=== PATIENT | female | born 1975 | race Caucasian/White ===

== ENCOUNTER → 2018-02-18 10:53 | Outpatient (CLI) | payer OTHER, SELFPAY ==
--- NOTE | 2018-02-20 19:35 | LEAS_ITS ---
Arterial Study - Arterial Study Arterial Study: This is a 42-year-old female who presents with paresthesias in her lower extremities, and suspected peripheral arterial occlusive disease. She is brought to the noninvasive vascular laboratory at this time for the purpose of bilateral noninvasive lower extremity arterial assessment. Doppler signal assessment was used to evaluate the pulses at ankle level bilaterally. The posterior tibial and dorsalis pedis pulses were triphasic bilaterally. Segmental limb pressures were obtained bilaterally. The right ankle pressure, as determined by posterior tibial pulse, was measured at 194 mmHg. The right ankle pressure, as determined by dorsalis pedis pulse, was measured at 181 mmHg. The right digital pressure was measured at 126 mmHg. The left ankle pressure, as determined by posterior tibial pulse, was measured at 192 mmHg. The left ankle pressure, as determined by dorsalis pedis pulse, was measured at 173 mmHg. The left digital pressure was measured at 147 mmHg. Pulse?volume recordings were obtained at ankle and digital levels bilaterally. Waveform amplitudes appeared to be satisfactory bilaterally. Resting ankle?brachial indices were calculated bilaterally. The resting right ankle?brachial index was calculated to be 1.26. The resting left ankle?brachial index was calculated to be 1.25. Digital?brachial indices were calculated bilaterally. The right digital- brachial index was calculated to be 0.82. The left digital-brachial index was calculated to be 0.95. Impression: Based upon the findings of this resting noninvasive lower extremity arterial study, there is no evidence of significant arterial occlusive disease in the lower extremities bilaterally. Triphasic waveforms are noted at ankle level bilaterally. Resting ankle?brachial indices are bilaterally normal. Digital-brachial indices are also normal bilaterally. In summary, this represents a normal resting noninvasive lower extremity arterial study bilaterally.
== END ==
PROVIDERS: Family Provider Family Medicine; PCP Family Medicine; Referring Provider Podiatrist Foot & Ankle Surgery; Visit Provider Podiatrist Foot & Ankle Surgery
DX: I73.9 Peripheral vascular disease, unspecified (principal)
CPT/HCPCS: 93922

== ENCOUNTER → 2018-06-11 10:56 | Outpatient (CLI) | payer OTHER, SELFPAY ==
[2017-06-11 09:08] VITALS: BMI 35.3
[2018-06-11 12:23] LABS: Free T3 4.2 pg/mL (2.18-3.98); T4 Free Direct 0.89 ng/dL (0.76-1.46); Thyroid Stim Hormone (TSH) 1.44 uIU/mL (0.358-3.74)
[2018-06-14 12:31] LABS: T3 Reverse 14.8 ng/dL (9.2-24.1)
== END ==
PROVIDERS: Family Provider Family Medicine; PCP Family Medicine
DX: E03.9 Hypothyroidism, unspecified (principal); Z51.81 Encounter for therapeutic drug level monitoring
CPT/HCPCS: 36415; 84439; 84443; 84481; 84482

== ENCOUNTER → 2018-10-22 | Outpatient (CLI) | payer OTHER, SELFPAY ==
[2017-06-11 09:08] VITALS: BMI 35.3
[2018-10-22 10:32] LABS: Absolute Lymphocyte Count 1.73 X10^3/ul (0.83-4.51); Absolute Neutrophil Count 3.4 X10^3/uL (2.0-7.7); Basophil# 0.01 X10^3/uL; Basophil% 0.2 % (0-1); Eosinophil# 0.05 X10^3/uL; Eosinophils% 0.9 % (0-5); Hematocrit 41.9 % (37-47); Hemoglobin 13.6 g/dl (12.0-15.0); Lymphocyte # 1.73 X10^3/ul (4.0); Lymphocyte % 31.2 % (19-41); Mean Corp Hgb Conc 32.5 g/gl (32-36); Mean Corpuscular Hgb 29.5 pg (27.0-32.0); Mean Corpuscular Volume 90.9 fL (81-99); Mean Platelet Vol. 9.8 fl (6.2-12.0); Monocyte# 0.37 X10^3/uL; Monocyte% 6.7 % (0-10); Neutrophil # 3.38 X10^3/uL (2.7-7.7); Neutrophil % 60.8 % (47-70); Platelet Count 215 K/mm3 (150-450); RBC Distribution Width CV 14.6 % (11.6-14.6); RBC Distribution Width SD 48.5 fl (35.1-43.9); Red Blood Count 4.61 M/mm3 (4.2-5.4); White Blood Count 5.6 K/mm3 (4.4-11.0)
[2018-10-22 10:35] LABS: POSITIVE COUNT NO; POSITIVE DIFFERENTIAL NO; POSITIVE MORPHOLOGY NO
[2018-10-22 10:56] LABS: ALB/GLOB Ratio 0.9 RATIO (0.9-2.4); AST(SGOT) 19 U/L (15-37); Alanine Aminotransfer ALT/SGPT 81 U/L (13-56); Albumin, Serum 3.4 g/dL (3.2-5.0); Alkaline Phosphatase 144 U/L (45-117); Anion Gap 8 (5-15); BUN 10 mg/dL (7-18); BUN/Creat Ratio 14.1 RATIO (10-20); Calcium,Total 8.7 mg/dL (8.5-10.1); Chloride 105 mmol/L (98-107); Creatinine, Serum 0.71 mg/dL (0.55-1.02); EST Glomerular Filtration Rate 95 mL/min (>60); Est Glom Filt Rate - Afr Amer 115 mL/min (>60); Globulin 3.8 g/dL (2.2-4.2); Glucose 98 mg/dL (74-106); Potassium 3.9 mmol/L (3.5-5.1); Protein, Total 7.2 g/dL (6.4-8.2); Sodium Level 142 mmol/L (136-145)
== END | disposition home or self-care (01) ==
LOC: LAB 09:49
PROVIDERS: Family Provider Family Medicine; PCP Family Medicine
DX: R53.83 Other fatigue (principal); Z79.2 Long term (current) use of antibiotics
CPT/HCPCS: 36415; 80053; 82533; 85025

== ENCOUNTER 2019-05-21 18:46 | Emergency (ER) | payer OTHER, SELFPAY ==
[2019-05-21 18:48] VITALS: BP 134/83; PULSE 91; RESP 22; TEMP 36.6; O2SAT 100; BMI 34.1
[2019-05-21 18:52] VITALS: PULSE 104; O2SAT 100
[2019-05-21 19:30] LABS: Absolute Lymphocyte Count 2.68 X10^3/uL (0.83-4.51); Absolute Neutrophil Count 7.7 X10^3/uL (2.0-7.7); Basophil# 0.08 X10^3/uL; Basophil% 0.7 % (0-1); Eosinophils% 2.5 % (0-5); Hemoglobin 15.4 g/dL (12.0-15.0); Lymphocyte # 2.68 X10^3/ul (4.0); Lymphocyte % 22.8 % (19-41); Mean Corp Hgb Conc 32.8 g/dL (32-36); Mean Corpuscular Hgb 28.7 pg (27.0-32.0); Mean Corpuscular Volume 87.5 fL (81-99); Mean Platelet Vol. 9.6 fl (6.2-12.0); Monocyte# 0.94 X10^3/uL; NRBC Flagged by Analyzer 0 % (0-5); Neutrophil # 7.72 X10^3/uL (2.7-7.7); Neutrophil % 65.5 % (47-70); Platelet Count 373 K/mm3 (150-450); RBC Distribution Width CV 13.3 % (11.6-14.6); RBC Distribution Width SD 42.4 fl (35.1-43.9); Red Blood Count 5.37 M/mm3 (4.2-5.4); White Blood Count 11.8 K/mm3 (4.4-11.0)
[2019-05-21] MEDS: 0.9% Normal Saline 1,000 ML 1000 ML IV (19:30)
[2019-05-21 19:40] LABS: Anion Gap 8 (5-15); BUN 7 mg/dL (7-18); BUN/Creat Ratio 7.3 RATIO (10-20); Calcium,Total 9.5 mg/dL (8.5-10.1); Chloride 103 mmol/L (98-107); Creatinine, Serum 0.95 mg/dL (0.55-1.02); EST Glomerular Filtration Rate 67 mL/min (>60); Est Glom Filt Rate - Afr Amer 81 mL/min (>60); Estimated Creatinine Clearance 69.27 ml/min; Glucose 110 mg/dL (74-106); Potassium 3.4 mmol/L (3.5-5.1); Sodium Level 137 mmol/L (136-145)
--- NOTE | 2019-05-21 19:45 | RAD_ITS ---
STUDY: X-RAY CHEST REASON FOR EXAM: Female, 44 years old. Cough with shortness of breath. TECHNIQUE: PA and lateral views of the chest. COMPARISON: May 05, 2013. FINDINGS: The lungs are clear and expanded. There is no demonstrated pleural abnormality. Normal size heart. Normal mediastinum and roger. Normal visualized pulmonary arteries. Normal visualized aortic arch and descending thoracic aorta. Normal visualized thoracic spine. Normal visualized ribs, clavicles, and shoulders. There is no demonstrated abnormality of the visualized soft tissue structures of the upper abdomen. RAD/Chest PA and Lateral IMPRESSION: No acute cardiopulmonary disease or interval change. Electronically Signed: Beau Delacruz DO at 20:00 EST Tel [phone], Service support ,
--- NOTE | 2019-05-21 19:51 | ED.VIS.GEN ---
History of Present Illness Chief Complaint: Shortness of Breath Informant: Patient Onset: Weeks - Onset of illness 3 weeks ago. Context: Sudden Onset - Reported sudden onset of difficulty breathing and reason patient presents today Timing: Continuous Quality: Upper respiratory symptoms Location: Respiratory Current Severity: Mild Maximum Severity: Moderate Worsened by: Nothing Relieved by: Nothing Associated Symptoms: Viral upper respiratory symptoms Narrative: She presents with difficulty breathing. This occurred abruptly and reason she presented to the emergency department. She was seen at urgent care earlier today and prescribed antibiotic for presumed sinus infection. Patient denies headache. Patient does complain of head pressure. She does report congestion, slight change in voice and sore throat. She does have a cough. There is no history of PE or DVT. There is no risk factors for either. She denies leg pain, swelling discoloration. She denies pleuritic pain. She denies GI symptoms. She informed that she was diagnosed with Lyme's disease 3 years ago and still has Lyme's disease. She is seen in [facility] in [place]. - Past Medical History (1) Lyme disease Status: Acute (2) Fatigue Status: Acute Past Medical History - Allergies and Home Meds Allergies/Adverse Reactions: Allergies No Known Allergies Allergy (Verified 09/24/13 11:19) Primary Care Physician: Jane Church [Primary Care Provider] - Surgical History: noncontributory Lives: Spouse/ Significant Other Smoking Status: Never smoker Drugs: None Review of Systems General: Reports: Malaise. Denies: Chills, Fever, Subjective, Sweats Eyes: Denies: Visual changes - bilaterally, Blurred Vision - bilaterally, Diplopia ENT: Reports: Rhinorrhea, Sore throat. Denies: Bilateral ear pain Cardiovascular: Denies: Chest pain, Palpitations Respiratory: Reports: Dyspnea, Cough, Sputum. Denies: Dyspnea on exertion, Orthopnea, Paroxysmal nocturnal dyspnea Gastrointestinal: Denies: Abdominal pain, Nausea, Vomiting, Diarrhea, Melena, Hematochezia Genitourinary: Denies: Dysuria, Hematuria, Frequency Musculoskeletal: Denies: Myalgias, Arthralgias, Neck pain, Back pain, Swelling, Extremity Pain, -, - Skin: Denies: Rash Neurological: Reports: Weakness. Denies: Headache, Parasthesia Hematologic: Denies: Easy bruising, Easy bleeding Allergy: Denies: Uticaria, Swelling of the mouth Physical Exam Vital Signs/Narrative: Vital Signs Temp Pulse Resp BP Pulse Ox 05/21/19 18:52 104 H 05/21/19 18:48 97.8 F 91 22 H 134/83 H 100 Inital Vital Signs reviewed: Yes General: Well nourished, Well developed, No Acute Distress Head: Normocephalic, Atraumatic Eyes: Perrl, EOMI. Negative for: Pale conjunctiva, Scleral icterus ENT: Moist mucous membranes, No rhinorrhea, TM's clear. Negative for: Sinus tenderness Neck: Supple, Nontender, No lymphadenopathy, No JVD Cardiovascular: Regular rate, Regular rhythm, No murmurs, Normal S1, Normal S2 Respiratory: No distress, CTA bilaterally, Chest nontender Abdomen: Soft, Nontender, Nondistended, Normal bowel sounds Back: Nontender, Normal Inspection Extremities: Nontender, No edema Skin: Normal color, No rash, No Trauma. Negative for: Cyanosis, Diaphoresis, Jaundice Neurological: Alert, Oriented x3, Cranial nerves II-XII grossly intact, Normal Strength, Normal Sensation, Normal DTR - There is no clonus or Babinski sign. Psychological: Depressed Diagnostic/Tx/Re-eval Chest X-Ray - ED: 2 View, Read by ED Physician, Normal, Heart, Lungs, Mediastinum, Bony Structures, No Acute Disease 05/21/19 19:45 Chest PA and Lateral [RAD] Stat Laboratory Results 05/21/19 05/21/19 19:06 19:06 WBC 11.8 H RBC 5.37 Hgb 15.4 H Hct 47.0 MCV 87.5 MCH 28.7 MCHC 32.8 RDW Std Deviation 42.4 RDW Coeff of Geo 13.3 Plt Count 373 MPV 9.6 Immature Gran % (Auto) 0.500 Neut % (Auto) 65.5 Lymph % (Auto) 22.8 [place] % (Auto) 8.0 Eos % (Auto) 2.5 Baso % (Auto) 0.7 Absolute Neuts (auto) 7.7 Absolute Lymphs (auto) 2.68 Nucleated RBC % 0 Sodium 137 Potassium 3.4 L Chloride 103 Carbon Dioxide 26.0 Anion Gap 8 BUN 7 Creatinine 0.95 Estim Creat Clear Calc 69.27 Est GFR (MDRD) Af Amer 81 Est GFR (MDRD) Non-Af 67 BUN/Creatinine Ratio 7.3 L Glucose 110 H Calcium 9.5 - Medical Decision Making Resents with viral upper respiratory type symptoms. Because she has had symptoms for 3 weeks and complains of cough chest x-ray was obtained. The chest x-ray reveals no acute abnormality. Blood work reveals slight elevation white count which is nonspecific and can be result of viral infection. Since patient is not hypoxic, febrile or tachycardic plan is to discharge to home to follow-up with primary care physician Dr. Jane Braden. Patient is PERC negative. Patient was informed at 1999 that her work-up was unremarkable. She was told this in all likelihood is a viral infection. ED Disposition - Plan for ED Patient: Disposition: Home or Assisted Living Diagnosis: Upper respiratory infection with cough and congestion Instructions: BRONCHITIS, No Antibiotic (Adult) Referrals: Jane Church [Primary Care Provider] - 1 Week if not improving
[2019-05-21 20:10] VITALS: BP 128/74; PULSE 81; RESP 22; O2SAT 97
--- NOTE | 2019-05-21 20:11 | ED.RN ---
THIS NURSE REVIEWED D/C INSTRUCTIONS WITH PT. PT VERBALIZED UNDERSTANDING OF INSTRUCTIONS. IV D/C. IV CATHETER INTACT. PT TOLERATED WELL. PT DENIES FURTHER NEEDS OR QUESTIONS AT THIS TIME
== END 2019-05-21 20:12 | disposition home or self-care (01) ==
PROVIDERS: Emergency Provider Emergency Medicine; PCP Family Medicine
DX: J06.9 Acute upper respiratory infection, unspecified (principal); A69.20 Lyme disease, unspecified
CPT/HCPCS: 71046; 80048; 85025; 87804; 96360; 99284; J7030; A4216

== ENCOUNTER 2019-08-05 14:18 | Outpatient (RCR) | payer OTHER, SELFPAY ==
[2019-08-05 15:53] LABS: ALB/GLOB Ratio 0.9 RATIO (0.9-2.4); AST(SGOT) 49 U/L (15-37); Alanine Aminotransfer ALT/SGPT 84 U/L (13-56); Albumin, Serum 3.5 g/dL (3.2-5.0); Alkaline Phosphatase 121 U/L (45-117); Anion Gap 3 (5-15); BUN 9 mg/dL (7-18); BUN/Creat Ratio 11.7 RATIO (10-20); Calcium,Total 9.2 mg/dL (8.5-10.1); Chloride 107 mmol/L (98-107); Creatinine, Serum 0.77 mg/dL (0.55-1.02); EST Glomerular Filtration Rate 85 mL/min (>60); Est Glom Filt Rate - Afr Amer 103 mL/min (>60); Globulin 3.8 g/dL (2.2-4.2); Glucose 75 mg/dL (74-106); Potassium 3.7 mmol/L (3.5-5.1); Protein, Total 7.3 g/dL (6.4-8.2); Sodium Level 140 mmol/L (136-145)
== END 2019-08-21 18:00 | disposition home or self-care (01) ==
LOC: LAB 14:18
PROVIDERS: PCP Family Medicine
DX: R53.83 Other fatigue (principal); Z51.81 Encounter for therapeutic drug level monitoring
CPT/HCPCS: 36415; 80053

== ENCOUNTER 2019-09-05 09:56 | Outpatient (RCR) | payer OTHER, SELFPAY ==
[2019-09-05 11:34] LABS: ALB/GLOB Ratio 0.8 RATIO (0.9-2.4); AST(SGOT) 30 U/L (15-37); Alanine Aminotransfer ALT/SGPT 58 U/L (13-56); Albumin, Serum 3.2 g/dL (3.2-5.0); Alkaline Phosphatase 111 U/L (45-117); Anion Gap 8 (5-15); BUN 12 mg/dL (7-18); BUN/Creat Ratio 13.9 RATIO (10-20); Calcium,Total 9.1 mg/dL (8.5-10.1); Chloride 108 mmol/L (98-107); Creatinine, Serum 0.86 mg/dL (0.55-1.02); EST Glomerular Filtration Rate 75 mL/min (>60); Est Glom Filt Rate - Afr Amer 91 mL/min (>60); Globulin 3.8 g/dL (2.2-4.2); Glucose 108 mg/dL (74-106); Potassium 3.7 mmol/L (3.5-5.1); Sodium Level 140 mmol/L (136-145)
== END 2019-09-05 18:00 | disposition home or self-care (01) ==
LOC: LAB 09:56
PROVIDERS: PCP Family Medicine
DX: R53.83 Other fatigue (principal); Z51.81 Encounter for therapeutic drug level monitoring
CPT/HCPCS: 36415; 80053

== ENCOUNTER → 2020-02-11 12:45 | Outpatient (CLI) | payer OTHER, SELFPAY ==
[2020-02-11 15:41] LABS: Absolute Lymphocyte Count 2.23 X10^3/uL (0.83-4.51); Absolute Neutrophil Count 4.3 X10^3/uL (2.0-7.7); Basophil# 0.03 X10^3/uL; Basophil% 0.4 % (0-1); Eosinophils% 1.4 % (0-5); Hematocrit 44.9 % (37-47); Hemoglobin 13.7 g/dL (12.0-15.0); Lymphocyte # 2.23 X10^3/ul (4.0); Lymphocyte % 30.6 % (19-41); Mean Corp Hgb Conc 30.5 g/dL (32-36); Mean Corpuscular Hgb 27.7 pg (27.0-32.0); Mean Corpuscular Volume 90.9 fL (81-99); Mean Platelet Vol. 10.5 fl (6.2-12.0); Monocyte# 0.56 X10^3/uL; Monocyte% 7.7 % (0-10); NRBC Flagged by Analyzer 0 % (0-5); Neutrophil # 4.34 X10^3/uL (2.7-7.7); Neutrophil % 59.5 % (47-70); Platelet Count 274 K/mm3 (150-450); RBC Distribution Width CV 13.3 % (11.6-14.6); RBC Distribution Width SD 44.4 fl (35.1-43.9); Red Blood Count 4.94 M/mm3 (4.2-5.4); White Blood Count 7.3 K/mm3 (4.4-11.0)
[2020-02-11 16:06] LABS: ALB/GLOB Ratio 0.9 RATIO (0.9-2.4); AST(SGOT) 21 U/L (15-37); Alanine Aminotransfer ALT/SGPT 37 U/L (13-56); Albumin, Serum 3.5 g/dL (3.2-5.0); Alkaline Phosphatase 62 U/L (45-117); Anion Gap 6 (5-15); BUN 9 mg/dL (7-18); BUN/Creat Ratio 12.7 RATIO (10-20); Calcium,Total 8.7 mg/dL (8.5-10.1); Chloride 104 mmol/L (98-107); Creatinine, Serum 0.71 mg/dL (0.55-1.02); EST Glomerular Filtration Rate 94 mL/min (>60); Est Glom Filt Rate - Afr Amer 114 mL/min (>60); Globulin 3.8 g/dL (2.2-4.2); Glucose 91 mg/dL (74-106); LDH 163 U/L (84-246); Potassium 3.9 mmol/L (3.5-5.1); Protein, Total 7.3 g/dL (6.4-8.2); Sodium Level 139 mmol/L (136-145)
== END ==
PROVIDERS: PCP Family Medicine; Referring Provider Family Medicine; Visit Provider Family Medicine
DX: M79.9 Soft tissue disorder, unspecified (principal); R53.83 Other fatigue; Z51.81 Encounter for therapeutic drug level monitoring; R51.9 Headache, unspecified
CPT/HCPCS: 36415; 80053; 83615; 85025

== ENCOUNTER → 2020-02-18 13:12 | Outpatient (CLI) | payer OTHER, SELFPAY ==
--- NOTE | 2020-02-18 13:17 | CT_ITS ---
STUDY: CT ABDOMEN AND PELVIS WITH CONTRAST REASON FOR EXAM: Female, 44 years old. ABDOMINAL DISCOMFORT AND RETROPERITONEAL LYMPHADENOPATHY. PRIOR GALLBLADDER AND UTERUS REMOVED BUT STILL HAS OVARIES RADIATION DOSAGE (If Supplied By Facility): CTDIvol = ( 17.59 ) mGy, DLP = ( 1160.13 ) mGycm TECHNIQUE: Transaxial images were obtained from the dome of the diaphragm to the symphysis pubis without oral contrast. Oral and amp; IV Readi-CAT and amp; 100mL Isovue-300 was administered. Sagittal and coronal images were reconstructed. Individualized dose optimization techniques were used for this CT. COMPARISON: 05/04/2017 FINDINGS: The visualized lung bases are unremarkable. The visualized portions of the heart are within normal limits. Normal liver. There are surgical clips in the gallbladder fossa consistent with a prior cholecystectomy. Normal spleen. Normal pancreas. Normal bilateral adrenal glands. Normal right kidney. Tiny 1 to 2 mm nonobstructing left lower pole calyceal stone. Small bilateral renal cysts. Normal visualized stomach. Normal small intestine. Normal colon. There is non-visualization of the appendix. Normal abdominal aorta. Normal inferior vena cava. Normal retroperitoneum. Normal urinary bladder. There is absence of the uterus consistent with a prior hysterectomy. Heterogeneous left ovary measures up to 3.2 cm. Normal abdominal wall. Normal osseous structures. CT/Abdomen/Pelvis WITH Contrast IMPRESSION: No acute process identified. Left ovary is heterogeneous in appearance which may be physiologic. Consider pelvic sonogram for further evaluation as clinically indicated. Electronically Signed: Hua Espino, at 20:44 EDT Tel , Service support ,
== END ==
PROVIDERS: PCP Family Medicine; Referring Provider Family Medicine; Visit Provider Family Medicine
DX: R59.0 Localized enlarged lymph nodes (principal); R10.9 Unspecified abdominal pain
CPT/HCPCS: 74177; Q9967

== ENCOUNTER → 2020-03-01 11:16 | Outpatient (CLI) | payer OTHER, SELFPAY ==
--- NOTE | 2020-03-01 11:17 | US_ITS ---
STUDY: ULTRASOUND OF THE FEMALE PELVIS - COMPLETE REASON FOR EXAM: Female, 45 years old. ENLARGED LEFT OVARY SEEN ON PREVIOUS CT, HX OF HYSTERECTOMY LMP: Patient is status post hysterectomy. TECHNIQUE: Transabdominal TECHNICAL QUALITY: Adequate. COMPARISON: None. FINDINGS: The patient is status post hysterectomy. The right ovary is visualized. The right ovary measures 3 cm x 1.6 cm x 2.3 cm. There is no right ovarian cyst or ovarian mass. There is no visualized right adnexal mass or complex lesion. There is normal arterial and normal venous vascularity. The left ovary is visualized. The left ovary measures 2.9 cm x 1.8 cm x 1.7 cm. There is no left ovarian cyst or ovarian mass. There is no visualized left adnexal mass or complex lesion. There is normal arterial and normal venous vascularity. There is no fluid in the cul-de-sac. The pre void volume of the bladder was 472 ml. The post void volume of the bladder was ml. US/Pelvic (Non ) IMPRESSION: Status post hysterectomy. Electronically Signed: Tim Swartz, at 13:31 EST , Service support ,
== END ==
PROVIDERS: PCP Family Medicine; Referring Provider Family Medicine; Visit Provider Family Medicine
DX: N83.8 Other noninflammatory disorders of ovary, fallopian tube and broad ligament (principal)
CPT/HCPCS: 76856

== ENCOUNTER → 2020-05-11 09:26 | Outpatient (CLI) | payer OTHER, SELFPAY ==
[2020-05-11 12:24] LABS: Hematocrit 42.5 % (37-47); Hemoglobin 13.6 g/dL (12.0-15.0); Mean Corpuscular Hgb 28.7 pg (27.0-32.0); Mean Corpuscular Volume 89.7 fL (81-99); Mean Platelet Vol. 10.1 fl (6.2-12.0); Platelet Count 295 K/mm3 (150-450); RBC Distribution Width CV 13.7 % (11.6-14.6); RBC Distribution Width SD 44.8 fl (35.1-43.9); Red Blood Count 4.74 M/mm3 (4.2-5.4); White Blood Count 7.3 K/mm3 (4.4-11.0)
[2020-05-11 12:47] LABS: ALB/GLOB Ratio 0.9 RATIO (0.9-2.4); AST(SGOT) 16 U/L (15-37); Alanine Aminotransfer ALT/SGPT 32 U/L (13-56); Albumin, Serum 3.4 g/dL (3.2-5.0); Alkaline Phosphatase 62 U/L (45-117); Anion Gap 5 (5-15); BUN 9 mg/dL (7-18); BUN/Creat Ratio 11.4 RATIO (10-20); Calcium,Total 8.7 mg/dL (8.5-10.1); Chloride 106 mmol/L (98-107); Creatinine, Serum 0.79 mg/dL (0.55-1.02); EST Glomerular Filtration Rate 83 mL/min (>60); Est Glom Filt Rate - Afr Amer 101 mL/min (>60); Free T3 3.1 pg/mL (2.18-3.98); Globulin 3.6 g/dL (2.2-4.2); Glucose 94 mg/dL (74-106); Sodium Level 140 mmol/L (136-145); T4 Free Direct 1.23 ng/dL (0.76-1.46); Thyroid Stim Hormone (TSH) 0.76 uIU/mL (0.358-3.74)
== END ==
PROVIDERS: PCP Family Medicine
DX: E03.9 Hypothyroidism, unspecified (principal); R53.83 Other fatigue
CPT/HCPCS: 36415; 80053; 84439; 84443; 84481; 85027

== ENCOUNTER → 2020-09-06 09:48 | Outpatient (CLI) | payer OTHER, SELFPAY ==
[2020-09-06 12:24] LABS: Absolute Lymphocyte Count 2.18 X10^3/uL (0.83-4.51); Absolute Neutrophil Count 5.5 X10^3/uL (2.0-7.7); Basophil# 0.04 X10^3/uL; Basophil% 0.5 % (0-1); Eosinophil# 0.19 X10^3/uL; Eosinophils% 2.2 % (0-5); Hematocrit 41.7 % (37-47); Hemoglobin 13.2 g/dL (12.0-15.0); Lymphocyte # 2.18 X10^3/ul (0.83-4.51); Lymphocyte % 25.6 % (19-41); Mean Corp Hgb Conc 31.7 g/dL (32-36); Mean Corpuscular Hgb 28.5 pg (27.0-32.0); Mean Corpuscular Volume 90.1 fL (81-99); Monocyte# 0.55 X10^3/uL; Monocyte% 6.5 % (0-10); NRBC Flagged by Analyzer 0 % (0-5); Neutrophil # 5.52 X10^3/uL (2.7-7.7); Neutrophil % 64.7 % (47-70); Platelet Count 338 K/mm3 (150-450); RBC Distribution Width CV 13.8 % (11.6-14.6); Red Blood Count 4.63 M/mm3 (4.2-5.4); White Blood Count 8.5 K/mm3 (4.4-11.0)
[2020-09-06 12:44] LABS: ALB/GLOB Ratio 0.9 RATIO (0.9-2.4); AST(SGOT) 17 U/L (15-37); Alanine Aminotransfer ALT/SGPT 43 U/L (13-56); Albumin, Serum 3.5 g/dL (3.2-5.0); Alkaline Phosphatase 97 U/L (45-117); Anion Gap 5 (5-15); BUN 12 mg/dL (7-18); BUN/Creat Ratio 17.2 RATIO (10-20); Calcium,Total 8.9 mg/dL (8.5-10.1); Chloride 105 mmol/L (98-107); EST Glomerular Filtration Rate 96 mL/min (>60); Est Glom Filt Rate - Afr Amer 116 mL/min (>60); Globulin 3.7 g/dL (2.2-4.2); Glucose 101 mg/dL (74-106); Protein, Total 7.2 g/dL (6.4-8.2); Sodium Level 137 mmol/L (136-145)
== END ==
PROVIDERS: PCP Family Medicine
DX: R53.83 Other fatigue (principal); Z79.2 Long term (current) use of antibiotics
CPT/HCPCS: 36415; 80053; 85025

== ENCOUNTER 2021-04-25 17:45 | Outpatient (CLI) | payer OTHER, SELFPAY | END 2021-04-25 23:59 | disposition short-term general hospital (02) | PROVIDERS: PCP Family Medicine; Referring Provider Family Medicine; Visit Provider Family Medicine | DX: U07.1 COVID-19 (principal) | CPT/HCPCS: 87635; U0003; U0005 ==

== ENCOUNTER 2021-04-29 11:32 | Outpatient (CLI) | payer OTHER, SELFPAY ==
[2021-04-29 11:45] VITALS: BP 139/92; PULSE 81; RESP 16; TEMP 36.5; O2SAT 100; BMI 35.5
[2021-04-29] MEDS: 0.9% Saline Lock 10 ML Syringe IV (11:48)
[2021-04-29 12:25] VITALS: BP 140/100; PULSE 75; RESP 16; TEMP 37.1; O2SAT 100
[2021-04-29 13:18] VITALS: BP 139/92; PULSE 81; RESP 16; TEMP 36.8; O2SAT 100
== END 2021-04-29 23:59 | disposition home or self-care (01) ==
LOC: MS3OUT 11:32 → MS3 11:33
PROVIDERS: PCP Family Medicine; Referring Provider Nurse Practitioner Adult Health; Visit Provider Nurse Practitioner Adult Health
DX: Z23 Encounter for immunization (principal); U07.1 COVID-19
CPT/HCPCS: J7050; M0243; A4216; Q0244

== ENCOUNTER 2021-05-10 06:32 | Outpatient (CLI) | payer OTHER, SELFPAY ==
--- NOTE | 2021-05-10 06:38 | ECHOCS_ITS ---
Reason For Study: Palpitations, Murmur Procedure This was a 2D Doppler, Color Flow transthoracic echocardiogram. The study was technically difficult. Contrast injection was performed. Exam performed in department. Left Ventricle Normal LV size. Left ventricular systolic function is normal. The estimated ejection fraction is 65 %. Transmitral doppler flow suggestive of impaired relaxation of left ventricle. No regional wall motion abnormalities noted. Right Ventricle Normal RV size. Normal systolic function. Atria Normal left atrium. Normal right atrium. No doppler evidence for ASD. Mitral Valve There is no mitral annular calcification. Normal mitral valve. Trivial mitral valve insufficiency. Tricuspid Valve Normal tricuspid valve. Trivial tricuspid valve insufficiency. Right ventricular systolic pressure estimated to be 16 mmHg. Aortic Valve Trisinus/trileaflet aortic valve. Normal aortic valve. Pulmonic Valve The pulmonic valve is not well visualized. Trivial pulmonic valve insufficiency. Great Vessels Normal sized aortic root. Pericardium/Pleural No pericardial effusion. Medication 22 gauge I.V. with prn adaptor inserted into left arm. Diluted definity 2ml given slow IV push to enhance endocardial definition. MMode/2D Measurements & Calculations LVIDd: 4.3 cm IVSd: 1.1 cm Ao root diam: 3.1 cm LVIDs: 2.2 cm LVPWd: 1.00 cm LA dimension: 3.5 cm FS: 49.2 % LAV(MOD-bp): 50.6 ml LA A4 area: 18.8 cm2 RA A4 area: 15.3 cm2 LAV(MOD-bp) Indexed: 24.5 ml/m2 LAV(MOD-sp2): 41.4 ml LAV(MOD-sp4): 57.9 ml Time Measurements MV dec time: 0.20 sec Doppler Measurements & Calculations MV E max erwin: 64.1 cm/sec Lat Peak E' Erwin: 6.5 cm/sec Med Peak E' Erwin: 6.5 cm/sec MV A max erwin: 84.6 cm/sec E/E' lat: 9.9 E/E' med: 9.8 MV E/A: 0.76 Ao V2 max: 102.2 cm/sec LV V1 max: 98.0 cm/sec PA V2 max: 101.1 cm/sec Ao max P.2 mmHg LV V1 max P.8 mmHg TR max erwin: 182.7 cm/sec TR max P.3 mmHg ECHO/Echo Complete W/ Contrast Interpretation Summary The study was technically difficult. Contrast injection was performed. Left ventricular systolic function is normal. The estimated ejection fraction is 65 %. Trivial mitral valve insufficiency. Trivial tricuspid valve insufficiency. Trivial pulmonic valve insufficiency. Right ventricular systolic pressure estimated to be 16 mmHg. Transmitral doppler flow suggestive of impaired relaxation of left ventricle Ordering Physician: Jane Church Referring Physician: Jane Church Performed By: Roscoe Reyes RCS
--- NOTE | 2021-05-10 13:24 | STRESSREP ---
Stress Test Report Date: 05-10-2021 Procedure: Exercise tolerance test/imaging study Indications: Chest pain; dyspnea on exertion; fatigue Consent: Per the patient Procedure: The patient exercised on a Christian protocol for 8 minutes and 5 seconds completing Stage II and 2 minutes and 5 seconds of Stage III achieving a peak heart rate of 176 bpm (102% predicted maximal heart rate) with a peak blood pressure 160/82 mmHg and a peak MET capacity of 10 METs. The baseline ECG demonstrated normal sinus rhythm. The peak exercise ECG demonstrated somatic/motion artifact with no obvious ECG changes. There were no cardiac dysrhythmias pretest, during exercise, or recovery. The functional capacity was considered good. There was complaint of chest discomfort pretest, during exercise, and recovery without significant change. The examination was discontinued secondary to dyspnea. Impression: 1. Technically adequate (percent predicted maximal heart rate greater than 85%) exercise tolerance test 2. Peak exercise ECG with somatic/motion artifact with no obvious ECG changes 3. There were no cardiac dysrhythmias pretest, during exercise, or recovery 4. Nuclear images pending Myocardial perfusion imaging study: Technique: The patient was injected with 13.9 mCi of technetium 99m Cardiolite and subsequently rest SPECT Cardiolite nuclear imaging was obtained in the horizontal long, vertical long, and short axis views. The patient exercised on a Christian protocol for 8 minutes and 5 seconds completing Stage II and 2 minutes and 5 seconds of Stage III achieving a peak heart rate of 176 bpm (102% predicted maximal heart rate) with a peak blood pressure 160/82 mmHg and a peak MET capacity of 10 METs. The patient was injected with 41.6 mCi of technetium 99m Cardiolite and subsequently stress SPECT Cardiolite nuclear imaging was obtained in the horizontal long, vertical long, and short axis views. A gated Cardiolite study at peak stress was obtained. Interpretation: Rest and stress SPECT Cardiolite nuclear imaging status post realignment, normalization, and attenuation correction, demonstrates the appearance of relative uniform tracer uptake and myocardial perfusion appearing within normal limits. There is end systolic thickening and brightening. The gated Cardiolite study demonstrates myocardial thickening and inward wall motion. The reported LVEF is 76%. Impression: 1. Rest and stress SPECT Cardiolite nuclear imaging demonstrate relative uniform tracer uptake and myocardial perfusion appearing within normal limits. 2. The gated Cardiolite study reports an LVEF of 76%. This note was generated with Dragon dictation software. It may contain incorrect words, spelling, and punctuation that were not noted in checking the note before signing.
== END 2021-05-10 23:59 | disposition short-term general hospital (02) ==
LOC: CVS 06:36
PROVIDERS: PCP Family Medicine; Referring Provider Family Medicine; Visit Provider Family Medicine
DX: R07.9 Chest pain, unspecified (principal); R06.00 Dyspnea, unspecified; R53.83 Other fatigue; R00.2 Palpitations; R01.1 Cardiac murmur, unspecified; Z82.49 Family history of ischemic heart disease and other diseases of the circulatory system
CPT/HCPCS: 78452; 93017; 93306; A9500; Q9957; A4216; C8929

== ENCOUNTER → 2021-06-29 11:35 | Outpatient (CLI) | payer OTHER, SELFPAY ==
[2021-06-29 15:34] LABS: T4 Free Direct 1.17 ng/dL (0.76-1.46); Thyroid Stim Hormone (TSH) 1.55 uIU/mL (0.358-3.74)
== END ==
PROVIDERS: PCP Family Medicine
DX: E03.9 Hypothyroidism, unspecified (principal)
CPT/HCPCS: 36415; 84439; 84443; 84481

== ENCOUNTER 2021-08-10 17:43 | Outpatient (CLI) | payer OTHER, SELFPAY ==
--- NOTE | 2021-08-10 17:48 | CT_ITS ---
STUDY: CT CHEST WITH T WITHOUT CONTRAST REASON FOR EXAM: Female, 46 years old. LUNG NODULE RADIATION DOSAGE (If Supplied By Facility): CTDIvol = ( 15.76 ) mGy, DLP = ( 1121.02 ) mGycm TECHNIQUE: Transaxial imaging was performed pre-and post contrast administration of ISOVUE 300 100 ML. Individualized dose optimization techniques were used for this CT. COMPARISON: None. FINDINGS: LUNGS: No consolidation. No pulmonary nodule identified. PLEURA: No pleural effusion. No pneumothorax. MEDIASTINUM: Unremarkable. HEART: Not enlarged. AORTA: Normal caliber. UPPER ABDOMEN: No acute abnormalities. BONES/SOFT TISSUES: No acute abnormalities. OTHER: Prominent axillary lymph nodes bilaterally.. CT/Chest W/WO Contrast IMPRESSION: No pulmonary nodule identified. Prominent axillary lymph nodes nonspecific. Electronically Signed: Sujata Morris MD at 4:24 EDT ,
== END 2021-08-10 23:59 | disposition home or self-care (01) ==
LOC: CT 17:44
PROVIDERS: PCP Family Medicine; Visit Provider Family Medicine
DX: R91.1 Solitary pulmonary nodule (principal)
CPT/HCPCS: 71270; Q9967

== ENCOUNTER → 2022-03-13 | Outpatient (CLI) | payer OTHER, SELFPAY ==
[2022-03-13 13:43] LABS: D-Dimer Quantitative (DVT/PE) 0.84 FEU/ug/m (0.27-0.49)
== END | disposition home or self-care (01) ==
PROVIDERS: PCP Family Medicine
DX: U09.9 Post COVID-19 condition, unspecified (principal); R79.1 Abnormal coagulation profile
CPT/HCPCS: 36415; 85379

== ENCOUNTER → 2022-04-27 | Outpatient (CLI) | payer OTHER, SELFPAY ==
[2022-04-27 15:34] LABS: Hematocrit 41.8 % (37-47); Hemoglobin 13.2 g/dL (12.0-15.0); Mean Corp Hgb Conc 31.6 g/dL (32-36); Mean Corpuscular Hgb 28.6 pg (27.0-32.0); Mean Corpuscular Volume 90.7 fL (81-99); Mean Platelet Vol. 10.3 fl (6.2-12.0); Platelet Count 304 K/mm3 (150-450); RBC Distribution Width CV 13.7 % (11.6-14.6); RBC Distribution Width SD 45.7 fl (35.1-43.9); Red Blood Count 4.61 M/mm3 (4.2-5.4); White Blood Count 8.5 K/mm3 (4.4-11.0)
[2022-04-27 16:35] LABS: AST(SGOT) 19 U/L (15-37); Alanine Aminotransfer ALT/SGPT 42 U/L (13-56); Albumin, Serum 3.3 g/dL (3.2-5.0); Alkaline Phosphatase 75 U/L (45-117); Anion Gap 7 (5-15); BUN 11 mg/dL (7-18); Calcium,Total 8.8 mg/dL (8.5-10.1); Chloride 104 mmol/L (98-107); Creatinine, Serum 0.69 mg/dL (0.55-1.02); EST Glomerular Filtration Rate 97 mL/min (>60); Est Glom Filt Rate - Afr Amer 117 mL/min (>60); Globulin 3.3 g/dL (2.2-4.2); Glucose 92 mg/dL (74-106); Potassium 4.1 mmol/L (3.5-5.1); Protein, Total 6.6 g/dL (6.4-8.2); Sodium Level 140 mmol/L (136-145); T4 Free Direct 1.22 ng/dL (0.76-1.46); Thyroid Stim Hormone (TSH) 0.76 uIU/mL (0.358-3.74)
[2022-05-02 13:07] LABS: Red Blood Cell Count Test/G6PD 4.72 x10E6/uL (3.77-5.28)
[2022-05-02 16:39] LABS: Arsenic 7245 3 ug/L (0-9); G6PD Quant Test 273 (127-427); Lead, Blood < 1.0 ug/dL (0.0-3.4); Mercury, Blood 85324 < 1.0 ug/L (0.0-14.9)
== END | disposition home or self-care (01) ==
LOC: MTLAB 13:04
PROVIDERS: PCP Family Medicine
DX: E03.9 Hypothyroidism, unspecified (principal); R53.82 Chronic fatigue, unspecified
CPT/HCPCS: 36415; 80053; 82175; 82955; 83655; 83825; 84439; 84443; 84481; 85027

== ENCOUNTER → 2022-11-02 | Outpatient (CLI) | payer OTHER, SELFPAY ==
[2022-11-02 13:36] LABS: Erythrocyte Sedimentation Rate 8 mm/hr (0-30)
[2022-11-02 13:56] LABS: CPK Total, Creatine Kinase 93 U/L (26-192); CRP < 2.90 mg/L (0.0-3.0); Rheumatoid Factor < 10.0 IU/mL (<15)
[2022-11-04 12:08] LABS: CCP IgG Antibodies 4 units (0-19)
== END | disposition home or self-care (01) ==
LOC: LAB 12:39
PROVIDERS: PCP Family Medicine
DX: M79.10 Myalgia, unspecified site (principal); M25.50 Pain in unspecified joint; R53.83 Other fatigue
CPT/HCPCS: 82550; 85652; 86038; 86140; 86200; 86431

== ENCOUNTER → 2022-11-29 | Outpatient (CLI) | payer OTHER, SELFPAY ==
--- NOTE | 2022-11-29 13:26 | BI_ITS ---
MAMMOGRAPHY - BILATERAL SCREENING REASON FOR EXAM: Female, 47 years old. Routine annual screening examination. PERTINENT HISTORY: Mother with breast cancer. Aunt with breast cancer. TECHNIQUE: Digital bilateral breast michael (3D mammographic acquisition) in the CC and MLO projections. 2-D mediolateral oblique (MLO) and craniocaudad (CC) views of both breasts were obtained. CAD: Full Field Digital Mammography with Computer Added Detection was performed. COMPARISON: Comparison is made with prior outside examination of May 30, 2013. FINDINGS: Breast Composition: There are scattered areas of fibroglandular density. There are no dominant masses or suspicious calcifications. No other significant abnormalities are identified. There has been no significant change since the prior study. BI/SCRN MAMM (CAD)W/MICHAEL BILAT IMPRESSION: Stable bilateral screening mammogram. Yearly follow-up mammogram recommended. (A) ASSESSMENT CATEGORY: BIRADS Category 1: Negative. A letter regarding these results will be sent to the patient by the facility within 30 days. Approximately 10% of breast cancers are not detected by mammography. A normal mammogram should not delay biopsy of a clinically suspicious abnormality. [id number] Electronically Signed: Tim Swartz MD at 14:24 EDT ,
== END | disposition home or self-care (01) ==
PROVIDERS: PCP Family Medicine; Referring Provider Obstetrics & Gynecology; Visit Provider Obstetrics & Gynecology
DX: Z12.31 Encounter for screening mammogram for malignant neoplasm of breast (principal); Z80.3 Family history of malignant neoplasm of breast
CPT/HCPCS: 77063; 77067

== ENCOUNTER 2023-04-19 02:00 | Emergency (ER) | payer OTHER, SELFPAY ==
[2023-04-19 02:02] VITALS: BP 120/93; PULSE 69; RESP 17; TEMP 36.5; O2SAT 96; BMI 36.3
--- NOTE | 2023-04-19 02:15 | CT_ITS ---
STUDY: CT BRAIN WITHOUT CONTRAST REASON FOR EXAM: Female, 48 years old. Altered mental status RADIATION DOSAGE (If Supplied By Facility): CTDIvol = ( 44.99 ) mGy, DLP = ( 863.60 ) mGycm TECHNIQUE: Transaxial CT imaging of the brain was performed without administration of intravenous contrast material. Individualized dose optimization techniques were used for this CT. COMPARISON: No relevant priors. FINDINGS: Normal soft tissue structures. Normal calvarium. Normal size ventricles and extra-axial spaces for the patient''s age. Normal white matter tracts of the cerebral hemispheres. Normal basal ganglia and thalami. Normal brainstem. Normal cerebellum. There is no intracranial hemorrhage. There are no findings of an acute ischemic infarction. Normal visualized paranasal sinuses. CT/Brain/Head without Contrast IMPRESSION: Normal unenhanced CT scan of the brain. Electronically Signed: Freida Robles MD at 3:50 EST ,
--- NOTE | 2023-04-19 02:15 | CT_ITS ---
STUDY: CT CERVICAL SPINE WITHOUT CONTRAST REASON FOR EXAM: Female, 48 years old. Trauma RADIATION DOSAGE (If Supplied By Facility): CTDIvol = ( 26.22 ) mGy, DLP = ( 1142.22 ) mGycm TECHNIQUE: High resolution transaxial imaging was performed without contrast material. Sagittal and coronal images were reconstructed. Individualized dose optimization techniques were used for this CT. COMPARISON: None FINDINGS: Normal craniovertebral junction. There are degenerative changes of the anterior atlantoaxial articulation. Normal odontoid process. There is straightening of the normal cervical lordosis. Normal vertebral bodies and posterior osseous elements. C2-3: Normal endplates. Normal disc height and morphology. Normal central canal and intervertebral neuroforamina. C3-4: Normal endplates. Normal disc height and morphology. Normal central canal and intervertebral neuroforamina. C4-5: There is visualized minimal spondylosis without neural foraminal narrowing or central stenosis. C5-6: There is disc space narrowing spondylosis without significant neural foramina narrowing or central stenosis. There is visualized motion artifact at this level. C6-7: There is disc space narrowing minimal spondylosis no significant neuroforaminal narrowing or central stenosis. C7-T1: Normal endplates. Normal disc height and morphology. Normal central canal and intervertebral neuroforamina. Normal visualized soft tissue structures. CT/Spine Cervical without Contras IMPRESSION: Degenerative changes of the cervical spine no visualized acute loss of height or alignment. Electronically Signed: Freida Robles MD at 4:04 EST ,
--- NOTE | 2023-04-19 02:15 | CT_ITS ---
STUDY: CT Lower Extremity without contrast injection right REASON FOR EXAM: Female, 48 years old. Ankle fracture RADIATION DOSAGE (If Supplied By Facility): CTDIvol = ( 15.35 ) mGy, DLP = ( 979.32 ) mGycm TECHNIQUE: Transaxial imaging of the pelvis and bilateral hips was performed with oral contrast, and without intravenous administration of contrast material. Individualized dose optimization techniques were used for this CT. COMPARISON: Right ankle x-ray, and tibia-fibula x-ray same day FINDINGS: There is a visualized fracture dislocation of the right tibia and fibula and ankle. There is a comminuted fracture of the mid shaft of the fibula with a medial displacement of the distal fragment. There is slight angulation. There is a subtle suggestion of possible tiny cortical injury of the distal fibula. However the lateral malleolus articulate appears to have been maintained. There is a uncovered appearance of the talus with the tibia medial to the talus with some foreshortening. There is a fracture of the posterior malleolus and the medial malleolus. The tibia is perched on the medial aspect of the talus with fragmentation. A subtle cortical injury of the talus is not entirely excluded. There is visualized soft tissue edema and soft tissue distortion. The medial lateral compartments appear to be intact. CT/Extremity Lower without Contra IMPRESSION: Fracture dislocation of the ankle with the posterior and medial malleolar fracture. Possible subtle cortical injury without displacement of the fibula which appears to be relatively maintained at the fibular talar joint space. There is a comminuted foreshortened fracture of the mid fibula. There is visualized soft tissue edema and distortion. Electronically Signed: Freida Robles MD at 4:35 EST ,
[2023-04-19 02:26] LABS: Absolute Neutrophil Count 5.9 X10^3/uL (2.0-7.7); Basophil# 0.05 X10^3/uL; Basophil% 0.5 % (0-1); Eosinophil# 0.16 X10^3/uL; Eosinophils% 1.6 % (0-5); Hematocrit 41.6 % (37-47); Hemoglobin 13.2 g/dL (12.0-15.0); Lymphocyte % 29.3 % (19-41); Mean Corp Hgb Conc 31.7 g/dL (32-36); Mean Corpuscular Volume 91.4 fL (81-99); Mean Platelet Vol. 9.6 fl (6.2-12.0); Monocyte# 0.83 X10^3/uL; Monocyte% 8.4 % (0-10); NRBC Flagged by Analyzer 0 % (0-5); Neutrophil % 59.7 % (47-70); Platelet Count 300 K/mm3 (150-450); RBC Distribution Width CV 13.4 % (11.6-14.6); RBC Distribution Width SD 45.1 fl (35.1-43.9); Red Blood Count 4.55 M/mm3 (4.2-5.4); White Blood Count 9.9 K/mm3 (4.4-11.0)
[2023-04-19] MEDS: 0.9% Normal Saline (1000mL) 1,000 ML 1000 ML IV (02:35)
[2023-04-19 02:37] LABS: Bacteria 0 SEEN /hpf (None Seen); Mucous, Urine 0 SEEN /hpf (<or=2+); Squamous Epithelial Cells - UA 0 SEEN /hpf (5-10)
[2023-04-19 02:38] LABS: Color, Urine Yellow (Yellow); Glucose, Dipstick Normal (Normal); Ketone-Dipstick 15 mg/dl (Negative); Leukocyte Esterase-Dipstick Negative /ul (Negative); Nitrite-Dipstick Negative (Negative); Occult Blood-Urine 10 /ul (Negative); Protein-Dipstick 30 mg/dl (Negative); Specific Gravity, Urine 1.025 (1.002-1.030); Urine Bilirubin Dipstick Negative (Negative); Urine Clarity Clear (Clear); Urine Urobilinogen 1 mg/dl (Normal)
[2023-04-19 02:45] LABS: ALB/GLOB Ratio 0.9 RATIO (0.9-2.4); AST(SGOT) 21 U/L (15-37); Alanine Aminotransfer ALT/SGPT 40 U/L (13-56); Albumin, Serum 3.2 g/dL (3.2-5.0); Alkaline Phosphatase 59 U/L (45-117); Anion Gap 6 (5-15); BUN 9 mg/dL (7-18); Calcium,Total 9.2 mg/dL (8.5-10.1); Chloride 106 mmol/L (98-107); Creatinine, Serum 0.82 mg/dL (0.55-1.02); EST Glomerular Filtration Rate 78 mL/min (>60); Est Glom Filt Rate - Afr Amer 95 mL/min (>60); Estimated Creatinine Clearance 76.84 ml/min; Globulin 3.4 g/dL (2.2-4.2); Glucose 131 mg/dL (74-106); Potassium 3.9 mmol/L (3.5-5.1); Protein, Total 6.6 g/dL (6.4-8.2); Sodium Level 139 mmol/L (136-145); Troponin-I HS 6 pg/mL (3.0-54.0)
[2023-04-19 02:48] LABS: Hyaline Cast 10-25 SEEN /lpf (0-5); Red Blood Cells-Urine 0-5 SEEN /hpf (0-5); White Blood Cells 0-5 SEEN /hpf (0-5)
--- NOTE | 2023-04-19 02:50 | EX.ED.GENINJ ---
HPI History of Present Illness Chief Complaint: Trauma Narrative Narrative: 48-year-old female presenting with altered mental status. Last known well unknown. Patient's states that she started on a new medication called MEME for what appears to be narcolepsy. Per patient was supposed to take this at bedtime which she assumes was about 10:00. She is the patient to take this again at another time throughout the night when she wakes up and he does not recall what that is. He has not looked at the medication. Does not have much medication or missing. Patient apparently took another dose he believes. He called his son to get the medication dose and apparently supposed to take 4.5 g of this twice at night. This is the first night the patient has taken this. Apparently she is not supposed take any sedatives or pain medications with this. [facility] Medical History BMI 35.0-35.9,adult Celiac disease HTN (hypertension) IBS (irritable bowel syndrome) Lyme disease Obesity Pre-diabetes Home Medications omega-3 fatty acids 1,000 mg capsule (Fish Oil Concentrate) 1,000 mg PO DAILY 09/24/13 [History Last Taken Unknown] liothyronine 5 mcg tablet 5 mcg PO DAILY 30 days ##30 06/11/17 [History Last Taken Unknown] levothyroxine 13 mcg capsule 13 mcg PO DAILY 04/29/21 [History Last Taken Unknown] naltrexone 50 mg tablet 50 mg PO DAILY 04/29/21 [History Last Taken Unknown] Allergy/AdvReac Type Severity Reaction Status Date / Time calcium oxybate [From Xywav] AdvReac Other Verified 04/19/23 03:19 magnesium oxybate AdvReac Other Verified 04/19/23 03:19 [From Xywav] potassium oxybate AdvReac Other Verified 04/19/23 03:19 [From Xywav] sodium oxybate [From Xywav] AdvReac Other Verified 04/19/23 03:19 Family History Other Diabetes Heart disease Surgical History H/O: hysterectomy History of section History of cholecystectomy Social History Smoking Status: Never smoker ROS ROS ED Review of Systems ROS Unobtainable: due to mental condition and due to mental status EXAM Physical Exam Const Vital Signs: 04/19/23 02:02 04/19/23 02:05 04/19/23 03:32 Temperature 97.7 F L Temperature Source Temporal Pulse Rate 69 67 Respiratory Rate 17 11 L Respiratory Effort Normal Respiratory Depth Normal Respiratory Pattern Normal Blood Pressure 120/93 H 157/87 H Blood Pressure Mean 102 110 Pulse Ox 96 Oxygen Delivery Method Room Air Room Air Oxygen Flow Rate (L/min) 04/19/23 03:49 04/19/23 04:00 Temperature Temperature Source Pulse Rate 65 66 Respiratory Rate 15 12 Respiratory Effort Respiratory Depth Respiratory Pattern Blood Pressure 145/88 H Blood Pressure Mean 107 Pulse Ox 97 99 Oxygen Delivery Method Room Air Nasal Cannula Oxygen Flow Rate (L/min) 2 Positive well nourished HEENT Reports TM's clear atraumatic Tympanic Membrane ED: Yes TM's clear Eyes PERRL and EOMs intact bilaterally Chest Wall inspection of chest normal Resp normal respiratory effort and clear to auscultation bilaterally Auscultation: Negative for rales, rhonchi or wheezes Cardio regular rhythm Rate: regular rate GI normal to inspection, nondistended, normoactive bowel sounds Extremity Extremity Narrative: Deformity to right ankle. There is a superficial abrasion overlying this. Neurovascular intact brisk refill to all 5 toes. Patient able to move her foot and wiggle her toes. She nods and states she can feel me palpating her foot. General Extremety ED: Yes deformity General Extremity: deformity Neuro oriented x3 and CN's II-XII intact bilaterally Sensorium / Orientation: alert Motor Exam: strength 5/5 throughout Psych mental status grossly normal Skin no rashes or lesions noted and no wounds MDM MDM MDM Narrative Medical decision making narrative: Patient presenting with altered mental status after trying a new medication called MEME. I called poison control and they states this is basically a medical grade GHB. I looked up the note on [employer] And the doctor who prescribed this was a Dr. Mika Jenkins at [facility]. He apparently has a sleep disorder specialist. Per his note the recommended dosing of this is 3 mg at bedtime and then 4 hours later for 7 nights then increase to 3.5 g by mouth bedtime and 4 hours later at night for 7 nights, then take 4 g by mouth and 4 hours later for 7 nights and then increase to 4.5 g by mouth and 4 hours later for 7 nights. Per the the recommended dosing for her was to start at 4.5 g at bedtime and 4 hours later. He believes she took the second dose at midnight which would have been too early. She is not answering questions. She responds to pain. Differential includes intracranial hemorrhage, skull fracture, C-spine fracture, drug overdose, ACS, dysrhythmia, pneumonia, UTI, ankle fracture, tibial fracture, foot fracture. CBC was obtained to assess white blood cell count, hemoglobin, platelets. CMP to assess liver function, renal function, electrolytes, glucose. Sensitivity troponin EKG to assess for ischemia/dysrhythmia. Chest x-ray to rule out pneumonia. CT brain and cervical spine were obtained. Right ankle x-ray was also obtained. Patient's states that she was complaining of pain in the knee and still can get a good examination on overseas unconscious I did obtain imaging of the right tibia all down to the right foot by CT scan. X-ray my interpretation is no acute process. Radiologist interprets this and agrees. EKG sinus rhythm with ventricular rate of 66 bpm without evidence of ischemic change or dysrhythmia. High-sensitivity troponin is 6. CT brain and cervical spine were negative. Right ankle x-ray and tib-fib x-ray on my interpretation show midshaft tibial fracture which is comminuted as well as trimalleolar fracture of the ankle. CT scan of this also shows similar findings. I discussed the case with the pharmacy to try to get the patient some pain medication given that she is on XYWAV which apparently are not supposed to give any medications with especially narcotic medications. Pharmacy was not able to give me any information on this other than that Toradol or Tylenol might be okay. Given this this was provided. Patient had closed reduction of her ankle dislocation fracture by myself without sedation. Although this was painful she tolerated this well. It was very difficult as the patient was not sedated and he did have a lot of pain. I was able to get this stabilized in a well-padded, hand fabricated Ortho-Glass splint placed by myself. Neurovascular intact afterwards. Patient requested that I stop once I got this in place. Actively this could use a little more Twan wrap however since the patient is comfortable I will leave this alone. I spoke with Dr. Diamond who recommended transfer to outside facility. I spoke with the transfer line who then transferred me to the critical care line for [facility]. After discussing his case with them I was also transferred over to the ER I spoke to Dr. Brice the ER at [facility] and discussed the case at length. At this point they did accept transfer ER to ER. Patient transferred in stable condition. Impression: 1. Altered mental status 2. Drug reaction 3. Right tibial fracture 4. Right ankle trimalleolar fracture 5. Fall Lab Data Attestation: I reviewed the patient's lab results. Labs: Laboratory Results - last 24 hr 04/19/23 04/19/23 02:10 02:33 WBC 9.9 RBC 4.55 Hgb 13.2 Hct 41.6 MCV 91.4 MCH 29.0 MCHC 31.7 L RDW Std Deviation 45.1 H RDW Coeff of Geo 13.4 Plt Count 300 MPV 9.6 Immature Gran % (Auto) 0.500 Neut % (Auto) 59.7 Lymph % (Auto) 29.3 [place] % (Auto) 8.4 Eos % (Auto) 1.6 Baso % (Auto) 0.5 Absolute Neuts (auto) 5.9 Absolute Lymphs (auto) 2.90 Nucleated RBC % 0 Sodium 139 Potassium 3.9 Chloride 106 Carbon Dioxide 27.0 Anion Gap 6 BUN 9 Creatinine 0.82 Estim Creat Clear Calc 76.84 Est GFR (MDRD) Af Amer 95 Est GFR (MDRD) Non-Af 78 BUN/Creatinine Ratio 11.0 Glucose 131 H Calcium 9.2 Total Bilirubin 0.20 AST 21 ALT 40 Alkaline Phosphatase 59 Troponin I High Sens 6 Total Protein 6.6 Albumin 3.2 Globulin 3.4 Albumin/Globulin Ratio 0.9 Urine Color Yellow Urine Clarity Clear Urine pH 6.0 Ur Specific [place] 1.025 Urine Protein 30 H Urine Glucose (UA) Normal Urine Ketones 15 H Urine Occult Blood 10 H Urine Nitrite Negative Urine Bilirubin Negative Urine Urobilinogen 1 H Ur Leukocyte Esterase Negative Urine RBC 0-5 SEEN Urine WBC 0-5 SEEN Ur Squamous Epith Cells 0 SEEN Urine Bacteria 0 SEEN Hyaline Casts 10-25 SEEN Urine Mucus 0 SEEN Radiography Diagnostic Testing: Clinical Impression(s) from Imaging Studies Brain CT 04/19/23 02:15 IMPRESSION: Normal unenhanced CT scan of the brain. Electronically Signed: Freida Robles MD at 3:50 EST Reading Location ID and State: [employer] , Service support , Cervical Spine CT 04/19/23 02:15 IMPRESSION: Degenerative changes of the cervical spine no visualized acute loss of height or alignment. Electronically Signed: Freida Robles MD at 4:04 EST Reading Location ID and State: [employer] , Service support , Lower Extremity CT 04/19/23 02:15 IMPRESSION: Fracture dislocation of the ankle with the posterior and medial malleolar fracture. Possible subtle cortical injury without displacement of the fibula which appears to be relatively maintained at the fibular talar joint space. There is a comminuted foreshortened fracture of the mid fibula. There is visualized soft tissue edema and distortion. Electronically Signed: Freida Robles MD at 4:35 EST Reading Location ID and State: [employer] , Service support , Ankle X-Ray 04/19/23 03:15 IMPRESSION: Findings suspicious for trimalleolar fracture dislocation of the right ankle. Partially visualized comminuted fracture of the mid shaft of the fibula posterior apex angulation. Electronically Signed: Freida Robles MD at 3:48 EST Reading Location ID and State: [employer] , Service support , Chest X-Ray 04/19/23 03:18 IMPRESSION: Normal x-ray examination of the chest. Electronically Signed: Freida Robles MD at 3:52 EST Reading Location ID and State: [employer] , Service support , Tibia/Fibula X-Ray 04/19/23 03:22 IMPRESSION: Mid shaft fibular fracture. Trimalleolar fracture suspected, dislocation of the right ankle. Electronically Signed: Freida Robles MD at 4:16 EST , Discharge Plan Triage Chief Complaint: Trauma ED Provider: Chris Ordaz Dx/Rx/DC Orders Prescriptions: No Action liothyronine 5 mcg tablet 5 mcg PO DAILY 30 Days Qty: 30 Patient Comments: omega-3 fatty acids [Fish Oil Concentrate] 1,000 MG capsule 1,000 mg PO DAILY Patient Comments: OMEGA-3 FA FORMULA 725.. DOSE supplement naltrexone 50 mg Tablet 50 mg PO DAILY levothyroxine 13 mcg Capsule 13 mcg PO DAILY Primary Care Provider: Jane Church Referrals: Jane Church DO [Primary Care Provider] -
--- NOTE | 2023-04-19 02:55 | ED.RN ---
Pt unresponsive, does not know home medications.
--- NOTE | 2023-04-19 03:15 | RAD_ITS ---
STUDY: X-RAY - RIGHT ANKLE REASON FOR EXAM: Female, 48 years old. Deformity TECHNIQUE: 2 view(s) of the ankle. COMPARISON: None. FINDINGS: There is a visualized disruption of the ankle mortise. There is a visualized uncovered appearance of the talus with the tibia medial to the talus with foreshortening. The fibula is lateral potentially slightly posterior to the talus. There is a minimally comminuted fracture of the medial malleolus lateral displacement of the distal fragment. There is a fracture of the posterior malleolus. There is a partially visualized fracture of the mid fibula. There is a limited visualization of the distal fibular with findings suspicious for fracture. There is soft tissue edema and deformity. RAD/Ankle min 3 Views IMPRESSION: Findings suspicious for trimalleolar fracture dislocation of the right ankle. Partially visualized comminuted fracture of the mid shaft of the fibula posterior apex angulation. Electronically Signed: Freida Robles MD at 3:48 EST ,
--- NOTE | 2023-04-19 03:18 | RAD_ITS ---
STUDY: X-RAY CHEST REASON FOR EXAM: Female, 48 years old. Altered mental status TECHNIQUE: Single AP portable view of the chest. COMPARISON: May 21, 2019 chest x-ray FINDINGS: The lungs are clear and expanded. There is no demonstrated pleural abnormality. Normal size heart. Normal mediastinum and roger. Normal visualized pulmonary arteries. Normal visualized aortic arch and descending thoracic aorta. Normal visualized thoracic spine. Normal visualized ribs, clavicles, and shoulders. There is no demonstrated abnormality of the visualized soft tissue structures of the upper abdomen. RAD/Chest 1 View (Portable) IMPRESSION: Normal x-ray examination of the chest. Electronically Signed: Freida Robles MD at 3:52 EST ,
--- NOTE | 2023-04-19 03:22 | RAD_ITS ---
STUDY: X-RAY - RIGHT TIBIA AND FIBULA REASON FOR EXAM: Female, 48 years old. TRAUMA RIGHT LEG TECHNIQUE: 3 view(s) of the tibia and fibula were obtained. COMPARISON: Right ankle x-ray April 19, 2023 FINDINGS: There is a comminuted foreshortened medial apex angulated fracture of the mid fibula. There is an uncovered appearance of the tibia with lateral displacement of the talus relative to the tibia. There is no visualized fracture of the distal fibula and medial malleolus. The lateral view suggesting posterior malleolus fracture. There is soft tissue edema and deformity. RAD/Tibia & Fibula 2 Views IMPRESSION: Mid shaft fibular fracture. Trimalleolar fracture suspected, dislocation of the right ankle. Electronically Signed: Freida Robles MD at 4:16 EST ,
[2023-04-19 03:32] VITALS: BP 157/87; PULSE 67; RESP 11
[2023-04-19 03:49] VITALS: PULSE 65; RESP 15; O2SAT 97
[2023-04-19 04:00] VITALS: BP 145/88; PULSE 66; RESP 12; O2SAT 99
--- OUTSIDE RECORDS SUMMARY | 2023-04-19 04:18 | XMS RPT_ITS | CCD ---
Author Name Unknown Address [address] [place] [address] Organization [facility] Care Team Providers Care Game Producer Name Role Phone Ranjit DO, Jane A Primary Care Provider [phone] Germain CULLEN, Rogelio Cai Unavailable [phone] MALYS, JANE A Primary Care Unavailable SLICK, MIKA N Referring Unavailable MALYS, JANE A Primary Care Unavailable SLICK, MIKA N Attending Unavailable MALYS, JANE A Primary Care Unavailable SLICK, MIKA N Attending Unavailable MALYS, JANE A Primary Care Unavailable SLICK, MIKA N Referring Unavailable MALYS, JANE A Primary Care Unavailable SLICK, MIKA N Referring Unavailable Malys DO, Jane A Primary Care Provider Germain CULLEN, Rogelio Cai Unavailable [phone] Medications Current Medications Medication Drug Class(es) Dates Sig (Normalized) Sig (Original) armodafinil 150 mg oral tablet (3 sources) Start: 05-10-2022 End: 06-10-2022 armodafinil (NUVIGIL) 150 mg tab Indications: Primary hypersomnia Take one tablet by mouth as directed or upon awakening. 30 tablet 2 05/10/2022 06/10/2022 Active Completed/Discontinued Medications Medication Drug Class(es) Dates Sig (Normalized) Sig (Original) cholestyramine resin 4000 mg powder for oral suspension (17 sources) Bile Acid Sequestrant Start: 11-04-2021 End: 05-10-2022 take 4 g by mouth twice daily at mealtime cholestyramine-suc ema (QUESTRAN) 4 gram powder Take 4 g by mouth twice daily with meals. 240 g 4 11/04/2021 05/10/2022 Discontinued (Course of therapy completed) Problems Active Problems Problem Classification Problem Date Documented Da te Episodic/Chronic Abdominal pain (1 source) Tenderness of right lower quadrant of abdomen; Translations: [Right lower quadrant rebound abdominal tenderness] Episodic Essential hypertension (20 sources) Essential hypertension; Translations: [Essential (primary) hypertension] Onset: 07-04-2010 06-09-2021 Chronic Miscellaneous mental health disorders (4 sources) Primary hypersomnia; Translations: [Primary hypersomnia] Onset: 04-26-2022 Chronic Nonspecific chest pain (3 sources) Chest discomfort; Translations: [Other chest pain] Episodic Nutritional deficiencies (20 sources) Vitamin D deficiency; Translations: [Vitamin D deficiency, unspecified] Onset: 11-05-2015 11-05-2015 Chronic Other gastrointestinal disorders (3 sources) Celiac disease; Translations: [Celiac disease] Chronic Other gastrointestinal disorders (20 sources) Irritable bowel syndrome with diarrhea; Translations: [Irritable bowel syndrome with diarrhea] Onset: 11-05-2015 Chronic Other gastrointestinal disorders (1 source) Abdominal bloating; Translations: [Abdominal distension (gaseous)] Episodic Other infections; including parasitic (4 sources) Late effects of other and unspecified infectious and parasitic diseases; 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 Other infections; including parasitic (2 sources) Post-viral disorder; 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 Other infections; including parasitic (1 source) Lyme disease; Translations: [Lyme disease, unspecified] Episodic Other infections; including parasitic (1 source) Personal history of other infectious and parasitic diseases; Translations: [History of COVID-19] Episodic Other lower respiratory disease (1 source) Nodule of lung; Translations: [Solitary pulmonary nodule] Episodic Other lower respiratory disease (5 sources) Dyspnea; Translations: [Shortness of breath] Episodic Other nutritional; endocrine; and metabolic disorders (20 sources) Obese class I; Translations: [Obesity, unspecified] Onset: 06-09-2021 06-09-2021 Chronic Other screening for suspected conditions (not mental disorders or infectious disease) (2 sources) Patient encounter status; Translations: [Encounter for screening for malignant neoplasm of colon] Episodic Residual codes; unclassified (20 sources) Obstructive sleep apnea syndrome; Translations: [Obstructive sleep apnea (adult) (pediatric)] Onset: 06-09-2021 Chronic Residual codes; unclassified (2 sources) 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; Translations: [Idiopathic hypersomnia with long sleep time] Chronic Residual codes; unclassified (1 source) Hypersomnia; Translations: [Hypersomnia, unspecified] 03-23-2023 Chronic Residual codes; unclassified (1 source) Immunization not carried out because of patient refusal; Translations: [Vaccination not carried out because of patient refusal] Episodic Past or Other Problems Problem Classification Problem Date Documented Date Episodic/Chronic Abdominal hernia (20 sources) Incisional hernia; Translations: [Incisional hernia without obstruction or gangrene] Onset: 07-06-19 11 07-05-2010 Episodic Biliary tract disease (20 sources) Biliary calculus; Translations: [Calculus of gallbladder with chronic cholecystitis without obstruction] Onset: 07-06-19 11 07-05-2010 Episodic Malaise and fatigue (20 sources) Fatigue; Translations: [Other fatigue] Onset: 04-04-20 16 Episodic Nutritional deficiencies (20 sources) Multiple vitamin deficiency disease; Translations: [Vitamin deficiency, unspecified] Onset: 11-05-19 16 11-05-2015 Episodic Other connective tissue disease (20 sources) Neuralgia; Translations: [Neuralgia and neuritis, unspecified] Onset: 07-06-19 11 07-05-2010 Episodic Other nervous system disorders (20 sources) Skin sensation disturbance; Translations: [Unspecified disturbances of skin sensation] Onset: 07-29-19 09 07-28-2008 Episodic Residual codes; unclassified (20 sources) Disturbance in sleep behavior; Translations: [Sleep disorder, unspecified] Onset: 11-05-19 16 11-05-2015 Episodic Residual codes; unclassified (20 sources) Homozygous methylenetetrahydrofolate reductase mutation; Translations: [Genetic susceptibility to other disease] Onset: 04-04-20 16 04-04-2016 Episodic Viral infection (20 sources) Disease caused by 2019-nCoV; Translations: [COVID-19] Onset: 06-09-19 22 06-09-2021 Episodic Results Test Name Value Interpretation Reference Range Facil ity Vital Signs Date Time Vital Sign Value Performing Clinician Magno kenney 01-06-2022 09:42-0400 Body height 167.6 cm Mika Jenkins MD Work Phone: [facility] 01-06-2022 09:42-0400 Body temperature 96.21 [degF] Mika Jenkins MD Work Phone: [facility] 01-06-2022 09:42-0400 Body weight 97.52 kg Mika Jenkins MD Work Phone: [facility] 01-06-2022 09:42-0400 Diastolic blood pressure 85 mm[Hg] Mika Jenkins MD Work Phone: [facility] 01-06-2022 09:42-0400 Heart rate 83 /min Mika Jenkins MD Work Phone: [facility] 01-06-2022 09:42-0400 Respiratory rate 20 /min Mika Jenkins MD Work Phone: [facility] 01-06-2022 09:42-0400 SaO2% (BldA) [Mass fraction] 100 % Mika Jenkins MD Work Phone: [facility] 01-06-2022 09:42-0400 Systolic blood pressure 147 mm[Hg] Mika Jenkins MD Work Phone: [facility] 11-30-2021 10:01-0400 Diastolic blood pressure 75 mm[Hg] Michelle Olivera MD Work Phone: [facility] 11-30-2021 10:01-0400 Heart rate 75 /min Michelle Olivera MD Work Phone: [facility] 11-30-2021 10:01-0400 Respiratory rate 18 /min Michelle Olivera MD Work Phone: [facility] 11-30-2021 10:01-0400 SaO2% (BldA) [Mass fraction] 100 % Michelle Olivera MD Work Phone: [facility] 11-30-2021 10:01-0400 Systolic blood pressure 139 mm[Hg] Michelle Olivera MD Work Phone: [facility] 11-30-2021 09:46-0400 Body temperature 98.01 [degF] Michelle Olivera MD Work Phone: [facility] 11-30-2021 08:42-0400 Body height 167.6 cm Michelle Olivera MD Work Phone: [facility] 11-30-2021 08:42-0400 Body weight 97.52 kg Michelle Olivera MD Work Phone: [facility] 11-04-2021 11:35-0400 Body height 167.6 cm Sarah Boogie MD Work Phone: [facility] 11-04-2021 11:35-0400 Body weight 99.34 kg Sarah Boogie MD Work Phone: [facility] 11-04-2021 11:35-0400 Diastolic blood pressure 94 mm[Hg] Sarah Boogie MD Work Phone: [facility] 11-04-2021 11:35-0400 Heart rate 88 /min Sarah Boogie MD Work Phone: [facility] 11-04-2021 11:35-0400 SaO2% (BldA) [Mass fraction] 99 % Sarah Boogie MD Work Phone: [facility] 11-04-2021 11:35-0400 Systolic blood pressure 144 mm[Hg] Sarah Boogie MD Work Phone: [facility] 11-04-2021 08:02-0400 Body height 168.9 cm Michelle Olivera MD Work Phone: [facility] 11-04-2021 08:02-0400 Body weight 98.88 kg Michelle Olivera MD Work Phone: [facility] 11-04-2021 08:02-0400 Diastolic blood pressure 64 mm[Hg] Michelle Olivera MD Work Phone: [facility] 11-04-2021 08:02-0400 Heart rate 75 /min Michelle Olivera MD Work Phone: [facility] 11-04-2021 [id number] Systolic blood pressure 112 mm[Hg] Michelle Olivera MD Work Phone: [facility] 10-13-2021 10:28-0400 Body height 168.9 cm Priscila Baloun INSOLE BUFFER.JUMPBASTING FACING BASTER Work Phone: [facility] 10-13-2021 10:28-0400 Body temperature 99.39 [degF] Priscila Baloun INSOLE BUFFER.JUMPBASTING FACING BASTER Work Phone: [facility] 10-13-2021 [id number] Body weight 98.57 kg Priscila Baloun INSOLE BUFFER.JUMPBASTING FACING BASTER Work Phone: [facility] 10-13-2021 10:28-0400 Diastolic blood pressure 82 mm[Hg] Priscila Baloun INSOLE BUFFER.JUMPBASTING FACING BASTER Work Phone: [facility] 10-13-2021 10:28-0400 Heart rate 94 /min Priscila Baloun INSOLE BUFFER.JUMPBASTING FACING BASTER Work Phone: [facility] 10-13-2021 10:28-0400 Respiratory rate 15 /min Priscila Baloun INSOLE BUFFER.JUMPBASTING FACING BASTER Work Phone: [facility] 10-13-2021 10:28-0400 SaO2% (BldA) [Mass fraction] 100 % Priscila Baloun INSOLE BUFFER.JUMPBASTING FACING BASTER Work Phone: [facility] 10-13-2021 10:28-0400 Systolic blood pressure 125 mm[Hg] Priscila Baloun INSOLE BUFFER.JUMPBASTING FACING BASTER Work Phone: [facility] Encounters Encounter Date Encounter Type Care Provider Facility Start: 04-02-2023 ambulatory Mika taylor MD Work Phone: Neurology Procedures Date Procedure Procedure Detail Performing Clinician Start: 01-05-2022 Adult depression screening assessment Mika Jenkins MD Work Phone: Start: 11-30-2021 Esophagogastroduodenoscopy transoral diagnostic Michelle Olivera MD Work Phone: Start: 11-30-2021 Colonoscopy flx dx w/collj spec when pfrmd Michelle Olivera MD Work Phone: Start: 11-30-2021 Colonoscopy Michelle Olivera MD Work Phone: Start: 11-18-2021 Ct thorax w/contrast material Sarah Boogie MD Work Phone: Start: 11-04-2021 Nitric oxide gas determination Sarah Boogie MD Work Phone: Start: 11-04-2021 Noninvasive ear/pulse oximetry multiple deter Sarah Boogie MD Work Phone: Start: 10-12-2021 Adult depression screening assessment Priscila Stout APRN.JUMPBASTING FACING BASTER Work Phone: Start: 05-30-2013 Mammography Priscila Stout APRN.JUMPBASTING FACING BASTER Work Phone: History of cholecystectomy Histo ry of cholecystectomy Michelle Olivera MD Work Phone: Plan of Treatment Date Care Activity Detail Author Start: 12-01-2031 Colonoscopy COLONOSCOPY [facility] Start: 12-01-2031 COLORECTAL CANCER SCREENING COLORECTAL CANCER SCREENING [facility] Start: 12-01-2031 Screening for malign ant neoplasm of colon [facility] Start: 10-13-2024 DIABETES SCREEN DIABETES SCREEN [facility] Start: 10-13-2024 Diabetes Screening Diabetes Screenin g [facility] Start: 2023 Shingrix Vaccine (1 of 2) Shingrix Vaccine (1 of 2) [facility] Start: 01-05-2023 Adult depression screening assessment DEPRESSION SCREENING [facility] Start: 12-22-2022 Influenza vaccination Influenza Vacc ine (#1) [facility] Start: 11-30-2022 Colonoscopy COLONOSCOPY [facility] Start: 11-30-2022 COLORECTAL CANCER SCREENING COLORECTAL CANCER SCREENING [facility] Start: 10-12-2022 Adult depression screening assessment DEPRESSION SCREENING [facility] Start: 04-23-2022 DEPRESSION ASSESSMENT DEPRESSION ASS ESSMENT [facility] Start: 01-06-2022 End: 03-08-2022 TOX SCREEN ROUT UR TOX SCREEN ROUT UR Lab Routine Primary hypersomnia Expected: 01/06/2022, Expires: 03/08/2022 [facility] Work Phone: Immunizations Immunization Date Immunization Notes Care Provider Carmina leger 03-13-2014 influenza virus vacc ine, unspecified formulation Mika Jenkins MD Work Phone: [facility] Payers Date Payer Category Payer Private Health Insurance [employer] A ETNA CHOICE POS II [id number] 2011-Present [phone] [address] [place] [address] POS [id number] 2011 Private Health Insurance [id number] 2011 Private Health Insurance [id number] Social History Date Type Detail Facility Start: 11-30-2021 Tobacco smoking stat [facility] Never smoked tobacco [facility] Work Phone: Start: 10-13-2021 End: 01-06-2022 Alcohol intake Current non-drinker of alcohol (finding) [facility] Start: 1975 Sex Assigned At Female C [facility] Start: 10-16-2021 End: 01-06-2022 Exposure to SARS-CoV-2 (event) Not sure [facility] Start: 11-30-2021 Tobacco use and exposure Smokeless tobacco non-user [facility] Start: 01-06-2022 End: 03-23-2023 History of Social function [facility] Start: 01-06-2022 End: 03-23-2023 Tobacco use panel [facility] Adult Depression Screening Assessment 2 [facility] Start: 06-07-2021 Gender identity Identifies as female gender (finding) [facility] Start: 06-07-2021 Sexual orientation Heterosexual (vish gillespie) [facility] Clinical Notes 11-05-2015 to 03-23-2023 Mika Jenkins MD - 03/23/2023 11:11 AM ESTTelephone Encounter - Alexia Rice RN - 07/20/2022 2:20 PM EDTTelephone Encounter - Priscila Dominique - 07/20/2022 11:09 AM EDTPatient Instructions Note Date & Type Note Facility 03-23-2023 Note HNO ID: [id number] Author: Mika Jenkins MD Service: ? Author Type: Physician Type: Progress Notes Filed: 03/23/2023 3:50 PM Note Text: [facility] Follow up/ Established patient visit I'm Dr. Mika Jenkins, I'm a licensed Sleep Medicine specialist. I want to confirm your location is in [place]: yes Virtual visits are a convenient way for us to meet for the first time, but there are some situations in which an in-person evaluation may be required at a later time. I want to check in to confirm your consent to be seen virtually today: yes I have communicated my name and active licensure. The patient's identity and physical location were verified at the time of this visit. Either the patient or their legal cash applications representative has been informed of the risks and benefits of -- and alternatives to -- treatment through a remote evaluation and consents to proceed with the evaluation remotely. Date of last visit : Visit date not found I have communicated my name and active licensure. The patient's identity and physical location were verified at the time of this visit. Either the patient or their legal cash applications representative has been informed of the risks and benefits of -- and alternatives to -- treatment through a remote evaluation and consents to proceed with the evaluation remotely. Interval history : Here for follow up for Primary Hypersomnia Mrs. Lund was using modafinil 200 mg up until December. She has been out since then. She was able to tell a slight difference in her energy level when she took that. She denies chest pain, pressure, palpitations, change in blood pressure, new headaches, weight loss, and insomnia. She is still struggling with waking up unrefreshed, and this is one of her main goals yet to be resolved. SLEEP HYGIENE QUESTIONS: Bedtime : 11-MN Wake up Time : 8-11 am Time it takes to fall sleep : < 20 minutes Activities in bed before falling asleep : None Number of times patient wakes up per night : 2 PATIENT-ENTERED QUESTIONNAIRE SLEEP SCORES Sleep Questions 03/23/2023 Reason for visit: Abnormal sleep/wake timing Average hours slept in 24 hours: 10 Accidents or near accidents due to drowsy drivin [place] Sleepiness Scale 01/05/2022 05/07/2022 03/23/2023 Score 18 (severe daytime sleepiness) 20 (severe daytime sleepiness) 14 (present daytime sleepiness) PROMIS CAT Sleep Disturbance 05/07/2022 07/11/2022 03/21/2023 PROMIS Sleep Disturbance T-Score 59 (mild) 46 (within normal limits) 55 (within normal limits) PROMIS Sleep Disturbance Percentile 18 % - 31 % Insomnia Severity Index 01/05/2022 05/07/2022 03/21/2023 Score 20 19 11 Restless Leg Syndrome 01/05/2022 05/07/2022 03/23/2023 Score 13 12 12 PHQ-9 07/11/2022 03/21/2023 03/23/2023 Score 15 10 10 PROMIS Global Health - (T-Scores - the mean of general population = 50. Five points is a clinically meaningful difference.) 07/11/2022 03/21/2023 03/23/2023 Physical T-Score 34.9 42.3 42.3 Mental T-Score 31.3 36.3 36.3 PMH, PSH, SH: No change SLEEP RELATED ROS Review of Systems ALLERGIES No Known Allergies CURRENT MEDICATIONS: modafinil (PROVIGIL) 200 mg tablet Take 1 tablet by mouth once daily for 90 days. modafinil (PROVIGIL) 200 mg tablet Take 1 tablet by mouth once daily for 90 days. IVERMECTIN ORAL Take 18 mg by mouth once daily. zinc levothyroxine (SYNTHROID) 100 mcg tablet Take 100 mcg by mouth every morning. naltrexone capsule 4.5 mg (CPD) Take 1 capsule by mouth once daily. liothyronine (CYTOMEL) 5 mcg tablet Take one tablet by mouth in AM on empty stomach G.I. Detox (PresentationTube) Activated charcoal - (empty stomach, 30min before eating (60-90 min away from supps) Start with 1 capsule and work up to 3 capsules a day One Collins (Pure Encapsulation) Take 2 capsules by mouth daily with food. Vitamin D3 5000 U (Pure Encapsulations) Take 1 capsule by mouth daily with food. Saccharomyces Boulardii (Klaire/Prothera) Take 1 capsule by mouth twice daily. Iron Chelate (Klaire/Prothera) Take 1 capsule by mouth daily with food. Melatonin-SR (Klaire/Prothera) 2mg 1 by mouth 30 minutes before bed Prior Hypersomnia/Narcolepsy Medications (20 years) Some values may be hidden. Unless noted otherwise, only the newest values recorded on each date are displayed. Hypersomnia/Narcolepsy Medications armodafinil (NUVIGIL) 150 mg tab Dose: Take one tablet by mouth as directed or upon awakening. Starting date: 05/10/2022 Ending date: 05/19/2022 (Discontinued) modafinil (PROVIGIL) 200 mg tablet Dose: 200 mg DAILY Starting date: 05/19/2022 Ending date: 03/23/2023 (Discontinued) modafinil (PROVIGIL) 200 mg tablet Dose: 200 mg DAILY Starting date: 05/31/2022 Ending date: 03/23/2023 (Discontinued) modafinil (PROVIGIL) 200 mg tablet Dose: 200 mg DAILY Starting date: 03/23/2023 Ending date: 06/21/2023 sodium,calcium,mag,pot oxybate (XYWAV) 0.5 gram/mL soln oral (more content not included)... [facility] 03-23-2023 History of Presen t illness Narrative Images from the original note were not included. [facility] Follow up/ Established patient visit I'm Dr. Mika Jenkins, I'm a licensed Sleep Medicine specialist. I want to confirm your location is in [place]: yes Virtual visits are a convenient way for us to meet for the first time, but there are some situations in which an in-person evaluation may be required at a later time. I want to check in to confirm your consent to be seen virtually today: yes I have communicated my name and active licensure. The patient's identity and physical location were verified at the time of this visit. Either the patient or their legal cash applications representative has been informed of the risks and benefits of -- and alternatives to -- treatment through a remote evaluation and consents to proceed with the evaluation remotely. Date of last visit : Visit date not found I have communicated my name and active licensure. The patient's identity and physical location were verified at the time of this visit. Either the patient or their legal cash applications representative has been informed of the risks and benefits of -- and alternatives to -- treatment through a remote evaluation and consents to proceed with the evaluation remotely. Interval history : Here for follow up for Primary Hypersomnia Mrs. Lund was using modafinil 200 mg up until December. She has been out since then. She was able to tell a slight difference in her energy level when she took that. She denies chest pain, pressure, palpitations, change in blood pressure, new headaches, weight loss, and insomnia. She is still struggling with waking up unrefreshed, and this is one of her main goals yet to be resolved. SLEEP HYGIENE QUESTIONS: Bedtime : 11-MN Wake up Time : 8-11 am Time it takes to fall sleep : < 20 minutes Activities in bed before falling asleep : None Number of times patient wakes up per night : 2 PATIENT-ENTERED QUESTIONNAIRE SLEEP SCORES Sleep Questions 03/23/2023 Reason for visit: Abnormal sleep/wake timing Average hours slept in 24 hours: 10 Accidents or near accidents due to drowsy drivin [place] Sleepiness Scale 01/05/2022 05/07/2022 03/23/2023 Score 18 (severe daytime sleepiness) 20 (severe daytime sleepiness) 14 (present daytime sleepiness) PROMIS CAT Sleep Disturbance 05/07/2022 07/11/2022 03/21/2023 PROMIS Sleep Disturbance T-Score 59 (mild) 46 (within normal limits) 55 (within normal limits) PROMIS Sleep Disturbance Percentile 18 % - 31 % Insomnia Severity Index 01/05/2022 05/07/2022 03/21/2023 Score 20 19 11 Restless Leg Syndrome 01/05/2022 05/07/2022 03/23/2023 Score 13 12 12 PHQ-9 07/11/2022 03/21/2023 03/23/2023 Score 15 10 10 PROMIS Global Health - (T-Scores - the mean of general population = 50. Five points is a clinically meaningful difference.) 07/11/2022 03/21/2023 03/23/2023 Physical T-Score 34.9 42.3 42.3 Mental T-Score 31.3 36.3 36.3 PMH, PSH, SH: No change SLEEP RELATED ROS Review of Systems ALLERGIES No Known Allergies CURRENT MEDICATIONS: modafinil (PROVIGIL) 200 mg tablet Take 1 tablet by mouth once daily for 90 days. modafinil (PROVIGIL) 200 mg tablet Take 1 tablet by mouth once daily for 90 days. IVERMECTIN ORAL Take 18 mg by mouth once daily. zinc levothyroxine (SYNTHROID) 100 mcg tablet Take 100 mcg by mouth every morning. naltrexone capsule 4.5 mg (CPD) Take 1 capsule by mouth once daily. liothyronine (CYTOMEL) 5 mcg tablet Take one tablet by mouth in AM on empty stomach G.I. Detox (PresentationTube) Activated charcoal - (empty stomach, 30min before eating (60-90 min away from supps) Start with 1 capsule and work up to 3 capsules a day One Collins (Pure Encapsulation) Take 2 capsules by mouth daily with food. Vitamin D3 5000 U (Pure Encapsulations) Take 1 capsule by mouth daily with food. Saccharomyces Boulardii (Klaire/Prothera) Take 1 capsule by mouth twice daily. Iron Chelate (Klaire/Prothera) Take 1 capsule by mouth daily with food. Melatonin-SR (Klaire/Prothera) 2mg 1 by mouth 30 minutes before bed Prior Hypersomnia/Narcolepsy Medications (20 years) Some values may be hidden. Unless noted otherwise, only the newest values recorded on each date are displayed. Hypersomnia/Narcolepsy Medications armodafinil (NUVIGIL) 150 mg tab Dose: Take one tablet by mouth as directed or upon awakening. Starting date: 05/10/2022 Ending date: 05/19/2022 (Discontinued) modafinil (PROVIGIL) 200 mg tablet Dose: 200 mg DAILY Starting date: 05/19/2022 Ending date: 03/23/2023 (Discontinued) modafinil (PROVIGIL) 200 mg tablet Dose: 200 mg DAILY Starting date: 05/31/2022 Ending date: 03/23/2023 (Discontinued) modafinil (PROVIGIL) 200 mg tablet Dose: 200 mg DAILY Starting date: 03/23/2023 Ending date: 06/21/2023 sodium,calcium,mag,pot oxybate (XYWAV) 0.5 gram/mL soln oral liquid Dose: Take 3 grams by mouth at bedtime and 4 hours later for 7 nights, then Take 3.5 grams by mouth at bedtime and 4 hours later for 7 nights, then Take 4 grams by mouth at bedtime and 4 hours later for 7 nights, then Take 4.5 grams by mouth at bedtime and 4 hours later for 7 nights, then continue on this dose Starting date: 05/25/2022 Ending date: 05/25/2022 (Discontinued) sodium,calcium,mag,pot oxybate (XYWAV) 0.5 gram/mL soln oral liquid Dose: Take 3 grams by mouth at bedtime and 4 hours later for 7 nights, then Take 3.5 grams by mouth at bedtime and 4 hours later for 7 nights, then Take 4 grams by mouth at bedtime and 4 hours later for 7 nights, then Take 4.5 grams by mouth at bedtime and 4 hours later for 7 nights, then continue on this dose Starting date: 05/25/2022 Ending date: 06/22/2022 sodium,calcium,mag,pot oxybate (XYWAV) 0.5 gram/mL soln oral liquid Dose: 4.5 g AT BEDTIME AND 4 HOURS AFTER Starting date: 03/23/2023 Ending date: 06/21/2023 Medication marked as long-term Prior RLS Medications (last 20 years) Some values may be hidden. Unless noted otherwise, only the newest values recorded on each date are displayed. RLS Medications No data to display. Prior Insomnia Medications (last 20 years) Some values may be hidden. Unless noted otherwise, only the newest values recorded on each date are displayed. Insomnia Medications LEXAPRO 10 MG TAB Dose: Starting date: 08/11/2005 Ending date: 07/28/2008 (Discontinued) melatonin 10 mg Tab Dose: Take by mouth twice daily. Starting date: Ending date: 05/30/2013 (Discontinued) TRAZODONE 50 MG TAB Dose: Starting date: 08/11/2005 Ending date: 07/28/2008 (Discontinued) zolpidem tartrate(AMBIEN 5 MG TAB) Dose: Take one(1) tablet at bedtime as needed for insomnia. Starting date: 08/29/2007 Ending date: 04/02/2009 (Discontinued) PHYSICAL EXAMINATION: Vital Signs: Deferred due to virtual visit via Zoom. General appearance: NAD Mental status: awake and alert Constitutional: Well groomed Skin: Dry and intact Neuro: Speech fluent IMPRESSION: Idiopathic Hypersomnia Clinical Global Impression of Change ( CGI-C) Compared to the patient's condition at baseline, how much has the patient changed? Minimally improved PLAN: - Continue taking modafinil 200 mg once upon awakening as directed. - Start Xywav 4.5 grams twice per night as discussed - Avoid driving when drowsy. 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 - Try to get at least 7-9 hours of sleep in a 24 hour period. Healthy diet and exercise can also promote better sleep. - Follow up in 3 months in the office. Recommend scheduling this appointment now to ensure the best time for you. Mika Jenkins MD I spent a total of 30 minutes on the date of the service, which included preparing to see the patient, [id number] patient care, completing clinical documentation, performing a medically appropriate examination, counseling and educating the patient/family/caregiver, ordering medications, tests, or procedures, communicating results to the patient/family/caregiver, and care coordination (not separately reported). Mika Jenkins MD documented in this encounter [facility] 07-20-2022 Note HNO ID: [id number] Author: Alexia Rice RN Service: ? Author Type: Registered Nurse Type: Progress Notes Filed: 07/20/2022 2:20 PM Note Text: COVID Recovery Clinic Questionnaire Series Follow-up Follow-up: 9 months Call attempt: 1st Attempt Call status: Complete [facility] COVID reCOVer Clinic 3, 6, and 9 month Follow Up Assessment: Date of COVID positive test: 04/25/2021 Date of first reCOVer appointment: 10/13/2021 Symptoms since entering [facility] Fatigue: 2 Fever: 10 Better Cough: 10 Better Brain fo Same Dizziness: 9 Chest pain: 5 Same Palpitations: Never had Shortness of breath: 8 Exercise intolerance: 4 Loss of smell or taste: 10 Better Sleep disturbance: 5 Same Depression: Never had Anxiety: 4 GI disturbance (diarrhea, nausea, abdominal pain): 6 Overall Do you feel since entering reCOVer: 6 New diagnoses since COVID was diagnosed? No Have you returned to work at the same level as before? N / A Have you returned to school at the same level as before? N / A Referrals made: Sleep Medicine, Pulmonology, Functional Medicine, and Gastroenterology Referrals seen: Sleep Medicine, Pulmonology, Functional Medicine, and Gastroenterology What did you find most helpful in your journey to recovery? Time What suggestions do you have for the reCOVer clinic for us to help patients like yourself better? Providing available treatment options Patient Entered Questionnaires COVID Symptoms 10/12/2021 Onset: 09/22/2019 PROMIS/NeuroQoL Score Percentiles Physical Health 05/07/2022 01/05/2022 10/12/2021 Fatigue Percentile - - 0 Sleep Percentile 18* 21* 18* Mental Health 10/12/2021 NeuroQol Cognitive Function Percentile 0 PROMIS Global Health Scale 07/11/2022 05/07/2022 01/18/2022 Physical Health Percentile 7 10 10 Mental Health Percentile 3 13 9 Percentiles provide an indication of how a patient?s score ranks in relation to the [place] general population. > 31st percentile is within normal limits or better * < 31st percentile is at least ? SD worse than population, which may be clinically relevant < 16th percentile is at least 1 SD worse than population and warrants attention PHQ-9 07/11/2022 05/07/2022 01/05/2022 PHQ-2 Score 3 3 3 PHQ-9 Score 15 10 15 MYLES - 2/7 SCORES 07/11/2022 01/18/2022 10/12/2021 MYLES-2 Score 6 2 6 MYLES-7 Score 16 - 19 IES-6 SCORE 10/12/2021 IES-6 Score 3.17 [facility] 07-20-2022 Miscellaneous Notes See patient outreach encounter Patient calling back documented in this encounter [facility] 07-13-2022 Note Patient Outreach (PU LMIN) BRANDI LNUD ([id number]) 1975 F Date Time Provider Department 07/13/22 PRISCILA STOUT During your visit today, we recorded the following information about you: Alexia Rice RN 07/13/2022 9:33 AM Signed COVID Recovery Clinic Questionnaire Series Follow-up Follow-up: 9 months Call attempt: 1st Attempt Call status: Left message Next call date: 07/18/2022 Alexia Rice RN 07/20/2022 2:20 PM Signed COVID Recovery Clinic Questionnaire Series Follow-up Follow-up: 9 months Call attempt: 1st Attempt [facility] 6, [facility] 9 [facility] Follow Up Assessment: Date of COVID positive test: 04/25/2021 Date of first reCOVer appointment: 10/13/2021 Symptoms since entering [facility] Fatigue: 2 Fever: 10 Better Cough: 10 Better Brain fo Same Dizziness: 9 Chest pain: 5 Same Palpitations: Never had Shortness of breath: 8 Exercise intolerance: 4 Loss of smell or taste: 10 Better Sleep disturbance: 5 Same Depression: Never had Anxiety: 4 GI disturbance (diarrhea, nausea, abdominal pain): 6 Overall Do you feel since entering reCOVer: 6 New diagnoses since COVID was diagnosed? No Have you returned to work at the same level as before? N / A Have you returned to school at the same level as before? N / A Referrals made: Sleep Medicine, Pulmonology, Functional Medicine, and Gastroenterology Referrals seen: Sleep Medicine, Pulmonology, Functional Medicine, and Gastroenterology What did you find most helpful in your journey to recovery? Time What suggestions do you have for the reCOVer clinic for us to help patients like yourself better? Providing available treatment options Patient Entered Questionnaires COVID Symptoms 10/12/2021 Onset: 09/22/2019 PROMIS/NeuroQoL Score Percentiles Physical Health 05/07/2022 01/05/2022 10/12/2021 Fatigue Percentile - - 0 Sleep Percentile 18* 21* 18* Mental Health 10/12/2021 NeuroQol Cognitive Function Percentile 0 PROMIS Global Health Scale 07/11/2022 05/07/2022 01/18/2022 Physical Health Percentile 7 10 10 Mental Health Percentile 3 13 9 Percentiles provide an indication of how a patient?s score ranks in relation to the [place] general population. > 31st percentile is within normal limits or better * < 31st percentile is at least ? SD worse than population, which may be clinically relevant < 16th percentile is at least 1 SD worse than population and warrants attention PHQ-9 07/11/2022 05/07/2022 01/05/2022 PHQ-2 Score 3 3 3 PHQ-9 Score 15 10 15 MYLES - 2/7 SCORES 07/11/2022 01/18/2022 10/12/2021 MYLES-2 Score 6 2 6 MYLES-7 Score 16 - 19 IES-6 SCORE 10/12/2021 IES-6 Score 3.17 Allergies As of Date: 07/13/2022 (No Known Allergies) Date Reviewed: 01/06/2022 Reviewed by: Ryan Mcbride LPN - Fully Assessed Prescriptions as of 07/20/2022 - modafinil (PROVIGIL) 200 mg tablet Take 1 tablet by mouth once daily for 90 days. - modafinil (PROVIGIL) 200 mg tablet Take 1 tablet by mouth once daily for 90 days. - IVERMECTIN ORAL Take 18 mg by mouth once daily. - zinc - levothyroxine (SYNTHROID) 100 mcg tablet Take 100 mcg by mouth every morning. - naltrexone capsule 4.5 mg (CPD) Take 1 capsule by mouth once daily. - liothyronine (CYTOMEL) 5 mcg tablet Take one tablet by mouth in AM on empty stomach - G.I. Detox (PresentationTube) Activated charcoal - (empty stomach, 30min before eating (60-90 min away from supps) Start with 1 capsule and work up to 3 capsules a day - One Collins (Pure Encapsulation) Take 2 capsules by mouth daily with food. - Vitamin D3 5000 U (Pure Encapsulations) Take 1 capsule by mouth daily with food. - Saccharomyces Boulardii (Klaire/Prothera) Take 1 capsule by mouth twice daily. - Iron Chelate (Klaire/Prothera) Take 1 capsule by mouth daily with food. - Melatonin-SR (Klaire/Prothera) 2mg 1 by mouth 30 minutes before bed Facility-Administered Medications as of 07/20/2022 - perflutren lipid microspheres 1.3 mL in NaCl (PF) 0.9% 10 mL injection (DEFINITY) - sodium chloride 0.9 % (flush) 10 mL (BD POSIFLUSH) Meds Comments as of 11/18/2009: All medications reviewed today/November 18, 2009 Ashley Pemberton Rn Problem List As Of Date 07/13/2022 Noted Resolved SKIN SENSATION DISTURB [R20.9] 07/28/2008 ADVANCED MATERNAL AGE:MULTIPARA[659.63] [O09.52*11/24/2009 07/04/2010 SUPRF HIGH RISK NEC [V23.89] [O09.899]11/24/2009 07/04/2010 Poor grth-antepart [O36.5990] 11/24/2009 07/04/2010 Other pre-existing hypertension, antepartum [O1*11/24/2009 07/04/2010 Previous delivery, antepartum conditio*11/24/2009 07/04/2010 Diabetes mellitus, 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 [facility] 07-13-2022 Note HNO ID: [id number] Author: Alexia Rice RN Service: ? Author Type: Registered Nurse Type: Progress Notes Filed: 07/13/2022 9:33 AM Note Text: [facility] Questionnaire Series Follow-up Follow-up: 9 months Call attempt: 1st Attempt Call status: Left message Next call date: 07/18/2022 [facility] 07-13-2022 History of Presen t illness Narrative [facility] Questionnaire Series Follow-up Follow-up: 9 months Call attempt: 1st Attempt Call status: Left message Next call date: 07/18/2022 documented in this encounter [facility] 05-25-2022 Miscellaneous Notes MyChart message sent documented in this encounter [facility] 05-16-2022 Miscellaneous Notes Images from the original note were not included. documented in this encounter [facility] 05-16-2022 Miscellaneous Notes MyChart message sent documented in this encounter [facility] 05-10-2022 Note HNO ID: [id number] Author: Mika Jenkins MD Service: ? Author Type: Physician Type: Progress Notes Filed: 05/10/2022 4:23 PM Note Text: [facility] Follow up/ Established patient visit Visit performed virtually, with the patient's permission. Date of last visit : 01/06/2022 Hypersomnia, primary Interval history : Here for follow up for Hypersomnia A Polysomnogram performed on 04/25/2022 revealed an AHI of 0.7; supine index of 6.0; REM index of 0.6, PLM index of 7.9, PLM arousal index of 1.0, and the oxygen saturation was below 90% for 00% of the study. A Multiple Sleep Latency Test performed on 04/26/2022 revealed a mean sleep latency of 3.5 minutes and 0/5 sleep onset REM periods. Actigraphy 04/26/2022 The circadian rhythm appears appropriate. My impression based on above is long sleep times of 9.7 hours, prolonged sleep onset latency on 2 of 9 nights of up to 46 minutes, increased wake after sleep onset (100 mins), and adequate sleep duration prior to MSLT. SLEEP HYGIENE QUESTIONS: Bedtime : 11-MN Wake up Time : 745-11 am Sleeping Longer does not help Time it takes to fall sleep : 20 min Activities in bed before falling asleep : Phone Number of times patient wakes up per night : 2-3 Reason (s) why patient wakes up during the night : Unknown Estimated total sleep time ( in a 24 hour period of time) : 9 hours Naps : No PATIENT-ENTERED QUESTIONNAIRE SLEEP SCORES Sleep Questions 05/07/2022 Reason for visit: Sleep apnea, Difficulty falling or staying asleep or poor sleep quality, Excessive daytime sleepiness, Restless Legs Syndrome, Abnormal sleep/wake timing Average hours slept in 24 hours: - Accidents or near accidents due to drowsy drivin [place] Sleepiness Scale 10/31/2021 01/05/2022 05/07/2022 Score 21 (severe daytime sleepiness) 18 (severe daytime sleepiness) 20 (severe daytime sleepiness) PROMIS CAT Sleep Disturbance 01/05/2022 01/18/2022 05/07/2022 PROMIS Sleep Disturbance T-Score 58 (mild) 46 (within normal limits) 59 (mild) Insomnia Severity Index 01/05/2022 05/07/2022 Score 20 19 Restless Leg Syndrome 01/05/2022 05/07/2022 Score 13 12 PHQ-9 01/05/2022 05/07/2022 Score 15 10 PROMIS Global Health - (T-Scores - the mean of general population = 50. Five points is a clinically meaningful difference.) 01/05/2022 01/18/2022 05/07/2022 Physical T-Score 32.4 37.4 37.4 Mental T-Score 31.3 36.3 38.8 PMH, PSH, SH: No change SLEEP RELATED ROS Review of Systems ALLERGIES No Known Allergies CURRENT MEDICATIONS: IVERMECTIN ORALTake 18 mg by mouth once daily.Disp: Rfl: zincDisp: Rfl: pantoprazole DR (PROTONIX) 40 mg tabletTake 1 tablet by mouth once daily.Disp: 30 tabletRfl: 5 cholestyramine-sucrose (QUESTRAN) 4 gram powderTake 4 g by mouth twice daily with meals.Disp: 240 gRfl: 4 levothyroxine (SYNTHROID) 100 mcg tabletTake 100 mcg by mouth every morning.Disp: Rfl: naltrexone capsule 4.5 mg (CPD)Take 1 capsule by mouth once daily.Disp: Rfl: liothyronine (CYTOMEL) 5 mcg tabletTake one tablet by mouth in AM on empty stomachDisp: 30 tabletRfl: 3 G.I. Detox (PresentationTube)Activated charcoal - (empty stomach, 30min before eating (60-90 min away from supps) Start with 1 capsule and work up to 3 capsules a dayDisp: Rfl: 0 One Collins (Pure Encapsulation)Take 2 capsules by mouth daily with food.Disp: Rfl: 0 Vitamin D3 5000 U (Pure Encapsulations)Take 1 capsule by mouth daily with food.Disp: Rfl: 0 Saccharomyces Boulardii (Klaire/Prothera)Take 1 capsule by mouth twice daily.Disp: Rfl: 0 Iron Chelate (Klaire/Prothera)Take 1 capsule by mouth daily with food.Disp: Rfl: 0 Melatonin-SR (Klaire/Prothera) 2mg1 by mouth 30 minutes before bedDisp: Rfl: 3 Prior Hypersomnia/Narcolepsy Medications (20 years) Some values may be hidden. Unless noted otherwise, only the newest values recorded on each date are displayed. Hypersomnia/Narcolepsy Medications No data to display. Prior RLS Medications (last 20 years) Some values may be hidden. Unless noted otherwise, only the newest values recorded on each date are displayed. RLS Medications No data to display. Prior Insomnia Medications (last 20 years) Some values may be hidden. Unless noted otherwise, only the newest values recorded on each date are displayed. Insomnia Medications LEXAPRO 10 MG TAB Dose: Starting date: 08/11/2005 Ending date: 07/28/2008 (Discontinued) melatonin 10 mg Tab Dose: Take by mouth twice daily. Starting date: Ending date: 05/30/2013 (Discontinued) TRAZODONE 50 MG TAB Dose: Starting date: 08/11/2005 Ending date: 07/28/2008 (Discontinued) zolpidem tartrate(AMBIEN 5 MG TAB) Dose: Take one(1) tablet at bedtime as needed for insomnia. Starting date: 08/29/2007 Ending date: 04/02/2009 (Discontinued) PHYSICAL EXAMINATION: VIRTUAL IMPRESSION: Hypersomnia, Primary We disc (more content not included)... [facility] 05-10-2022 History of Presen t illness Narrative Images from the original note were not included. [facility] Follow up/ Established patient visit Visit performed virtually, with the patient's permission. Date of last visit : 01/06/2022 Hypersomnia, primary Interval history : Here for follow up for Hypersomnia A Polysomnogram performed on 04/25/2022 revealed an AHI of 0.7; supine index of 6.0; REM index of 0.6, PLM index of 7.9, PLM arousal index of 1.0, and the oxygen saturation was below 90% for 00% of the study. A Multiple Sleep Latency Test performed on 04/26/2022 revealed a mean sleep latency of 3.5 minutes and 0/5 sleep onset REM periods. Actigraphy 04/26/2022 The circadian rhythm appears appropriate. My impression based on above is long sleep times of 9.7 hours, prolonged sleep onset latency on 2 of 9 nights of up to 46 minutes, increased wake after sleep onset (100 mins), and adequate sleep duration prior to MSLT. SLEEP HYGIENE QUESTIONS: Bedtime : 11-MN Wake up Time : 745-11 am Sleeping Longer does not help Time it takes to fall sleep : 20 min Activities in bed before falling asleep : Phone Number of times patient wakes up per night : 2-3 Reason (s) why patient wakes up during the night : Unknown Estimated total sleep time ( in a 24 hour period of time) : 9 hours Naps : No PATIENT-ENTERED QUESTIONNAIRE SLEEP SCORES Sleep Questions 05/07/2022 Reason for visit: Sleep apnea, Difficulty falling or staying asleep or poor sleep quality, Excessive daytime sleepiness, Restless Legs Syndrome, Abnormal sleep/wake timing Average hours slept in 24 hours: - Accidents or near accidents due to drowsy drivin [place] Sleepiness Scale 10/31/2021 01/05/2022 05/07/2022 Score 21 (severe daytime sleepiness) 18 (severe daytime sleepiness) 20 (severe daytime sleepiness) PROMIS CAT Sleep Disturbance 01/05/2022 01/18/2022 05/07/2022 PROMIS Sleep Disturbance T-Score 58 (mild) 46 (within normal limits) 59 (mild) Insomnia Severity Index 01/05/2022 05/07/2022 Score 20 19 Restless Leg Syndrome 01/05/2022 05/07/2022 Score 13 12 PHQ-9 01/05/2022 05/07/2022 Score 15 10 PROMIS Global Health - (T-Scores - the mean of general population = 50. Five points is a clinically meaningful difference.) 01/05/2022 01/18/2022 05/07/2022 Physical T-Score 32.4 37.4 37.4 Mental T-Score 31.3 36.3 38.8 PMH, PSH, SH: No change SLEEP RELATED ROS Review of Systems ALLERGIES No Known Allergies CURRENT MEDICATIONS: IVERMECTIN ORAL^Take 18 mg by mouth once daily.^Disp: ^Rfl: zinc^^Disp: ^Rfl: pantoprazole DR (PROTONIX) 40 mg tablet^Take 1 tablet by mouth once daily.^Disp: 30 tablet^Rfl: 5 cholestyramine-sucrose (QUESTRAN) 4 gram powder^Take 4 g by mouth twice daily with meals.^Disp: 240 g^Rfl: 4 levothyroxine (SYNTHROID) 100 mcg tablet^Take 100 mcg by mouth every morning.^Disp: ^Rfl: naltrexone capsule 4.5 mg (CPD)^Take 1 capsule by mouth once daily.^Disp: ^Rfl: liothyronine (CYTOMEL) 5 mcg tablet^Take one tablet by mouth in AM on empty stomach^Disp: 30 tablet^Rfl: 3 G.I. Detox (PresentationTube)^Activated charcoal - (empty stomach, 30min before eating (60-90 min away from supps) Start with 1 capsule and work up to 3 capsules a day^Disp: ^Rfl: 0 One Collins (Pure Encapsulation)^Take 2 capsules by mouth daily with food.^Disp: ^Rfl: 0 Vitamin D3 5000 U (Pure Encapsulations)^Take 1 capsule by mouth daily with food.^Disp: ^Rfl: 0 Saccharomyces Boulardii (Klaire/Prothera)^Take 1 capsule by mouth twice daily.^Disp: ^Rfl: 0 Iron Chelate (Klaire/Prothera)^Take 1 capsule by mouth daily with food.^Disp: ^Rfl: 0 Melatonin-SR (Klaire/Prothera) 2mg^1 by mouth 30 minutes before bed^Disp: ^Rfl: 3 Prior Hypersomnia/Narcolepsy Medications (20 years) Some values may be hidden. Unless noted otherwise, only the newest values recorded on each date are displayed. Hypersomnia/Narcolepsy Medications No data to display. Prior RLS Medications (last 20 years) Some values may be hidden. Unless noted otherwise, only the newest values recorded on each date are displayed. RLS Medications No data to display. Prior Insomnia Medications (last 20 years) Some values may be hidden. Unless noted otherwise, only the newest values recorded on each date are displayed. Insomnia Medications LEXAPRO 10 MG TAB Dose: Starting date: 08/11/2005 Ending date: 07/28/2008 (Discontinued) melatonin 10 mg Tab Dose: Take by mouth twice daily. Starting date: Ending date: 05/30/2013 (Discontinued) TRAZODONE 50 MG TAB Dose: Starting date: 08/11/2005 Ending date: 07/28/2008 (Discontinued) zolpidem tartrate(AMBIEN 5 MG TAB) Dose: Take one(1) tablet at bedtime as needed for insomnia. Starting date: 08/29/2007 Ending date: 04/02/2009 (Discontinued) PHYSICAL EXAMINATION: VIRTUAL IMPRESSION: Hypersomnia, Primary We discussed Mrs. Lund's recent studies. Her symptoms of significant daytime sleepiness is unchanged from her initial visit. He discussed starting to treat her daytime fatigue with Nuvigil, which we will prescribe today. We will continue to focus on her goal of waking up refreshed. Clinical Global Impression of Change ( CGI-C) Compared to the patient's condition at baseline, how much has the patient changed? No change Avoid driving when drowsy. covering machine tender for short naps (20-30 minutes) and use of caffeine if needed to help stay awake when driving. ry to get at least 9-10 hours of sleep in a 24 hour period. Healthy diet and exercise can also promote better sleep. Follow up in 3 months in the office. Recommend scheduling this appointment now to ensure the best time for you. Mika Jenkins MD I spent 25 minutes in the visit, with more than 50% of the total [id number] time of the visit in education / counseling / coordination of care. documented in this encounter [facility] 04-27-2022 Miscellaneous Notes Addended by: JERICHO JAMESON on: 04/27/2022 06:40 AM Modules accepted: Orders documented in this encounter [facility] 04-26-2022 Note HNO ID: [id number] Author: Meli Casarez Service: ? Author Type: ? Type: Progress Notes Filed: 04/26/2022 9:06 AM Note Text: Sleep Study Check-In Documentation Date: April 26, 2022 Name: Brandi Lund Patient was accompanied by Self. Location: Latex allergy: No Tape allergy: No Current medications were reviewed with the patient:Yes Sleep aid taken by patient for the sleep study: [place] of sleep aid: N/A Procedure was explained to the patient and all questions were answered. PAP treatment discussed and shown to patient: No Knowledge Program (KP): KP was not completed in epic by patient and accepted Study type: MSLT Adverse Event: No (If yes create a new abstract) SERS Event: No Comments: Patient was advised to follow up with their ordering provider regarding test results Meli Casarez, RPSGT [facility] 04-26-2022 History of Presen t illness Narrative Sleep Study Check-In Documentation Date: April 26, 2022 Name: Brandi Lund Patient was accompanied by Self. Location: IC Latex allergy: No Tape allergy: No Current medications were reviewed with the patient:Yes Sleep aid taken by patient for the sleep study: [place] of sleep aid: N/A Procedure was explained to the patient and all questions were answered. PAP treatment discussed and shown to patient: No Knowledge Program (KP): KP was not completed in [employer] by patient and accepted Study type: MSLT Adverse Event: No (If yes create a new abstract) SERS Event: No Comments: Patient was advised to follow up with their ordering provider regarding test results PATRICIA Rdz Sleep Study Check-In Documentation Date: April 26, 2022 Name: Brandi Lund Patient was accompanied by Self. Location: IC Latex allergy: No Tape allergy: No Current medications were reviewed with the patient:Yes Sleep aid taken by patient for the sleep study: Yes Name of sleep aid: Melatonin Procedure was explained to the patient and all questions were answered. PAP treatment discussed and shown to patient: No Knowledge Program (MARCOS): KP was not completed in [employer] by patient and accepted Study type: Polysomnogram Adverse Event: No (If yes create a new abstract) SERS Event: No Comments: Patient was advised to follow up with their ordering provider regarding test results Meghan Hung ACTIGRAPHY DEVICE # [id number] Date shipped out 04/07/2022 [employer] MAIL OUT TRACKING NUMBER [id number] [phone] [employer] RETURN TRACKING NUMBER [id number], Jodie documented in this encounter [facility] 04-26-2022 Note HNO ID: [id number] Author: Meghan Dunia Abhilash Service: ? Author Type: ? Type: Progress Notes Filed: 04/26/2022 4:29 AM Note Text: Sleep Study Check-In Documentation Date: April 26, 2022 Name: Brandi Lund Patient was accompanied by Self. Location: Latex allergy: No Tape allergy: No Current medications were reviewed with the patient:Yes Sleep aid taken by patient for the sleep study: Yes Name of sleep aid: Melatonin Procedure was explained to the patient and all questions were answered. PAP treatment discussed and shown to patient: No Knowledge Program (KP): KP was not completed in epic by patient and accepted Study type: Polysomnogram Adverse Event: No (If yes create a new abstract) SERS Event: No Comments: Patient was advised to follow up with their ordering provider regarding test results Meghan M Reid [facility] 04-07-2022 Note HNO ID: [id number] Author: Yuridia Hendricks Service: ? Author Type: ? Type: Progress Notes Filed: 04/26/2022 4:29 AM Note Text: ACTIGRAPHY DEVICE # [id number] Date shipped out 04/07/2022 [employer] MAIL OUT TRACKING NUMBER [id number] [phone] [employer] RETURN TRACKING NUMBER [phone] [id number] Rosenberg [facility] 03-21-2022 Miscellaneous Notes Called patient back. Went over providers update regarding d-dimer along with explanation. Went over RED flag symptoms with patient She is seeing a functional medicine specialist near home that has been working with for a while near home Thank you, Muriel Patient called back please call patient back after 1. [phone] (home) Tired home.. left message to call office. Please reach out to patient. As we discussed at our visit, D dimers are commonly elevated in long covid patients and is usually related to inflammation and the body's response to the viral injury. We ruled out actual blood clot presence with imaging. Current guidelines do not recommend serial checks of d dimers as it does not contribute to a change in plan of care. If red flag symptoms occur, we do of course check then. I suggested she follow up with functional medicine to work on the inflammation, but this appears to have been cancelled. Is she planning to reschedule? Priscila Stout APRN.ДМИТРИЙ documented in this encounter [facility] 01-24-2022 Miscellaneous Notes See TE Patient returned call 3 month follow up questionnaire documented in this encounter [facility] 01-19-2022 History of Presen t illness Narrative [facility] Questionnaire Series Follow-up Follow-up: 3 months Call attempt: 1st Attempt Call status: Left message Next call date: 01/23/2022 documented in this encounter [facility] 01-06-2022 Instructions Mika Jenkins MD - 01/06/2022 10:28 AM EDT 1) If the sleep scheduling office has not called you in 3 days, please call [phone] to schedule your sleep study. 2) When they call to schedule your sleep study, ask them to set up a 3 week follow-up visit with me (Virtual is fine). 3) At that visit we will discuss your test results, treatment options, and prescribe any needed treatments. documented in this encounter [facility] 01-06-2022 History of Presen t illness Narrative Images from the original note were not included. [facility] New Patient Evaluation PATIENT NAME: Brandi Lund DATE OF SERVICE: January 06, 2022 CONSULTING PROVIDER: Priscila Stout [id number] [facility] [id number] Fatigue HPI: Brandi Lund is a 46 year old female. Sleep-related history: 12 year history of waking up unrefreshed. She comes in today after referral from [facility], but her concerns of fatigue started before. SLEEP-WAKE SCHEDULE She is a self-described night person. Bedtime: 11 PM. She does not have a hard time falling asleep. Wake time: 730 AM, with an alarm. After falling asleep: she wakes up 2-3 time(s) per night, because of restroom and environmental. On weekends, she tends to stay up until 11 PM and sleeps until 11 AM. Average total sleep time (in a 24 hour period): 8 hours. SLEEP-RELATED DETAILS Preferred sleep position: side Breathing disturbances and other behaviors during sleep: snoring and moving around a lot. Bruxism: No GERD or aspiration: No Waking up with heart pounding or racing: No Anxiety or rumination: No She reports having an urge to move the legs. The urge to move the legs is worse in the evening or nighttime than during the daytime. The urge to move the legs begins or worsens during periods of rest or inactivity (e.g. lying or sitting). The urge to move the legs is partially or totally relieved by movements such as walking or stretching, at least as long as the activity continues. The urge to move the legs occurs 1-2 nights per month and began 10 years ago. There is no history of iron deficiency or anemia. She has not been told that she has leg kicking during sleep. She denies any history of parasomnias. Excessive daytime sleepiness / fatigue is a problem. Excessive Daytime sleepiness/fatigue has been a problem for 20 years. There is a history of Lyme Disease and Mateo-Kurtz prior to the start of daytime sleepiness. She does not report sleep paralysis or sleep-related hallucinations or cataplexy. WAKE-RELATED DETAILS She does not work. She does not have difficulty with memory or concentration. She denies falling asleep or dozing off when driving. She does take naps. Frequency: 3-4/week, Duration: 2-3 Hours Naps are refreshing. She does drink 1 caffeinated beverages per day. There has not been a recent change in weight. Patient Questionnaires Sleep Scores Sleep Questions 01/05/2022 Reason for visit: Sleep apnea, Difficulty falling or staying asleep or poor sleep quality, Excessive daytime sleepiness, Restless Legs Syndrome, Abnormal sleep/wake timing Average hours slept in 24 hours: 10 Accidents or near accidents due to drowsy drivin PROMIS CAT Sleep Disturbance 10/12/2021 01/05/2022 PROMIS Sleep Disturbance T-Score 59 (mild) 58 (mild) PHQ-9 01/05/2022 Score 15 PROMIS Global Health - (T-Scores - the mean of general population = 50. Five points is a clinically meaningful difference.) 07/06/2017 10/12/2021 01/05/2022 Physical T-Score 32.4 34.9 32.4 Mental T-Score 31.3 31.3 31.3 [place] Sleepiness Scale Sitting and Reading? high chance of dozing (3) Watching TV? moderate chance of dozing (2) Sitting inactive in a public place (e.g a theater or a meeting) moderate chance of dozing (2) As a passenger in a car for an hour without a break? high chance of dozing (3) Lying down to rest in the afternoon when circumstances permit? high chance of dozing (3) Sitting and talking to someone? slight chance of dozing (1) Sitting quietly after lunch without alcohol? high chance of dozing (3) In a car, while stopped for a few minutes in traffic? slight chance of dozing (1) Total Score ABNORMAL (18) Insomnia Severity Index Difficulty falling asleep Mild (1) Difficulty staying asleep Moderate (2) Problem waking up too early Moderate (2) Satisfied/dissatisfied with current sleep pattern Very Dissatisfied (4) Sleep interferes with daily functions Very Much Interfering (4) Sleep problems noticeable to others Much Noticeable (3) Worried/distressed about current sleep problems Very Much (4) Total Score MODERATELY SEVERE Clinical Insomnia (20) International Restless Legs Syndrome Study Group Rating Scale RLS discomfort in legs or arms Mild (1) Need to move around due to RLS Moderate (2) Relief of RLS leg or arm discomfort from moving Slight relief (3) Severity of sleep disturbance due to RLS symptoms Mild (1) Severity of sleepiness due to RLS symptoms Mild (1) Severity of RLS as a whole Mild (1) Frequency of RLS symptoms Mild (This means 1 day a week or less) (1) Severity of RLS symptoms on an average day Mild (This means less than 1 hour per 24 hour day) (1) Impact of RLS symptoms on daily affairs Mild (1) Severity of mood disturbance due to RLS symptoms Mild (1) Total Score MODERATE symptom burden (13) PAST TREATMENTS: CPAP PRIOR SLEEP STUDIES: None locally - but, Mrs. Lund was diagnosed with DIAN and tried PAP (no benefit) OTHER RELEVANT LABS AND STUDIES: PAST MEDICAL HISTORY Diagnosis Date Celiac disease Cholelithiasis COVID 2019 beginning of 2019 and 04/23/21 Fibromyalgia IBS (irritable bowel syndrome) Insulin-resistant diabetes mellitus and acanthosis nigricans Lyme disease Other and unspecified ovarian cyst RIGHT resolved Other malaise and fatigue Post-COVID syndrome Unspecified essential hypertension Essential hypertension Variants of migraine, not elsewhere classified, without mention of intractable migraine without mention of status migrainosus Better now 11/10/11 PAST SURGICAL HISTORY Procedure Laterality Date DELIVERY ONLY 11/21/1997 , low cervical DELIVERY ONLY 12/2001,06/2010 , low cervical COLONOSCOPY 11/30/2021 Normal EGD W/O BRSH SPEC VARICIES INJ 11/30/2021 Normal LAPS ABD PRTM&OMENTUM DX W/WO SPEC BR/WA SPX 03/23/1997 OVARIAN CYST DRAINAGE LAPS SURG CHOLECYSTECTOMY W/CHOLANGIOGRAPHY 08/01/2010 LIG/TRNSXJ FLP TUBE ABDL/VAG APPR UNI/BI 04/23/2010 Tubal ligation PAST SURGICAL HISTORY OF hysterectomy RPR UMBILICAL HRNA 5 YRS/> REDUCIBLE 08/01/2010 ACTIVE PROBLEM LIST Disturbance of Skin Sensation Essential Hypertension Cholecystitis With Cholelithiasis Incisional Hernia Neuralgia Vitamin D Deficiency Sleep Disturbance Multiple Vitamin Deficiency Irritable Bowel Syndrome With Diarrhea 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 Detox (PresentationTube)^Activated charcoal - (empty stomach, 30min before eating (60-90 min away from supps) Start with 1 capsule and work up to 3 capsules a day^Disp: ^Rfl: 0 One Collins (Pure Encapsulation)^Take 2 capsules by mouth daily with food.^Disp: ^Rfl: 0 Vitamin D3 5000 U (Pure Encapsulations)^Take 1 capsule by mouth daily with food.^Disp: ^Rfl: 0 Saccharomyces Boulardii (Klaire/Prothera)^Take 1 capsule by mouth twice daily.^Disp: ^Rfl: 0 Iron Chelate (Klaire/Prothera)^Take 1 capsule by mouth daily with food.^Disp: ^Rfl: 0 Melatonin-SR (Klaire/Prothera) 2mg^1 by mouth 30 minutes before bed^Disp: ^Rfl: [address] (PROTONIX) 40 mg tablet^Take 1 tablet by mouth once daily.^Disp: 30 tablet^Rfl: 5 cholestyramine-sucrose (QUESTRAN) 4 gram powder^Take 4 g by mouth twice daily with meals.^Disp: 240 g^Rfl: 4 Prior Hypersomnia/Narcolepsy Medications (20 years) Some values may be hidden. Unless noted otherwise, only the newest values recorded on each date are displayed. Hypersomnia/Narcolepsy Medications No data to display. Prior RLS Medications (last 20 years) Some values may be hidden. Unless noted otherwise, only the newest values recorded on each date are displayed. RLS Medications No data to display. Prior Insomnia Medications (last 20 years) Some values may be hidden. Unless noted otherwise, only the newest values recorded on each date are displayed. Insomnia Medications LEXAPRO 10 MG TAB Dose: Starting date: 08/11/2005 Ending date: 07/28/2008 (Discontinued) melatonin 10 mg Tab Dose: Take by mouth twice daily. Starting date: Ending date: 05/30/2013 (Discontinued) TRAZODONE 50 MG TAB Dose: Starting date: 08/11/2005 Ending date: 07/28/2008 (Discontinued) zolpidem tartrate(AMBIEN 5 MG TAB) Dose: Take one(1) tablet at bedtime as needed for insomnia. Starting date: 08/29/2007 Ending date: 04/02/2009 (Discontinued) Review of Systems SOCIAL HISTORY: Social History Tobacco Use Smoking status: Never Smokeless tobacco: Never Vaping Use Vaping Use: Never used Substance Use Topics Alcohol use: No Drug use: No FAMILY HISTORY: FAMILY HISTORY Problem Relation Age of Onset Hypertension Mother Lipids Mother Irritable Bowel Syndrome Mother Ulcerative Colitis Mother other (Diverticulitis) Mother Diabetes Father Heart Father stent x 2 Hyperlipidemia Father Diabetes Brother Diabetes Paternal Grandmother Breast Cancer Paternal Aunt Diabetes Paternal Uncle Colon Cancer No Family History There is a family history of: Restless Legs Syndrome PHYSICAL EXAMINATION: A&O x 3, Pleasant Female GEN: Slightly over weight, WD, WN NECK: Normal OROPHARYNX: narrow O/P opening, high arched hard palate, long soft palate, normal tongue, not visible tonsils, short wide uvula, Bite narrow NASAL: Congested: No Deviated Septum: Normal LUNGS: CTA B CV: RRR no m/g/r EXTREMITIES: No edema/Non tender IMPRESSION/PLAN: Hypersomnia, primary - Polysomnogram to evaluate for obstructive sleep apnea (and other sleep disorders) and to ensure adequate sleep, followed by a daytime sleep study (Multiple Sleep Latency Test - MSLT) to evaluate for narcolepsy or idiopathic hypersomnia. - Please fill out sleep logs for 2 weeks prior to sleep studies and bring them with you to give to the robot technician. - A urine tox screen will be done on morning before the daytime sleep study starts. - The MSLT will be canceled if the overnight sleep study shows significant sleep apnea or inadequate sleep. - We discussed her medication. - Avoid driving if drowsy. Would recommend that if you are dozing off while driving, that you do not drive until your sleepiness is appropriately treated. - Follow up visit in 3 weeks in the office. Recommend scheduling this appointment now to ensure the best time for you. Mika Jenkins MD documented in this encounter [facility] 11-30-[address] Olivera at bedside to speak with patient, DC instructions reviewed with patient and . Patients cramping pain improved and resting comfortably documented in this encounter [facility] 11-30-2021 History and physical note HISTORY AND PHYSICAL Brandi Lund, 46 year old female Current history and physical on file: Yes Is a new History and Physical required for today's visit? No Indication for procedure: celiac dx and diarrhea and CRC screening PROCEDURE(S) SCHEDULED FOR: Colonoscopy with or without biopsies and with or without removal of polyps or lesions, dilation (any means), treatment of bleeding (any means), based on clinical findings. and EGD (Esophagogastroduodenoscopy) with or without biopsies, removal of polyps or lesions, dilation ( any means), treatment of bleeding ( any means), Barrx treatment of Agustin's Esophagus, image tube placement or cryo therapy treatment based on clinical findings. BASELINE BEHAVIOR: Calm BASELINE ORIENTATION: A & O x3 All medications and allergies reviewed: Yes Skin Assessment: Warm dry mucus membranes pink Airway/Respiratory Assessment: Airway: visualization of the uvula- Yes Mouth: opening greater than 2 fingerbreadths- Yes Neck: full range of motion- Yes Breath sounds clear/equal- Yes Cardiac Assessment: Regular rate and rhythm without murmur Abdominal Assessment: Abdomen soft, non-tender, no masses or organomegaly. Sedation Plan: MAC Additional Comments: None Michelle Olivera MD documented in this encounter [facility] 11-18-2021 Note HNO ID: [id number] Author: Javid Sofia RT(R) Service: ? Author Type: Technologist Type: Progress Notes Filed: 11/18/2021 1:36 PM Note Text: Radiology Service Progress Note DATE OF SERVICE: November 18, 2021 TIME: 1:36 PM PATIENT IDENTITY VERIFICATION COMPLETED USING TWO (2) STANDARD IDENTIFIERS: Name and Date of confirmed by patient verbally and Name and Date of confirmed by identification band. FALL SCREENING: Has the patient had 2 falls in the last year or 1 fall with injury or currently using an Ambulatory Assistive Device (Walker, Cane, Wheelchair, Crutches, etc.)? No PATIENT GENDER DATA: Female. status: : No status: NO. PATIENT RELEVANT IMPLANT DATA REVIEWED: Not Applicable ALLERGIES: Reviewed and unchanged CONTRAST ALLERGY: NO. EXAM: CT -CONTRAST INDUCED NEPHROPATHY RISK FACTORS: Not applicable CREATININE: Creatinine Date Value Ref Range Status 10/13/2021 0.68 0.58 - 0.96 mg/dL Final 07/06/2017 0.70 0.58 - 0.96 mg/dL Final 10/05/2016 0.70 0.58 - 0.96 mg/dL Final Estimated Glomerular Filtration Rate Date Value Ref Range Status 10/13/2021 108 >=60 mL/min/1.73m? Final Comment: Estimated Glomerular Filtration Rate (eGFR) is calculated using the 2020 CKD-EPI creatinine equation. This equation utilizes serum creatinine, sex, and age as parameters. The creatinine assay has traceable calibration to isotope dilution-mass spectrometry. Refer to KDIGO guidelines for clinical interpretation. In patients with unstable renal function, e.g. those with acute kidney injury, the eGFR may not accurately reflect actual GFR. eGFR- Date Value Ref Range Status 07/06/2017 >60 Final P.O.C.T. RESULTS: POC done: Yes, See Lab Tab November 18, 2021 TREATMENT: N/A PERIPHERAL IV DATA: Ambulatory: A peripheral IV was started in the Left antecubital site with a Angio cath: 20 gauge. RADIOLOGY DEPARTMENT: CT; Exam(s) Completed: PE Study SIGNATURE: Javid Sofia RT(R) PATIENT NAME: Brandi Lund DATE: November 18, 2021 TIME: 1:36 PM [facility] 11-11-2021 Miscellaneous Notes Received reports back from provider and sent to scanning. documented in this encounter [facility] 11-10-2021 Miscellaneous Notes Sleep apnea test dated back in August 09, 2012 received from 's office. Diagnosis Obstructive sleep apnea . Movement Trial of CPAP or BiPAP Treatment for. Likely movement CPAP titration dated October 11, 2012 Recommendation nasal CPAP 6 cmH2O For comfort consider a ramp circuit or modification Follow-up in 4 to 12 weeks documented in this encounter [facility] 11-07-2021 Miscellaneous Notes order for HI documented in this encounter [facility] 11-04-2021 Procedure note Associated Order(s): NITRIC OXIDE, EXHALED RESPIRATORY THERAPY ORAL EXHALED NITRIC OXIDE SERVICE DATE: 11/04/2021 SERVICE TIME: 2:13 PM Oral Exhaled Nitric Oxide measurement: 7.0 (ppb) Normal: Adult 5-20 ppb, pediatric (<12 years) 5-15 ppb High Normal / Increased: Adult 20-35 ppb, pediatric (<12 years) 15-25 ppb Moderately raised exhaled Nitric Oxide may indicate underlying inflammation, but note that: Cold and influenza can raise exhaled Nitric Oxide and some patients have higher baseline exhaled Nitric Oxide levels than others. High: Adult >35 ppb, pediatric (<12 years) >25 ppb Indicative of ongoing eosinophilic inflammation. Symptomatic patient likely to respond to steroids. Possible causes (if already on steroids): Poor compliance, recent allergen exposure, steroid dose inadequate, and steroid resistance. Note that not all patients with high exhaled nitric oxide levels display symptoms. Oral Exhaled Nitric Oxide measurement (Previous Encounters) Test Date Oral Exhaled Nitric Oxide (ppb) 11/04/2021 7.0 NAME: Marcel Alfonso RRT PATIENT NAME: Brandi Lund DATE: November 04, 2021 TIME: 2:13 PM documented in this encounter [facility] 11-04-2021 Procedure note Associated Order(s): OXIMETRY WITH AMBULATION RESPIRATORY THERAPY OXIMETRY WITH AMBULATION Oximetry with Ambulation Test for This Encounter O2 Device O2 Adapter NC O2 Flow SpO2% HR Activity Ft Walked (ft) Time (min) Avg Speed (MPH) R/A 99 102 Resting R/A 100 111 Walking, usual pace 550 3 2.08 R/A 100 126 Walking, fastest pace 715 3 2.71 General Information Pulse Oximetry Site Total Time Spent O2 Supply Carrier Walking Assistance/Device L Index Finger 30 None NAME: Marcel Alfonso RRT PATIENT NAME: Brandi Lund DATE: November 04, 2021 TIME: 2:11 PM Comment: documented in this encounter [facility] 11-04-2021 Miscellaneous Notes Call pt and told her that her closet location for the rehabilitation Center is the [facility] and give her the number. Patient needs to join pulm,onary rehab. Prefers to be at [place]. Second option is long Can you please try to find a pulmonary rehabilitation facility close to [place], other [place], she will join long [place]. Order is in Thanks MO documented in this encounter [facility] 11-04-2021 History of Presen t illness Narrative PULM FUNCTION SMARTBLOCK: Provider: Sarah Boogie MD Assisting Tech: Marcel Alfonso RRT Spirometry: 1 DLCO: 1 Oximetry - Ambulation: 1 Exhaled Nitric Oxide: 1 documented in this encounter [facility] 11-04-2021 Miscellaneous Notes Please request a copy of her sleep study from dr lopez at [facility] documented in this encounter [facility] 11-04-2021 History of Presen t illness Narrative Images from the original note were not included. [facility] OFFICE VISIT CONSULT 11/04/2021 Patient Name: Brandi Lund PRIMARY CARE PHYSICIAN: Jane Church, DO, DO REASON FOR CONSULT: fatigue, DIAN, post covid syndrome, lyme disease REFERRING PHYSICIAN: Priscila Stout, APR* My final recommendations will be communicated to the requesting health care provider by way of the shared medical record for internal providers or by letter via US mail for external providers. CHIEF COMPLAINT: fatigue, DIAN, post covid syndrome, lyme disease HISTORY OF PRESENT ILLNESS: Brandi Lund is a 46 year old female, Ht 167.6 cm (5' 6 ) BMI 35.35 kg/m2 with a PMH significant for covid infection early 2019 and April 2021, post covid syndrome, persistent fatigue, DIAN, celiac disease, IBS, lyme disease, referred to our office for evaluation. The patient main complaint is fatigue. Started many years ago. She was diagnosed with DIAN and started on cpap with a sleep specialist at [place]. Tried the cpap but it did not help her symptoms. Given some pills by the sleep clinic also without improvement. She quit using the cpap machine couple of years ago. She was referred to functional medicine and was diagnosed with Lyme disease. Also was diagnosed with celiac and IBS. Nothing seems to help her fatigue. She wakes up in the morning tired and not refereshed. Occasional cough and SOB. Her symptoms are affecting her daily living activities and quality of life. The symptoms are mild to moderate, intermittent, occur at rest and on exertion and relieved by medications. Blood tests within normal. Had stress test and ct coronaries within normal as per patient. no lung imaging or PFT in epic No recent hospitalizations, ER visits or steroids use. Environmental/ Occupational Exposure History: Pets: No birds Asbestos: No significant exposure Silica: No significant exposure [place] Stone: No significant exposure Mold: No significant exposure Hot tub: No significant exposure Fumes: No significant exposure Metal dust: No significant exposure Beryllium: No significant exposure Dust: No significant exposure Medications: No relevant exposure for interstitial lung diseases PAST MEDICAL HISTORY Diagnosis Date Celiac disease COVID 2019 beginning of 2019 and 04/23/21 Fibromyalgia IBS (irritable bowel syndrome) Insulin-resistant diabetes mellitus and acanthosis nigricans Lyme disease Other and unspecified ovarian cyst RIGHT resolved Other malaise and fatigue Post-COVID syndrome Unspecified essential hypertension Essential hypertension Variants of migraine, not elsewhere classified, without mention of intractable migraine without mention of status migrainosus Better now 11/10/11 PAST SURGICAL HISTORY Procedure Laterality Date DELIVERY ONLY 11/21/1997 , low cervical DELIVERY ONLY 12/2001,06/2010 , low cervical LAPS ABD PRTM&OMENTUM DX W/WO SPEC BR/WA SPX 03/23/1997 OVARIAN CYST DRAINAGE LAPS SURG CHOLECYSTECTOMY W/CHOLANGIOGRAPHY 08/01/2010 LIG/TRNSXJ FLP TUBE ABDL/VAG APPR UNI/BI 04/23/2010 Tubal ligation PAST SURGICAL HISTORY OF hysterectomy RPR UMBILICAL HRNA 5 YRS/> REDUCIBLE 08/01/2010 FAMILY HISTORY Problem Relation Age of Onset Hypertension Mother Lipids Mother Irritable Bowel Syndrome Mother Ulcerative Colitis Mother other (Diverticulitis) Mother Diabetes Father Heart Father stent x 2 Hyperlipidemia Father Diabetes Brother Diabetes Paternal Grandmother Breast Cancer Paternal Aunt Diabetes Paternal Uncle Colon Cancer No Family History Social History Tobacco Use Smoking status: Never Smoker Smokeless tobacco: Never Used Vaping Use Vaping Use: Never used Substance Use Topics Alcohol use: No Drug use: No ALLERGIES ALLERGIES No Known Allergies CURRENT OUTPATIENT MEDICATIONS cholestyramine-sucrose (QUESTRAN) 4 gram powder Take 4 g by mouth twice daily with meals. levothyroxine (SYNTHROID) 100 mcg tablet Take 100 mcg by mouth every morning. naltrexone capsule 4.5 mg (CPD) Take 1 capsule by mouth once daily. liothyronine (CYTOMEL) 5 mcg tablet Take one tablet by mouth in AM on empty stomach G.I. Detox (PresentationTube) Activated charcoal - (empty stomach, 30min before eating (60-90 min away from supps) Start with 1 capsule and work up to 3 capsules a day One Collins (Pure Encapsulation) Take 2 capsules by mouth daily with food. Saccharomyces Boulardii (Klaire/Prothera) Take 1 capsule by mouth twice daily. Iron Chelate (Klaire/Prothera) Take 1 capsule by mouth daily with food. Melatonin-SR (Klaire/Prothera) 2mg 1 by mouth 30 minutes before bed Vitamin D3 5000 U (Pure Encapsulations) Take 1 capsule by mouth daily with food. REVIEW OF SYSTEMS Review of Systems Constitutional: Negative for chills, fever and weight loss. Respiratory: Negative for cough, hemoptysis, sputum production, shortness of breath and wheezing. The remainder of review of systems was negative. PHYSICAL EXAM BP 144/94 Pulse 88 Ht 5' 6 (1.68m) Wt 219 lb (99.3kg) SpO2 99% LMP 08/18/2013 BMI 35.36 kg/(m^2). General appearance: Well appearing, alert, in no acute distress, well-hydrated, well nourished. Eyes: PERRLA Nose/Sinuses: Nares normal. Septum midline. Mucosa normal. No drainage or sinus tenderness. Oropharynx: Lips, mucosa, and tongue normal, teeth and gums normal, oropharynx normal Neck: no palpable masses Lungs: Lungs clear to auscultation. No wheezing, rhonchi, rales Heart: RRR without murmur, gallop, or rubs. No ectopy , normal peripheral pulses, no peripheral edema Abdomen: Abdomen soft, non-tender. Bowel sounds normal. No masses, organomegaly Extremities: Normal, Warm, No cyanosis, no clubbing, No edema and Nontender Neuro: no focal weakness Psychiatry: Alert, Oriented X 3 DATA Diagnostic tests reviewed for today's visit, including films and specimens, personally reviewed by me: Most recent labs and imaging results. Recent Results (from the past 8760 hour(s)) ECG COMPLETE Collection Time: 06/09/21 10:18 AM Result Value Ventricular Rate 84 Atrial Rate 84 P-R Interval 170 QRS Duration 80 QT Interval 378 QTC Calculation (Bazett) 446 Calculated P Chester 40 Calculated R Chester -6 Calculated T Chester 32 Impression SINUS RHYTHM WITH OCCASIONAL PREMATURE VENTRICULAR COMPLEXES OTHERWISE NORMAL ECG Confirmed by ISIAH OSBORN M.D. ([id number]) on 06/10/2021 7:34:13 AM No results found for this or any previous visit (from the past 38018 hour(s)). ASSESSMENT/PLAN 1. Post covid syndrome (primary diagnosis) Proceed with PFT and ct chest pe protocol since d dimers are elevated Echo cardiogram to check on pulmonary artery pressure Referral to pulmonary rehab - SPIROMETRY WITH DILATOR IF OBSTRUCTED - LUNG DIFFUSION CAPACITY (DLCO) - OXIMETRY WITH AMBULATION - NITRIC OXIDE, EXHALED - ECHO - PULMONARY REHABILITATION PRO - CT CHEST W IVCON PE - PULMONARY REHABILITATION PRO 2. History of COVID-19 - ICD9: V12.09, ICD10: Z86.16 Was very sick for 6 weeks early 2021 and had confirmed covid April 2021 Did not require hospitalization - PULMONARY REHABILITATION PRO 3. Malaise and fatigue - ICD9: 780.79, ICD10: R53.81, R53.83 Likely chronic fatigue syndrome 4. DIAN (obstructive sleep apnea) - ICD9: 327.23, ICD10: G47.33 Was following with a sleep specialist at [facility] Used cpap for a while-did not help-quit using it Will get sleep study report Sarah Boogie MD Immunizations: Unknown Smoking cessation instruction not required. Patient instructed to contact me for ct scan and lab results. I discussed the plan in detail with the patient and the patient verbalizes understanding and is in agreement. FOLLOW UP 3 months Verbal and/or written health teaching given to patient with > 40 minutes spent face to face with more than half of this for disease counseling. Sarah Boogie MD Staff, [facility] [place] [facility] CC: Jane Church DO, DO Priscila Stout, APR* documented in this encounter [facility] 11-04-2021 History of Presen t illness Narrative CHIEF COMPLAINT: Patient presents with: Diarrhea: Abdominal discomfort, celiac disease. Labs 10/13/21 This consult was requested by Priscila Stout, APR* for an opinion regarding IBS-D. My final recommendations will be communicated to the requesting health care provider by way of the shared medical record for internal providers or letter via the Medical Referral [employer] Postal Service for external providers. HPI: Brandi Lund is a 46 year old female who presents for Diarrhea (Abdominal discomfort, celiac disease. Labs 10/13/21). Hx of celiac dx and IBS-D Not on strict GFD She switched to GFD in the past and she did not improve She is not on GFD Never had colonoscopy but mother with tons of polyps Pt with issues with diarrhea after eating anything in the morning Cholecystectomy in 2010 Never had an upper endoscopy Some bloating 3 c-sections Record Review: [facility] / Outside records reviewed. PAST MEDICAL HISTORY Diagnosis Date Celiac disease COVID 2019 beginning of 2019 and 04/23/21 Fibromyalgia IBS (irritable bowel syndrome) Insulin-resistant diabetes mellitus and acanthosis nigricans Lyme disease Other and unspecified ovarian cyst RIGHT resolved Other malaise and fatigue Post-COVID syndrome Unspecified essential hypertension Essential hypertension Variants of migraine, not elsewhere classified, without mention of intractable migraine without mention of status migrainosus Better now 11/10/11 PAST SURGICAL HISTORY Procedure Laterality Date DELIVERY ONLY 11/21/1997 , low cervical DELIVERY ONLY 12/2001,06/2010 , low cervical LAPS ABD PRTM&OMENTUM DX W/WO SPEC BR/WA SPX 03/23/1997 OVARIAN CYST DRAINAGE LAPS SURG CHOLECYSTECTOMY W/CHOLANGIOGRAPHY 08/01/2010 LIG/TRNSXJ FLP TUBE ABDL/VAG APPR UNI/BI 04/23/2010 Tubal ligation PAST SURGICAL HISTORY OF hysterectomy RPR UMBILICAL HRNA 5 YRS/> REDUCIBLE 08/01/2010 Allergies: ALLERGIES No Known Allergies Medications: levothyroxine (SYNTHROID) 100 mcg tablet Take 100 mcg by mouth every morning. naltrexone capsule 4.5 mg (CPD) Take 1 capsule by mouth once daily. liothyronine (CYTOMEL) 5 mcg tablet Take one tablet by mouth in AM on empty stomach G.I. Detox (PresentationTube) Activated charcoal - (empty stomach, 30min before eating (60-90 min away from supps) Start with 1 capsule and work up to 3 capsules a day One Collins (Pure Encapsulation) Take 2 capsules by mouth daily with food. Saccharomyces Boulardii (Klaire/Prothera) Take 1 capsule by mouth twice daily. Iron Chelate (Klaire/Prothera) Take 1 capsule by mouth daily with food. Melatonin-SR (Klaire/Prothera) 2mg 1 by mouth 30 minutes before bed cholestyramine-sucrose (QUESTRAN) 4 gram powder Take 4 g by mouth twice daily with meals. Vitamin D3 5000 U (Pure Encapsulations) Take 1 capsule by mouth daily with food. 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 Respiratory: Positive for apnea. Cardiovascular: Positive for chest pain. Gastrointestinal: Positive for diarrhea. All other systems reviewed and are negative. Are you taking any blood thinners? No Physical Examination: BP 112/64 Pulse 75 Ht 5' 6.5 (1.69m) Wt 218 lb (98.9kg) LMP 08/18/2013 BMI 34.66 kg/(m^2). Physical Exam General: Alert, oriented, No acute distress. Skin: No rash; warm. Head: Normocephalic, atraumatic. Eyes: EOMI, PERRLA. Lymph: No cervical lymphadenopathy. Thyroid: Neck supple. No thyromegaly. Heart: S1, S2. No murmurs, gallops or rubs. Lungs: Clear to auscultation bilaterally. No wheezes or crackles. Abdomen: Soft, slightly tender, nondistended. Bowel sounds are normal. No organomegaly. Musculoskeletal: No joint swelling or effusion. Extremities: No cyanosis, clubbing or edema. Mental: Mood appropriate. Not depressed. Neuro: Cranial nerves II through XII intact. ASSESSMENT: Post-acute sequelae of covid-19 (pasc) Celiac disease Irritable bowel syndrome with diarrhea Screen for colon cancer (primary encounter diagnosis) Bloating Right lower quadrant abdominal tenderness with rebound tenderness PLAN: -Obtain EGD with small bowel biopsies to evaluate for celiac disease -Check celiac panel, CRP, stool calprotectin, vitamin D levels, vitamin A levels, zinc levels, B12 and folate levels -Schedule colonoscopy with random biopsies to work-up diarrhea and screen for colon cancer given history of colon polyps in her mother -Start Questran 4 g twice daily for bile acids diarrhea This office note has been created using RegisterPatient, a speech recognition software program, and may contain errors including punctuation, grammar, spelling, gender, and inappropriate words or phrases that pertain to the sytem. Michelle Olivera MD Office Visit on 11/04/21 TRANSGLUTAMINASE ABS IGA BLD C-REACTIVE PROTEIN (CRP) CALPROTECTIN,FECAL VITAMIN D 25 HYDROXY VITAMIN A/RETINOL ZINC BLD VITAMIN B12 BLOOD FOLATE SERUM CONSULT TO GASTROENTEROLOGY EGD DIAGNOSTIC COLONOSCOPY SCREENING No follow-ups on file. Michelle Olivera MD DATE: 11/04/21 TIME: 8:07 AM documented in this encounter [facility] 11-03-2021 Instructions Priscila Stout APRN.[facility] - 11/03/2021 7:12 AM EDT Welcome to [facility]'s [facility] Clinic! The 'COV' represents SARS-CoV-2, also known as COVID-19. Our clinic's mission is to assess and guide individuals who are experiencing long-term effects of COVID-19 to state of the art care paths tailored to fit each person. You were just seen for your follow up visit to review test results. We have now determined the best care path for your specific needs. The next step is to follow up with a specialist(s) based on your unique presentation. - The [facility]'s reCOVer Team documented in this encounter [facility] 11-03-2021 History of Presen t illness Narrative Images from the original note were not included. COVID ReCOVery [facility] Virtual Follow-up Evaluation This is a virtual visit using [employer] video visit. It required patient-provider interaction for the medical decision making as documented below. Initial reCOVer visit conducted: 10/13/21 with Priscila Stout APRN.CNP for evaluation of prolonged, > 28 days, symptoms attributed to COVID-19 infection. COVID-19 testing was initially positive on 04/25/21 HPI: Brandi Lund is a 46 year old female presenting with primary symptoms as listed below: Most significant symptoms copied directly from my initial note: Chest pain Started summer 2019 with suspected COVID Was occurring everyday, all day and now is a few days out of the week Many nights had gone to sleep wondering if she would wake up Had stress testing and cardiology eval- unremarkable Echo, CT calcium score test Lung nodule noted Evaluated by Dr. Groves who does not feel this is cardiac in nature Fatigue Hx of lyme disease- dx in [address] Martha Hardy in [place], has had some improvements with her tx Fatigue has been an issue for many years Never feels rested in the AM no matter how much she sleeps or naps Reports poor quality of life due to the profound level of fatigue Dizziness With bending over, position change Started a couple years ago Denies falls or black outs [place] like she could have blacked out a few years ago when driving so she pulled over and waited for it to pass Cognitive change Hx of this with Lyme, has recurred with COVID Difficulty with concentration Memory challenges Kids and will finish her sentences and take notice of this issue Anxiety Stress response to not feeling well Feeling more edgy and irritable with family Does not see a need for counseling at this time Has great support in family and friends Today's Update: Patient states symptoms remain the same since we last spoke Will have a follow up with her Lyme disease doc soon Other consultations have been scheduled Tests & Evaluations ordered, completed, and reviewed: Labs 10/13/21 Reviewed in detail. All labs unremarkable besides the following: D Dimer <500 ng/mL FEU 780 High Review of Systems Constitutional: Positive for fatigue. Cardiovascular: Positive for chest pain. Neurological: Positive for dizziness. Psychiatric/Behavioral: Positive for decreased concentration. The patient is nervous/anxious. PAST MEDICAL HISTORY Diagnosis Date Celiac disease COVID 2019 beginning of 2019 and 04/23/21 Fibromyalgia IBS (irritable bowel syndrome) Insulin-resistant diabetes mellitus and acanthosis nigricans Lyme disease Other and unspecified ovarian cyst RIGHT resolved Other malaise and fatigue Unspecified essential hypertension Essential hypertension Variants of migraine, not elsewhere classified, without mention of intractable migraine without mention of status migrainosus Better now 11/10/11 Medication Review: Current Outpatient Medications on File Prior to Visit Medication Sig levothyroxine (SYNTHROID) 100 mcg tablet Take 100 mcg by mouth every morning. losartan (COZAAR) 25 mg tablet Take 25 mg by mouth once daily. naltrexone capsule 4.5 mg (CPD) Take 1 capsule by mouth once daily. liothyronine (CYTOMEL) 5 mcg tablet Take one tablet by mouth in AM on empty stomach G.I. Detox (PresentationTube) Activated charcoal - (empty stomach, 30min before eating (60-90 min away from supps) Start with 1 capsule and work up to 3 capsules a day OTC PRODUCT once daily. Liver GI Detox One Collins (Pure Encapsulation) Take 2 capsules by mouth daily with food. Vitamin D3 5000 U (Pure Encapsulations) Take 1 capsule by mouth daily with food. Saccharomyces Boulardii (Klaire/Prothera) Take 1 capsule by mouth twice daily. Iron Chelate (Klaire/Prothera) Take 1 capsule by mouth daily with food. Melatonin-SR (Klaire/Prothera) 2mg 1 by mouth 30 minutes before bed No current facility-administered medications on file prior to visit. Initial screening questionnaires: Patient Entered Questionnaires COVID Symptoms 10/12/2021 Onset: 09/22/2019 PROMIS/NeuroQoL Score Percentiles Physical Health 10/12/2021 Fatigue Percentile 0 Sleep Percentile 18* Mental Health 10/12/2021 NeuroQol Cognitive Function Percentile 0 PROMIS Global Health Scale 10/12/2021 12/27/2016 10/05/2016 Physical Health Percentile 7 0 7 Mental Health Percentile 3 2 2 Percentiles provide an indication of how a patient s score ranks in relation to the [place] general population. > 31st percentile is within normal limits or better * < 31st percentile is at least SD worse than population, which may be clinically relevant < 16th percentile is at least 1 SD worse than population and warrants attention PHQ-9 10/12/2021 PHQ-2 Score 2 MYLES - 2/7 SCORES 10/12/2021 MYLES-2 Score 6 MYLES-7 Score 19 Objective Findings: Vitals: LMP 08/18/2013 Physical Examination (Video): Physical Exam Constitutional: General: She is not in acute distress. Appearance: Normal appearance. She is not ill-appearing, toxic-appearing or diaphoretic. Eyes: Conjunctiva/sclera: Conjunctivae normal. Pulmonary: Effort: Pulmonary effort is normal. Neurological: Mental Status: She is alert and oriented to person, place, and time. Cranial Nerves: No facial asymmetry. Psychiatric: Mood and Affect: Mood normal. Behavior: Behavior normal. Thought Content: Thought content normal. Judgment: Judgment normal. Assessment and Plan: Based on the patients symptomology and work-up, through shared-decision making between myself and the patient the following care paths have been initiated: Pulmonology Chest pain, lung nodule Scheduled with Dr. Boogie 11/04/21 Sleep Medicine Fatigue, DIAN Scheduled with Dr. Jenkins 01/06/22 Functional Medicine PASC, fatigue, Lyme disease, celiac disease, IBD-D elevated d dimer with negative VTE work up (CT chest W contrast, outside [facility] in July 2021) with no changes in symptoms- discussed commonality of this finding amongst long covid patients related to inflammatory response Red flags and reasons to go to ED reviewed Scheduled with Dr. Chu 04/10/22- on cancellation list Gastroenterology Left upper abdominal pain, chest pain, celiac disease, IBD-D Scheduled with Dr. Olivera 11/04/21 Return for Follow up with consulted specialists and PCP. I spent a total of 20 minutes on the date of the service which included preparing to see the patient, [id number] patient care, completing clinical documentation, obtaining and/or reviewing separately obtained history, performing a medically appropriate examination, counseling and educating the patient/family/caregiver, communicating with other HCPs (not separately reported), independently interpreting results (not separately reported), communicating results to the patient/family/caregiver and care coordination (not separately reported). Priscila Stout APRN.CNP November 03, 2021 7:03 AM documented in this encounter [facility] 10-14-2021 Miscellaneous Notes Called and spoke with patient and reviewed providers note. Reviewed red flags and she understood. Will call with any questions or concerns, Noted, based on her symptoms improving since July and no other accompanying symptoms, I do not think we need to repeat the CT. Very low suspicion for clot. D dimer is found to be elevated in many of our patients who have had covid and represents an ongoing level of inflammation for many that have had negative work ups for actual blood clots as she did in July. Non specifc rash of legs is likely due to Lyme, does not sound like a worry for DVT. Please review red flag symptoms with her and what to do should they occur. No further interventions needed at this time. Priscila Stout APRN.CNP Triaged for PE: Episodes of SOB along with the feeling you can't catch your breath: No Episodes of sweating and tachycardia: No Have the above episodes increased or changed in severity: No Chest Pain: Yes o When did the pain start summer 2019 o Location of pain: mid sternum radiates to left arm o What type of pain aching o Duration continues but she feels is improved. Four months ago she stated her symptoms had intensified but now seem to be present but less severe. Triaged for DVT: Swelling in lower extremities: No Noticed her upper thighs develops different oval shapes that come and go. Haven't had in the last couple months. Forgot to mention at her appointment. Wasn't sure if was due to her Lyme disease. Yovany's Test: negative Please advise Please triage for PE/DVT due to elevated D dimer level. Per our evaluation yesterday, ongoing chest pain is present. She had a ct chest with and without contrast 08/10/2021- negative for clot. Please determine if symptoms have worsened at all since then. Has dizziness or chest pain increased? Priscila Stout APRN.ДМИТРИЙ documented in this encounter [facility] 10-13-2021 Instructions Priscila Stout APRN.CNP - 10/13/2021 11:51 AM EDT Welcome to [facility]'s [facility]! The 'COV' represents SARS-CoV-2, also known as COVID-19. Our clinic's mission is to assess and guide individuals who are experiencing long-term effects of COVID-19 to state of the art care paths tailored to fit each person. You just had your initial visit with the reCOVer clinic! Next, you will be undergoing additional tests to further assess your current symptoms. Once you have these tests completed, you will have another visit to review these results. We will then direct you down the appropriate care path with a specialist for further treatment based on those results and your current symptoms. You may have your labs on the first floor as walk-in appointments. We will schedule you for our virtual follow up today before you leave. The pulmonology group will call you to schedule. The sleep group will call you to schedule. The functional medicine group will contact you via [employer] with scheduling information. Please call [phone] to schedule with gastroenterology. - The reCOVer Clinic Team documented in this encounter [facility] 10-13-2021 History of Presen t illness Narrative Images from the original note were not included. COVID ReCOVery Clinic Initial Evaluation Brandi Lund presents to [facility] Clinic at the request of Rogelio Groves MD for evaluation of prolonged, > 28 days, symptoms attributed to COVID-19 infection. They have requested this consultation via eConsult and will be communicated to via the EMR or [place] Post Office Correspondence. HPI: Brandi Lund is a 46 year old female with primary symptoms as below Positive COVID-19 Test: yes Date of Positive Test: 04/25/2021 Description of their course of COVID-19 illness. 1. Symptoms began on 04/23/21 2. Hospitalization? No 3. Was the patient on oxygen? No 4. Was patient discharged on oxygen? No 5. Was there an ICU stay? No 6. Was the patient intubated? No 7. Were there any COVID-19 medications given? No 8. Were there significant complications from the patients COVID-19 Illness? No 9. Has the patient received the COVID Vaccine? NO COVID-19 Symptom Review Shortness of Breath or Dyspnea on Exertion Resolved Cough Resolved Chest discomfort/chest pain Recurred persistent Palpitations Never Exertional intolerance Recurred persistent Fatigue Recurred persistent Dizziness Recurred persistent Syncope or Near syncope Never Fever Recurred intermittent low-grade Joint pain/Body aches Present prior to COVID-19 infection and improved since Lyme treatment Altered taste/smell Resolved Lack of concentration/brain fog Recurred persistent Memory deficits Recurred persistent Diarrhea or nausea Present prior to COVID-19 infection and baseline diarrhea Headaches Present prior to COVID-19 infection and at baseline Difficulty sleeping Present prior to COVID-19 infection and persistent HF Symptoms - Orthopnea/Edema Never Changes in mood Recurred persistent Most significant symptoms: Chest pain Started summer 2019 with suspected COVID Was occurring everyday, all day and now is a few days out of the week Many nights had gone to sleep wondering if she would wake up Had stress testing and cardiology eval- unremarkable Echo, CT calcium score test Lung nodule noted Evaluated by Dr. Groves who does not feel this is cardiac in nature Fatigue Hx of lyme disease- dx in [address] Martha Hardy in [place], has had some improvements with her tx Fatigue has been an issue for many years Never feels rested in the AM no matter how much she sleeps or naps Reports poor quality of life due to the profound level of fatigue Dizziness With bending over, position change Started a couple years ago Denies falls or black outs [place] like she could have blacked out a few years ago when driving so she pulled over and waited for it to pass Cognitive change Hx of this with Lyme, has recurred with COVID Difficulty with concentration Memory challenges Kids and will finish her sentences and take notice of this issue Anxiety Stress response to not feeling well Feeling more edgy and irritable with family Does not see a need for counseling at this time Has great support in family and friends Patient declines COVID vaccination and does not have any questions for me at this time Recent/previously completed testing: EKG 06/09/21 ECHO 05/10/[address] cardiac scoring 06/29/21 CT chest W/WO contrast 08/10/21 Established with the following specialists: Cardiology- Dr. Groves [facility]- [place], Dr. Hardy Review of Systems Constitutional: Positive for activity change, fatigue and fever (low grade intermittently ). Respiratory: Negative for cough, chest tightness, shortness of breath and wheezing. Cardiovascular: Positive for chest pain. Negative for palpitations and leg swelling. Gastrointestinal: Negative for abdominal pain, diarrhea, nausea and vomiting. Musculoskeletal: Positive for arthralgias (improved ). Neurological: Positive for dizziness, light-headedness and headaches. Negative for syncope. Psychiatric/Behavioral: Positive for confusion, decreased concentration and sleep disturbance. Negative for dysphoric mood. The patient is nervous/anxious. PAST MEDICAL HISTORY Diagnosis Date Celiac disease COVID 2019 beginning of 2019 and 04/23/21 Fibromyalgia IBS (irritable bowel syndrome) Insulin-resistant diabetes mellitus and acanthosis nigricans Lyme disease Other and unspecified ovarian cyst RIGHT resolved Other malaise and fatigue Unspecified essential hypertension Essential hypertension Variants of migraine, not elsewhere classified, without mention of intractable migraine without mention of status migrainosus Better now 11/10/11 Medication Review: Current Outpatient Medications on File Prior to Visit Medication Sig levothyroxine (SYNTHROID) 100 mcg tablet Take 100 mcg by mouth every morning. naltrexone capsule 4.5 mg (CPD) Take 1 capsule by mouth once daily. liothyronine (CYTOMEL) 5 mcg tablet Take one tablet by mouth in AM on empty stomach G.I. Detox (PresentationTube) Activated charcoal - (empty stomach, 30min before eating (60-90 min away from supps) Start with 1 capsule and work up to 3 capsules a day OTC PRODUCT once daily. Liver GI Detox One Collins (Pure Encapsulation) Take 2 capsules by mouth daily with food. Saccharomyces Boulardii (Klaire/Prothera) Take 1 capsule by mouth twice daily. Iron Chelate (Klaire/Prothera) Take 1 capsule by mouth daily with food. IVERMECTIN ORAL Take 18 mg by mouth once daily. losartan (COZAAR) 25 mg tablet Take 25 mg by mouth once daily. Vitamin D3 5000 U (Pure Encapsulations) Take 1 capsule by mouth daily with food. Melatonin-SR (Klaire/Prothera) 2mg 1 by mouth 30 minutes before bed No current facility-administered medications on file prior to visit. Objective Findings: Vitals: BP 125/82 (BP Site: Left Arm, BP Position: Sitting, BP Cuff Size: Large Adult) Pulse 94 Temp 37.4 C (99.4 F) (Temporal) Resp 15 Ht 168.9 cm (5' 6.5 ) Wt 98.6 kg (217 lb 4.8 oz) LMP 08/18/2013 SpO2 100% BMI 34.55 kg/m Initial Screening Questionaires review: COVID Symptoms 10/12/2021 Onset: 09/22/2019 PROMIS/NeuroQoL Score Percentiles Physical Health 10/12/2021 Fatigue Percentile 0 Sleep Percentile 18* Mental Health 10/12/2021 NeuroQol Cognitive Function Percentile 0 PROMIS Global Health Scale 10/12/2021 12/27/2016 10/05/2016 Physical Health Percentile 7 0 7 Mental Health Percentile 3 2 2 Percentiles provide an indication of how a patient s score ranks in relation to the [place] general population. > 31st percentile is within normal limits or better * < 31st percentile is at least SD worse than population, which may be clinically relevant < 16th percentile is at least 1 SD worse than population and warrants attention PHQ-9 10/12/2021 PHQ-2 Score 2 MYLES - 2/7 SCORES 10/12/2021 MYLES-2 Score 6 MYLES-7 Score 19 Physical Examination: Physical Exam Vitals and nursing note reviewed. Constitutional: General: She is not in acute distress. Appearance: Normal appearance. She is not ill-appearing, toxic-appearing or diaphoretic. HENT: Head: Normocephalic and atraumatic. Right Ear: External ear normal. Left Ear: External ear normal. Eyes: Extraocular Movements: Extraocular movements intact. Conjunctiva/sclera: Conjunctivae normal. Pupils: Pupils are equal, round, and reactive to light. Cardiovascular: Rate and Rhythm: Normal rate and regular rhythm. Pulses: Normal pulses. Heart sounds: Normal heart sounds. Pulmonary: Effort: Pulmonary effort is normal. No respiratory distress. Breath sounds: Normal breath sounds. No stridor. No decreased breath sounds, wheezing, rhonchi or rales. Chest: Chest wall: No tenderness. Musculoskeletal: Cervical back: Normal range of motion and neck supple. Right lower leg: No edema. Left lower leg: No edema. Lymphadenopathy: Cervical: No cervical adenopathy. Skin: Capillary Refill: Capillary refill takes less than 2 seconds. Coloration: Skin is not jaundiced or pale. Findings: No bruising or rash. Neurological: Mental Status: She is alert and oriented to person, place, and time. Cranial Nerves: No cranial nerve deficit. Sensory: No sensory deficit. Motor: No weakness, tremor or abnormal muscle tone. Coordination: Coordination normal. Pbmkvy-Ftej-Vqdvur Test normal. Gait: Gait normal. Psychiatric: Mood and Affect: Mood normal. Behavior: Behavior normal. Thought Content: Thought content normal. Judgment: Judgment normal. Assessment and Plan: ASSESSMENT/PLAN: 1. Chest discomfort - ICD9: 786.59, ICD10: R07.89 (primary diagnosis) -The patient and I reviewed the below testing in detail. We discussed indications for testing and the benefits of results in directing the plan of care. - Will await test results and have a follow up visit to review and discuss appropriate care paths. - thyroid labs completed through [facility] Forgo PFT as no SOB reported at this time - Chest imaging and ECHO through [facility] - CBC - COMP METABOLIC PANEL - PREALBUMIN BLD - SED RATE WESTERGREN - C-REACTIVE PROTEIN (CRP) - NT PRO BNP - D-DIMER - CARDIOLIPIN IGM ABS - FERRITIN BLD - FIBRINOGEN - OMEGACHECK - TMAO 2. 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 Fatigue, unspecified type - ICD9: 780.79, ICD10: R53.83 4. DIAN (obstructive sleep apnea) - ICD9: 327.23, ICD10: G47.33 5. Lyme disease - ICD9: 088.81, ICD10: A69.20 6. Celiac disease - ICD9: 579.0, ICD10: K90.0 7. Irritable bowel syndrome with diarrhea - ICD9: 564.1, ICD10: K58.0 8. COVID-19 vaccine regimen to maintain immunity declined - ICD9: V64.06, ICD10: Z28.21 Consults initiated today: - CONSULT TO PULMONARY MEDICINE Chest pain, lung nodule - CONSULT TO SLEEP MEDICINE - ADULT Fatigue, DIAN - CONSULT TO FUNCTIONAL MEDICINE PASC, fatigue, Lyme disease, celiac disease, IBD-D - CONSULT TO GASTROENTEROLOGY Left upper abdominal pain, chest pain, celiac disease, IBD-D Return for Virtual follow-up to review results once complete. I spent a total of 60 minutes on the date of the service which included preparing to see the patient, [id number] patient care, completing clinical documentation, obtaining and/or reviewing separately obtained history, performing a medically appropriate examination, counseling and educating the patient/family/caregiver, ordering medications, tests, or procedures, communicating results to the patient/family/caregiver and care coordination (not separately reported). Priscila Stout APRN.CNP October 13, 2021 11:09 AM documented in this encounter [facility] documented as of this encounter (statuses as of 10/13/2021) [facility]2016 History of Past illness Narrative* Problem Noted Date Resolved Date Fatigue 11/05/2015 01/18/2016 Bloating 11/05/2015 01/18/2016 Irregular menstrual cycle 11/10/20112015 Excessive or frequent menstruation 11/10/2011 01/18/2016 Metrorrhagia 11/10/2011 01/18/2016 Diabetes mellitus, 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) 06/17/2010 07/04/2010 ADVANCED MATERNAL AGE:MULTIPARA[659.63] 11/25/19 10 07/04/2010 SUPRF HIGH RISK NEC [V23.89] 0 07/04/2010 Poor growth, affecting management of mother, antepartum condition or complication 11/24/2009 07/04/2010 Other pre-existing hypertension, antepartum 08/0 07/200907/04/2010 Previous delivery, antepartum condition or complication 11/24/2009 07/04/2010 documented as of this encounter (statuses as of 10/17/2021) [facility] History of Past illness Narrative* Problem Noted Date Resolved Date Fatigue 11/05/2015 01/18/2016 Bloating 11/05/2015 01/18/2016 Irregular menstrual cycle 11/10/20112015 Excessive or frequent menstruation 11/10/2011 01/18/2016 Metrorrhagia 11/10/2011 01/18/2016 Diabetes mellitus, 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) 06/17/2010 07/04/2010 ADVANCED MATERNAL AGE:MULTIPARA[659.63] 11/25/19 10 07/04/2010 SUPRF HIGH RISK NEC [V23.89] 0 07/04/2010 Poor growth, affecting management of mother, antepartum condition or complication 11/24/2009 07/04/2010 Other pre-existing hypertension, antepartum 08/0 07/200907/04/2010 Previous delivery, antepartum condition or complication 11/24/2009 07/04/2010 documented as of this encounter (statuses as of 11/03/2021) [facility] History of Past illness Narrative* Problem Noted Date Resolved Date Fatigue 11/05/2015 01/18/2016 Bloating 11/05/2015 01/18/2016 Irregular menstrual cycle 11/10/20112015 Excessive or frequent menstruation 11/10/2011 01/18/2016 Metrorrhagia 11/10/2011 01/18/2016 Diabetes mellitus, 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) 06/17/2010 07/04/2010 ADVANCED MATERNAL AGE:MULTIPARA[659.63] 11/25/19 10 07/04/2010 SUPRF HIGH RISK NEC [V23.89] 0 07/04/2010 Poor growth, affecting management of mother, antepartum condition or complication 11/24/2009 07/04/2010 Other pre-existing hypertension, antepartum 08/0 07/200907/04/2010 Previous delivery, antepartum condition or complication 11/24/2009 07/04/2010 documented as of this encounter (statuses as of 11/04/2021) [facility] History of Past illness Narrative* Problem Noted Date Resolved Date Fatigue 11/05/2015 01/18/2016 Bloating 11/05/2015 01/18/2016 Irregular menstrual cycle 11/10/20112015 Excessive or frequent menstruation 11/10/2011 01/18/2016 Metrorrhagia 11/10/2011 01/18/2016 Diabetes mellitus, 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) 06/17/2010 07/04/2010 ADVANCED MATERNAL AGE:MULTIPARA[659.63] 11/25/19 10 07/04/2010 SUPRF HIGH RISK NEC [V23.89] 0 07/04/2010 Poor growth, affecting management of mother, antepartum condition or complication 11/24/2009 07/04/2010 Other pre-existing hypertension, antepartum /0 07/200907/04/2010 Previous delivery, antepartum condition or complication 11/24/2009 07/04/2010 documented as of this encounter (statuses as of 11/04/2021) [facility] History of Past illness Narrative* Problem Noted Date Resolved Date Fatigue 11/05/2015 01/18/2016 Bloating 11/05/2015 01/18/2016 Irregular menstrual cycle 11/10/20112015 Excessive or frequent menstruation 11/10/2011 01/18/2016 Metrorrhagia 11/10/2011 01/18/2016 Diabetes mellitus, 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) 06/17/2010 07/04/2010 ADVANCED MATERNAL AGE:MULTIPARA[659.63] 11/25/19 10 07/04/2010 SUPRF HIGH RISK NEC [V23.89] 0 07/04/2010 Poor growth, affecting management of mother, antepartum condition or complication 11/24/2009 07/04/2010 Other pre-existing hypertension, antepartum 08/0 07/200907/04/2010 Previous delivery, antepartum condition or complication 11/24/2009 07/04/2010 documented as of this encounter (statuses as of 11/04/2021) [facility] History of Past illness Narrative* Problem Noted Date Resolved Date Fatigue 11/05/2015 01/18/2016 Bloating 11/05/2015 01/18/2016 Irregular menstrual cycle 11/10/20112015 Excessive or frequent menstruation 11/10/2011 01/18/2016 Metrorrhagia 11/10/2011 01/18/2016 Diabetes mellitus, 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) 06/17/2010 07/04/2010 ADVANCED MATERNAL AGE:MULTIPARA[659.63] 11/25/19 10 07/04/2010 SUPRF HIGH RISK NEC [V23.89] 0 07/04/2010 Poor growth, affecting management of mother, antepartum condition or complication 11/24/2009 07/04/2010 Other pre-existing hypertension, antepartum 08/0 07/200907/04/2010 Previous delivery, antepartum condition or complication 11/24/2009 07/04/2010 documented as of this encounter (statuses as of 11/04/2021) [facility] History of Past illness Narrative* Problem Noted Date Resolved Date Fatigue 11/05/2015 01/18/2016 Bloating 11/05/2015 01/18/2016 Irregular menstrual cycle 11/10/20112015 Excessive or frequent menstruation 11/10/2011 01/18/2016 Metrorrhagia 11/10/2011 01/18/2016 Diabetes mellitus, 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) 06/17/2010 07/04/2010 ADVANCED MATERNAL AGE:MULTIPARA[659.63] 11/25/19 10 07/04/2010 SUPRF HIGH RISK NEC [V23.89] 0 07/04/2010 Poor growth, affecting management of mother, antepartum condition or complication 11/24/2009 07/04/2010 Other pre-existing hypertension, antepartum 08/0 07/200907/04/2010 Previous delivery, antepartum condition or complication 11/24/2009 07/04/2010 documented as of this encounter (statuses as of 11/07/2021) [facility] History of Past illness Narrative* Problem Noted Date Resolved Date Fatigue 11/05/2015 01/18/2016 Bloating 11/05/2015 01/18/2016 Irregular menstrual cycle 11/10/20112015 Excessive or frequent menstruation 11/10/2011 01/18/2016 Metrorrhagia 11/10/2011 01/18/2016 Diabetes mellitus, 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) 06/17/2010 07/04/2010 ADVANCED MATERNAL AGE:MULTIPARA[659.63] 11/25/19 10 07/04/2010 SUPRF HIGH RISK NEC [V23.89] 0 07/04/2010 Poor growth, affecting management of mother, antepartum condition or complication 11/24/2009 07/04/2010 Other pre-existing hypertension, antepartum 08/0 07/200907/04/2010 Previous delivery, antepartum condition or complication 11/24/2009 07/04/2010 documented as of this encounter (statuses as of 11/10/2021) [facility] History of Past illness Narrative* Problem Noted Date Resolved Date Fatigue 11/05/2015 01/18/2016 Bloating 11/05/2015 01/18/2016 Irregular menstrual cycle 11/10/20112015 Excessive or frequent menstruation 11/10/2011 01/18/2016 Metrorrhagia 11/10/2011 01/18/2016 Diabetes mellitus, 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) 06/17/2010 07/04/2010 ADVANCED MATERNAL AGE:MULTIPARA[659.63] 11/25/19 10 07/04/2010 SUPRF HIGH RISK NEC [V23.89] 0 07/04/2010 Poor growth, affecting management of mother, antepartum condition or complication 11/24/2009 07/04/2010 Other pre-existing hypertension, antepartum 08/0 07/200907/04/2010 Previous delivery, antepartum condition or complication 11/24/2009 07/04/2010 documented as of this encounter (statuses as of 11/11/2021) [facility] History of Past illness Narrative* Problem Noted Date Resolved Date Fatigue 11/05/2015 01/18/2016 Bloating 11/05/2015 01/18/2016 Irregular menstrual cycle 11/10/20112015 Excessive or frequent menstruation 11/10/2011 01/18/2016 Metrorrhagia 11/10/2011 01/18/2016 Diabetes mellitus, 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) 06/17/2010 07/04/2010 ADVANCED MATERNAL AGE:MULTIPARA[659.63] 11/25/19 10 07/04/2010 SUPRF HIGH RISK NEC [V23.89] 0 07/04/2010 Poor growth, affecting management of mother, antepartum condition or complication 11/24/2009 07/04/2010 Other pre-existing hypertension, antepartum 07/200907/04/2010 Previous delivery, antepartum condition or complication 11/24/2009 07/04/2010 documented as of this encounter (statuses as of 11/19/2021) [facility] History of Past illness Narrative* Problem Noted Date Resolved Date Fatigue 11/05/2015 01/18/2016 Bloating 11/05/2015 01/18/2016 Irregular menstrual cycle 11/10/20112015 Excessive or frequent menstruation 11/10/2011 01/18/2016 Metrorrhagia 11/10/2011 01/18/2016 Diabetes mellitus, 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) 06/17/2010 07/04/2010 ADVANCED MATERNAL AGE:MULTIPARA[659.63] 11/25/19 10 07/04/2010 SUPRF HIGH RISK NEC [V23.89] 0 07/04/2010 Poor growth, affecting management of mother, antepartum condition or complication 11/24/2009 07/04/2010 Other pre-existing hypertension, antepartum 08/0 07/200907/04/2010 Previous delivery, antepartum condition or complication 11/24/2009 07/04/2010 documented as of this encounter (statuses as of 12/01/2021) [facility] History of Past illness Narrative* Problem Noted Date Resolved Date Fatigue 11/05/2015 01/18/2016 Bloating 11/05/2015 01/18/2016 Irregular menstrual cycle 11/10/20112015 Excessive or frequent menstruation 11/10/2011 01/18/2016 Metrorrhagia 11/10/2011 01/18/2016 Diabetes mellitus, 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) 06/17/2010 07/04/2010 ADVANCED MATERNAL AGE:MULTIPARA[659.63] 11/25/19 10 07/04/2010 SUPRF HIGH RISK NEC [V23.89] 0 07/04/2010 Poor growth, affecting management of mother, antepartum condition or complication 11/24/2009 07/04/2010 Other pre-existing hypertension, antepartum 08/0 07/200907/04/2010 Previous delivery, antepartum condition or complication 11/24/2009 07/04/2010 documented as of this encounter (statuses as of 01/06/2022) [facility] History of Past illness Narrative* Problem Noted Date Resolved Date Fatigue 11/05/2015 01/18/2016 Bloating 11/05/2015 01/18/2016 Irregular menstrual cycle 11/10/20112015 Excessive or frequent menstruation 11/10/2011 01/18/2016 Metrorrhagia 11/10/2011 01/18/2016 Diabetes mellitus, 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) 06/17/2010 07/04/2010 ADVANCED MATERNAL AGE:MULTIPARA[659.63] 11/25/19 10 07/04/2010 SUPRF HIGH RISK NEC [V23.89] 0 07/04/2010 Poor growth, affecting management of mother, antepartum condition or complication 11/24/2009 07/04/2010 Other pre-existing hypertension, antepartum 08/0 07/200907/04/2010 Previous delivery, antepartum condition or complication 11/24/2009 07/04/2010 documented as of this encounter (statuses as of 01/19/2022) [facility] History of Past illness Narrative* Problem Noted Date Resolved Date Fatigue 11/05/2015 01/18/2016 Bloating 11/05/2015 01/18/2016 Irregular menstrual cycle 11/10/20112015 Excessive or frequent menstruation 11/10/2011 01/18/2016 Metrorrhagia 11/10/2011 01/18/2016 Diabetes mellitus, 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) 06/17/2010 07/04/2010 ADVANCED MATERNAL AGE:MULTIPARA[659.63] 11/25/19 10 07/04/2010 SUPRF HIGH RISK NEC [V23.89] 0 07/04/2010 Poor growth, affecting management of mother, antepartum condition or complication 11/24/2009 07/04/2010 Other pre-existing hypertension, antepartum 08/0 07/200907/04/2010 Previous delivery, antepartum condition or complication 11/24/2009 07/04/2010 documented as of this encounter (statuses as of 01/24/2022) [facility] History of Past illness Narrative* Problem Noted Date Resolved Date Fatigue 11/05/2015 01/18/2016 Bloating 11/05/2015 01/18/2016 Irregular menstrual cycle 11/10/20112015 Excessive or frequent menstruation 11/10/2011 01/18/2016 Metrorrhagia 11/10/2011 01/18/2016 Diabetes mellitus, 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) 06/17/2010 07/04/2010 ADVANCED MATERNAL AGE:MULTIPARA[659.63] 11/25/19 10 07/04/2010 SUPRF HIGH RISK NEC [V23.89] 0 07/04/2010 Poor growth, affecting management of mother, antepartum condition or complication 11/24/2009 07/04/2010 Other pre-existing hypertension, antepartum 08/0 07/200907/04/2010 Previous delivery, antepartum condition or complication 11/24/2009 07/04/2010 documented as of this encounter (statuses as of 03/21/2022) [facility] History of Past illness Narrative* Problem Noted Date Resolved Date Fatigue 11/05/2015 01/18/2016 Bloating 11/05/2015 01/18/2016 Irregular menstrual cycle 11/10/20112015 Excessive or frequent menstruation 11/10/2011 01/18/2016 Metrorrhagia 11/10/2011 01/18/2016 Diabetes mellitus, 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) 06/17/2010 07/04/2010 ADVANCED MATERNAL AGE:MULTIPARA[659.63] 11/25/19 10 07/04/2010 SUPRF HIGH RISK NEC [V23.89] 0 07/04/2010 Poor growth, affecting management of mother, antepartum condition or complication 11/24/2009 07/04/2010 Other pre-existing hypertension, antepartum 08/0 07/200907/04/2010 Previous delivery, antepartum condition or complication 11/24/2009 07/04/2010 documented as of this encounter (statuses as of 04/27/2022) [facility] History of Past illness Narrative* Problem Noted Date Resolved Date Fatigue 11/05/2015 01/18/2016 Bloating 11/05/2015 01/18/2016 Irregular menstrual cycle 11/10/20112015 Excessive or frequent menstruation 11/10/2011 01/18/2016 Metrorrhagia 11/10/2011 01/18/2016 Diabetes mellitus, 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) 06/17/2010 07/04/2010 ADVANCED MATERNAL AGE:MULTIPARA[659.63] 11/25/19 10 07/04/2010 SUPRF HIGH RISK NEC [V23.89] 0 07/04/2010 Poor growth, affecting management of mother, antepartum condition or complication 11/24/2009 07/04/2010 Other pre-existing hypertension, antepartum 08/0 07/200907/04/2010 Previous delivery, antepartum condition or complication 11/24/2009 07/04/2010 documented as of this encounter (statuses as of 04/27/2022) [facility] History of Past illness Narrative* Problem Noted Date Resolved Date Fatigue 11/05/2015 01/18/2016 Bloating 11/05/2015 01/18/2016 Irregular menstrual cycle 11/10/20112015 Excessive or frequent menstruation 11/10/2011 01/18/2016 Metrorrhagia 11/10/2011 01/18/2016 Diabetes mellitus, 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) 06/17/2010 07/04/2010 ADVANCED MATERNAL AGE:MULTIPARA[659.63] 11/25/19 10 07/04/2010 SUPRF HIGH RISK NEC [V23.89] 0 07/04/2010 Poor growth, affecting management of mother, antepartum condition or complication 11/24/2009 07/04/2010 Other pre-existing hypertension, antepartum 08/0 07/200907/04/2010 Previous delivery, antepartum condition or complication 11/24/2009 07/04/2010 documented as of this encounter (statuses as of 05/10/2022) [facility] History of Past illness Narrative* Problem Noted Date Resolved Date Fatigue 11/05/2015 01/18/2016 Bloating 11/05/2015 01/18/2016 Irregular menstrual cycle 11/10/20112015 Excessive or frequent menstruation 11/10/2011 01/18/2016 Metrorrhagia 11/10/2011 01/18/2016 Diabetes mellitus, 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) 06/17/2010 07/04/2010 ADVANCED MATERNAL AGE:MULTIPARA[659.63] 11/25/19 10 07/04/2010 SUPRF HIGH RISK NEC [V23.89] 0 07/04/2010 Poor growth, affecting management of mother, antepartum condition or complication 11/24/2009 07/04/2010 Other pre-existing hypertension, antepartum 08/0 07/200907/04/2010 Previous delivery, antepartum condition or complication 11/24/2009 07/04/2010 documented as of this encounter (statuses as of 05/16/2022) [facility] History of Past illness Narrative* Problem Noted Date Resolved Date Fatigue 11/05/2015 01/18/2016 Bloating 11/05/2015 01/18/2016 Irregular menstrual cycle 11/10/20112015 Excessive or frequent menstruation 11/10/2011 01/18/2016 Metrorrhagia 11/10/2011 01/18/2016 Diabetes mellitus, 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) 06/17/2010 07/04/2010 ADVANCED MATERNAL AGE:MULTIPARA[659.63] 11/25/19 10 07/04/2010 SUPRF HIGH RISK NEC [V23.89] 0 07/04/2010 Poor growth, affecting management of mother, antepartum condition or complication 11/24/2009 07/04/2010 Other pre-existing hypertension, antepartum 08/0 07/200907/04/2010 Previous delivery, antepartum condition or complication 11/24/2009 07/04/2010 documented as of this encounter (statuses as of 05/16/2022) [facility] History of Past illness Narrative* Problem Noted Date Resolved Date Fatigue 11/05/2015 01/18/2016 Bloating 11/05/2015 01/18/2016 Irregular menstrual cycle 11/10/20112015 Excessive or frequent menstruation 11/10/2011 01/18/2016 Metrorrhagia 11/10/2011 01/18/2016 Diabetes mellitus, 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) 06/17/2010 07/04/2010 ADVANCED MATERNAL AGE:MULTIPARA[659.63] 11/25/19 10 07/04/2010 SUPRF HIGH RISK NEC [V23.89] 0 07/04/2010 Poor growth, affecting management of mother, antepartum condition or complication 11/24/2009 07/04/2010 Other pre-existing hypertension, antepartum 08/0 07/200907/04/2010 Previous delivery, antepartum condition or complication 11/24/2009 07/04/2010 documented as of this encounter (statuses as of 05/25/2022) [facility] History of Past illness Narrative* Problem Noted Date Resolved Date Fatigue 11/05/2015 01/18/2016 Bloating 11/05/2015 01/18/2016 Irregular menstrual cycle 11/10/20112015 Excessive or frequent menstruation 11/10/2011 01/18/2016 Metrorrhagia 11/10/2011 01/18/2016 Diabetes mellitus, 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) 06/17/2010 07/04/2010 ADVANCED MATERNAL AGE:MULTIPARA[659.63] 11/25/19 10 07/04/2010 SUPRF HIGH RISK NEC [V23.89] 0 07/04/2010 Poor growth, affecting management of mother, antepartum condition or complication 11/24/2009 07/04/2010 Other pre-existing hypertension, antepartum 08/0 07/200907/04/2010 Previous delivery, antepartum condition or complication 11/24/2009 07/04/2010 documented as of this encounter (statuses as of 07/13/2022) [facility] History of Past illness Narrative* Problem Noted Date Resolved Date Fatigue 11/05/2015 01/18/2016 Bloating 11/05/2015 01/18/2016 Irregular menstrual cycle 11/10/20112015 Excessive or frequent menstruation 11/10/2011 01/18/2016 Metrorrhagia 11/10/2011 01/18/2016 Diabetes mellitus, 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) 06/17/2010 07/04/2010 ADVANCED MATERNAL AGE:MULTIPARA[659.63] 11/25/19 10 07/04/2010 SUPRF HIGH RISK NEC [V23.89] 0 07/04/2010 Poor growth, affecting management of mother, antepartum condition or complication 11/24/2009 07/04/2010 Other pre-existing hypertension, antepartum 07/200907/04/2010 Previous delivery, antepartum condition or complication 11/24/2009 07/04/2010 documented as of this encounter (statuses as of 07/20/2022) [facility] History of Past illness Narrative* Problem Noted Date Diagnosed Date Resolved Date Fatigue 11/05/2015 01/18/2016 Bloating 11/05/2015 01/18/2016 Irregular menstrual cycle 11/10/2011 Excessive or frequent menstruation 11/10/2011 01/18/2016 Metrorrhagia 11/10/2011 01/18/2016 Diabetes mellitus, 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) 06/17/2010 07/04/2010 ADVANCED MATERNAL AGE:MULTIPARA[659.63] 11/24/2009 07/04/2010 SUPRF HIGH RISK NEC [V23.89] 11/24/2009 07/04/2010 Poor growth, affecting management of mother, antepartum condition or complication 11/24/2009 07/04/2010 Other pre-existing hypertension, antepartum 11/24/2009 07/04/2010 Previous delivery, antepartum condition or complication 11/24/2009 07/04/2010 documented as of this encounter (statuses as of 03/23/2023) [facility] History of Past illness Narrative* Problem Noted Date Diagnosed Date Resolved Date Fatigue 11/05/2015 01/18/2016 Bloating 11/05/2015 01/18/2016 Irregular menstrual cycle 11/10/2011 Excessive or frequent menstruation 11/10/2011 01/18/2016 Metrorrhagia 11/10/2011 01/18/2016 Diabetes mellitus, 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) 06/17/2010 07/04/2010 ADVANCED MATERNAL AGE:MULTIPARA[659.63] 11/24/2009 07/04/2010 SUPRF HIGH RISK NEC [V23.89] 11/24/2009 07/04/2010 Poor growth, affecting management of mother, antepartum condition or complication 11/24/2009 07/04/2010 Other pre-existing hypertension, antepartum 11/24/2009 07/04/2010 Previous delivery, antepartum condition or complication 11/24/2009 07/04/2010 documented as of this encounter (statuses as of 04/04/2023) [facility] Diagnosis Chest discomfort- Primary Other chest pain Post-acute sequelae of COVID-19 (PASC) Lung nodule Solitary pulmonary nodule Fatigue, unspecified type DIAN (obstructive sleep apnea) Obstructive sleep apnea (adult) (pediatric) Lyme disease Celiac disease Irritable bowel syndrome with diarrhea Irritable bowel syndrome COVID-19 vaccine regimen to maintain immunity declined [facility] Diagnosis 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 [facility] Diagnosis Screen for colon cancer- Primary Special screening for malignant neoplasms, colon Post-acute sequelae of COVID-19 (PASC) Celiac disease Irritable bowel syndrome with diarrhea Irritable bowel syndrome Bloating Flatulence, eructation, and gas pain Right lower quadrant abdominal tenderness with rebound tenderness History of cholecystectomy Other acquired absence of organ [facility] Diagnosis SOB (shortness of breath)- Primary Shortness of breath Chest pain, unspecified type Post-COVID syndrome History of COVID-19 Malaise and fatigue Other malaise and fatigue DIAN (obstructive sleep apnea) Obstructive sleep apnea (adult) (pediatric) [facility] Diagnosis SOB (shortness of breath) Shortness of breath [facility] Diagnosis SOB (shortness of breath) Shortness of breath [facility] Diagnosis SOB (shortness of breath) Shortness of breath documented in this encounter [facility] note* Diagnosis COVID-19 virus infection- Primary SOB (shortness of breath) Shortness of breath Post-COVID syndrome documented in this encounter [facility] note* Diagnosis Chest pain, unspecified type documented in this encounter [facility] note* Diagnosis 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) Celiac disease Irritable bowel syndrome with diarrhea Irritable bowel syndrome Screen for colon cancer Special screening for malignant neoplasms, colon documented in this encounter [facility] note* Diagnosis 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 documented in this encounter [facility] note* Diagnosis 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 documented in this encounter [facility] note* Diagnosis 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 documented in this encounter [facility] note* Diagnosis 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 documented in this encounter [facility] note* Diagnosis Hypersomnia- Primary Hypersomnia, unspecified Idiopathic hypersomnia with long sleep time [facility] Outpatient Procedure (Routine) - Authorized Specialty Diagnoses / Procedures Referred By [facility]erred [facility] Diagnoses Post-acute sequelae of COVID-19 (PASC) Celiac disease Irritable bowel syndrome with diarrhea Screen for colon cancer Procedures COLONOSCOPY SCREENING COLONOSCOPY FLX DX W/COLLJ SPEC WHEN Michelle Gonzalez MD [address] [place] [address] [facility] [address] [place] [address] Referral ID Status Reason Start Date Expiration Date Visits Requested Visits Authorized [id number] Authorized Auto-Generat ed Referral 11/04/2021 11/04/2022 1 1 * Outpatient Procedure (Routine) - Authorized Specialty Diagnoses / Procedures Referred By [facility] Referred To Contact [facility] Diagnoses Post-acute sequelae of COVID-19 (PASC) Celiac disease Irritable bowel syndrome with diarrhea Screen for colon cancer Procedures EGD DIAGNOSTIC ESOPHAGOGASTRODUODENOS COPY TRANSORAL DIAGNOSTIC Michelle Olivera MD [address] [place] [address] [facility] [address] [place] [address] Referral ID Status Reason Start Date Expiration Date Visits Requested Visits Authorized [id number] Authorized Auto-Generat ed Referral 11/04/2021 11/04/2022 1 1 [facility] for referral (narrative)* Outpatient Procedure (Routine) - Authorized Specialty Diagnoses / Procedures Referred By [facility] Referred To Contact [facility] [place] Diagnoses SOB (shortness of breath) Procedures ECHO ECHO TTHRC R-T 2D W/WOM-MODE COMPL SPEC&COLR D Sarah Boogie MD [address] [place] [address] [facility] [address] [address] Referral ID Status Reason Start Date Expiration Date Visits Requested Visits Authorized [id number] Authorized Auto-Generat ed Referral 11/04/2021 11/04/2022 1 1 * MRI/CT (Urgent) - Authorized Specialty Diagnoses / Procedures [facility] Diagnoses Chest pain, unspecified type Procedures CT CHEST W IVCON PE DIAGNOSTIC COMPUTED TOMOGRAPHY THORAX W/CONTRAST Sarah Boogie MD [address] [place] [address] Ct Imaging Referral ID Status Reason Start Date Expiration Date Visits Requested Visits Authorized [id number] Authorized Auto-Generat ed Referral 11/04/2021 12/04/2022 1 1 * Outpatient Procedure (Routine) - Closed Specialty Diagnoses / Procedures Referred By [facility] Referred To [facility] Diagnoses SOB (shortness of breath) Procedures NITRIC OXIDE, EXHALED NITRIC OXIDE GAS DETERMINATION Sarha Boogie MD [address] [place] [address] [place] [phone] Referral ID Status Reason Start Date Expiration Date V isits Requested Visits Authorized [id number] Closed Auto-Generate d Referral 11/04/2021 12/04/2022 1 1 * Outpatient Procedure (Routine) - Closed Specialty Diagnoses / Procedures Referred By [facility] Referred To Contact [facility] [place] Diagnoses SOB (shortness of breath) Procedures OXIMETRY WITH AMBULATION NONINVASIVE EAR/PULSE OXIMETRY MULTIPLE DETER Sarah Boogie MD [address] [place] [address] [place] [address] Referral ID Status Reason Start Date Expiration Date V isits Requested Visits Authorized [id number] Closed Auto-Generate d Referral 11/04/2021 12/04/2022 1 1 * Outpatient Procedure (Routine) - Closed Specialty Diagnoses / Procedures Referred By Contac t Referred To [facility] Diagnoses SOB (shortness of breath) Procedures LUNG DIFFUSION CAPACITY (DLCO) DIFFUSING CAPACITY Sarah Boogie MD [address] [place] [address] [place] [address] Referral ID Status Reason Start Date Expiration Date V isits Requested Visits Authorized [id number] Closed Auto-Generate d Referral 11/04/2021 12/04/2022 1 1 * Outpatient Procedure (Routine) - Closed Specialty Diagnoses / Procedures Referred By Cont[facility] t Referred To [facility] Diagnoses SOB (shortness of breath) Procedures SPIROMETRY WITH DILATOR IF OBSTRUCTED BRNCDILAT RSPSE SPMTRY PRE&POST-BRNCDILAT ADMN Sarah Boogie, MD [address] [place] [address] [facility] [address] [place], [place] [id number] Referral ID Status Reason Start Date Expiration Date V isits Requested Visits Authorized [id number] Closed Auto-Generate d Referral 11/04/2021 12/04/2022 1 1 [facility] for referral (narrative)* Outpatient Procedure (Routine) - Closed Specialty Diagnoses / Procedures Referred By Contac t Referred To Contact [facility] [place] Diagnoses Post-acute sequelae of COVID-19 (PASC) Celiac disease Irritable bowel syndrome with diarrhea Screen for colon cancer Procedures COLONOSCOPY SCREENING COLONOSCOPY FLX DX W/COLLJ SPEC WHEN Michelle Gonzalez MD [address] [place] [address] [facility] Disease [place] [phone] Referral ID Status Reason Start Date Expiration Date V isits Requested Visits Authorized [id number] Closed Auto-Generate d Referral 11/04/2021 11/04/2022 1 1 * Outpatient Procedure (Routine) - Closed Specialty Diagnoses / Procedures Referred By Cont[facility] t Referred To Contact [facility] [place] Diagnoses Post-acute sequelae of COVID-19 (PASC) Celiac disease Irritable bowel syndrome with diarrhea Screen for colon cancer Procedures EGD DIAGNOSTIC ESOPHAGOGASTRODUODENOS COPY [place] [address] [place] [address] [address] [place] [address] Referral ID Status Reason Start Date Expiration Date V isits Requested Visits Authorized [id number] Closed Auto-Generate d Referral 11/04/2021 11/04/2022 1 1 [facility] for referral (narrative)* Diagnostic Procedure Only (Routine) - Pending Review Specialty Diagnoses / Procedures Referred By [facility] t Referred To Contact [facility] Diagnoses Primary hypersomnia Procedures MULTIPLE SLEEP LATENCY TEST CHEMIST BIOLOGICAL SLEEP LATENCY/MAINT OF WAKEFULNESS TSTG Mika Jenkins MD [address] [place] [address] Neurological [place] [address] [place] [address] Referral ID Status Reason Start Date Expiration Date Visits Requested Visits Authorized [id number] Pending Review Auto-Generat ed Referral 01/06/2022 01/06/2023 1 1 [facility] for visit Narrative* Outpatient Procedure (Routine) - Closed Specialty Diagnoses / Procedures Referred By [facility] Referred [facility] Diagnoses Post-acute sequelae of COVID-19 (PASC) Celiac disease Irritable bowel syndrome with diarrhea Screen for colon cancer Procedures COLONOSCOPY SCREENING COLONOSCOPY FLX DX W/COLLJ SPEC WHEN Michelle Gonzalez MD [address] [place] [address] [facility] [address] [place], [place] [id number] Referral ID Status Reason Start Date Expiration Date V isits Requested Visits Authorized [id number] Closed Auto-Generate d Referral 11/04/2021 11/04/2022 1 1 [facility] Summary Purpose Family History No Family History Records FoundNo Family History Records FoundNo Family History Records Found Advance Directives No Advanced Directives Records FoundNo Advanced Directives Records FoundNo Advanced Directives Records Found Reason for Referral Specialty Diagnoses / Procedures Referred By [facility] Referred To Contact Gastroenterology Diagnoses Post-acute sequelae of COVID-19 (PASC) Celiac disease Irritable bowel syndrome with diarrhea Procedures CONSULT TO GASTROENTEROLOGY OFFICE/OUTPATIENT [facility] MDM 60-74 MINUTES Priscila Stout N, [employer] [address] [place] [address] Referral ID Status Reason Start Date Expiration Date Visits Requested Visits Authorized [id number] Pending Review PCP Requested Referral 10/13/2021 10/13/2022 1 1 Specialty Diagnoses / Procedures Referred By Cont[facility] t Referred To Contact Diagnoses Fatigue, unspecified type Post-acute sequelae of COVID-19 (PASC) Lyme disease Celiac disease Irritable bowel syndrome with diarrhea Procedures CONSULT TO FUNCTIONAL MEDICINE OFFICE/OUTPATIENT [facility] 60-74 MINUTES Priscila Stout, INSOLE BUFFER.[employer]ER [address] [place] [address] Referral ID Status Reason Start Date Expiration Date Visits Requested Visits Authorized [id number] Pending Review PCP Requested Referral 10/13/2021 10/13/2022 1 1 Specialty Diagnoses / Procedures Referred By Contac t Referred To Contact Diagnoses Fatigue, unspecified type DIAN (obstructive sleep apnea) Post-acute sequelae of COVID-19 (PASC) Procedures CONSULT TO SLEEP MEDICINE - ADULT OFFICE/OUTPATIENT [facility] 60-74 MINUTES Priscila Stout, INSOLE BUFFER.[employer]ER [address] [place] [address] Referral ID Status Reason Start Date Expiration Date Visits Requested Visits Authorized [id number] Pending Review PCP Requested Referral 10/13/2021 10/13/2022 1 1 Specialty Diagnoses / Procedures Referred By [facility] t Referred To Contact CT IMAGING Diagnoses Chest pain, unspecified type Procedures CT CHEST W IVCON PE DIAGNOSTIC COMPUTED TOMOGRAPHY THORAX W/CONTRAST Sarah Boogie MD [address] [place] [address] Ct Imaging Referral ID Status Reason Start Date Expiration Date V isits Requested Visits Authorized [id number] Closed Auto-Generate d Referral 11/04/2021 12/04/2022 1 1 Specialty Diagnoses / Procedures Referred By Contac t Referred To Contact Diagnoses Hypersomnia Mika Jenkins MD [address] [address] Referral ID Status Reason Start Date Expiration Date V isits Requested Visits Authorized [id number] Pending Review 1 1 Additional Source Comments INFORMATION SOURCE (unrecogn ized section and content) DATE CREATED AUTHOR AUTHOR'S ORGANIZ ATION 11/22/2021 [facility] DATE CREATED AUTHOR AUTHOR'S ORGANIZ ATION 03/26/2023 [facility] Source Comments (unrecognize d section and content) In the event this informatio n is protected by the Federal Confidentiality of Alcohol and Drug Abuse Patient Records regulations: The Federal rules restrict any use of the information to criminally investigate or prosecute any alcohol or drug abuse patient.[facility] the event this information is protected by the Federal Confidentiality of Alcohol and Drug Abuse Patient Records regulations: The Federal rules restrict any use of the information to criminally investigate or prosecute any alcohol or drug abuse patient.[facility] the event this information is protected by the Federal Confidentiality of Alcohol and Drug Abuse Patient Records regulations: The Federal rules restrict any use of the information to criminally investigate or prosecute any alcohol or drug abuse patient.[facility] the event this information is protected by the Federal Confidentiality of Alcohol and Drug Abuse Patient Records regulations: The Federal rules restrict any use of the information to criminally investigate or prosecute any alcohol or drug abuse patient.[facility] the event this information is protected by the Federal Confidentiality of Alcohol and Drug Abuse Patient Records regulations: The Federal rules restrict any use of the information to criminally investigate or prosecute any alcohol or drug abuse patient.[facility] the event this information is protected by the Federal Confidentiality of Alcohol and Drug Abuse Patient Records regulations: The Federal rules restrict any use of the information to criminally investigate or prosecute any alcohol or drug abuse patient.[facility] the event this information is protected by the Federal Confidentiality of Alcohol and Drug Abuse Patient Records regulations: The Federal rules restrict any use of the information to criminally investigate or prosecute any alcohol or drug abuse patient.[facility] the event this information is protected by the Federal Confidentiality of Alcohol and Drug Abuse Patient Records regulations: The Federal rules restrict any use of the information to criminally investigate or prosecute any alcohol or drug abuse patient.[facility] the event this information is protected by the Federal Confidentiality of Alcohol and Drug Abuse Patient Records regulations: The Federal rules restrict any use of the information to criminally investigate or prosecute any alcohol or drug abuse patient.[facility] the event this information is protected by the Federal Confidentiality of Alcohol and Drug Abuse Patient Records regulations: The Federal rules restrict any use of the information to criminally investigate or prosecute any alcohol or drug abuse patient.[facility] the event this information is protected by the Federal Confidentiality of Alcohol and Drug Abuse Patient Records regulations: The Federal rules restrict any use of the information to criminally investigate or prosecute any alcohol or drug abuse patient.[facility] the event this information is protected by the Federal Confidentiality of Alcohol and Drug Abuse Patient Records regulations: The Federal rules restrict any use of the information to criminally investigate or prosecute any alcohol or drug abuse patient.[facility] the event this information is protected by the Federal Confidentiality of Alcohol and Drug Abuse Patient Records regulations: The Federal rules restrict any use of the information to criminally investigate or prosecute any alcohol or drug abuse patient.[facility] the event this information is protected by the Federal Confidentiality of Alcohol and Drug Abuse Patient Records regulations: The Federal rules restrict any use of the information to criminally investigate or prosecute any alcohol or drug abuse patient.[facility] the event this information is protected by the Federal Confidentiality of Alcohol and Drug Abuse Patient Records regulations: The Federal rules restrict any use of the information to criminally investigate or prosecute any alcohol or drug abuse patient.[facility] the event this information is protected by the Federal Confidentiality of Alcohol and Drug Abuse Patient Records regulations: The Federal rules restrict any use of the information to criminally investigate or prosecute any alcohol or drug abuse patient.[facility] the event this information is protected by the Federal Confidentiality of Alcohol and Drug Abuse Patient Records regulations: The Federal rules restrict any use of the information to criminally investigate or prosecute any alcohol or drug abuse patient.[facility] the event this information is protected by the Federal Confidentiality of Alcohol and Drug Abuse Patient Records regulations: The Federal rules restrict any use of the information to criminally investigate or prosecute any alcohol or drug abuse patient.[facility] the event this information is protected by the Federal Confidentiality of Alcohol and Drug Abuse Patient Records regulations: The Federal rules restrict any use of the information to criminally investigate or prosecute any alcohol or drug abuse patient.[facility] the event this information is protected by the Federal Confidentiality of Alcohol and Drug Abuse Patient Records regulations: The Federal rules restrict any use of the information to criminally investigate or prosecute any alcohol or drug abuse patient.[facility] the event this information is protected by the Federal Confidentiality of Alcohol and Drug Abuse Patient Records regulations: The Federal rules restrict any use of the information to criminally investigate or prosecute any alcohol or drug abuse patient.[facility] the event this information is protected by the Federal Confidentiality of Alcohol and Drug Abuse Patient Records regulations: The Federal rules restrict any use of the information to criminally investigate or prosecute any alcohol or drug abuse patient.[facility] the event this information is protected by the Federal Confidentiality of Alcohol and Drug Abuse Patient Records regulations: The Federal rules restrict any use of the information to criminally investigate or prosecute any alcohol or drug abuse patient.[facility] the event this information is protected by the Federal Confidentiality of Alcohol and Drug Abuse Patient Records regulations: The Federal rules restrict any use of the information to criminally investigate or prosecute any alcohol or drug abuse patient.[facility] the event this information is protected by the Federal Confidentiality of Alcohol and Drug Abuse Patient Records regulations: The Federal rules restrict any use of the information to criminally investigate or prosecute any alcohol or drug abuse patient.[facility] the event this information is protected by the Federal Confidentiality of Alcohol and Drug Abuse Patient Records regulations: The Federal rules restrict any use of the information to criminally investigate or prosecute any alcohol or drug abuse patient.[facility] the event this information is protected by the Federal Confidentiality of Alcohol and Drug Abuse Patient Records regulations: The Federal rules restrict any use of the information to criminally investigate or prosecute any alcohol or drug abuse patient.[facility] the event this information is protected by the Federal Confidentiality of Alcohol and Drug Abuse Patient Records regulations: The Federal rules restrict any use of the information to criminally investigate or prosecute any alcohol or drug abuse patient.[facility] the event this information is protected by the Federal Confidentiality of Alcohol and Drug Abuse Patient Records regulations: The Federal rules restrict any use of the information to criminally investigate or prosecute any alcohol or drug abuse patient.[facility] Reason for Visit (unrecogniz ed section and content) Specialty Diagnoses / Procedures Referred By Roshan branch Referred To Contact RACHELLE FRITZ [facility] Diagnoses Chest discomfort Essential hypertension Abnormal echocardiogram COVID-19 Obesity, Class I, BMI 30-34.9 Fatigue, unspecified type DIAN (obstructive sleep apnea) Procedures CONSULT TO [facility] Rogelio Groves MD [address] [place] [address] [facility] [address] [place] [address] Referral ID Status Reason Start Date Expiration Date Visits Requested Visits Authorized [id number] Pending Review PCP Requested Referral 06/09/2021 06/09/2022 1 1 Reason Comments Results Reason Comments Follow Up Specialty Diagnoses / Procedures Referred By Contac t Referred To Contact [facility] Diagnoses Chest discomfort Essential hypertension Abnormal echocardiogram COVID-19 Obesity, Class I, BMI 30-34.9 Fatigue, unspecified type DIAN (obstructive sleep apnea) Procedures CONSULT TO [facility] Rogelio Groves MD [address] [place] [address] Pulm [facility]id [facility] [address] [place] [address] Reason Comments Diarrhea Abdominal discomfort , celiac disease. Labs 10/13/21 Specialty Diagnoses / Procedures Referred By Contac t Referred To Contact Gastroenterology Diagnoses Post-acute sequelae of COVID-19 (PASC) Celiac disease Irritable bowel syndrome with diarrhea Procedures CONSULT TO GASTROENTEROLOGY OFFICE/OUTPATIENT NEW HIGH MDM 60-74 MINUTES Priscila Stout, INSOLE BUFFER.[employer] [address] [place] [address] Referral ID Status Reason Start Date Expiration Date Visits Requested Visits Authorized [id number] Pending Review PCP Requested Referral 10/13/2021 10/13/2022 1 1 Reason Comments Orders Reason Comments New Patient Post COVID, Sleep co ncerns Reason Comments Spirometry Specialty Diagnoses / Procedures Referred By Contac t Referred To Contact [facility] Diagnoses SOB (shortness of breath) Procedures OXIMETRY WITH AMBULATION NONINVASIVE EAR/PULSE OXIMETRY MULTIPLE DETER Sarah Boogie MD [address] [place] [address] [facility] [address] [place] [address] Referral ID Status Reason Start Date Expiration Date V isits Requested Visits Authorized [id number] Closed Auto-Generate d Referral 11/04/2021 12/04/2022 1 1 Specialty Diagnoses / Procedures Referred By Contac t Referred To Contact [facility] Diagnoses SOB (shortness of breath) Procedures LUNG DIFFUSION CAPACITY (DLCO) DIFFUSING CAPACITY Sarah Boogie MD [address] [place] [address] [facility] [address] [place] [address] Referral ID Status Reason Start Date Expiration Date V isits Requested Visits Authorized [id number] Closed Auto-Generate d Referral 11/04/2021 12/04/2022 1 1 Specialty Diagnoses / Procedures Referred By Contac t Referred To Contact [facility] Diagnoses SOB (shortness of breath) Procedures NITRIC OXIDE, EXHALED NITRIC OXIDE GAS DETERMINATION Sarah Boogie MD [address] [place] [address] [facility] [address] [place] [address] Referral ID Status Reason Start Date Expiration Date V isits Requested Visits Authorized [id number] Closed Auto-Generate d Referral 11/04/2021 12/04/2022 1 1 Specialty Diagnoses / Procedures Referred By Contac t Referred To Contact CT IMAGING Diagnoses Chest pain, unspecified type Procedures CT CHEST W IVCON PE DIAGNOSTIC COMPUTED TOMOGRAPHY THORAX W/CONTRAST Sarah Boogie MD [address] [place] [address] Ct Imaging Referral ID Status Reason Start Date Expiration Date V isits Requested Visits Authorized [id number] Closed Auto-Generate d Referral 11/04/2021 12/04/2022 1 1 Reason Comments 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 Rx Refills Established Patient Reason Comments Insurance Authorization PA initiated for Nuvigil Reason Comments Patient Update Reason Comments Sleep Apnea Medication Follow-up Rx Refills Care Teams (unrecognized sec tion and content) Game Producer Relationship Specialty Start Date End Date Jane Church DO [address] [place] [address] PCP - General Family Practice 06/22/16 Rogelio Groves MD [address] [place] [address] Primary Staff Physician Cardiology 06/09/21 Game Producer Relationship Specialty Start Date End Date Jane Church DO [address] [place] [address] PCP - General Family Practice 06/22/16 Rogelio Groves MD [address] [place] [address] Primary Staff Physician Cardiology 06/09/21 Game Producer Relationship Specialty Start Date End Date RangelaristidesJane DO [address] [place] [address] PCP - General Family Practice 06/22/16 Rogelio Groves MD [address] [place] [address] Primary Staff Physician Cardiology 06/09/21 Game Producer Relationship Specialty Start Date End Date Jane Church DO [address] [place] [address] PCP - General Family Practice 06/22/16 Rogelio Groves MD [address] [place] [address] Primary Staff Physician Cardiology 06/09/21 Game Producer Relationship Specialty Start Date End Date Jane Church DO [address] [place] [address] PCP - General Family Practice 06/22/16 Rogelio Groves MD [address] [place] [address] Primary Staff Physician Cardiology 06/09/21 Game Producer Relationship Specialty Start Date End Date Jane Church DO [address] [place] [address] PCP - General Family Practice 06/22/16 Rogelio Groves MD [address] [place] [address] Primary Staff Physician Cardiology 06/09/21 Game Producer Relationship Specialty Start Date End Date Jane Church DO [address] [place] [address] PCP - General Family Practice 06/22/16 Rogelio Groves MD [address] [place] [address] Primary Staff Physician Cardiology 06/09/21 Game Producer Relationship Specialty Start Date End Date Jane Church DO [address] [place] [address] PCP - General Family Practice 06/22/16 Rogelio Groves MD [address] [place] [address] Primary Staff Physician Cardiology 06/09/21 Game Producer Relationship Specialty Start Date End Date Jane ChurchDO [address] [place] [address] PCP - General Family Practice 06/22/16 Rogelio Groves MD [address] [place] [address] Primary Staff Physician Cardiology 06/09/21 Game Producer Relationship Specialty Start Date End Date RanjitJane DO [address] [place] [address] PCP - General Family Practice 06/22/16 Rogelio Groves MD [address] [place], [place] [id number] Primary Staff Physician Cardiology 06/09/21 Game Producer Relationship Specialty Start Date End Date Jane Church DO [address] [place] [address] PCP - General Family Practice 06/22/16 Rogelio Groves MD [address] [place] [address] Primary Staff Physician Cardiology 06/09/21 Game Producer Relationship Specialty Start Date End Date Jane Church DO [address] [place] [address] PCP - General Family Practice 06/22/16 Rogelio Groves MD [address] [place] [address] Primary Staff Physician Cardiology 06/09/21 Game Producer Relationship Specialty Start Date End Date Ranjit Jane Cheema [address] [place] [address] PCP - General Family Medicine 06/22/16 Rogelio Groves MD [address] [place] [address] Primary Staff Physician Cardiology 06/09/21 Game Producer Relationship Specialty Start Date End Date RanjitJane IonaDO [address] [place] [address] PCP - General Family Medicine 06/22/16 Rogelio Groves MD [address] [place] [address] Primary Staff Physician Cardiology 06/09/21 Game Producer Relationship Specialty Start Date End Date RangelaristidesJane DO [address] [place] [address] PCP - General Family Medicine 06/22/16 Rogelio Groves MD [address] [place] [address] Primary Staff Physician Cardiology 06/09/21 Game Producer Relationship Specialty Start Date End Date Jane Church DO [address] [place] [address] PCP - General Family Medicine 06/22/16 Rogelio Groves MD [address] [place] [address] Primary Staff Physician Cardiology 06/09/21 Game Producer Relationship Specialty Start Date End Date Jane Church DO [address] [facility] [place] [address] PCP - General Family Medicine 06/22/16 Rogelio Groves MD [address] [place] [address] Primary Staff Physician Cardiology 06/09/21 Game Producer Relationship Specialty Start Date End Date Jane Church [address] [facility] [place] [address] PCP - General Family Medicine 06/22/16 Rogelio Groves MD [address] [place] [address] Primary Staff Physician Cardiology 06/09/21 Game Producer Relationship Specialty Start Date End Date Ranjit Jane A [address] [facility] [place] [address] PCP - General Family Medicine 06/22/16 Rogelio Groves MD [address] [place] [address] Primary Staff Physician Cardiology 06/09/21 Game Producer Relationship Specialty Start Date End Date Jane Church DO [address] [place], [place] [address] PCP - General Family Medicine 06/22/16 Rogelio Groves MD [address] [place], [place] [id number] Primary Staff Physician Cardiology 06/09/21 Game Producer Relationship Specialty Start Date End Date Jane Church DO [address] [place] [address] PCP - General Family Medicine 06/22/16 Rogelio Groves MD [address] [place], [place] [address] Primary Staff Physician Cardiology 06/09/21 Game Producer Relationship Specialty Start Date End Date Jane Church DO [address] [place] [address] PCP - General Family Medicine 06/22/16 Rogelio Groves MD [address] [place], [place] [id number] Primary Staff Physician Cardiology 06/09/21 FOR RECORDS PERTAINING TO PATIENTS WHO ARE OR HAVE BEEN ENROLLED IN A CHEMICAL DEPENDENCY/SUBSTANCEABUSE PROGRAM, SOME INFORMATION MAY BE OMITTED. This clinical summary was aggregated from multiple sources. Caution should be exercised in using it in the provision of clinical care. This summary normalizes information from multiple sources, and as a consequence, information in this document may materially change the coding, format and clinical context of patient data. In addition, data may be omitted in some cases. CLINICAL DECISIONS SHOULD BE BASED ON THE PRIMARY CLINICAL RECORDS. [facility]. provides no warranty or guarantee of the accuracy or completeness of information in this document.
[2023-04-19] MEDS: Ketorolac 15 MG/ML Vial IV (04:55)
[2023-04-19 07:02] VITALS: BP 142/84; PULSE 91; RESP 15; TEMP 36.6; O2SAT 97
== END 2023-04-19 07:06 | disposition short-term general hospital (02) ==
PROVIDERS: Emergency Provider Student in an Organized Health Care Education/Training Program; PCP Family Medicine; Visit Provider Student in an Organized Health Care Education/Training Program
DX: S82.851A Displaced trimalleolar fracture of right lower leg, initial encounter for closed fracture (principal); R41.82 Altered mental status, unspecified; S82.201A Unspecified fracture of shaft of right tibia, initial encounter for closed fracture; T50.995A Adverse effect of other drugs, medicaments and biological substances, initial encounter; I10 Essential (primary) hypertension; Z79.899 Other long term (current) drug therapy; Z90.710 Acquired absence of both cervix and uterus; Z90.49 Acquired absence of other specified parts of digestive tract
CPT/HCPCS: 27818; 51702; 70450; 71045; 72125; 73590; 73610; 73700; 80053; 81001; 84484; 85025; 93005; 96361; 96374; 99285; J7030; A4216

== ENCOUNTER → 2024-04-01 | Outpatient (CLI) | payer OTHER, SELFPAY ==
--- NOTE | 2024-04-01 12:39 | BI_ITS ---
MAMMOGRAPHY - BILATERAL SCREENING REASON FOR EXAM: Female, 49 years old. Routine annual screening examination. PERTINENT HISTORY: Mother with breast cancer. Aunt with breast cancer. TECHNIQUE: Digital bilateral breast michael (3D mammographic acquisition) in the CC and MLO projections. 2-D mediolateral oblique (MLO) and craniocaudad (CC) views of both breasts were obtained. CAD: Full Field Digital Mammography with Computer Added Detection was performed. COMPARISON: Comparison is made with prior study November 29, 2022. FINDINGS: Breast Composition: There are scattered areas of fibroglandular density. There are no dominant masses or suspicious calcifications. No other significant abnormalities are identified. There has been no significant change since the prior study. BI/SCRN MAMM (CAD)W/MICHAEL BILAT IMPRESSION: Stable bilateral screening mammogram. Yearly follow-up mammogram recommended. (A) ASSESSMENT CATEGORY: BIRADS Category 1: Negative. A letter regarding these results will be sent to the patient by the facility within 30 days. Approximately 10% of breast cancers are not detected by mammography. A normal mammogram should not delay biopsy of a clinically suspicious abnormality. [id number] Electronically Signed: Tim Swartz MD at 13:39 EST ,
== END | disposition home or self-care (01) ==
LOC: OPBI 12:37
PROVIDERS: PCP Family Medicine; Referring Provider Nurse Practitioner Women's Health; Visit Provider Nurse Practitioner Women's Health
DX: Z12.31 Encounter for screening mammogram for malignant neoplasm of breast (principal); Z80.3 Family history of malignant neoplasm of breast
CPT/HCPCS: 77063; 77067

== ENCOUNTER → 2024-11-12 | Outpatient (CLI) | payer OTHER, SELFPAY ==
[2024-11-12 13:45] LABS: Hematocrit 43.3 % (37-47); Hemoglobin 14.2 g/dL (12.0-15.0); Immature Granulocytes Count 0.020 X10^3/uL (0.0-0.0); Mean Corp Hgb Conc 32.8 g/dL (32-36); Mean Corpuscular Volume 92.1 fL (81-99); Mean Platelet Vol. 10.1 fl (6.2-12.0); NRBC Flagged by Analyzer 0 % (0-5); Platelet Count 229 K/mm3 (150-450); RBC Distribution Width CV 13.7 % (11.6-14.6); RBC Distribution Width SD 46.5 fl (35.1-43.9); Red Blood Count 4.70 M/mm3 (4.2-5.4); White Blood Count 5.8 K/mm3 (4.4-11.0)
[2024-11-12 14:56] LABS: AST(SGOT) 24 U/L (<=31); Alanine Aminotransfer ALT/SGPT 36 U/L (<=34); Albumin, Serum 4.1 g/dL (3.5-5.0); Alkaline Phosphatase 61 U/L (35-104); Anion Gap 12 (5-15); BUN 11 mg/dL (4-19); BUN/Creat Ratio 16.4 RATIO (10-20); Calcium,Total 9.7 mg/dL (7.6-11.0); Carbon Dioxide 22.2 mmol/L (21.0-32.0); Chloride 104 mmol/L (98-108); Cholesterol 198 mg/dL (<=200); Globulin 2.8 g/dL (2.2-4.2); Glucose 87 mg/dL (70-99); Low Density Lipoprotein Calc. 107 mg/dL; Potassium 4.2 mmol/L (3.3-5.1); Triglycerides 110 mg/dL; Very Low Density Lipoprotein 22 mg/dL (5-40); Vitamin D,25 Hydroxy 81.6 ng/mL (30-100); cholesterol:hdl ratio screen 2.88
--- OUTSIDE RECORDS SUMMARY | 2024-11-12 17:47 | XMS RPT_ITS | CCD ---
Author Organization [facility] Care Team Providers Care [employer] Entertainer Name Role Phone Jane Church Primary Care Provider UnavailDr. Jane Bonds Referring Provider Dr. Jane Church Other Provider Dr. Edmundo Calvert Attending Provider Rangelaristides DO, Jane A Primary Care Provider Rogelio Groves MD Unavailable Malys DO, Jane A Primary Care Provider Rogelio Groves MD Unavailable Malys DO, Jane A Primary Care Provider Rogelio Groves MD Unavailable Malys DO, Jane A Primary Care Provider [phone] Rogelio Groves MD Unavailable Rogelio Groves MD Unavailable MALYS, JANE A Primary Care Unavailable SLICK, MIKA N Referring Unavailable MALYS, JANE A Primary Care Unavailable SLICK, MIKA N Attending Unavailable MALYS, JANE A Primary Care Unavailable SLICK, MIKA N Attending Unavailable MALYS, JANE A Primary Care Unavailable SLICK, MIKA N Referring Unavailable MALYS, JANE A Primary Care Unavailable SLICK, MIKA N Referring Unavailable Malys DO, Jane A Primary Care Provider [phone] Malys DO, Jane A Primary Care Provider MARTY LERMA Attending Veroi pavithra MALYS, JANE A Primary Care Unavailable MALYS, JANE A Primary Care Unavailable FLORENTIN MARTY HERNANDEZ Attending Unavai lable MALYS, JANE A Primary Care Unavailable DINICOLA, MARTY HERNANDEZ Attending Unavai lable MALYS, JANE A Primary Care Unavailable DINICOLA, MARTY HERNANDEZ Attending Unavai lable DINICOLA, MARTY HERNANDEZ Attending Unavai lable DINICOLA, MARTY HERNANDEZ Admitting Unavai lable DINICOLA, MARTY HERNANDEZ Referring Unavai lable MALYS, JANE A Primary Care Unavailable DINICOLA, MARTY HERNANDEZ Attending Unavai lable MALYS, JANE A Primary Care Unavailable DINICOLA, MARTY HERNANDEZ Attending Unavai lable MALYS, JANE A Primary Care Unavailable MALYS, JANE A Primary Care Unavailable DINICOLA, MARTY HERNANDEZ Attending Unavai lable MALYS, JANE A Primary Care Unavailable Malys, Jane Primary Care Unavailable VITO SIMMONS Referring Unavailable VIOT SIMMONS Attending Unavailable Allergies Allergy Classification Reported Allergen(s) Allergy Type Date of Onset Reaction(s) Facility (1 source) oxybate Drug Allergy 04-19-2023 Other [facility] (1 source) oxybate Drug Allergy 04-19-2023 Other [facility] (1 source) oxybate Drug Allergy 04-19-2023 Other [facility] (5 sources) oxybate; Translations: [SODIUM OXYBATE] Drug Allergy 04-19-2023 Unknown [facility] (4 sources) Calcium; Translations: [CALCIUM] Drug Allergy 04-19-2023 Unknown [facility] (4 sources) Magnesium; Translations: [MAGNESIUM] Drug Allergy 04-19-2023 Unknown [facility] (4 sources) Potassium; Translations: [POTASSIUM] Drug Allergy 04-19-2023 Unknown [facility] (1 source) Calcium Drug Allergy 04-19-2023 [facility] (1 source) Magnesium Drug Allergy 04-19-2023 [facility] (1 source) oxybate Drug Allergy 04-19-2023 [facility] (1 source) Potassium Drug Allergy 04-19-2023 [facility] Medications Current Medications Medication Drug Class(es) Dates Sig (Normalized) Sig (Original) armodafinil 150 mg oral tablet (3 sources) Start: 3 End: 3 armodafinil (NUVIGIL) 150 mg tab Indications: Primary hypersomnia Take one tablet by mouth as directed or upon awakening. 30 tablet 2 05/10/2022 06/10/2022 Active Comment on above: Take one tablet by m outh as directed or upon awakening. ascorbic acid 1000 mg oral tablet (9 sources) Vitamin C take 1 tablet by mouth once daily Ascorbic Acid (VITAMIN C) 1,000 mg tablet Take 1,000 mg by mouth once daily. Active Comment on above: Take 1,000 mg by stan once daily. hydroxychloroquine sulfate 200 mg oral tablet (1 source) Antimalarial, Antirheumatic Agent Start: 1 hydrOXYchloroQUINE (PLAQUENIL) 200 mg tablet 09/21/2020 Active Iron Chelate (Klaire/Prothera) (20 sources) Start: 6 take 1 capsule by mouth once daily at mealtime Iron Chelate (Klaire/Prothera) Take 1 capsule by mouth daily with food. 0 12/17/2015 Active Comment on above: Take 1 capsule by mo [facility] daily with food. iv contrast (will be provided with radiology test) (6 sources) Start: 2 End: 2 iv contrast (will be provided with radiology test) CT Chest PE -Inject, intravenously, once for 1 dose.No IV access, insert saline lock prior to the beginning of sedation, infusion, injection of imaging exam. Discontinue saline lock post exam. If Pt. has a central line or IVAD, may access for administration according to line specific nursing protocol. Once exam is complete flush line and de-access according to line specific nursing protocol in the CT contrast administration guidelines link. 1 Each 0 11/04/2021 11/05/2021 Active Comment on above: CT Chest PE -Inject, intravenously, once for 1 dose.No IV access, insert saline lock prior to the beginning of sedation, infusion, injection of imaging exam. Discontinue saline lock post exam. If Pt. has a central line or IVAD, may access for administration according to line specific nursing protocol. Once exam is complete flush line and de-access according to line specific nursing protocol in the CT contrast administration guidelines link. Ivermectin (20 sources) Antiparasitic, Pediculicide Start: 1 IVERMECTIN ORAL 09/21/2020 Active End: 11-08-2023 take 18 mg by mouth once daily IVERMECTIN ORAL Take 18 mg by mouth once daily. 0 11/08/2023 Discontinued take 18 mg by mouth once daily I VERMECTIN ORAL Take 18 mg by mouth once daily. 0 Active End: 10-13-2021 take 18 mg by mouth once daily IVERMECTIN ORAL Take 18 mg by mouth once daily. 0 10/13/2021 Discontinued (Course of therapy completed) Comment on above: Take 18 mg by mouth once daily. L.acid/L.casei/B.bif /B.divina/FOS (PROBIOTIC BLEND ORAL) (9 sources) take 1 capsule by mouth once daily L.acid/L.casei/B.bif/B.l on/FOS (PROBIOTIC BLEND ORAL) Take by mouth. Sacchromices boulardi 1 capsule daily Active take 1 capsule by mo uth once daily L.acid/L.casei/B.bif/B.divina/FOS (PROBIOTI C BLEND ORAL) Take by mouth. Sacchromices boulardi 1 capsule daily 0 Active Comment on above: Take by mouth. Sacch romices boulardi 1 capsule daily levothyroxine sodium 0.013 mg oral capsule (20 sources) l-Thyroxine Start: 04-29-19 take 13 ug by mouth once daily Levothyroxine Active 13 MCG PO DAILY April 29, 2021 12:00am Start: 03-23-2021 take 1 tablet by stan th once daily in the morning levothyroxine (SYNTHROID) 100 mcg tablet Take 100 mcg by mouth every morning. 03/23/2021 Active Comment on above: Take 100 mcg by mout h every morning. liothyronine (20 sources) l-Triiodothyronine Start: 09-21-2017 liothyronine sodium (LIOTHYRONINE ORAL) 09/21/2017 Active Start: 04-26-2017 take 5 ug by mouth once daily Liothyronine Active 5 MCG PO DAILY June 11, 2017 12:00am Comment on above: Take one tablet by m outh in AM on empty stomach losartan potassium 25 mg oral tablet (4 sources) Angiotensin 2 Receptor April Start: 2 End: 2 take 1 tablet by mouth once daily losartan (COZAAR) 25 mg tablet Take 25 mg by mouth once daily. 0 05/25/2021 11/04/2021 Discontinued Comment on above: Take 25 mg by mouth once daily. Melatonin-SR (Klaire/Prothera) 2mg (20 sources) Start: 6 Melatonin-SR (Klaire/Prothera) 2mg 1 by mouth 30 minutes before bed 3 11/05/2015 Active Comment on above: 1 by mouth 30 minute s before bed modafinil 200 mg oral tablet (9 sources) Sympathomimetic-like Agent Start: 3 End: 4 take 1 tablet by mouth once daily modafinil (PROVIGIL) 200 mg tablet Indications: Idiopathic hypersomnia with long sleep time Take 1 tablet by mouth once daily for 90 days. 30 tablet 2 03/23/2023 06/21/2023 Active Comment on above: Take 1 tablet by stan once daily for 90 days. MULTIVITAMIN ORAL (9 sources) take 1 tablet by mouth once daily MULTIVITAMIN ORAL Take 1 tablet by mouth once daily. Pure Encapsulation brand Active take 1 tablet by mouth once fred y MULTIVITAMIN ORAL Take 1 tablet by mouth once daily. Pure Encapsulation brand 0 Active Comment on above: Take 1 tablet by stan once daily. Pure Encapsulation brand naltrexone hydrochloride 50 mg oral tablet (20 sources) Opioid Antagonist Start: 2 take 50 mg by mouth once daily Naltrexone Active 50 MG PO DAILY April 29, 2021 12:00am take 1 capsule by mouth once vanna ly naltrexone capsule 4.5 mg (CPD) Take 1 capsule by mouth once daily. Active take 1 capsule by mouth once vanna ly naltrexone capsule 4.5 mg (CPD) Take 1 capsule by mouth once daily. 0 Active Comment on above: Take 1 capsule by [facility] once daily. Leggett-3 Fatty Acids (Fish Oil Concentrate) 1,000 MG capsule (6 sources) Start: 09-24-2013 take 1 capsule by mouth once daily Leggett-3 Fatty Acids (Fish Oil Concentrate) 1,000 MG capsule Active 1000 MG PO DAILY September 24, 2013 11:20am Start: 09-24-2013 take 1 capsule by mo [facility] once daily Leggett-3 Fatty Acids (Fish Oil Concentrate) 1,000 MG capsule Active 1000 MG PO DAILY September 24, 2013 12:00am Start: 09-24-2013 take 1 capsule by mo uth once daily Leggett-3 Fatty Acids (Fish Oil Concentrate) 1,000 MG capsule Active 1000 MG PO DAILY September 23, 2013 11:00pm One Leggett (Pure Encapsulation) (20 sources) Start: 12-17-2015 take 2 capsules by mouth once daily at mealtime One Leggett (Pure Encapsulation) Take 2 capsules by mouth daily with food. 0 12/17/2015 Active Comment on above: Take 2 capsules by m outh daily with food. OTC PRODUCT (3 sources) End: 11-03-2021 OTC PRODUCT once daily. Liver GI Detox 0 11/03/2021 Discontinued (Duplicate Entry) OTC PRODUCT once daily. Liver GI Detox 0 Active Comment on above: once daily. Liver GI Detox oxyCODONE hydrochloride 5 mg oral tablet (1 source) Opioid Agonist Start: 4 End: 4 take 1 tablet by mouth every six hours as needed for pain oxyCODONE IR (ROXICODONE) 5 mg immediate release tablet Indications: Post-op pain Take 1 tablet by mouth every 6 hours as needed for pain for up to 10 days. 10 tablet 03/07/2024 03/17/2024 Active perflutren lipid microspheres 1.3 mL in NaCl (PF) 0.9% 10 mL injection (DEFINITY) (20 sources) Start: 2 End: 3 perflutren lipid microspheres 1.3 mL in NaCl (PF) 0.9% 10 mL injection (DEFINITY) 125 ml sodium chloride 9 mg/ml prefilled syringe (20 sources) Start: 2 End: 3 sodium chloride 0.9 % (flush) 10 mL (BD POSIFLUSH) sodium,calcium,mag,pot oxybate (XYWAV) 0.5 gram/mL soln oral liquid (2 sources) Start: 3 End: 3 take 1 dose by mouth every four hours at bedtime sodium,calcium,mag,po t oxybate (XYWAV) 0.5 gram/mL soln oral liquid Indications: Idiopathic hypersomnia with long sleep time Take 3 grams by mouth at bedtime [...] 7 nights, then continue on this dose 540 mL 5 05/25/2022 06/22/2022 Active Start: 05-25-2022 End: 05-25-2022 take 1 dose by mouth every four hours at bedtime sodium,calcium,mag,pot oxybate (XYWAV) 0.5 gram/mL soln oral liquid Indications: Idiopathic hypersomnia with long sleep time Take 3 grams by mouth at bedtime [...] 7 nights, then continue on this dose 540 mL 5 05/25/2022 05/25/2022 Discontinued Comment on above: Take 3 grams by mout h at bedtime and 4 hours later for 7 nights, then Take 3.5 grams by mouth at bedtime and 4 hours later for 7 nights, then Take 4 grams by mouth at bedtime and 4 hours later for 7 nights, then Take 4.5 grams by mouth at bedtime and 4 hours later for 7 nights, then continue on this dose sodium,calcium,mag,po t oxybate (XYWAV) 0.5 gram/mL soln oral liquid (2 sources) Start: 03-23-20 End: 06-21-19 24 sodium,calcium,mag,p ot oxybate (XYWAV) 0.5 gram/mL soln oral liquid Indications: Hypersomnia Take 9 mL by mouth at bedtime and 4 hours after. 540 mL 2 03/23/2023 06/21/2023 Active Comment on above: Take 9 mL by mouth a t bedtime and 4 hours after. valACYclovir 1000 mg oral tablet (1 source) Herpesvirus Nucleoside Analog DNA Polymerase Inhibitor, Herpes Simplex Virus Nucleoside Analog DNA Polymerase Inhibitor, Herpes Zoster Virus Nucleoside Analog DNA Polymerase Inhibitor Start: 01-19-20 24 take 1 tablet by mouth every twelve hours valACYclovir (VALTREX) 1 gram tablet Take 1 tablet by mouth every 12 hours. 01/19/2024 Active Vitamin D3 5000 U (Pure Encapsulations) (20 sources) Start: 12-17-19 16 take 1 capsule by mouth once daily at mealtime Vitamin D3 5000 U (Pure Encapsulations) Take 1 capsule by mouth daily with food. 0 12/17/2015 Active Comment on above: Take 1 capsule by mo [facility] daily with food. Zinc (11 sources) take 30 mg by mouth once daily zinc Take 30 mg by mouth once daily. Active take 30 mg by mouth once daily z inc Take 30 mg by mouth once daily. 0 Active zinc Comment on above: Take 30 mg by mouth once daily. Completed/Discontinued Medications Medication Drug Class(es) Dates Sig (Normalized) Sig (Original) aspirin 81 mg delayed release oral tablet (1 source) Platelet Aggregation Inhibitor, Nonsteroidal Anti-inflammatory Drug Start: 04-30-2023 End: 05-31-2023 take 1 tablet by mouth twice daily aspirin, enteric coated (ADULT LOW DOSE ASPIRIN) 81 mg EC tablet Take 1 tablet by mouth two times a day for 21 days. 42 tablet 0 04/30/2023 05/31/2023 Discontinued Comment on above: Take 1 tablet by [facility] two times a day for 21 days. azithromycin 250 mg oral tablet (6 sources) Macrolide Antimicrobial Start: 06-11-2017 End: 06-16-2017 Azithromycin Discontinued 250 MG PO daily 6 June 11, 2017 12:00am June 16, 2017 12:07am Take 2 tabs once on day one. Take one tablet once daily for the next 4 days. cholestyramine resin 4000 mg powder for oral suspension (17 sources) Bile Acid Sequestrant Start: 11-04-2021 End: 05-10-2022 take 4 g by mouth twice daily at mealtime cholestyramine-suc ema (QUESTRAN) 4 gram powder Take 4 g by mouth twice daily with meals. 240 g 4 11/04/2021 05/10/2022 Discontinued (Course of therapy completed) Comment on above: Take 4 g by mouth tw ice daily with meals. chromic chloride 0.0205 mg/ml / copper sulfate 1.57 mg/ml / manganese sulfate 0.308 mg/ml / selenious acid 0.0327 mg/ml / zinc sulfate 4.39 mg/ml injectable solution (13 sources) zinc G.I. Detox ([employer]) (20 sources) Start: 04-10-2017 G.I. Detox ([employer]) Activated charcoal - (empty stomach, 30min before eating (60-90 min away from supps) Start with 1 capsule and work up to 3 capsules a day 0 04/10/2017 Active Comment on above: Activated charcoal - (empty stomach, 30min before eating (60- 90 min away from supps) Start with 1 capsule and work up to 3 capsules a day pantoprazole 40 mg delayed release oral tablet (6 sources) Proton Pump Inhibitor Start: 11-30-2021 End: 05-10-2022 take 1 tablet by mouth once daily pantoprazole DR (PROTONIX) 40 mg tablet Take 1 tablet by mouth once daily. 30 tablet 5 11/30/2021 05/10/2022 Discontinued (Course of therapy completed) Comment on above: Take 1 tablet by stan once daily. Saccharomyces boulardii (20 sources) Start: 12-17-2015 take 1 capsule by mouth twice daily Saccharomyces Boulardii (Klaire/Prothera) Take 1 capsule by mouth twice daily. 0 12/17/2015 Active Comment on above: Take 1 capsule by mo [facility] twice daily. Problems Active Problems Problem Classification Problem Date Documented Da te Episodic/Chronic Abdominal pain (1 source) Tenderness of right lower quadrant of abdomen; Translations: [Right lower quadrant rebound abdominal tenderness] Episodic Complication of device; implant or graft (1 source) Pain; Translations: [Pain due to internal orthopedic prosthetic devices, implants and grafts, initial encounter] 03-04-2024 Episodic Essential hypertension (20 sources) Essential hypertension; [...] syndrome with diarrhea] Onset: 11-05-2015 Chronic Other infections; including parasitic (4 sources) Late effects of other and unspecified infectious and parasitic diseases; 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 Other infections; including parasitic (2 sources) Post-viral disorder; 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 Other infections; including parasitic (7 sources) Lyme disease; Translations: [Lyme disease, unspecified] Episodic Other infections; including parasitic (1 source) Personal history of other infectious and parasitic diseases; Translations: [History of COVID-19] Episodic Other lower respiratory disease (1 source) Nodule of lung; Translations: [Solitary pulmonary nodule] Episodic Other lower respiratory disease (5 sources) Dyspnea; Translations: [Shortness of breath] Episodic Other nervous system disorders (1 source) Other acute postprocedural pain; Translations: [Post-op pain] Onset: 03-07-2024 Episodic Other nutritional; endocrine; and metabolic disorders (6 sources) Body mass index 30+ - obesity; Translations: [Body mass index (BMI) 35.0-35.9, adult] 06-09-2021 Chronic Other nutritional; endocrine; and metabolic disorders (6 sources) Obesity; Translations: [Obesity, unspecified] 06-09-2021 Chronic Other nutritional; endocrine; and metabolic disorders (20 sources) Obese class I; Translations: [Obesity, unspecified] Onset: 06-09-2021 06-09-2021 Chronic Other screening for suspected conditions (not mental disorders or infectious disease) (3 sources) Patient encounter status; Translations: [Encounter for screening for malignant neoplasm of colon] Onset: 05-02-2024 Episodic Other upper respiratory infections (12 sources) Upper respiratory infection; Translations: [Acute upper respiratory infection, unspecified] 05-22-2019 Episodic Residual codes; unclassified (20 sources) Obstructive [...] carried out because of patient refusal] Episodic Residual codes; unclassified (1 source) Other specified postprocedural states; Translations: [Status post hardware removal] Onset: 03-12-2024 Episodic Unclassified (1 source) Functional Transfer Onset: 04-19-2023 Past or Other Problems Problem Classification Problem Date Documented Date Episodic/Chronic Abdominal hernia (20 sources) Incisional hernia; Translations: [Incisional hernia without obstruction or gangrene] Onset: 011 07-05-2010 Episodic Biliary tract disease (20 sources) Biliary calculus; Translations: [Calculus of gallbladder with chronic cholecystitis without obstruction] Onset: 011 07-05-2010 Episodic Diabetes or abnormal glucose tolerance complicating ; childbirth; or the puerperium (6 sources) Unspecified diabetes mellitus in , unspecified trimester; Translations: [Diabetes mellitus of mother, complicating , childbirth, or the puerperium, antepartum condition or complication] Onset: 011 Resolve d: 07-04-2010 Chronic Fracture of lower limb (17 sources) Closed trimalleolar fracture; Translations: [Displaced trimalleolar fracture of right lower leg, subsequent encounter for closed fracture with routine healing] Onset: 023 05-31-2023 Episodic Hypertension complicating ; childbirth and the puerperium (6 sources) Pre-existing hypertension in obstetric context; Translations: [Unspecified pre-existing hypertension complicating , unspecified trimester] Onset: 010 Resolve d: 011 07-04-2010 Chronic Joint disorders and dislocations; trauma-related (9 sources) Dislocation of right ankle joint, initial encounter; Translations: [Closed dislocation of ankle] Onset: 023 04-19-2023 Episodic Malaise and fatigue (20 sources) Fatigue; Translations: [Other fatigue] Onset: 016 Resolve d: Episodic Menstrual disorders (18 sources) Irregular periods; Translations: [Irregular menstruation, unspecified] Onset: 012 Resolve d: 016 01-18-2016 Chronic Nutritional deficiencies (20 sources) Multiple vitamin deficiency disease; Translations: [Vitamin deficiency, unspecified] Onset: 016 11-05-2015 Episodic Other complications of (6 sources) Multigravida of advanced maternal age; Translations: [Supervision of elderly multigravida, unspecified trimester] Onset: 010 Resolve d: 011 07-04-2010 Episodic Other complications of (6 sources) Supervision of other high risk pregnancies, unspecified trimester; Translations: [Supervision of other high-risk ] Onset: 010 Resolve d: 011 07-04-2010 Episodic Other complications of (6 sources) Poor growth affecting management; Translations: [Maternal care for other known or suspected poor growth, unspecified trimester, not applicable or unspecified] Onset: Resolve d: 011 07-04-2010 Episodic Other connective tissue disease (20 sources) Neuralgia; Translations: [Neuralgia and neuritis, unspecified] Onset: 011 07-05-2010 Episodic Other gastrointestinal disorders (7 sources) Abdominal bloating; Translations: [Abdominal distension (gaseous)] Onset: 016 Resolve d: 016 Episodic Other nervous system disorders (20 sources) Skin sensation disturbance; Translations: [Unspecified disturbances of skin sensation] Onset: 009 07-28-2008 Episodic Residual codes; unclassified (20 sources) Disturbance in sleep behavior; Translations: [Sleep disorder, unspecified] Onset: 016 11-05-2015 Episodic Residual codes; unclassified (20 sources) Homozygous methylenetetrahydrofolate reductase mutation; Translations: [Genetic susceptibility to other disease] Onset: 016 04-04-2016 Episodic Viral infection (20 sources) Disease caused by 2019-nCoV; Translations: [COVID-19] Onset: 022 06-09-2021 Episodic Results Test Name Value Interpretation Reference Range Facility SCRN MAMM (CAD)W/MICHAEL Tubbs n 04-01-2024 SCRN MAMM (CAD)W/MICHAEL [facility] Imaging Services [address] [place] [address] [id number] SCRN MAMM (CAD)W/MICHAEL BILAT MR#: [id number] Acct: [id number] Name: CHRIS LUND Rep #: [id number] : 1975 F 49 From: Tim fox MD PCP: Dr. 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 Routine annual screening examination. PERTINENT HISTORY: Mother with breast cancer. Aunt with breast cancer. TECHNIQUE: Digital bilateral breast michael (3D mammographic acquisition) in the CC and MLO projections. 2-D mediolateral oblique (MLO) and craniocaudad (CC) views of both breasts were obtained. CAD: Full Field Digital Mammography with Computer Added Detection was performed. COMPARISON: Comparison is made with prior study November 29, 2022. FINDINGS: Breast Composition: There are scattered areas of fibroglandular density. There are no dominant masses or suspicious calcifications. No other significant abnormalities are identified. There has been no significant change since the prior study. BI/SCRN MAMM (CAD)W/MICHAEL BILAT IMPRESSION: Stable bilateral screening mammogram. Yearly follow-up mammogram recommended. (A) ASSESSMENT CATEGORY: BIRADS Category 1: Negative. A letter regarding these results will be sent to the patient by the facility within 30 days. Approximately 10% of breast cancers are not detected by mammography. A normal mammogram should not delay biopsy of a clinically suspicious abnormality. [id number] Electronically Signed: Tim Swartz MD at 13:39 EST , CC: KIMBERLEY SIMMONS; Dr. Jane Church DO Endocrinology Teacher: Signed [facility] CNOVon 03-12-2024 CNOV Office Visit ([id number] ) KEVONCHRIS HEAD ([id number]) 1975 F Date Time Provider Department 03/12/24 1:45 PM MARTY LERMA [id number] During your visit today, we recorded the following information about you: Respiration Weight Height 16/minute 99.8 kg 1.676 m Marty Lerma MD 03/14/2024 7:54 AM Signed ORTHOPAEDIC OFFICE NOTE CHIEF COMPLAINT: right ankle surgery HISTORY OF PRESENT ILLNESS: Chris Kwong Kevon is a 49 year old female who presents for post-operative evaluation after removal deep implants right distal fibula 03/07/2024. She has continued to weight bear on the extremity without assist device. Notes early improvement of previous activity pain symptoms. Mild drainage from surgical incision, has slowed. No new fevers chills nausea or vomiting. No new injury mechanism. Reviewed nursing note and current pain scale. PAST MEDICAL HISTORY Diagnosis Date Ankle fracture 04/19/2023 right Celiac disease Cholelithiasis COVID 2019 beginning of [...] SPEC VARICIES INJ 11/30/2021 Normal LAPS ABD PRTMANDOMENTUM DX W/WO SPEC BR/WA SPX 03/23/1997 OVARIAN CYST DRAINAGE LAPS SURG CHOLECYSTECTOMY W/CHOLANGIOGRAPHY 08/01/2010 LIG/TRNSXJ FLP TUBE ABDL/VAG APPR UNI/BI 04/23/2010 Tubal ligation PAST SURGICAL HISTORY OF hysterectomy PAST SURGICAL HISTORY OF 04/20/2023 rt ankle external fixator PAST SURGICAL HISTORY OF Right ankle hardware removal 2023 Dr. Lerma RPR UMBILICAL HRNA 5 YRS/> REDUCIBLE 08/01/2010 [...] Never Smokeless tobacco: Never Vaping Use Vaping status: Never Used Substance Use Topics Alcohol use: No Drug use: No MEDICATIONS: Current Outpatient Medications Medication Sig oxyCODONE IR (ROXICODONE) 5 mg immediate release tablet Take 1 tablet by mouth every 6 hours as needed for pain for up to 10 days. liothyronine sodium (LIOTHYRONINE ORAL) hydrOXYchloroQUINE (PLAQUENIL) 200 mg tablet IVERMECTIN ORAL valACYclovir (VALTREX) 1 gram tablet Take 1 tablet by mouth every 12 hours. L.acid/L.casei/B.bif/B.divina/F OS (PROBIOTIC BLEND ORAL) Take by mouth. Sacchromices boulardi 1 capsule daily Ascorbic Acid (VITAMIN C) 1,000 mg tablet Take 1,000 mg by mouth once daily. MULTIVITAMIN ORAL Take 1 tablet by mouth once daily. Pure Encapsulation brand zinc Take 30 mg by mouth once daily. levothyroxine (SYNTHROID) 100 mcg tablet Take 100 mcg by mouth every morning. naltrexone capsule 4.5 mg (CPD) Take 1 capsule by mouth once daily. One Leggett (Pure Encapsulation) Take 2 capsules by mouth daily with food. Vitamin D3 5000 U (Pure Encapsulations) Take 1 capsule by mouth daily with food. Iron Chelate (Klaire/Prothera) Take 1 capsule by mouth daily with food. Melatonin-SR (Klaire/Prothera) 2mg 1 by mouth 30 minutes before bed No current facility-administered medications for this visit. ALLERGIES: ALLERGIES No Known Allergies PHYSICAL EXAMINATION: Resp 16 Ht 5' 6" (1.68m) Wt 220 lb (99.8kg) LMP 08/18/2013 BMI 35.53 kg/(m2). General Appearance: Well appearing, alert, in no acute distress, well-hydrated, well nourished. Skin: Skin color, texture, turgor normal, no suspicious rashes or lesions. Extremities: Right ankle with lateral healing incision. Global edema. No erythema. Demonstrates comfortable right foot DF/PF, similar arc of motion as previous. No pain with tib-fib compression. Ambulatory with full unassisted weight bearing and minimal limp. Peripheral Pulses: Normal. Neurologic: Intact light touch sensation right lower extremity. IMAGES: Recent Results (from the past 36 hour(s)) XR ANKLE GENERAL 3V AP/LAT/OBL RIGHT Narrative Three views right ankle demonstrate interval removal of the lateral plate and syndesmosis screws in their entirety. Ankle mortise is wel (more content not included)... Normal [facility] XR Ankle - right AP and Late ral and obliqueon 03-12-2024 Three views right an kle demonstrate interval removal of the lateral plate and syndesmosis screws in their entirety. Ankle mortise is well-maintained. Local bone formation present around region of prior hardware. No new fracture identified. [facility] RADIOLOG[facility] Radiology Study observation (narrative) [facility] ANES POSTPROC EVALon 024 ANES POSTPROC EVAL HNO ID: [id number] Author: NORTH VANCE MD Service: Anesthesiology Author Type: Anesthesiologist Type: Anesthesia Postprocedure Evaluation Filed: 03/07/2024 13:38 Note Text: POST ANESTHESIA EVALUATION NOTE : 1975 Procedure Summary Date: 03/07/24 Room / Location: [place] OR 20 / [place] OR Anesthesia Start: 1228 Anesthesia Stop: 1321 Procedure: REMOVAL HARDWARE FIBULA, RIGHT DISTAL (Right: Leg lower ) Diagnosis: Painful orthopaedic hardware (HCC) (Painful orthopaedic hardware (HCC) [T84.84XA]) Surgeons: Marty Lerma MD Responsible Provider: North Vance MD Anesthesia Type: general ASA Status: 2 Anesthesia Type: general Airway Type: LMA Last Vitals Vitals Value Taken Time BP 124/79 03/07/24 1330 Temp 36.2 ?C (97.2 ?F) 03/07/24 1318 Pulse 78 03/07/24 1337 Resp 14 03/07/24 1337 SpO2 98 % 03/07/24 1337 Vitals shown include unfiled device data. Post Anesthesia Patient Status Patient Evaluation: PACU. PACU/ICU Patient Condition: stable. Anticipated Disposition: phase 2 then home. Neurological Status: aware and responsive. Pulmonary Status: breathing comfortably on room air Airway Control: returned to baseline unsupported. Cardiovascular Status: stable. Pain Management: clinically adequate Postoperative Hydration: acceptable. Intraoperative Events: no significant anesthesia events Post Operative Nausea/Vomiting Status: no significant post operative nausea or vomiting Recommendation: further care per PACU/ICU/floor team. Anesthesia Observations No Documentation SIGNATURE: North Vance MD PATIENT NAME: Chris Lund DATE: March 07, 2024 TIME: 1:38 PM CSN: [id number] [facility] ANES PRE-OPon 03-07-2024 ANES PRE-OP HNO ID: [id number] Author: NORTH VANCE MD Service: Anesthesiology Author Type: Anesthesiologist Type: Anesthesia Preprocedure Evaluation Filed: 03/07/2024 11:59 Note Text: ANESTHESIOLOGY DAY OF SURGERY NOTE : 1975 Procedure Information Date/Time: 03/07/24 1230 Procedure: REMOVAL HARDWARE FIBULA, RIGHT DISTAL (Right: Leg lower ) - ANESTHESIA CHOICE Location: [place] OR / [place] OR Surgeons: Marty Lerma MD Estimated body mass index is 35.51 kg/m? as calculated from the following: Height as of 02/28/24: 167.6 cm (5' 6"). Weight as of 02/28/24: 99.8 kg (220 lb). Most recent hematocrit and potassium results: Hematocrit 39.9 04/20/2023 Potassium 3.7 04/20/2023 Relevant Problems ANESTHESIA (+) DIAN (obstructive sleep apnea) PULMONARY (+) DIAN (obstructive sleep apnea) Other (+) Obesity, Class I, BMI 30-34.9 Dian - cpap noncompliant I - PHYSICAL EVALUATION AIRWAY Patient intubated: No. Tracheostomy tube not present Mallampati: II. TM distance: >3 FB. Neck ROM: full ROM without neurological symptoms. Mouth opening: adequate. Short neck: no. Thick neck: yes DENTAL Dental findings: teeth intact. Additional exam findings: no II - ANESTHESIA PLAN ASA Score: 2 Anesthetic Plan: general Airway type: LMA The patient is not a current smoker. NPO Status: adequate Beta April Monitoring Plan Monitoring plan: standard ASA. Post Procedure Analgesic Plan Postoperative analgesic plan: multimodal analgesia. Informed Consent Anesthetic risks, benefits, alternatives, personnel and consent discussed: yes. Patient / Responsible [employer] agrees to proceed: yes Patient / Surrogate agrees to blood products: Yes Significant changes in the patient condition since the History and Physical, not otherwise documented in primary service progress note: no. Potential Anesthesia issues that may suggest increased risk of complications or contraindication to planned procedure: none. Vitals Value Taken Time BP 131/68 03/07/24 1102 Pulse 72 03/07/24 1102 Resp 16 03/07/24 1102 Temp 37.1 ?C (98.8 ?F) 03/07/24 1102 SpO2 100 % 03/07/24 1102 No current facility-administered medications on file as of 03/07/2024. Outpatient Medications as of 03/07/2024 Medication Sig liothyronine sodium (LIOTHYRONINE ORAL) hydrOXYchloroQUINE (PLAQUENIL) 200 mg tablet IVERMECTIN ORAL valACYclovir (VALTREX) 1 gram tablet Take 1 tablet by mouth every 12 hours. L.acid/L.casei/B.bif/B.divina/F OS (PROBIOTIC BLEND ORAL) Take by mouth. Sacchromices boulardi 1 capsule daily Ascorbic Acid (VITAMIN C) 1,000 mg tablet Take 1,000 mg by mouth once daily. MULTIVITAMIN ORAL Take 1 tablet by mouth once daily. Pure Encapsulation brand zinc Take 30 mg by mouth once daily. levothyroxine (SYNTHROID) 100 mcg tablet Take 100 mcg by mouth every morning. naltrexone capsule 4.5 mg (CPD) Take 1 capsule by mouth once daily. One Leggett (Pure Encapsulation) Take 2 capsules by mouth daily with food. Vitamin D3 5000 U (Pure Encapsulations) Take 1 capsule by mouth daily with food. Iron Chelate (Klaire/Prothera) Take 1 capsule by mouth daily with food. Melatonin-SR (Klaire/Prothera) 2mg 1 by mouth 30 minutes before bed I have interviewed and examined the patient. I have reviewed the medical record and/or the pre-anesthesia evaluation, pertinent labs, and test results. This contains updated information obtained within 48 hours of Surgery/Procedure. SIGNATURE: North Vance MD PATIENT NAME: Chris Lund DATE: March 07, 2024 TIME: 11:15 AM CSN: [id number] [facility] BRIEF OP NOTon 03-07-2024 BRIEF OP NOT HNO ID: [id number] Author: ALEXANDRA HAWK MD Service: Orthopaedic Surgery Author Type: Resident Type: Brief Op Note Filed: 03/07/2024 13:58 Note Text: BRIEF OPERATIVE / PROCEDURE NOTE LOG ID: [id number] SURGERY/PROCEDURE DATE: 03/07/2024 INCISION/PROCEDURE START TIME: 12:50 PM INCISION CLOSE/PROCEDURE END TIME: 1:11 PM SURGEON(S)/PROCEDURALIST(S) AND STRAW HAT PRESSER(S): Surgeons and Role: * Marty Lerma MD - Primary * Alexandra Hawk MD - Resident - Assisting No Additional Staff SURGERY/PROCEDURE(S): Removal of hardware Right ankle PRE-OP/PRE-PROCEDURE DIAGNOSIS: Pre-Op Diagnosis Codes: * Painful orthopaedic hardware (HCC) [T84.84XA] POST-OP/POST-PROCEDURE DIAGNOSIS: Post-Op Diagnosis Codes: * Painful orthopaedic hardware (HCC) [T84.84XA] FINDINGS: See operative report ANESTHESIA: Choice - Anesthesia Consult FLUIDS: per anesthesia ESTIMATED BLOOD LOSS: per anesthesia ANTIBIOTICS: 2g Ancef SPECIMENS: none COMPLICATIONS: none Assessment: Chris Lund is a 49 year old female s/p removal of painful orthopaedic implant to Right ankle Plan: - Management per orthopaedics - Pain control - Weight-bearing status - WBAT RLE - Dressings - steristrips, 4x4s, Abds, webril, Twan, may remove POD#1 and shower change POD#2 - Diet - okay to resume - Disposition - home today Alexandra Hawk MD Orthopaedic Surgery, PGY-1 03/07/2024 1:52 PM Please page #[phone] from 5p-6a and on weekends for any questions or concerns Normal [facility] HISTORY PHYSICALon HISTORY PHYSICAL HNO ID: [id number] Author: MARTY LERMA MD Service: Orthopaedic Surgery Author Type: Physician Type: H&P Filed: 03/07/2024 11:34 Note Text: ORTHOPAEDIC INTERVAL HISTORY AND EXAMINATION: Patient seen and examined, no interval change compared to documented office note 02/28/2024. CHIEF COMPLAINT: right ankle pain and stiffness HISTORY OF PRESENT ILLNESS: Chris Ludn is a 49 year old female who presents for reevaluation after open treatment right trimalleolar ankle fracture-dislocation with syndesmosis disruption 04/30/2023. She has continued intermittent pain symptoms depending on activity and identifies stiffness with extended activity. Previously reviewed potential hardware removal, she would like to pursue this course. No new injury mechanism. Ambulates with full weight bearing and no assist device, intermittent limp. No recent fevers, chills, nausea or vomiting. Reviewed nursing note and current pain scale. PAST MEDICAL HISTORY PAST MEDICAL HISTORY Diagnosis Date Ankle fracture 04/19/2023 right Celiac disease Cholelithiasis COVID 2019 beginning of 2019 and 04/23/21 Fibromyalgia IBS (irritable bowel syndrome) Insulin-resistant diabetes mellitus and acanthosis nigricans Lyme disease Other and unspecified ovarian cyst RIGHT resolved Other malaise and fatigue Post-COVID syndrome Unspecified essential hypertension Essential hypertension Variants of migraine, not elsewhere classified, without mention of intractable migraine without mention of status migrainosus Better now 11/10/11 PAST SURGICAL HISTORY PAST SURGICAL HISTORY Procedure Laterality Date DELIVERY ONLY 11/21/1997 , low cervical DELIVERY ONLY 12/2001,06/2010 , low cervical COLONOSCOPY 11/30/2021 Normal EGD W/O BRSH SPEC VARICIES INJ 11/30/2021 Normal LAPS ABD PRTMANDOMENTUM DX W/WO SPEC BR/WA SPX 03/23/1997 OVARIAN CYST DRAINAGE LAPS SURG CHOLECYSTECTOMY W/CHOLANGIOGRAPHY 08/01/2010 LIG/TRNSXJ FLP TUBE ABDL/VAG APPR UNI/BI 04/23/2010 Tubal ligation PAST SURGICAL HISTORY OF hysterectomy PAST SURGICAL HISTORY OF 04/20/2023 rt ankle external fixator RPR UMBILICAL HRNA 5 YRS/> REDUCIBLE 08/01/2010 FAMILY HISTORY FAMILY HISTORY Problem Relation Age of Onset Hypertension Mother Lipids Mother Irritable Bowel Syndrome Mother Ulcerative Colitis Mother other (Diverticulitis) Mother Diabetes Father Heart Father stent x 2 Hyperlipidemia Father Diabetes Brother Diabetes Paternal Grandmother Breast Cancer Paternal Aunt Diabetes Paternal Uncle Colon Cancer No Family History SOCIAL HISTORY Social History Tobacco Use Smoking status: Never Smokeless tobacco: Never Vaping Use Vaping status: Never Used Substance Use Topics Alcohol use: No Drug use: No MEDICATIONS: CURRENT MEDICATIONS Current Outpatient Medications Medication Sig L.acid/L.casei/B.bif/B.divina/F OS (PROBIOTIC BLEND ORAL) Take by mouth. Sacchromices boulardi 1 capsule daily Ascorbic Acid (VITAMIN C) 1,000 mg tablet Take 1,000 mg by mouth once daily. MULTIVITAMIN ORAL Take 1 tablet by mouth once daily. Pure Encapsulation brand zinc Take 30 mg by mouth once daily. levothyroxine (SYNTHROID) 100 mcg tablet Take 100 mcg by mouth every morning. naltrexone capsule 4.5 mg (CPD) Take 1 capsule by mouth once daily. One Leggett (Pure Encapsulation) Take 2 capsules by mouth daily with food. Vitamin D3 5000 U (Pure Encapsulations) Take 1 capsule by mouth daily with food. Iron Chelate (Klaire/Prothera) Take 1 capsule by mouth daily with food. Melatonin-SR (Klaire/Prothera) 2mg 1 by mouth 30 minutes before bed No current facility-administered medications for this visit. ALLERGIES: ALLERGIES ALLERGIES Allergen Reactions Calcium Unknown Magnesium Unknown Potassium Unknown Sodium Oxybate Unknown PHYSICAL EXAMINATION: Resp 20 Ht 5' 6" (1.68m) Wt 220 lb (99.8kg) LMP 08/18/2013 BMI 35.53 kg/(m2). General Appearance: Well appearing, alert, in no acute distress, well-hydrated, well nourished. Skin: Skin color, texture, turgor normal, no suspicious rashes or lesions. Heart - regular rate and rhythm Lungs - moving air without difficulty Extremities: Right ankle with moderate edema, no new deformity. Surgical scars well healed. Right leg and foot compartments soft and compressible. Able to actively DF/PF in near full arc of motion dorsally, somewhat feels stiff at endpoint. Peripheral Pulses: Normal. Neurologic: Intact light touch sensation right lower extremity. IMAGES: Recent Results (from the past 36 hour(s)) XR ANKLE GENERAL 3V AP/LAT/OBL RIGHT Narrative Three views right ankle demonstrate a similar position of the medial malleolar and syndesmosis fixation construct. Lucency around the syndesmosis screws consistent with motion evidence, without screw breakage. Ankle mortise maintained. No new fracture identified. (more content not included)... Normal [facility] OPERATIVE NOon 03-07-2024 OPERATIVE NO HNO ID: [id number] Author: MARTY LERMA MD Service: Orthopaedic Surgery Author Type: Physician Type: Operative Report Filed: 03/08/2024 10:47 Note Text: ORTHOPAEDIC OPERATIVE REPORT PATIENT NAME: Chris Lund Surgery/Procedure Date: 03/07/2024 Incision/Procedure Start Time: 12:50 PM Incision Close/Procedure End Time: 1:11 PM Surgeon(s) and Auto Mechanics Teacher(s): Surgeons and Role: * Marty Lerma MD - Primary * Alexandra Hawk MD - Resident - Assisting No Additional Staff PRE-OPERATIVE DIAGNOSIS: Painful orthopaedic implants right ankle POST-OPERATIVE DIAGNOSIS: Painful orthopaedic implants right ankle SURGICAL PROCEDURE(S): Removal deep implants right distal fibula Anesthesia: Choice - Anesthesia Consult + local marcaine 0.5% with epinephrine 20 cc Implantable Devices: None Complications: None Specimens: None Estimated Blood Loss: < 10 mls OPERATIVE INDICATIONS: This is a 49 year old female who underwent operative stabilization right trimalleolar ankle fracture-dislocation with syndesmosis disruption 04/2023. She returns for planned syndesmosis hardware removal from the distal fibula (2-hole plate and two screws). Risks and benefits were reviewed in the office setting, and all questions were answered. OPERATIVE PROCEDURE: The patient was brought to the operating room on the hospital bed and transferred supine to the operating table. She was intubated per Anesthesia. The right lower extremity was pre-washed with chlorhexidine. It was padded prepped and sterilely draped for the procedure. The [facility] timeout protocol was performed. A pre-incision injection of marcaine was applied to the lateral surgical scar (6 cc). A 3 cm skin incision was made through scar followed by electrocautery for hemostasis. Blunt exposure was performed to the lateral fibula, care was taken to protect any crossing neurologic structure. Screw heads were identified and the syndesmosis screws were removed from the ankle in their entirety. The 2-hole one third tubular plate was then removed. The wound was irrigated with saline. An additional 14 cc local anesthetic was applied to the surrounding soft tissue and the screw holes into the tibia. Closure of the deep subcutaneous soft tissues was performed with 0 vicryl suture followed by buried interrupted 2-0 vicryl suture in the superficial soft tissues. A monocryl closure was performed on the skin layer. Sterile dressings were applied. All draping was removed. The patient was extubated per Anesthesia. She was returned to the hospital bed and taken to the recovery room in stable condition. POST-OPERATIVE PLAN: - Management per orthopaedics - Pain control - short prescription administered - Weight-bearing status - WBAT RLE - Dressings - steristrips, 4x4s, Abds, webril, Twan, may remove POD#1 and shower change POD#2 - Diet - okay to resume - Disposition - home today - Updated regarding post-surgical state. I/primary surgeon/proceduralist performed the procedure with assistance. SIGNATURE: Marty Lerma MD DATE: March 08, 2024 TIME: 10:39 AM [facility] Telephone (AGPOB1) CHRIS LUND ([id number]) 1975 F Date Time Provider Department 03/06/24 [facility]ART[facility] LERMA [facility] During your visit today, we recorded the following information about you: Mary Bernard 03/06/2024 4:18 PM Signed Spoke with the patient, let her know her arrival time is 10:30 am nothing to eat or drink after midnight. Made sure she had a local driver, take walker or crutches. Mary Bernard March 06, 2024 4:18 PM Allergies As of Date: 03/06/2024 (No Active Allergies) Date Reviewed: 02/28/2024 Reviewed by: Sonya Castaneda MA - Fully Assessed Reason for Visit: Reminder Call [[id number]] Prescriptions as of 03/06/2024 - liothyronine sodium (LIOTHYRONINE ORAL) - hydrOXYchloroQUINE (PLAQUENIL) 200 mg tablet - IVERMECTIN ORAL - valACYclovir (VALTREX) 1 gram tablet Take 1 tablet by mouth every 12 hours. - L.acid/L.casei/B.bif/B.divina/F OS (PROBIOTIC BLEND ORAL) Take by mouth. Sacchromices boulardi 1 capsule daily - Ascorbic Acid (VITAMIN C) 1,000 mg tablet Take 1,000 mg by mouth once daily. - MULTIVITAMIN ORAL Take 1 tablet by mouth once daily. Pure Encapsulation brand - zinc Take 30 mg by mouth once daily. - levothyroxine (SYNTHROID) 100 mcg tablet Take 100 mcg by mouth every morning. - naltrexone capsule 4.5 mg (CPD) Take 1 capsule by mouth once daily. - One Leggett (Pure Encapsulation) Take 2 capsules by mouth daily with food. - Vitamin D3 5000 U (Pure Encapsulations) Take 1 capsule by mouth daily with food. - Iron Chelate (Klaire/Prothera) Take 1 capsule by mouth daily with food. - Melatonin-SR (Klaire/Prothera) 2mg 1 by mouth 30 minutes before bed Meds Comments as of 04/19/2023: All medications reviewed 04/19/2023 Problem List As Of Date 03/06/2024 Noted Resolved SKIN SENSATION DISTURB [R20.9] 07/28/2008 ADVANCED MATERNAL AGE:MULTIPARA[659.63] [O09.52*11/24/2009 07/04/2010 SUPRF HIGH RISK NEC [V23.89] [O09.899]11/24/2009 07/04/2010 Poor grth-antepart [O36.5990] 11/24/2009 07/04/2010 Other pre-existing hypertension, antepartum [O1*11/24/2009 07/04/2010 Previous delivery, antepartum conditio*11/24/2009 07/04/2010 Diabetes mellitus, 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] 06/17/2010 07/04/2010 Essential hypertension [I10] 07/04/2010 Cholecystitis with cholelithiasis [K80.10] 07/05/2010 Incisional hernia [K43.2] 07/05/2010 Neuralgia [M79.2] 07/05/2010 Irregular menstrual cycle [N92.6] 11/10/2011 01/18/2016 Excessive or frequent menstruation [N92.0] 11/10/2011 01/18/2016 Metrorrhagia [N92.1] 11/10/2011 01/18/2016 Fatigue [R53.83] 11/05/2015 01/18/2016 Vitamin D deficiency [E55.9] 11/05/2015 Sleep disturbance [G47.9] 11/05/2015 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] 11/05/2015 Bloating [R14.0] 11/05/2015 01/18/2016 Irritable bowel syndrome with diarrhea [K58.0] 11/05/2015 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 Lucency around the syndesmosis screws consistent with motion evidence, without screw breakage. Ankle mortise maintained. No new fracture identified. [facility] RAD[facility] Radiology Study observation (narrative) [facility] CNOVon 02-28-2024 CNOV Office Visit (AGPOB1 ) CHRIS LUND ([id number]) 1975 F Date Time Provider Department 02/28/24 3:15 PM MARTY LERMA AGPOB1 During your visit today, we recorded the following information about you: Respiration Weight Height 20/minute 99.8 kg 1.676 m Marty Lerma MD 02/29/2024 7:54 AM Signed ORTHOPAEDIC OFFICE NOTE CHIEF COMPLAINT: right ankle pain and stiffness HISTORY OF PRESENT ILLNESS: Chris Lund is a 49 year old female who presents for reevaluation after open treatment right trimalleolar ankle fracture-dislocation with syndesmosis disruption 04/30/2023. She has continued intermittent pain symptoms depending on activity and identifies stiffness with extended activity. Previously reviewed potential hardware removal, she would like to pursue this course. No new injury mechanism. Ambulates with full weight bearing and no assist device, intermittent limp. Reviewed nursing note and current pain scale. PAST MEDICAL HISTORY Diagnosis Date - Ankle fracture 04/19/2023 right - Celiac disease - Cholelithiasis - COVID 2020 beginning of 2019 and 04/23/21 - Fibromyalgia - IBS (irritable bowel syndrome) - Insulin-resistant diabetes mellitus and acanthosis nigricans - Lyme disease - Other and unspecified ovarian cyst RIGHT resolved - Other malaise and fatigue - Post-COVID syndrome - Unspecified essential hypertension Essential hypertension - Variants of migraine, not elsewhere classified, without mention of intractable migraine without mention of status migrainosus Better now 11/10/11 PAST SURGICAL HISTORY Procedure Laterality Date - DELIVERY ONLY 11/21/1997 , low cervical - DELIVERY ONLY 12/2001,06/2010 , low cervical - COLONOSCOPY 11/30/2021 Normal - EGD W/O BRSH SPEC VARICIES INJ 11/30/2021 Normal - LAPS ABD PRTMANDOMENTUM DX W/WO SPEC BR/WA SPX 03/23/1997 OVARIAN CYST DRAINAGE - LAPS SURG CHOLECYSTECTOMY W/CHOLANGIOGRAPHY 08/01/2010 - LIG/TRNSXJ FLP TUBE ABDL/VAG APPR UNI/BI 04/23/2010 Tubal ligation - PAST SURGICAL HISTORY OF hysterectomy - PAST SURGICAL HISTORY OF 04/20/2023 rt ankle external fixator - RPR UMBILICAL HRNA 5 YRS/> REDUCIBLE 08/01/2010 FAMILY HISTORY Problem Relation Age of Onset - Hypertension Mother - Lipids Mother - Irritable Bowel Syndrome Mother - Ulcerative Colitis Mother - other (Diverticulitis) Mother - Diabetes Father - Heart Father stent x 2 - Hyperlipidemia Father - Diabetes Brother - Diabetes Paternal Grandmother - Breast Cancer Paternal Aunt - Diabetes Paternal Uncle - Colon Cancer No Family History Social History Tobacco Use - Smoking status: Never - Smokeless tobacco: Never Vaping Use - Vaping status: Never Used Substance Use Topics - Alcohol use: No - Drug use: No MEDICATIONS: Current Outpatient Medications Medication Sig - L.acid/L.casei/B.bif/B.divina/F OS (PROBIOTIC BLEND ORAL) Take by mouth. Sacchromices boulardi 1 capsule daily - Ascorbic Acid (VITAMIN C) 1,000 mg tablet Take 1,000 mg by mouth once daily. - MULTIVITAMIN ORAL Take 1 tablet by mouth once daily. Pure Encapsulation brand - zinc Take 30 mg by mouth once daily. - levothyroxine (SYNTHROID) 100 mcg tablet Take 100 mcg by mouth every morning. - naltrexone capsule 4.5 mg (CPD) Take 1 capsule by mouth once daily. - One Leggett (Pure Encapsulation) Take 2 capsules by mouth daily with food. - Vitamin D3 5000 U (Pure Encapsulations) Take 1 capsule by mouth daily with food. - Iron Chelate (Klaire/Prothera) Take 1 capsule by mouth daily with food. - Melatonin-SR (Klaire/Prothera) 2mg 1 by mouth 30 minutes before bed No current facility-administered medications for this visit. ALLERGIES: ALLERGIES Allergen Reactions - Calcium Unknown - Magnesium Unknown - Potassium Unknown - Sodium Oxybate Unknown PHYSICAL EXAMINATION: Resp 20 Ht 5' 6" (1.68m) Wt 220 lb (99.8kg) LMP 08/18/2013 BMI 35.53 kg/(m2). General Appearance: Well appearing, alert, in no acute distress, well-hydrated, well nourished. Skin: Skin color, texture, turgor normal, no suspicious rashes or lesions. Extremities: Right ankle with moderate edema, no new deformity. Surgical scars well healed. Right leg and foot compartments soft and compressible. Able to actively DF/PF in near full arc of motion dorsally, somewhat feels stiff at endpoint. Peripheral Pulses: Normal. Neurologic: Intact light touch sensation right lower extremity. IMAGES: Recent Results (from the past 36 hour(s)) XR ANKLE GENERAL 3V AP/LAT/OBL RIGHT Narrative Three views right ankle demonstrate a similar position of the medial malleolar and syndesmosis fixation construct. Lucency around the syndesmosis screws consistent with motion evidence, without screw breakage. Ankle mortise maintained. No new fracture carlito (more content not included)... [facility] KEVONCHRIS HEAD ([id number]) 1975 F Date Time Provider Department 11/08/23 10:00 AM MARTY LERMA [facility] During your visit today, we recorded the following information about you: Respiration Weight Height 20/minute 97.5 kg 1.676 m Marty Lerma MD 11/08/2023 10:26 AM Signed Contact the office if you decide to pursue hardware removal right ankle ([phone]). Marty Lerma MD 11/08/2023 12:25 PM Signed ORTHOPAEDIC OFFICE NOTE CHIEF COMPLAINT: Right ankle pain and stiffness; right heel bump HISTORY OF PRESENT ILLNESS: Chris Elenita Lund is a 48 year old female who presents for reevaluation after open treatment right trimalleolar ankle fracture-dislocation with syndesmosis disruption 04/30/2023. Patient notes a plateau in recovery with ankle that is more sore after activity and increased stiffness particularly with dorsiflexion. She has also noticed a small firm bump on the medial heel. No new injury mechanism. Also has some anterior leg pain with activity while knee is extended, such as riding a recumbent bike. Ambulatory without assist device. Reviewed nursing note and current pain scale. PAST MEDICAL HISTORY Diagnosis Date - Ankle fracture 04/19/2023 right - Celiac disease - Cholelithiasis - COVID 2020 beginning of 2019 and 04/23/21 - Fibromyalgia - IBS (irritable bowel syndrome) - Insulin-resistant diabetes mellitus and acanthosis nigricans - Lyme disease - Other and unspecified ovarian cyst RIGHT resolved - Other malaise and fatigue - Post-COVID syndrome - Unspecified essential hypertension Essential hypertension - Variants of migraine, not elsewhere classified, without mention of intractable migraine without mention of status migrainosus Better now 11/10/11 PAST SURGICAL HISTORY Procedure Laterality Date - DELIVERY ONLY 11/21/1997 , low cervical - DELIVERY ONLY 12/2001,06/2010 , low cervical - COLONOSCOPY 11/30/2021 Normal - EGD W/O BRSH SPEC VARICIES INJ 11/30/2021 Normal - LAPS ABD PRTMANDOMENTUM DX W/WO SPEC BR/WA SPX 03/23/1997 OVARIAN CYST DRAINAGE - LAPS SURG CHOLECYSTECTOMY W/CHOLANGIOGRAPHY 08/01/2010 - LIG/TRNSXJ FLP TUBE ABDL/VAG APPR UNI/BI 04/23/2010 Tubal ligation - PAST SURGICAL HISTORY OF hysterectomy - PAST SURGICAL HISTORY OF 04/20/2023 rt ankle external fixator - RPR UMBILICAL HRNA 5 YRS/> REDUCIBLE 08/01/2010 FAMILY HISTORY Problem Relation Age of Onset - Hypertension Mother - Lipids Mother - Irritable Bowel Syndrome Mother - Ulcerative Colitis Mother - other (Diverticulitis) Mother - Diabetes Father - Heart Father stent x 2 - Hyperlipidemia Father - Diabetes Brother - Diabetes Paternal Grandmother - Breast Cancer Paternal Aunt - Diabetes Paternal Uncle - Colon Cancer No Family History Social History Tobacco Use - Smoking status: Never - Smokeless tobacco: Never Vaping Use - Vaping Use: Never used Substance Use Topics - Alcohol use: No - Drug use: No MEDICATIONS: Current Outpatient Medications Medication Sig - L.acid/L.casei/B.bif/B.divina/F OS (PROBIOTIC BLEND ORAL) Take by mouth. Sacchromices boulardi 1 capsule daily - Ascorbic Acid (VITAMIN C) 1,000 mg tablet Take 1,000 mg by mouth once daily. - MULTIVITAMIN ORAL Take 1 tablet by mouth once daily. Pure Encapsulation brand - zinc Take 30 mg by mouth once daily. - levothyroxine (SYNTHROID) 100 mcg tablet Take 100 mcg by mouth every morning. - naltrexone capsule 4.5 mg (CPD) Take 1 capsule by mouth once daily. - One Leggett (Pure Encapsulation) Take 2 capsules by mouth daily with food. - Vitamin D3 5000 U (Pure Encapsulations) Take 1 capsule by mouth daily with food. - Iron Chelate (Klaire/Prothera) Take 1 capsule by mouth daily with food. - Melatonin-SR (Klaire/Prothera) 2mg 1 by mouth 30 minutes before bed No current facility-administered medications for this visit. ALLERGIES: ALLERGIES Allergen Reactions - Calcium Unknown - Magnesium Unknown - Potassium Unknown - Sodium Oxybate Unknown PHYSICAL EXAMINATION: Resp 20 Ht 5' 6" (1.68m) Wt 215 lb (97.5kg) LMP 08/18/2013 BMI 34.72 kg/(m2). General Appearance: Well appearing, alert, in no acute distress, well-hydrated, well nourished. Skin: Skin color, texture, turgor normal, no suspicious rashes or lesions. Extremities: Right ankle with topographic appearance of prior fracture and surgical intervention. No increased edema. Medial hindfoot with 0.5 cm x 0.5 cm indurated prominent area that is nontender to palpation and does not feel like a discrete mass. Right leg and foot compartments soft and compressible. Demonstrates active full foot plantarflexion and dorsiflexion past neutral with mild discomfort and a feeling of stiffness. Ambulates without a limp. Peripheral Pulses: Nor (more content not included)... [facility] XR Ankle - right AP and Late ral and obliqueon 11-08-2023 Three views right an kle demonstrate a similar appearance of the hardware stabilizing the healed fractures. Ankle mortise appropriate with mild medial widening that is stable. Some lucency noted about inferior syndesmosis screw indicative of motion. Fibular fracture appears healed. [facility] Radiology Study observation (narrative) [facility] Greta 11-06-2023 CNPN Telephone (AGPOB1) CHRIS LUND ([id number]) 1975 F Date Time Provider Department 11/06/23 MARTY LERMA AGPOB1 During your visit today, we recorded the following information about you: Mary Bernard 11/06/2023 1:50 PM Signed Spoke to patient and scheduled them with Dr. Lerma on 11/08/23 at 10 am at [facility]. Patient is agreeable to date, time, and location. Mary Bernard November 06, 2023 1:50 PM Allergies As of Date: 11/06/2023 (No Known Allergies) Date Reviewed: 08/09/2023 Reviewed by: Marty Lerma MD - Fully Assessed Reason for Visit: Appointment [186] Prescriptions as of 11/06/2023 - L.acid/L.casei/B.bif/B.divina/F OS (PROBIOTIC BLEND ORAL) Take by mouth. Sacchromices boulardi 1 capsule daily - Ascorbic Acid (VITAMIN C) 1,000 mg tablet Take 1,000 mg by mouth once daily. - MULTIVITAMIN ORAL Take 1 tablet by mouth once daily. Pure Encapsulation brand - IVERMECTIN ORAL Take 18 mg by mouth once daily. - zinc Take 30 mg by mouth once daily. - levothyroxine (SYNTHROID) 100 mcg tablet Take 100 mcg by mouth every morning. - naltrexone capsule 4.5 mg (CPD) Take 1 capsule by mouth once daily. - One Leggett (Pure Encapsulation) Take 2 capsules by mouth daily with food. - Vitamin D3 5000 U (Pure Encapsulations) Take 1 capsule by mouth daily with food. - Iron Chelate (Klaire/Prothera) Take 1 capsule by mouth daily with food. - Melatonin-SR (Klaire/Prothera) 2mg 1 by mouth 30 minutes before bed Meds Comments as of 04/19/2023: All medications reviewed 04/19/2023 Problem List As Of Date 11/06/2023 Noted Resolved SKIN SENSATION DISTURB [R20.9] 07/28/2008 ADVANCED MATERNAL AGE:MULTIPARA[659.63] [O09.52*11/24/2009 07/04/2010 SUPRF HIGH RISK NEC [V23.89] [O09.899]11/24/2009 07/04/2010 Poor grth-antepart [O36.5990] 11/24/2009 07/04/2010 Other pre-existing hypertension, antepartum [O1*11/24/2009 07/04/2010 Previous delivery, antepartum conditio*11/24/2009 07/04/2010 Diabetes mellitus, 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] 06/17/2010 07/04/2010 Essential hypertension [I10] 07/04/2010 Cholecystitis with cholelithiasis [K80.10] 07/05/2010 Incisional hernia [K43.2] 07/05/2010 Neuralgia [M79.2] 07/05/2010 Irregular menstrual cycle [N92.6] 11/10/2011 01/18/2016 Excessive or frequent menstruation [N92.0] 11/10/2011 01/18/2016 Metrorrhagia [N92.1] 11/10/2011 01/18/2016 Fatigue [R53.83] 11/05/2015 01/18/2016 Vitamin D deficiency [E55.9] 11/05/2015 Sleep disturbance [G47.9] 11/05/2015 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] 11/05/2015 Bloating [R14.0] 11/05/2015 01/18/2016 Irritable bowel syndrome with diarrhea [K58.0] 11/05/2015 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 Maureen 08-09-2023 CNOV Office Visit (AGPOB1 ) CHRIS LUND ([id number]) 1975 F Date Time Provider Department 08/09/23 3:15 PM MARTY LERMA AGPOB1 During your visit today, we recorded the following information about you: Respiration Weight Height 16/minute 97.5 kg 1.676 m Marty Lerma MD 08/09/2023 3:51 PM Signed ORTHOPAEDIC OFFICE NOTE CHIEF COMPLAINT: right ankle injury HISTORY OF PRESENT ILLNESS: Chris Lund is a 48 year old female who presents for reevaluation after open treatment right trimalleolar ankle fracture-dislocation with syndesmosis disruption 04/30/2023. She has been ambulatory on the right lower extremity with full weightbearing, typically in normal shoes but occasionally with walker boot for extended periods of time. Notes continued improvement with pain and function. Ankle still swells depending on longevity of activity. No new injury mechanism. She has returned to driving. Reviewed nursing note and current pain scale. PAST MEDICAL HISTORY Diagnosis Date - Ankle fracture 04/19/2023 right - Celiac disease - Cholelithiasis - COVID 2020 beginning of 2019 and 04/23/21 - Fibromyalgia - IBS (irritable bowel syndrome) - Insulin-resistant diabetes mellitus and acanthosis nigricans - Lyme disease - Other and unspecified ovarian cyst RIGHT resolved - Other malaise and fatigue - Post-COVID syndrome - Unspecified essential hypertension Essential hypertension - Variants of migraine, not elsewhere classified, without mention of intractable migraine without mention of status migrainosus Better now 11/10/11 PAST SURGICAL HISTORY Procedure Laterality Date - DELIVERY ONLY 11/21/1997 , low cervical - DELIVERY ONLY 12/2001,06/2010 , low cervical - COLONOSCOPY 11/30/2021 Normal - EGD W/O BRSH SPEC VARICIES INJ 11/30/2021 Normal - LAPS ABD PRTMANDOMENTUM DX W/WO SPEC BR/WA SPX 03/23/1997 OVARIAN CYST DRAINAGE - LAPS SURG CHOLECYSTECTOMY W/CHOLANGIOGRAPHY 08/01/2010 - LIG/TRNSXJ FLP TUBE ABDL/VAG APPR UNI/BI 04/23/2010 Tubal ligation - PAST SURGICAL HISTORY OF hysterectomy - PAST SURGICAL HISTORY OF 04/20/2023 rt ankle external fixator - RPR UMBILICAL HRNA 5 YRS/> REDUCIBLE 08/01/2010 FAMILY HISTORY Problem Relation Age of Onset - Hypertension Mother - Lipids Mother - Irritable Bowel Syndrome Mother - Ulcerative Colitis Mother - other (Diverticulitis) Mother - Diabetes Father - Heart Father stent x 2 - Hyperlipidemia Father - Diabetes Brother - Diabetes Paternal Grandmother - Breast Cancer Paternal Aunt - Diabetes Paternal Uncle - Colon Cancer No Family History Social History Tobacco Use - Smoking status: Never - Smokeless tobacco: Never Vaping Use - Vaping Use: Never used Substance Use Topics - Alcohol use: No - Drug use: No MEDICATIONS: Current Outpatient Medications Medication Sig - L.acid/L.casei/B.bif/B.divina/F OS (PROBIOTIC BLEND ORAL) Take by mouth. Sacchromices boulardi 1 capsule daily - Ascorbic Acid (VITAMIN C) 1,000 mg tablet Take 1,000 mg by mouth once daily. - MULTIVITAMIN ORAL Take 1 tablet by mouth once daily. Pure Encapsulation brand - IVERMECTIN ORAL Take 18 mg by mouth once daily. - zinc Take 30 mg by mouth once daily. - levothyroxine (SYNTHROID) 100 mcg tablet Take 100 mcg by mouth every morning. - naltrexone capsule 4.5 mg (CPD) Take 1 capsule by mouth once daily. - One Leggett (Pure Encapsulation) Take 2 capsules by mouth daily with food. - Vitamin D3 5000 U (Pure Encapsulations) Take 1 capsule by mouth daily with food. - Iron Chelate (Klaire/Prothera) Take 1 capsule by mouth daily with food. - Melatonin-SR (Klaire/Prothera) 2mg 1 by mouth 30 minutes before bed No current facility-administered medications for this visit. ALLERGIES: ALLERGIES No Known Allergies PHYSICAL EXAMINATION: Resp 16 Ht 5' 6" (1.68m) Wt 215 lb (97.5kg) LMP 08/18/2013 BMI 34.72 kg/(m2). General Appearance: Well appearing, alert, in no acute distress, well-hydrated, well nourished. Skin: Skin color, texture, turgor normal, no suspicious rashes or lesions. Extremities: Right ankle with global edema consistent with injury, improved from prior visits. Surgical incisions well-healed. No tenderness to palpation over the fibula proximally. Right leg and foot compartments soft and compressible. Demonstrates comfortable full functional arc of right foot dorsiflexion and plantarflexion. Ambulates with mild limp on the right side. Able to single stance weight-bear 2 seconds. Peripheral Pulses: Normal. Neurologic: Intact light touch sensation right lower extremity. IMAGES: Recent Results (from the past 36 hour(s)) XR ANKLE GENERAL 3V AP/LAT/OBL RIGHT Narrative Three views right ankle demonstrate no change in position of the syndesmosis fixation or medial malleoli are (more content not included)... Normal [facility] CNOVon 06-28-2023 CNOV Office Visit (AGPOB1 ) CHRIS LUND ([id number]) 1975 F Date Time Provider Department 06/28/23 3:00 PM [facility] During your visit today, we recorded the following information about you: Respiration Weight Height 18/minute 97.5 kg 1.676 m Marty Lerma MD 07/01/2023 10:35 AM Signed ORTHOPAEDIC OFFICE NOTE CHIEF COMPLAINT: right ankle injury HISTORY OF PRESENT ILLNESS: Chris Lund is a 48 year old female who presents for reevaluation after open treatment right trimalleolar ankle fracture-dislocation with syndesmosis disruption 04/30/2023. Has been weight bearing as tolerated in walker boot. Notes pain continues to improve. Swelling depending on activity but also improving. No new injury mechanism. Reviewed nursing note and current pain scale. PAST MEDICAL HISTORY Diagnosis Date Ankle fracture 04/19/2023 right Celiac disease Cholelithiasis COVID 2019 beginning 2019 and 04/23/21 Fibromyalgia IBS (irritable bowel [...] SPEC VARICIES INJ 11/30/2021 Normal LAPS ABD PRTMANDOMENTUM DX W/WO SPEC BR/WA SPX 03/23/1997 OVARIAN CYST DRAINAGE LAPS SURG CHOLECYSTECTOMY W/CHOLANGIOGRAPHY 08/01/2010 LIG/TRNSXJ FLP TUBE ABDL/VAG APPR UNI/BI 04/23/2010 Tubal ligation PAST SURGICAL HISTORY OF hysterectomy PAST SURGICAL HISTORY OF 04/20/2023 rt ankle external fixator RPR UMBILICAL HRNA 5 YRS/> REDUCIBLE 08/01/2010 [...] Topics Alcohol use: No Drug use: No MEDICATIONS: Current Outpatient Medications Medication Sig L.acid/L.casei/B.bif/B.divina/F OS (PROBIOTIC BLEND ORAL) Take by mouth. Sacchromices boulardi 1 capsule daily Ascorbic Acid (VITAMIN C) 1,000 mg tablet Take 1,000 mg by mouth once daily. MULTIVITAMIN ORAL Take 1 tablet by mouth once daily. Pure Encapsulation brand IVERMECTIN ORAL Take 18 mg by mouth once daily. zinc Take 30 mg by mouth once daily. levothyroxine (SYNTHROID) 100 mcg tablet Take 100 mcg by mouth every morning. naltrexone capsule 4.5 mg (CPD) Take 1 capsule by mouth once daily. One Leggett (Pure Encapsulation) Take 2 capsules by mouth daily with food. Vitamin D3 5000 U (Pure Encapsulations) Take 1 capsule by mouth daily with food. Iron Chelate (Klaire/Prothera) Take 1 capsule by mouth daily with food. Melatonin-SR (Klaire/Prothera) 2mg 1 by mouth 30 minutes before bed No current facility-administered medications for this visit. ALLERGIES: ALLERGIES No Known Allergies PHYSICAL EXAMINATION: Resp 18 Ht 5' 6" (1.68m) Wt 215 lb (97.5kg) LMP 08/18/2013 BMI 34.72 kg/(m2). General Appearance: Well appearing, alert, in no acute distress, well-hydrated, well nourished. Skin: Skin color, texture, turgor normal, no suspicious rashes or lesions. Extremities: Right ankle with healed surgical incisions. Global edema improved from prior evaluations. Right leg and foot compartments soft and compressible. Demonstrates comfortable right foot DF/PF. No tenderness to palpation medial or lateral ankle. Peripheral Pulses: Normal. Neurologic: Intact light touch sensation right lower extremity. IMAGES: Recent Results (from the past 36 hour(s)) XR ANKLE GENERAL 3V AP/LAT/OBL RIGHT Narrative Three views right ankle demonstrate no change in position of the hardware stabilizing the ankle injury. Ankle mortise is well maintained; high fibula fracture well-aligned. No new fracture identified. ASSESSMENT AND PLAN: 1. Closed trimalleolar fracture of right ankle with routine healing, subsequent encounter - ICD9: V54.19, ICD10: S82.851D Functional Plan: Continue weight bearing and range of motion as tolerated, symptom limited. Assistance Devices: May wean walker boot as swelling allows. Physical/Occupational Therapy: Home the (more content not included)... Normal [facility] CNOVon 05-31-2023 CNOV Office Visit (AGPOB1 ) CHRIS LUND ([id number]) 1975 F Date Time Provider Department 05/31/23 3:30 PM MARTY LERMA [facility] During your visit today, we recorded the following information about you: Respiration Weight Height 20/minute 97.5 kg 1.676 m Marty Lerma MD 06/07/2023 8:31 AM Signed DME A tall medium size walker boot was fitted on the patients rt ankle and the patient was instructed on it's use and care. Tremayne [employer] May 31, 2023 4:01 PM ORTHOPAEDIC OFFICE NOTE CHIEF COMPLAINT: right ankle injury HISTORY OF PRESENT ILLNESS: Chris Lund is a 48 year old female who presents for reevaluation after open treatment right trimalleolar ankle fracture-dislocation with syndesmosis disruption 04/30/2023. Has remained non-weight bearing right lower extremity, working on range of motion exercises. No new pain or instability. No new fevers chills nausea or vomiting. No new injury mechanism. Reviewed nursing note and current pain scale. PAST MEDICAL HISTORY Diagnosis Date Ankle fracture 04/19/2023 right Celiac disease Cholelithiasis COVID 2019 beginning of [...] SPEC VARICIES INJ 11/30/2021 Normal LAPS ABD PRTMANDOMENTUM DX W/WO SPEC BR/WA SPX 03/23/1997 OVARIAN CYST DRAINAGE LAPS SURG CHOLECYSTECTOMY W/CHOLANGIOGRAPHY 08/01/2010 LIG/TRNSXJ FLP TUBE ABDL/VAG APPR UNI/BI 04/23/2010 Tubal ligation PAST SURGICAL HISTORY OF hysterectomy PAST SURGICAL HISTORY OF 04/20/2023 rt ankle external fixator RPR UMBILICAL HRNA 5 YRS/> REDUCIBLE 08/01/2010 [...] Topics Alcohol use: No Drug use: No MEDICATIONS: Current Outpatient Medications Medication Sig L.acid/L.casei/B.bif/B.divina/F OS (PROBIOTIC BLEND ORAL) Take by mouth. Sacchromices boulardi 1 capsule daily Ascorbic Acid (VITAMIN C) 1,000 mg tablet Take 1,000 mg by mouth once daily. MULTIVITAMIN ORAL Take 1 tablet by mouth once daily. Pure Encapsulation brand IVERMECTIN ORAL Take 18 mg by mouth once daily. zinc Take 30 mg by mouth once daily. levothyroxine (SYNTHROID) 100 mcg tablet Take 100 mcg by mouth every morning. naltrexone capsule 4.5 mg (CPD) Take 1 capsule by mouth once daily. One Leggett (Pure Encapsulation) Take 2 capsules by mouth daily with food. Vitamin D3 5000 U (Pure Encapsulations) Take 1 capsule by mouth daily with food. Iron Chelate (Klaire/Prothera) Take 1 capsule by mouth daily with food. Melatonin-SR (Klaire/Prothera) 2mg 1 by mouth 30 minutes before bed No current facility-administered medications for this visit. ALLERGIES: ALLERGIES No Known Allergies PHYSICAL EXAMINATION: Resp 20 Ht 5' 6" (1.68m) Wt 215 lb (97.5kg) LMP 08/18/2013 BMI 34.72 kg/(m2). General Appearance: Well appearing, alert, in no acute distress, well-hydrated, well nourished. Skin: Skin color, texture, turgor normal, no suspicious rashes or lesions. Extremities: Right ankle with healing surgical incisions. Decreased global edema. Right leg and foot compartments soft and compressible. Demonstrates short arc active right foot DF/PF. Peripheral Pulses: Normal. Neurologic: Intact light touch sensation right lower extremity. IMAGES: Recent Results (from the past 36 hour(s)) XR ANKLE GENERAL 3V AP/LAT/OBL RIGHT Narrative Three views right ankle demonstrate no change in position of the hardware stabilizing the ankle fractures and ankle syndesmosis. The mortise is well maintained. High fibula fracture appears aligned. No new fracture identified. ASSESSMENT AND PLAN: 1. Closed trimalleolar fracture of right ankle with routine healing, subsequent encounter - ICD9: V54.19, ICD10: S82.851D Functional Plan: Advance weight bearing (more content not included)... Normal [facility] CNOVon 05-10-2023 CNOV Office Visit (AGPOB1 ) CHRIS LUND ([id number]) 1975 F Date Time Provider Department 05/10/23 3:45 PM MARTY LERMA AGPOB1 During your visit today, we recorded the following information about you: Respiration Weight Height 20/minute 97.5 kg 1.676 m Marty Lerma MD 05/11/2023 11:29 AM Signed ORTHOPAEDIC OFFICE NOTE CHIEF COMPLAINT: right ankle injury HISTORY OF PRESENT ILLNESS: Chris Lund is a 48 year old female who presents for post-operative evaluation after open treatment right trimalleolar ankle fracture-dislocation with syndesmosis disruption 04/30/2023. Has remained non-weight bearing on the right lower extremity. Notes continued pain right ankle, trying to wean narcotic pain medication. No new chest pain or shortness of breath. No new fevers chills nausea or vomiting. Accompanied by . Reviewed nursing note and current pain scale. PAST MEDICAL HISTORY Diagnosis Date Ankle fracture 04/19/2023 right Celiac disease Cholelithiasis COVID 2019 and 04/23/21 Fibromyalgia IBS (irritable bowel [...] SPEC VARICIES INJ 11/30/2021 Normal LAPS ABD PRTMANDOMENTUM DX W/WO SPEC BR/WA SPX 03/23/1997 OVARIAN CYST DRAINAGE LAPS SURG CHOLECYSTECTOMY W/CHOLANGIOGRAPHY 08/01/2010 LIG/TRNSXJ FLP TUBE ABDL/VAG APPR UNI/BI 04/23/2010 Tubal ligation PAST SURGICAL HISTORY OF hysterectomy PAST SURGICAL HISTORY OF 04/20/2023 rt ankle external fixator RPR UMBILICAL HRNA 5 YRS/> REDUCIBLE 08/01/2010 [...] Topics Alcohol use: No Drug use: No MEDICATIONS: Current Outpatient Medications Medication Sig L.acid/L.casei/B.bif/B.divina/F OS (PROBIOTIC BLEND ORAL) Take by mouth. Sacchromices boulardi 1 capsule daily aspirin, enteric coated (ADULT LOW DOSE ASPIRIN) 81 mg EC tablet Take 1 tablet by mouth two times a day for 21 days. Ascorbic Acid (VITAMIN C) 1,000 mg tablet Take 1,000 mg by mouth once daily. MULTIVITAMIN ORAL Take 1 tablet by mouth once daily. Pure Encapsulation brand IVERMECTIN ORAL Take 18 mg by mouth once daily. zinc Take 30 mg by mouth once daily. levothyroxine (SYNTHROID) 100 mcg tablet Take 100 mcg by mouth every morning. naltrexone capsule 4.5 mg (CPD) Take 1 capsule by mouth once daily. One Leggett (Pure Encapsulation) Take 2 capsules by mouth daily with food. Vitamin D3 5000 U (Pure Encapsulations) Take 1 capsule by mouth daily with food. Iron Chelate (Klaire/Prothera) Take 1 capsule by mouth daily with food. Melatonin-SR (Klaire/Prothera) 2mg 1 by mouth 30 minutes before bed oxyCODONE IR (ROXICODONE) 5 mg immediate release tablet Take 1 tablet by mouth every 8 hours as needed for pain for up to 7 days. sodium,calcium,mag,pot oxybate (XYWAV) 0.5 gram/mL soln oral liquid Take 9 mL by mouth at bedtime and 4 hours after. (Patient not taking: Reported on 04/30/2023) No current facility-administered medications for this visit. ALLERGIES: ALLERGIES No Known Allergies PHYSICAL EXAMINATION: Resp 20 Ht 5' 6" (1.68m) Wt 215 lb (97.5kg) LMP 08/18/2013 BMI 34.72 kg/(m2). General Appearance: Well appearing, alert, in no acute distress, well-hydrated, well nourished. Skin: Skin color, texture, turgor normal, no suspicious rashes or lesions. Extremities: Right ankle with healing surgical incisions; fixator pin sites with serous drainage. Right leg and foot compartments soft and compressible. Demonstrates short arc active right foot DF/PF. Tender to palpation medial and lateral ankle, improving. Peripheral Pulses: Normal. Neurologic: Intact light touch sensation right lower extremity. IMAGES: Recent Results (from the past 36 hour(s)) XR ANKLE GENERAL 3V AP/LAT/OBL RIGHT Narrative Three views right ankle demons (more content not included)... Normal [facility] CNPNon 05-02-2023 CNPN Telephone (AGPOB1) CHRIS LUND ([id number]) 1975 F Date Time Provider Department 05/02/23 MARTY LERMA AGPOB1 During your visit today, we recorded the following information about you: Alissa Najera 05/02/2023 2:45 PM Addendum Called and scheduled appt for date Dr. Lerma recommended on notes. Alissa Najera May 02, 2023 2:45 PM ----- Message from Frances Tsai sent at 05/01/2023 1:26 PM EST ----- Regarding: Orthopedics / Florentin Ankle: Fracture Broken / Unable To Schedule Dx Patient has been identified by name and Date of (Y/N): Y Patient: Chris Elenita Lund Date of : 1975 Previous Provider Seen: Dr. Lerma Body Part(s) Identified: right ankle Diagnosis/Reason For Visit: surgery follow up Reason for the call/escalation: Patient needs to schedule follow up appointment from surgery with Dr. Lerma on 04/30/23 If reason for call/escalation is discharge from ED/ER or Hospital, which facility was the patient seen at: [facility] in [facility] Was an appointment scheduled (Y/N): N Person calling if other than patient: na Return call to if other than patient: na Best contact number: [phone] Thank you, Frances Tsai May 01, 2023 1:26 PM Allergies As of Date: 05/02/2023 (No Known Allergies) Date Reviewed: 04/30/2023 Reviewed by: Henny Murphy RN - Fully Assessed Prescriptions as of 05/02/2023 - L.acid/L.casei/B.bif/B.divina/F OS (PROBIOTIC BLEND ORAL) Take by mouth. Sacchromices boulardi 1 capsule daily - aspirin, enteric coated (ADULT LOW DOSE ASPIRIN) 81 mg EC tablet Take 1 tablet by mouth two times a day for 21 days. - oxyCODONE IR (ROXICODONE) 5 mg immediate release tablet Take 1 tablet by mouth every 8 hours as needed for pain for up to 7 days. - docusate sodium (COLACE) 100 mg capsule Take 1 capsule by mouth two times a day for 5 days. - Ascorbic Acid (VITAMIN C) 1,000 mg tablet Take 1,000 mg by mouth once daily. - MULTIVITAMIN ORAL Take 1 tablet by mouth once daily. Pure Encapsulation brand - sodium,calcium,mag,pot oxybate (XYWAV) 0.5 gram/mL soln oral liquid Take 9 mL by mouth at bedtime and 4 hours after. - IVERMECTIN ORAL Take 18 mg by mouth once daily. - zinc Take 30 mg by mouth once daily. - levothyroxine (SYNTHROID) 100 mcg tablet Take 100 mcg by mouth every morning. - naltrexone capsule 4.5 mg (CPD) Take 1 capsule by mouth once daily. - One Leggett (Pure Encapsulation) Take 2 capsules by mouth daily with food. - Vitamin D3 5000 U (Pure Encapsulations) Take 1 capsule by mouth daily with food. - Iron Chelate (Klaire/Prothera) Take 1 capsule by mouth daily with food. 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] 06/17/2010 07/04/2010 Essential hypertension [I10] 07/04/2010 Cholecystitis with cholelithiasis [K80.10] 07/05/2010 Incisional hernia [K43.2] 07/05/2010 Neuralgia [M79.2] 07/05/2010 Irregular menstrual cycle [N92.6] 11/10/2011 01/18/2016 Excessive or frequent menstruation [N92.0] 11/10/2011 01/18/2016 Metrorrhagia [N92.1] 11/10/2011 01/18/2016 Fatigue [R53.83] 11/05/2015 01/18/2016 Vitamin D deficiency [E55.9] 11/05/2015 Sleep disturbance [G47.9] 11/05/2015 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] 11/05/2015 Bloating [R14.0] 11/05/2015 01/18/2016 Irritable bowel syndrome with diarrhea [K58.0] 11/05/2015 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] 04/04/2016 Fatigue [R53.83] 04/04/2016 COVID-19 [U07.1] 06/09/2021 Obesity, Class I, BMI 30-34.9 [E66.9] 06/09/2021 DIAN (obstructive sleep apnea) [G47.33] 06/09/2021 Ankle dislocation, right, initial encounter [S9*04/19/2023 Closed trimalleolar fracture of right ankle [S8*04/20/2023 Encounter Status:Closed by ALISSA NAJERA on 05/02/23 Normal [facility] ANES POSTPROC EVALon 024 ANES POSTPROC EVAL HNO ID: [id number] Author: RADHA SMITH MD Service: Anesthesiology Author Type: Anesthesiologist Type: Anesthesia Postprocedure Evaluation Filed: 04/30/2023 13:07 Note Text: POST ANESTHESIA EVALUATION NOTE : 1975 Procedure Summary Date: 04/30/23 Room / Location: [place] OR / [place] OR Anesthesia Start: 1110 Anesthesia Stop: 1232 Procedures: ORIF ANKLE TRIMALLEOLAR, WITHOUT FIXATION POSTERIOR LIP, RIGHT (Right: Ankle) ORIF SYNDESMOSIS LOWER EXTREMITY, RIGHT (Right: Ankle) REMOVAL EXTERNAL FIXATION SYSTEM UNDER ANESTHESIA, RIGHT ANKLE (Right: Ankle) Diagnosis: Closed trimalleolar fracture of right ankle with routine healing, subsequent encounter (Closed trimalleolar fracture of right ankle with routine healing, subsequent encounter [S82.851D]) Surgeons: Marty Lerma MD Responsible Provider: Radha Smith MD Anesthesia Type: general ASA Status: 2 Anesthesia Type: general Airway Type: LMA Last Vitals Vitals Value Taken Time BP 136/75 04/30/23 1300 Temp 36.2 ?C (97.2 ?F) 04/30/23 1234 Pulse 75 04/30/23 1307 Resp 10 04/30/23 1307 SpO2 100 % 04/30/23 1307 Vitals shown include unfiled device data. Post Anesthesia Patient Status Patient Evaluation: PACU. PACU/ICU Patient Condition: stable. Anticipated Disposition: phase 2 then home. Neurological Status: aware and responsive. Pulmonary Status: breathing comfortably on supplemental oxygen Airway Control: returned to baseline unsupported. Cardiovascular Status: stable. Pain Management: clinically adequate Postoperative Hydration: acceptable. Intraoperative Events: no significant anesthesia events Post Operative Nausea/Vomiting Status: no significant post operative nausea or vomiting Recommendation: continue current plan of care. Anesthesia Observations No Documentation SIGNATURE: Radha Smith MD PATIENT NAME: Chris Lund DATE: April 30, 2023 TIME: 1:07 PM CSN: [id number] [facility] ANES PRE-OPon 04-30-2023 ANES PRE-OP HNO ID: [id number] Author: RADHA SMITH MD Service: Anesthesiology Author Type: Anesthesiologist Type: Anesthesia Preprocedure Evaluation Filed: 04/30/2023 09:56 Note Text: ANESTHESIOLOGY DAY OF SURGERY NOTE right ankle narcalepsy - modafanil hypothyroid - synthroid Counseled about possible nerve block echo 2021 TANDS no abs EF = 67% purvis 3, grade 1 : 1975 Procedure Information Date/Time: 04/30/23 1115 Procedures: ORIF ANKLE TRIMALLEOLAR, WITHOUT FIXATION POSTERIOR LIP, RIGHT (Right: Ankle) ORIF SYNDESMOSIS LOWER EXTREMITY, RIGHT (Right: Ankle) REMOVAL EXTERNAL FIXATION SYSTEM UNDER ANESTHESIA, RIGHT ANKLE (Right: Ankle) Location: [place] / [place] Surgeons: Marty Lerma MD Estimated body mass index is 34.7 kg/m? as calculated from the following: Height as of 04/19/23: 167.6 cm (5' 6"). Weight as of 04/19/23: 97.5 kg (215 lb). Most recent hematocrit and potassium results: Hematocrit 39.9 04/20/2023 Potassium 3.7 04/20/2023 Relevant Problems ANESTHESIA (+) DIAN (obstructive sleep apnea) CARDIO (+) Essential hypertension PULMONARY (+) DIAN (obstructive sleep apnea) I - PHYSICAL EVALUATION AIRWAY Patient intubated: No. Tracheostomy tube not present Mallampati: III. TM distance: >3 FB. Neck ROM: full ROM without neurological symptoms. Mouth opening: adequate. Short neck: no. Thick neck: no II - ANESTHESIA PLAN ASA Score: 2 Anesthetic Plan: general Airway type: ETT NPO Status: adequate Beta April Monitoring Plan Monitoring plan: standard ASA. Post Procedure Analgesic Plan Postoperative analgesic plan: multimodal analgesia. Informed Consent Anesthetic risks, benefits, alternatives, personnel and consent discussed: yes. Patient / Responsible Green Party agrees to proceed: yes Patient / Surrogate agrees to blood products: Yes Potential Anesthesia issues that may suggest increased risk of complications or contraindication to planned procedure: none. No vitals data found for the desired time range. No current facility-administered medications on file as of . Outpatient Medications as of Medication Sig - aspirin 81 mg chewable tablet Take 1 tablet by mouth two times a day. - Ascorbic Acid (VITAMIN C) 1,000 mg tablet Take 1,000 mg by mouth once daily. - MULTIVITAMIN ORAL Take 1 tablet by mouth once daily. Pure Encapsulation brand - IVERMECTIN ORAL Take 18 mg by mouth once daily. - zinc Take 30 mg by mouth once daily. - levothyroxine (SYNTHROID) 100 mcg tablet Take 100 mcg by mouth every morning. - naltrexone capsule 4.5 mg (CPD) Take 1 capsule by mouth once daily. - One Leggett (Pure Encapsulation) Take 2 capsules by mouth daily with food. - Vitamin D3 5000 U (Pure Encapsulations) Take 1 capsule by mouth daily with food. - Iron Chelate (Klaire/Prothera) Take 1 capsule by mouth daily with food. - Melatonin-SR (Klaire/Prothera) 2mg 1 by mouth 30 minutes before bed - [] ondansetron (ZOFRAN) 4 mg tablet Take 1 tablet by mouth every 8 hours as needed for up to 5 days. - sodium,calcium,mag,pot oxybate (XYWAV) 0.5 gram/mL soln oral liquid Take 9 mL by mouth at bedtime and 4 hours after. I have interviewed and examined the patient. I have reviewed the medical record and/or the pre-anesthesia evaluation, pertinent labs, and test results. This contains updated information obtained within 48 hours of Surgery/Procedure. SIGNATURE: Radha Smith MD PATIENT NAME: Chris Lund DATE: April 30, 2023 TIME: 9:03 AM CSN: [id number] [facility] BRIEF OP NOTon 04-30-2023 BRIEF OP NOT HNO ID: [id number] Author: JOSÉ LUIS SHAY MD Service: Orthopaedic Surgery Author Type: Resident Type: Brief Op Note Filed: 04/30/2023 12:41 Note Text: BRIEF OPERATIVE / PROCEDURE NOTE LOG ID: [id number] SURGERY/PROCEDURE DATE: 04/30/2023 INCISION/PROCEDURE START TIME: 11:36 AM INCISION CLOSE/PROCEDURE END TIME: 12:24 PM SURGEON(S)/PROCEDURALIST(S) AND STRAW HAT PRESSER(S): Surgeon(s) and Role: * Marty Lerma MD - Primary * Bassem Pham MD - Resident - Assisting * José Luis Shay MD - Resident - Assisting No Additional Staff SURGERY/PROCEDURE(S): Right open reduction, internal fixaton medial malleolus, Syndesmosis fixation, removal of external fixator ANESTHESIA: General FLUIDS: per anesthesia ESTIMATED BLOOD LOSS: minimal ANTIBIOTICS: Ancef 2g SPECIMENS: None COMPLICATIONS: None Post-Operative Plan: - Pain control - Abx: Ancef 2g - Weight bearing status: NWB - Diet: regular - Dressing: maintain clean and dry - Rest, ice, elevate RLE - DVT ppx: aspirin 81 bid x21 - Imaging: post op XR of right ankle in PACU - PT/OT - appreciate evaluation and recommendations - Dispo: from PACU José Luis Shay MD Orthopaedic Surgery - PGY 1 12:39 PM 04/30/2023 Pager #[phone] [facility] HISTORY PHYSICALon HISTORY PHYSICAL HNO ID: [id number] Author: MARTY LERMA MD Service: Orthopaedic Surgery Author Type: Physician Type: H&P Filed: 04/30/2023 10:07 Note Text: INTERVAL ORTHOPAEDIC HISTORY AND EXAMINATION: Patient seen and examined. No interval change from hospital admission documentation and surgery 04/19-. Reviewed planned operative stabilization right trimalleolar ankle fracture-dislocation with open reduction internal fixation, syndesmosis fixation and removal external fixator. Discussed risks and benefits in detail and answered any questions. Surgical consent form signed. Anticipate discharge to home today; non-weight bearing right lower extremity until advanced at follow-up appointments. Marty Lerma MD [facility] OPERATIVE NOon 04-30-2023 OPERATIVE NO HNO ID: [id number] Author: MARTY LERMA MD Service: Orthopaedic Surgery Author Type: Physician Type: Operative Report Filed: 04/30/2023 15:46 Note Text: ORTHOPAEDIC OPERATIVE REPORT PATIENT NAME: Chris Lund Surgery/Procedure Date: 04/30/2023 Incision/Procedure Start Time: 11:36 AM Incision Close/Procedure End Time: 12:24 PM Surgeon(s) and Auto Mechanics Teacher(s): Surgeon(s) and Role: * Marty Lerma MD - Primary * Bassem Pham MD - Resident - Assisting * José Luis Shay MD - Resident - Assisting No Additional Staff PRE-OPERATIVE DIAGNOSIS: Right trimalleolar ankle fracture-dislocation POST-OPERATIVE DIAGNOSIS: Right trimalleolar ankle fracture-dislocation SURGICAL PROCEDURE(S): 1) Open reduction internal fixation right trimalleolar ankle fracture (medial malleolus) 2) Open fixation right ankle syndesmosis 3) Removal spanning external fixator right ankle Anesthesia: General + regional block per Anesthesia Implantable Devices: Synthes 2-hole one third tubular plate, 3.5 mm syndesmosis screws x 2, 2.7 mm medial malleolar screws x 2 Complications: None Specimens: None Estimated Blood Loss: 20 mls OPERATIVE INDICATIONS: This is a 48 year old female who underwent application of spanning external fixator right ankle 04/20/2023 for a trimalleolar ankle fracture-dislocation sustained during a syncopal fall. She returns for planned definitive fixation. Risks and benefits were reviewed in detail and all questions answered. OPERATIVE PROCEDURE: The patient was brought to the operating room on the hospital bed and transferred supine to the operating table. She was intubated per Anesthesia. The [facility] timeout protocol was performed. The spanning external fixator of the ankle was removed in its entirety. The right lower extremity was pre-washed with chlorhexidine. It was padded prepped and sterilely draped for the procedure. An incision was made over the medial malleolus with scalpel, followed by electrocautery for hemostasis. Care was taken to protect the saphenous vein. Exposure was continued to the fracture, which was cleared of interposed soft tissue. The ankle joint was irrigated through the fracture. Reduction manuevers were performed with bone forceps, followed by placement of two Synthes cortical 2.7 mm screws across the fracture. Imaging demonstrated appropriate reduction and fracture position. An incision was made laterally over the distal fibula through skin followed by electrocautery for hemostasis. Blunt exposure was performed to the bone. Care was taken to protect the distal extent of the superficial peroneal nerve. Bone forceps were applied with gentle traction to aid reduction. The Synthes 2-hole one third tubular plate was positioned using imaging, followed by placement of two syndesmosis screws. The ankle mortise was noted to be stable and in appropriate position. Lateral view confirmed the displaced posterior malleolar fracture with minimal joint involvement. External rotation views demonstrated no medial widening. The wounds were irrigated with saline. Closure of the deep subcutaneous soft tissues was performed with 0 vicryl suture followed by buried interrupted 2-0 vicryl suture in the superficial soft tissues. Simple 3-0 nylon closure was performed on the skin layers. The pin sites were gently debrided with a curet and irrigated. They were left open to secondarily heal. Sterile dressings were applied. A padded posterior removable splint was placed. All draping was removed. The patient was extubated per Anesthesia. She was returned to the hospital bed and taken to the recovery room in stable condition. POST-OPERATIVE PLAN: - Pain control - Abx: Ancef 2g - Weight bearing status: NWB - Diet: regular - Dressing: maintain clean and dry - Rest, ice, elevate RLE - DVT ppx: aspirin 81 bid x21 - Imaging: post op XR of right ankle in PACU - PT/OT - appreciate evaluation and recommendations - Dispo: from PACU - Updated regarding post-surgical state I/primary surgeon/proceduralist performed the procedure with assistance. SIGNATURE: Marty Lerma MD DATE: April 30, 2023 TIME: 3:37 PM Normal [facility] XR ANKLE 2V AP/LAT RTon XR ANKLE 2V AP/LAT RT * * *Final Report* * * DATE OF EXAM: Apr 30 2023 12:16PM [id number] - XR ANKLE 2V AP/LAT RT / PROCEDURE REASON: ORIF * * * * Physician Interpretation * * * * INTRAOPERATIVE FLUOROSCOPIC EXAMINATION DATE: 04/30/2023 COMPARISON: 04/20/2023 HISTORY: ORIF ENCOUNTER: Not applicable TECHNIQUE: Images from fluoroscopic examination of the right ankle during operative procedure were submitted for interpretation. Fluoroscopic Radiation Summary: Plane A, Air Kerma: 2.0 mGy Dose Area Product (DAP): Fluoro time: 0:40 min:sec RESULT: Examination is limited due to fluoroscopic technique. 4 fluoroscopic image(s), including 2 views were submitted for interpretation. Interval placement of 2 threaded screws through the medial malleolus and lateral plate and screw fixation through the distal fibula and distal tibiofibular syndesmosis. Mid fibular shaft and posterior malleolar fractures. Few ossific foci anteriorly at the tibiotalar/proximal talar region. Ghost tracks mid tibial shaft, calcaneus. IMPRESSION: Intraoperative films Please refer to operative notes for full details. Endocrinology Teacher: LUIS Transcribe Date/Time: Apr 30 2023 2:17P Dictated by : DIOGO ÓGMEZ MD This examination was interpreted and the report reviewed and electronically signed by: DIOGO GÓMEZ MD on Apr 30 2023 2:19PM EST [id number] [facility] XR ANKLE 3V AP/LAT/OBL RTon 04-30-2023 XR ANKLE 3V AP/LAT/OBL RT * * *Final Report* * * DATE OF EXAM: Apr 30 2023 1:15PM [id number] - XR ANKLE 3V AP/LAT/OBL RT / PROCEDURE REASON: Post-operative / post-procedure assessment, asymptomatic * * * * Physician Interpretation * * * * TECHNIQUE: XR ANKLE 3V AP/LAT/OBL RT EXAM DATE: 04/30/2023 1:15 PM COMPARISON STUDIES: 04/20/2023 CLINICAL HISTORY: Post-operative / post-procedure assessment, asymptomatic RESULT: Interval removal of external fixation devices with placement of lateral plate and screw hardware of the distal fibula, and 2 threaded screws through the medial malleolus. Posterior malleolar fracture again present. Ghost tracks within the calcaneus and distal tibia. Comminuted mildly displaced mid fibular shaft fracture impression. Ankle mortise maintained. Soft tissue swelling present. Ossific foci anteriorly at the tibiotalar/talar region, may reflect small ossific fragments. IMPRESSION: Interval postsurgical changes Persistent tibial and fibular fractures Endocrinology Teacher: [facility] Transcribe Date/Time: Apr 30 2023 1:34P Dictated by : DIOGO GÓMEZ MD This examination was interpreted and the report reviewed and electronically signed by: DIOGO GÓMEZ MD on Apr 30 2023 1:42PM EST [id number] [facility] Telephone (AGPOB1) CHRIS LUND ([id number]) 1975 F Date Time Provider Department 04/27/23 MARTY LERMA AGPOB1 During your visit today, we recorded the following information about you: Cande Jacobo 04/27/2023 1:54 PM Signed Called the patient to go over surgery details. The patient did not answer. Left message with the details and to call the office back if they had any other questions. Cande Jacobo April 27, 2023 1:54 PM Allergies As of Date: 04/27/2023 (No Known Allergies) Date Reviewed: 04/27/2023 Reviewed by: Mary Larkin, RN - Fully Assessed Reason for Visit: Surgery Reminder Call [Other] Prescriptions as of 04/27/2023 - oxyCODONE IR (ROXICODONE) 5 mg immediate release tablet Take 1 tablet by mouth every 8 hours as needed for pain for up to 7 days. - aspirin 81 mg chewable tablet Take 1 tablet by mouth two times a day. - Ascorbic Acid (VITAMIN C) 1,000 mg tablet Take 1,000 mg by mouth once daily. - MULTIVITAMIN ORAL Take 1 tablet by mouth once daily. Pure Encapsulation brand - sodium,calcium,mag,pot oxybate (XYWAV) 0.5 gram/mL soln oral liquid Take 9 mL by mouth at bedtime and 4 hours after. - IVERMECTIN ORAL Take 18 mg by mouth once daily. - zinc Take 30 mg by mouth once daily. - levothyroxine (SYNTHROID) 100 mcg tablet Take 100 mcg by mouth every morning. - naltrexone capsule 4.5 mg (CPD) Take 1 capsule by mouth once daily. - One Leggett (Pure Encapsulation) Take 2 capsules by mouth daily with food. - Vitamin D3 5000 U (Pure Encapsulations) Take 1 capsule by mouth daily with food. - Iron Chelate (Klaire/Prothera) Take 1 capsule by mouth daily with food. 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] 06/17/2010 07/04/2010 Essential hypertension [I10] 07/04/2010 Cholecystitis with cholelithiasis [K80.10] 07/05/2010 Incisional hernia [K43.2] 07/05/2010 Neuralgia [M79.2] 07/05/2010 Irregular menstrual cycle [N92.6] 11/10/2011 01/18/2016 Excessive or frequent menstruation [N92.0] 11/10/2011 01/18/2016 Metrorrhagia [N92.1] 11/10/2011 01/18/2016 Fatigue [R53.83] 11/05/2015 01/18/2016 Vitamin D deficiency [E55.9] 11/05/2015 Sleep disturbance [G47.9] 11/05/2015 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] 11/05/2015 Bloating [R14.0] 11/05/2015 01/18/2016 Irritable bowel syndrome with diarrhea [K58.0] 11/05/2015 Homozygous MTHFR mutation [id number] (HCC) [Z15.89] 04/04/2016 Fatigue [R53.83] 04/04/2016 COVID-19 [U07.1] 06/09/2021 Obesity, Class I, BMI 30-34.9 [E66.9] 06/09/2021 DIAN (obstructive sleep apnea) [G47.33] 06/09/2021 Ankle dislocation, right, initial encounter [S9*04/19/2023 Closed trimalleolar fracture of right ankle [S8*04/20/2023 Encounter Status:Closed by CANDE JACOBO on 04/27/23 [facility] Greta 04-25-2023 CNPN Telephone (AGPOB1) CHRIS LUND ([id number]) 1975 F Date Time Provider Department 04/25/23 MARTY LERMA AGPOB1 During your visit today, we recorded the following information about you: Alissa Najera 04/25/2023 8:22 AM Signed ----- Message from Dee Dee Olivares sent at 04/24/2023 11:04 AM EST ----- Regarding: Orthopedics / Marty Lerma) Ankle: Pain / Recent ED Visit / SX 04/20/2023 Contact: Patient has been identified by name and Date of (Y/N): y Patient: Chris Kwong Thomas Date of : 1975 Previous Provider Seen: Dr Lerma Body Part(s) Identified: R Ankle Diagnosis/Reason For Visit: R Ankle Reason for the call/escalation: Follow up ER and Surgery 04/20/2023 / Also needs pain medication will be out 04/25/2023 / Please reach PER If reason for call/escalation is discharge from ED/ER or Hospital, which facility was the patient seen at: [facility] [place] 04/19/2023 and surgery 04/20/2023 Was an appointment scheduled (Y/N): n Person calling if other than patient: n Return call to if other than patient: n Best contact number: [phone] Thank you, Dee Dee Olivares April 24, 2023 11:04 AM Allergies As of Date: 04/25/2023 (No Known Allergies) Date Reviewed: 04/20/2023 Reviewed by: Shelley Bonilla RN - Fully Assessed Prescriptions as of 04/25/2023 - oxyCODONE IR (ROXICODONE) 5 mg immediate release tablet Take 1 tablet by mouth every 8 hours as needed for pain for up to 7 days. - ondansetron (ZOFRAN) 4 mg tablet Take 1 tablet by mouth every 8 hours as needed for up to 5 days. - aspirin 81 mg chewable tablet Take 1 tablet by mouth two times a day. - Ascorbic Acid (VITAMIN C) 1,000 mg tablet Take 1,000 mg by mouth once daily. - MULTIVITAMIN ORAL Take 1 tablet by mouth once daily. Pure Encapsulation brand - sodium,calcium,mag,pot oxybate (XYWAV) 0.5 gram/mL soln oral liquid Take 9 mL by mouth at bedtime and 4 hours after. - IVERMECTIN ORAL Take 18 mg by mouth once daily. - zinc Take 30 mg by mouth once daily. - levothyroxine (SYNTHROID) 100 mcg tablet Take 100 mcg by mouth every morning. - naltrexone capsule 4.5 mg (CPD) Take 1 capsule by mouth once daily. - One Leggett (Pure Encapsulation) Take 2 capsules by mouth daily with food. - Vitamin D3 5000 U (Pure Encapsulations) Take 1 capsule by mouth daily with food. - Iron Chelate (Klaire/Prothera) Take 1 capsule by mouth daily with food. 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] 06/17/2010 07/04/2010 Essential hypertension [I10] 07/04/2010 Cholecystitis with cholelithiasis [K80.10] 07/05/2010 Incisional hernia [K43.2] 07/05/2010 Neuralgia [M79.2] 07/05/2010 Irregular menstrual cycle [N92.6] 11/10/2011 01/18/2016 Excessive or frequent menstruation [N92.0] 11/10/2011 01/18/2016 Metrorrhagia [N92.1] 11/10/2011 01/18/2016 Fatigue [R53.83] 11/05/2015 01/18/2016 Vitamin D deficiency [E55.9] 11/05/2015 Sleep disturbance [G47.9] 11/05/2015 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] 11/05/2015 Bloating [R14.0] 11/05/2015 01/18/2016 Irritable bowel syndrome with diarrhea [K58.0] 11/05/2015 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 ANES POSTPROC EVALon 023 ANES POSTPROC EVAL HNO ID: [id number] Author: Rogelio Faria DO Service: Anesthesiology Author Type: Physician Type: Anesthesia Postprocedure Evaluation Filed: 04/20/2023 8:41 AM Note Text: POST ANESTHESIA EVALUATION NOTE : 1975 Procedure Summary Date: 04/20/23 Room / Location: [place] OR 07 / [place] Anesthesia Start: 712 Anesthesia Stop: 832 Procedure: APPLICATION EXTERNAL FIXATOR TIBIA (Right: Ankle) Diagnosis: Ankle dislocation, right, initial encounter (Ankle dislocation, right, initial encounter [S93.04XA]) Surgeons: Marty Lerma MD Responsible Provider: Rogelio Faria DO Anesthesia Type: general ASA Status: 2 Anesthesia Type: No value filed. Last Vitals Vitals Value Taken Time BP 134/62 04/20/23 0830 Temp 36.9 ?C (98.4 ?F) 04/20/23 0829 Pulse 85 04/20/23 0839 Resp 19 04/20/23 0839 SpO2 100 % 04/20/23838 Vitals shown include unfiled device data. Post Anesthesia Patient Status Patient Evaluation: PACU. PACU/ICU Patient Condition: stable. Anticipated Disposition: inpatient floor planned admission. Neurological Status: sleepy but arousable. Pulmonary Status: breathing comfortably on supplemental oxygen Airway Control: returned to baseline unsupported. Cardiovascular Status: stable. Pain Management: clinically adequate Postoperative Hydration: acceptable. Intraoperative Events: no significant anesthesia events Post Operative Nausea/Vomiting Status: no significant post operative nausea or vomiting Recommendation: continue current plan of care. Anesthesia Observations No Documentation SIGNATURE: Rogelio Faria DO PATIENT NAME: Chris Lund DATE: April 20, 2023 TIME: 8:41 AM CSN: [id number] Normal [facility] ANES PRE-OPon 04-20-2023 ANES PRE-OP HNO ID: [id number] Author: Rogelio Faria DO Service: Anesthesiology Author Type: Physician Type: Anesthesia Preprocedure Evaluation Filed: 04/20/2023 8:39 AM Note Text: ANESTHESIOLOGY DAY OF SURGERY NOTE : 1975 Procedure Information Anesthesia Start Date/Time: 04/20/23712 Procedure: APPLICATION EXTERNAL FIXATOR TIBIA (Right: Ankle) Location: [place] OR / [place] OR Surgeons: Marty Lerma MD Estimated body mass index is 34.7 kg/m? as calculated from the following: Height as of this encounter: 167.6 cm (5' 6"). Weight as of this encounter: 97.5 kg (215 lb). Most recent hematocrit and potassium results: Hematocrit 39.9 04/20/2023 Potassium 3.7 04/20/2023 Relevant Problems ANESTHESIA (+) DIAN (obstructive sleep apnea) CARDIO (+) Essential hypertension PULMONARY (+) DAIN (obstructive sleep apnea) I - PHYSICAL EVALUATION AIRWAY Patient intubated: No. Tracheostomy tube not present Mallampati: II. TM distance: >3 FB. Neck ROM: full ROM without neurological symptoms. Mouth opening: adequate. Short neck: no. Thick neck: no DENTAL Dental findings: teeth intact. Additional exam findings: no II - ANESTHESIA PLAN ASA Score: 2 Anesthetic Plan: general Airway type: ETT The patient is not a current smoker. NPO Status: adequate Beta April Monitoring Plan Monitoring plan: standard ASA. Post Procedure Analgesic Plan Postoperative analgesic plan: multimodal analgesia and parenteral or oral opioids. Patient / Surrogate agrees to blood products: blood products not planned Significant changes in the patient condition since the History and Physical, not otherwise documented in primary service progress note: no. Potential Anesthesia issues that may suggest increased risk of complications or contraindication to planned procedure: none. No vitals data found for the desired time range. Facility-Administered Medications as of 04/20/2023 Medication Dose Route Frequency - lactated ringers iv infusion 125 mL/hr INTRAVENOUS CONTINUOUS - fentaNYL 50 mcg/mL 50 mcg injection (SUBLIMAZE) 50 mcg INTRAVENOUS q 5 MIN PRN - HYDROmorphone 0.5 mg injection (DILAUDID) 0.5 mg INTRAVENOUS q 10 MIN PRN - oxyCODONE IR 5 mg tab(s) (ROXICODONE) 5 mg ORAL PRN - ondansetron (PF) 4 mg injection (ZOFRAN) 4 mg INTRAVENOUS PRN - haloperidol lactate 1 mg short-acting injection (HALDOL) 1 mg INTRAVENOUS ONCE - [COMPLETED] lidocaine 10 mg/mL (1 %) 200 mg injection (XYLOCAINE) 20 mL INTRADERMAL ONCE - [COMPLETED] fentaNYL 50 mcg/mL 25 mcg injection (SUBLIMAZE) 25 mcg INTRAVENOUS ONCE - [Held on Transfer] levothyroxine 100 mcg tab(s) (SYNTHROID) 100 mcg ORAL DAILY (6 AM) - [Held on Transfer] liothyronine 5 mcg tab(s) (CYTOMEL) 5 mcg ORAL BEFORE BREAKFAST DAILY - [Held on Transfer] lactated ringers iv infusion 100 mL/hr INTRAVENOUS CONTINUOUS - [Held on Transfer] morphine 2 mg injection 2 mg INTRAVENOUS q 2 H PRN - [Held on Transfer] ondansetron (PF) 4 mg injection (ZOFRAN) 4 mg INTRAVENOUS q 6 H PRN - [Held on Transfer] melatonin 3 mg tab(s) 3 mg ORAL AT BEDTIME PRN - [Held on Transfer] NaCl 0.9% iv flush bag 20 mL INTRAVENOUS PRN - [Held on Transfer] oxyCODONE IR 5-10 mg tab(s) (ROXICODONE) 5-10 mg ORAL q 4 H PRN - [Held on Transfer] acetaminophen 1,000 mg tab(s) (TYLENOL) 1,000 mg ORAL q 8 H Outpatient Medications as of 04/20/2023 Medication Sig - sodium,calcium,mag,pot oxybate (XYWAV) 0.5 gram/mL soln oral liquid Take 9 mL by mouth at bedtime and 4 hours after. - IVERMECTIN ORAL Take 18 mg by mouth once daily. - zinc Take 30 mg by mouth once daily. - levothyroxine (SYNTHROID) 100 mcg tablet Take 100 mcg by mouth every morning. - naltrexone capsule 4.5 mg (CPD) Take 1 capsule by mouth once daily. - One Leggett (Pure Encapsulation) Take 2 capsules by mouth daily with food. - Vitamin D3 5000 U (Pure Encapsulations) Take 1 capsule by mouth daily with food. - Iron Chelate (Klaire/Prothera) Take 1 capsule by mouth daily with food. - Melatonin-SR (Klaire/Prothera) 2mg 1 by mouth 30 minutes before bed I have interviewed and examined the patient. I have reviewed the medical record and/or the pre-anesthesia evaluation, pertinent labs, and test results. This contains updated information obtained within 48 hours of Surgery/Procedure. SIGNATURE: Rogelio Faria DO PATIENT NAME: Chris Lund DATE: April 20, 2023 TIME: 8:39 AM CSN: [id number] [facility] BRIEF OP NOTon 04-20-2023 BRIEF OP NOT HNO ID: [id number] Author: Sinan Shipman MD Service: Orthopaedic Surgery Author Type: Resident Type: Brief Op Note Filed: 04/20/2023 8:53 AM Note Text: TOTAL KNEE ARTHROPLASTY BRIEF OPERATIVE / PROCEDURE NOTE LOG ID: [id number] Surgery/Procedure Date: 04/20/2023 Incision/Procedure Start Time: 7:47 AM Incision Close/Procedure End Time: 8:15 AM Surgeon(s)/Proceduralist(s) and Auto Mechanics Teacher(s): Surgeon(s) and Role: * Marty Lerma MD - Primary * Sinan Shipman MD - Resident - Assisting No Additional Staff Procedure(s): Procedure(s) (LRB): APPLICATION EXTERNAL FIXATOR TIBIA (Right) Anesthesia: Choice - Anesthesia Consult Estimated Blood Loss: Minimal Specimens: None Complications: None Implant: Implant Name Type Inv. Item Serial No. Director Epidemiology Lot No. LRB No. Used Action BRYON 11MM CARBON FIBER 250MM EXTERNAL FIXATION SELF DRILLING NONSTERILE - [id number] Bryon BRYON 11MM CARBON FIBER 250MM EXTERNAL FIXATION SELF DRILLING NONSTERILE [employer] SY[employer]THES [place] 1 BRYON 11MM CARBON FIBER 250MM EXTERNAL FIXATION SELF DRILLING NONSTERILE - [id number] Bryon BRYON 11MM CARBON FIBER 250MM EXTERNAL FIXATION SELF DRILLING NONSTERILE [employer] SYNTHES [place] 1 POST 11MM 30D EXTERNAL FIXATION OUTRIGGER SAFE NONSTERILE - [id number] Fixator POST 11MM 30D EXTERNAL FIXATION OUTRIGGER SAFE NONSTERILE SYNTHES TRAUMA 1 POST 11MM 30D EXTERNAL FIXATION OUTRIGGER SAFE NONSTERILE - [id number] Fixator POST 11MM 30D EXTERNAL FIXATION OUTRIGGER SAFE NONSTERILE SYNTHES TRAUMA 1 CLAMP LARGE EXTERNAL FIXATION 6 POSITION PIN NONSTERILE - [id number] Implant CLAMP LARGE EXTERNAL FIXATION 6 POSITION PIN NONSTERILE SY[employer] SYNTHES [place] 1 CLAMP LARGE EXTERNAL FIXATION COMBINATION CLIP ON SELF HOLD NONSTERILE - [id number] Implant CLAMP LARGE EXTERNAL FIXATION COMBINATION CLIP ON SELF HOLD NONSTERILE SYNTHES TRAUMA Right 4 Implanted SCREW SCHANZ 5MM XLONG BLUNT SPADE STAINLESS STEEL 170MM 50MM EXTERNAL - [id number] Screw SCREW SCHANZ 5MM XLONG BLUNT SPADE STAINLESS STEEL 170MM 50MM EXTERNAL SYNTH[employer] SYNTHES [place] Right 2 Implanted PIN STEINMANN 6MM STAINLESS STEEL 225MM FIXATION TRANSFIXATION MR - [id number] Pin PIN STEINMANN 6MM STAINLESS STEEL 225MM FIXATION TRANSFIXATION MR [employer] SYNTHES [place] Right 1 Implanted Pre-Op/Pre-Procedure Diagnosis: Ankle dislocation, right, initial encounter [S93.04XA] Post-Op/Post-Procedure Diagnosis: Ankle dislocation, right, initial encounter [S93.04XA] Weight Bearing Status: Non-Weight Bearing Post-Op plan: -Management per Ortho -Pain control -Soft dressings and splint to the right ankle. Keep clean and dry -NWB to RLE -Ice and elevate -ASA 81 mg BID x 21 days at discharge -PT/OT -Follow-up PACU XR -Diet: regular -Dispo: Patient may be discharge to home today after working with PT/OT. SIGNATURE: Sinan Shipman MD PATIENT NAME: Chris Lund DATE: April 20, 2023 TIME: 8:50 AM Normal [facility] Basic metabolic 2000 panelon 04-20-2023 Anion gap [Moles/Vol] 9 mmol/L Normal 9-18 [facility] Comment on above: Order Comment: Speci men Type: BLOOD SPECIMENOrdering Facility: [facility] Address: [address] [place] [address] Performed By: #### 2 4321-2 ####[facility] LABORATORYCLIA [id number] [place] [address] [place] Calcium [Mass/Vol] 8.3 mg/dL Low 8.5-10.2 [facility] Comment on above: Order Comment: Speci men Type: BLOOD SPECIMENOrdering Facility: [facility] Address: [address] [place] [address] Performed By: #### 2 4321-2 ####[facility]ORATORYCLIA [id number] [place] [address] [place] Chloride [Moles/Vol] 101 mmol/L Normal 97-105 [facility] Comment on above: Order Comment: Speci men Type: BLOOD SPECIMENOrdering Facility: [facility] Address: [address] [place] [address] Performed By: #### 2 4321-2 ####[facility] LABORATORYCLIA [id number] [place] [address] [place] CO2 [Moles/Vol] 27 mmol/L Normal 22-30 [facility] Comment on above: Order Comment: Speci men Type: BLOOD SPECIMENOrdering Facility: [facility] Address: [address] [place] [address] Performed By: #### 2 4321-2 ####[facility] LABORATORYCLIA [id number] [place] [address] [place] Creatinine [Mass/Vol] 0.66 mg/dL Normal 0.58-0.96 [facility] Comment on above: Order Comment: Salina geronimo Type: BLOOD SPECIMENOrdering Facility: [facility] Address: [place] [address] Performed By: #### 2 4321-2 ####[facility] LABORATORYCLIA [id number] [address] Creatinine and Glomerular filtration rate.predicted panel (S/P/Bld) 107 mL/min/1.73m??? Normal >=60 [facility] Comment on above: Order Comment: Salina geronimo Type: BLOOD SPECIMENOrdering Facility: [facility] Address: [address] [place] [address] Result Comment: Silvana mated Glomerular Filtration Rate (eGFR) is calculated using the 2020 CKD-EPI creatinine equation. This equation utilizes serum creatinine, sex, and age as parameters. The creatinine assay has traceable calibration to isotope dilution-mass spectrometry. Refer to KDIGO guidelines for clinical interpretation. In patients with unstable renal function, e.g. those with acute kidney injury, the eGFR may not accurately reflect actual GFR. Performed By: #### 2 4321-2 ####[facility]ORATORYCLIA [id number] [address] [place] [facility] Glucose [Mass/Vol] 139 mg/dL High 74-99 [facility] Comment on above: Order Comment: [place] geronimo Type: BLOOD SPECIMENOrdering Facility: [facility] Address: [address] [place] [address] Result Comment: The [place] Diabetes Association (ADA) provides guidance for cutoff values for fasting glucose and random glucose. The ADA defines fasting as no caloric intake for at least 8 hours. Fasting plasma glucose results between 100 to 125 mg/dL indicate increased risk for diabetes (prediabetes). Fasting plasma glucose results greater than or equal to 126 mg/dL meet the criteria for diagnosis of diabetes. In the absence of unequivocal hyperglycemia, results should be confirmed by repeat testing. In a patient with classic symptoms of hyperglycemia or hyperglycemic crisis, random plasma glucose results greater than or equal to 200 mg/dL meet the criteria for diagnosis of diabetes. Reference: Standards of Medical Care in Diabetes 2016, [place] Diabetes Association. Diabetes Care. 2016.39(Suppl 1). Performed By: #### 2 4321-2 ####[facility]ORATORYCLIA [id number] [place] [address] [place] Potassium [Moles/Vol] 3.7 mmol/L Normal 3.7-5.1 [facility] Comment on above: Order Comment: Speci men Type: BLOOD SPECIMENOrdering Facility: [facility] Address: [address] [place] [address] Performed By: #### 2 4321-2 ####[facility]ORATORYCLIA [id number] [address] STATES OF [facility] Sodium [Moles/Vol] 137 mmol/L Normal 136-144 [facility] Comment on above: Order Comment: Speci men Type: BLOOD SPECIMENOrdering Facility: [facility] Address: [address] [place] [address] Performed By: #### 2 4321-2 ####[facility]ORATORYCLIA [id number] [address] STATES OF [facility] Urea nitrogen [Mass/Vol] 8 mg/dL Normal 7-21 [facility] Comment on above: Order Comment: Speci men Type: BLOOD SPECIMENOrdering Facility: [facility] Address: [address] [place] [address] Performed By: #### 2 4321-2 ####[facility]ORATORYCLIA [id number] [address] [place] CBC W Auto Differential pane l (Bld)on 04-20-2023 Basophils (Bld) [#/Vol] 10*3/uL Normal <0.11 [facility] Comment on above: Order Comment: Speci men Type: BLOOD SPECIMENOrdering Facility: [facility] Address: [address] [place] [address] Performed By: #### 5 7021-8 ####[facility]ORATORYCLIA [id number] [address] [place] [facility] Basophils/100 WBC (Bld) 0.3 % Normal [facility] Comment on above: Order Comment: Speci men Type: BLOOD SPECIMENOrdering Facility: [facility] Address: [address] [place] [address] Performed By: #### 5 7021-8 ####[facility]ORATORYCLIA [id number] [address] Differential cell count method Nom (Bld) Auto Normal [facility] Comment on above: Order Comment: Speci men Type: BLOOD SPECIMENOrdering Facility: [facility] Address: [address] [place] [address] Performed By: #### 5 7021-8 ####[facility]ATORYCLIA [id number] [address] Eosinophils (Bld) [#/Vol] 0.04 10*3/uL Normal <0.46 [facility] Comment on above: Order Comment: Speci men Type: BLOOD SPECIMENOrdering Facility: [facility] Address: [address] [place] [address] Performed By: #### 5 7021-8 ####[facility]ORATORYCLIA [id number] [address] [place] [facility] Eosinophils/100 WBC (Bld) 0.6 % Normal [facility] Comment on above: Order Comment: Speci men Type: BLOOD SPECIMENOrdering Facility: [facility] Address: [address] [place] [address] Performed By: #### 5 7021-8 ####[facility]ATORYCLIA [id number] [address] Erythrocyte distribution width (RBC) [Ratio] 13.8 % Normal 11.5-15.0 [facility] Comment on above: Order Comment: Speci men Type: BLOOD SPECIMENOrdering Facility: [facility] Address: [address] [place] [address] Performed By: #### 5 7021-8 ####[facility]ATORYCLIA [id number] [address] [place] Hematocrit (Bld) [Volume fraction] 39.9 % Normal 36.0-46.0 [facility] Comment on above: Order Comment: Speci men Type: BLOOD SPECIMENOrdering Facility: [facility] Address: [address] [place] [address] Performed By: #### 5 7021-8 ####[facility]ATORYCLIA [id number] [address] [place] Hemoglobin (Bld) [Mass/Vol] 13.0 g/dL Normal 11.5-15.5 [facility] Comment on above: Order Comment: Speci men Type: BLOOD SPECIMENOrdering Facility: [facility] Address: [address] [place] [address] Performed By: #### 5 7021-8 ####[facility]ORATORYCLIA [id number] [address] [place] Immature granulocytes (Bld) [#/Vol] 0.03 10*3/uL Normal <0.10 [facility] Comment on above: Order Comment: Speci men Type: BLOOD SPECIMENOrdering Facility: [facility] Address: [address] [place] [address] Performed By: #### 5 7021-8 ####[facility]ORATORYCLIA [id number] [address] [place] Immature granulocytes/100 WBC (Bld) 0.4 % Normal [facility] Comment on above: Order Comment: Speci men Type: BLOOD SPECIMENOrdering Facility: [facility] Address: [address] [place] [address] Performed By: #### 5 7021-8 ####[facility]ORATORYCLIA [id number] [place] [address] [place] Lymphocytes (Bld) [#/Vol] 1.55 10*3/uL Normal 1.00-4.00 [facility] Comment on above: Order Comment: Speci men Type: BLOOD SPECIMENOrdering Facility: [facility] Address: [address] [place] [address] Performed By: #### 5 7021-8 ####[facility]ATORYCLIA [id number] [address] STATES OF [facility] Lymphocytes/100 WBC (Bld) 22.9 % Normal [facility] Comment on above: Order Comment: Speci men Type: BLOOD SPECIMENOrdering Facility: [facility] Address: [address] [place] [address] Performed By: #### 5 7021-8 ####[facility]ORATORYCLIA [id number] [address] [place] MCH (RBC) [Entitic mass] 30.0 pg Normal 26.0-34.0 [facility] Comment on above: Order Comment: Speci men Type: BLOOD SPECIMENOrdering Facility: [facility] Address: [address] [place] [address] Performed By: #### 5 7021-8 ####[facility]ORATORYCLIA [id number] [address] [place] MCHC (RBC) [Mass/Vol] 32.6 g/dL Normal 30.5-36.0 [facility] Comment on above: Order Comment: Speci men Type: BLOOD SPECIMENOrdering Facility: [facility] Address: [address] [place] [address] Performed By: #### 5 7021-8 ####[facility]ORATORYCLIA [id number] [address] [place] MCV (RBC) [Entitic vol] 91.9 fL Normal 80.0-100.0 [facility] Comment on above: Order Comment: Speci men Type: BLOOD SPECIMENOrdering Facility: [facility] Address: [address] [place] [address] Performed By: #### 5 7021-8 ####[facility]ORATORYCLIA [id number] [address] Monocytes (Bld) [#/Vol] 0.66 10*3/uL Normal <0.87 [facility] Comment on above: Order Comment: Speci men Type: BLOOD SPECIMENOrdering Facility: [facility] Address: [address] [place] [address] Performed By: #### 5 7021-8 ####[facility]ATORYCLIA [id number] [address] [place] Monocytes/100 WBC (Bld) 9.8 % Normal [facility] Comment on above: Order Comment: Speci men Type: BLOOD SPECIMENOrdering Facility: [facility] Address: [address] [place] [address] Performed By: #### 5 7021-8 ####[facility]ATORYCLIA [id number] [place] [address] [place] Neutrophils (Bld) [#/Vol] 4.46 10*3/uL Normal 1.45-7.50 [facility] Comment on above: Order Comment: Speci men Type: BLOOD SPECIMENOrdering Facility: [facility] Address: [address] [place] [address] Performed By: #### 5 7021-8 ####[facility]ORYCLIA [id number] [address] [place] Neutrophils/100 WBC (Bld) 66.0 % Normal [facility] Comment on above: Order Comment: Speci men Type: BLOOD SPECIMENOrdering Facility: [facility] Address: [address] [place] [address] Performed By: #### 5 7021-8 ####[facility]ORATORYCLIA [id number] [address] [place] Nucleated RBC (Bld) [#/Vol] 10*3/uL Normal <0.01 [facility] Comment on above: Order Comment: Speci men Type: BLOOD SPECIMENOrdering Facility: [facility] Address: [address] [place] [address] Performed By: #### 5 7021-8 ####[facility]ORYCLIA [id number] [address] [place] Nucleated RBC/100 WBC (Bld) [Ratio] 0.0 /100 WBC Normal [facility] Comment on above: Order Comment: Speci men Type: BLOOD SPECIMENOrdering Facility: [facility] Address: [address] [place] [address], [place] [address] Performed By: #### 5 7021-8 ####[facility]ORATORYCLIA [id number] [place] [address] [place] Platelet mean volume (Bld) [Entitic vol] 9.4 fL Normal 9.0-12.7 [facility] Comment on above: Order Comment: Speci men Type: BLOOD SPECIMENOrdering Facility: [facility] Address: [address] [place] [address] Performed By: #### 5 7021-8 ####[facility] LABORATORYCLIA [id number] [place] [address] [place] Platelets (Bld) [#/Vol] 220 10*3/uL Normal 150-400 [facility] Comment on above: Order Comment: Speci men Type: BLOOD SPECIMENOrdering Facility: [facility] Address: [address] [place] [address] Performed By: #### 5 7021-8 ####[facility] LABORATORYCLIA [id number] [place] [address] [place] RBC (Bld) [#/Vol] 4.34 10*6/uL Normal 3.90-5.20 [facility] Comment on above: Order Comment: Speci men Type: BLOOD SPECIMENOrdering Facility: [facility] Address: [address] [place] [address] Performed By: #### 5 7021-8 ####[facility] LABORATORYCLIA [id number] [place] [address] [place] WBC (Bld) [#/Vol] 6.76 10*3/uL Normal 3.70-11.00 [facility] Comment on above: Order Comment: Speci men Type: BLOOD SPECIMENOrdering Facility: [facility] Address: [address] [facility] [place] [address] Performed By: #### 5 7021-8 ####[facility] LABORATORYCLIA [id number] [address] [place] CNDSon 04-20-2023 CNDS HNO ID: [id number] Author: Ag Espinosa MD Service: Orthopaedic Surgery Author Type: Resident Type: Discharge Summary Filed: 04/20/2023 5:28 PM Note Text: Attestation signed by Marty Lerma MD at 04/22/2023 10:43 AM Agree. DISCHARGE SUMMARY PATIENT NAME: Chris Lund Code Status: Not on file Highest Readmission Risk Score: 9 The 30 day readmissions risk score is derived from an internally validated risk model which evaluates patient level characteristics, utilization history, medication orders and lab results up until the day of discharge. Patients with a score of 40 or above are considered highest risk for readmission. Specific patient level drivers will be listed at the bottom of the summary. Admission Information Admission Information ADMIT DATE: 04/19/2023 DISCHARGE DATE: 04/20/2023 MY DOCTORS AND MEDICAL TEAM: My Main Hospital Doctor: Marty Lerma* Primary Care Provider: Jane Church DO My Medical Team Members: Treatment Team: Attending Provider: Marty Lerma MD Consulting: Marty Lerma MD Consulting: MICHAEL ACEVEDO MY CONDITION AT DISCHARGE: Stable REASON I WAS IN THE HOSPITAL: Right ankle fracture SUMMARY OF WHAT HAPPENED WHILE I WAS IN THE HOSPITAL: Patient underwent an application of external fixator to the right ankle on 04/20. Patient recovered in the post-operative unit prior to admission to the floor for pain control and physical therapy. Once working with physical therapy, patient was discharged in stable condition. OPERATIONS PERFORMED WHILE IN THE HOSPITAL: See above Discharge Disposition Activity When You Leave the Hospital Other: No weight bearing on the operative extremity Diet Instructions Resume your pre-hospital diet For Pain When You Leave the Hospital Use aspirin as recommended on the bottle Use the dispensed medication (see prescription) Wound/Surgical Site Care Wound/Surgical Site care Dressing and splint will need to remain clean, dry and intact. Call Your Doctor If There is an unusual odor from the wound area There is severe pain at the operative site You have lightheadedness, fainting, or confusion You have redness, swelling, pus or drainage from the wound Your temperature is greater than 101F Follow Up Appointments Follow-Up Appointment Follow-up in 7-10 days When: In 1 week Marty Lerma MD [phone] [facility] [address] [facility] [address] PCP Requested Referral FOLLOW-UP APPOINTMENTS ALREADY SCHEDULED WITH A [facility] PROVIDER: No future appointments. ALLERGIES No Known Allergies DISCHARGE MEDICATION: Medication List START taking these medications aspirin 81 mg chewable tablet Take 1 tablet by mouth two times a day. Start taking on: April 21, 2023 ondansetron 4 mg tablet Commonly known as: ZOFRAN Take 1 tablet by mouth every 8 hours as needed for up to 5 days. oxyCODONE IR 5 mg immediate release tablet Commonly known as: ROXICODONE Take 1 tablet by mouth every 8 hours as needed for pain for up to 5 days. CONTINUE taking these medications IVERMECTIN ORAL levothyroxine 100 mcg tablet Commonly known as: SYNTHROID MULTIVITAMIN ORAL naltrexone capsule 4.5 mg (CPD) OTC NUTRITIONAL SUPPLEMENT 1 by mouth 30 minutes before bed OTC NUTRITIONAL SUPPLEMENT Take 2 capsules by mouth daily with food. OTC NUTRITIONAL SUPPLEMENT Take 1 capsule by mouth daily with food. OTC NUTRITIONAL SUPPLEMENT Take 1 capsule by mouth daily with food. VITAMIN C 1,000 mg tablet Generic drug: Ascorbic Acid XYWAV 0.5 gram/mL Soln oral liquid Generic drug: sodium,calcium,mag,pot oxybate Take 9 mL by mouth at bedtime and 4 hours after. zinc Where to Get Your Medications These medications were sent to e- [facility]/pharmacy #[id number] [place] [address] [address] - [phone] [facility] [phone] [facility] [address] [facility] [address] aspirin 81 mg chewable tablet ondansetron 4 mg tablet oxyCODONE IR 5 mg immediate release tablet The patient's risk for 30-day readmission is determined using the following contributing factors: Pt variables contributing to increased readmission risk: 11 Active Medication Orders 9 First Resulted Calcium During Admission 8 Most Recent BUN Result 1 Previous ED Visit (6 mos.)? 1 Number of Previous ED Visits (6 mos.) 1 Insurance - Private Coverage 1 Discharge Disposition - Home TIME OF CARE: Discharge Management: I personally spent greater than 30 minutes involved in the discharge management of this patient. SIGNATURE: Sinan Shipman MD PAGER/CONTACT #: [phone] DATE: April 20, 2023 TIME: 4:36 PM Normal [facility] OPERATIVE NOon 04-20-2023 OPERATIVE NO HNO ID: [id number] Author: Marty Lerma MD Service: Orthopaedic Surgery Author Type: Physician Type: Operative Report Filed: 04/20/2023 10:14 AM Note Text: ORTHOPAEDIC OPERATIVE REPORT PATIENT NAME: Chris Lund Surgery/Procedure Date: 04/20/2023 Incision/Procedure Start Time: 7:47 AM Incision Close/Procedure End Time: 8:15 AM Surgeon(s) and Auto Mechanics Teacher(s): Surgeon(s) and Role: * Marty Lerma MD - Primary * Sinan Shipman MD - Resident - Assisting No Additional Staff PRE-OPERATIVE DIAGNOSIS: Right trimalleolar ankle fracture-dislocation POST-OPERATIVE DIAGNOSIS: Right trimalleolar ankle fracture-dislocation SURGICAL PROCEDURE(S): Application spanning external fixator right ankle (uniplane construct) Anesthesia: Choice - Anesthesia Consult Implantable Devices: Synthes external fixation system Complications: None Specimens: None Estimated Blood Loss: <5 mls OPERATIVE INDICATIONS: This is a 48 year old female who sustained injury to her right ankle during a syncopal fall at home 04/19/2023; she was seen at an outside hospital where clinical examination and imaging studies demonstrated a trimalleolar fracture-dislocation of the right ankle. She was transferred while dislocated, and underwent closed reduction approximately 10 hours later. Risks and benefits of temporary stabilization with external fixator placement were reviewed in detail with patient and , and all questions were answered. OPERATIVE PROCEDURE: The patient was brought to the operating room on the hospital bed. She was intubated per Anesthesia. The patient was then transferred to the operating table. The right lower extremity was pre-washed with chlorhexidine. It was padded prepped and sterilely draped for the procedure. The [facility] timeout protocol was performed. Imaging was used to demarcate the ankle joint on the skin and confirm maintained reduction of the ankle. Two percutaneous incisions were made over the tibial crest proximally, followed by placement of two Synthes half pins. A medial foot incision was made over the posterior calcaneous, followed by placement of a Synthes cross pin through the bone. The external fixator was constructed and tightened into position while confirming ankle reduction using imaging. Dressings were applied followed by a padded posterior slab splint. All draping was removed. The patient was extubated per Anesthesia. She was returned to the hospital bed and taken to the recovery room in stable condition. POST-OPERATIVE PLAN: -Management per Ortho -Pain control -Soft dressings and splint to the right ankle. Keep clean and dry -NWB to RLE -Ice and elevate -ASA 81 mg BID x 21 days at discharge -PT/OT -Follow-up PACU XR -Diet: regular -Dispo: Patient may be discharge to home today after working with PT/OT. -Updated regarding post-surgical state. I/primary surgeon/proceduralist performed the procedure with assistance. SIGNATURE: Marty Lerma MD DATE: April 20, 2023 TIME: 10:07 AM Normal [facility] PT panel Coag (PPP)on 2022 INR Coag (PPP) [Relative time] 1.0 {INR} Normal 0.9-1.3 [facility] Comment on above: Order Comment: Speci men Type: BLOOD SPECIMENOrdering Facility: [facility] Address: [address] [place] [address] Result Comment: Natalie min K Antagonist (VKA) Therapeutic Range: INR 2 to 3 (Target INR of 2.5) Note: For patients treated with VKA drugs, such as warfarin, the [place] [employer] 2012 Guideline recommends a therapeutic INR range of 2 to 3 (target INR of 2.5). This recommendation includes high-risk patients with antiphospholipid syndrome with previous arterial or venous thromboembolism, current-generation mechanical or bioprosthetic aortic heart valve replacement. Note: Patients with mechanical aortic valve replacement and additional risk factors for thromboembolic events (atrial fibrillation, previous thromboembolism, LV dysfunction, hypercoagulable conditions) or an older generation mechanical AVR (i.e., ball in-Cage) or any mechanical MVR should have a INR therapeutic range of 2.5 to 3.5 (target INR of 3). Madison GH, et al. Chest 2012, 141:7S-47S Yuan RA, et al. [facility] 2017, 70: 252-289 Performed By: #### 3 4528-0, 59259-7 ####[facility] LABORATORYCLIA [id number] [place] [address] [facility] PT Coag (PPP) [Time] 10.6 s Normal 9.7-13.0 [facility] Comment on above: Order Comment: Speci men Type: BLOOD SPECIMENOrdering Facility: [facility] Address: [address] [place] [address] Performed By: #### 3 4528-0, 85451-8 ####[facility]ITALCLIA [id number] [place] [address] [facility] THERAPY NTon 04-20-2023 THERAPY NT HNO ID: [id number] Author: Sekou Galarza, PT Service: Physical Therapy Author Type: Physical Therapist Type: Therapy (PT/OT/Speech/Resp) Filed: 04/20/2023 4:04 PM Note Text: Physical Therapy Evaluation SERVICE DATE: 04/20/2023 SERVICE TIME: 1440 to 1521 ROOM: [place] [address] Recommended Discharge Disposition: Home Recommended Discharge Disposition Comments: On track for home going at d/c. Recommended Discharge Equipment: Wheeled Walker PT 6 Clicks Score: 20 Precautions/Activity Restrictions: Fall Risk, Bed/Chair Alarm Current Hospital Course: R ankle fx and dislocation. s/p external fixator. Reason for Hospital Admission: fall with R ankle fx and dislocation Relevant Past Medical History: HTn, IBS, DM Response to Therapy Interventions: Good Participation in Activities Continued Skilled Needs Due to: Functional Mobility/Skill Impairments Physical Therapy Problem List: Functional Mobility Impairment Treatment Interventions: Education, Functional Mobility Training Plan for Next Visit: Crutch Training, Gait Training, Stair Training, Walker Training Home Environment Patient Lives With: Family ( and 3 sons) Assistance Available: 24-Hour Entry To Home: Stairs, With Rail (bilateral) Number Of Stairs Into Home: 3 Number Of Stairs To Bed/Bath: 0 Equipment Owned: (none) Prior Functional Level: Within Functional Limits Prior Functional Level Comments: independent mobility Subjective: willing to participate CURRENT FUNCTIONAL STATUS: Most recent performance Current Functional Mobility Assist Level Additional Information Rolling Independent Supine to Sit Independent, Stand By Assistance Sit to Supine Stand By Assistance Scooting Stand By Assistance Sit to Stand Contact Guard Assistance, Additional Information cues on safe technique to stand to walker Stand to Sit Contact Guard Assistance Bed to Chair Toilet/Commode Gait Contact Guard Assistance Gait Device: Wheeled Walker Gait Distance (feet): 20x2 Stairs Contact Guard Assistance Stairs Device: Crutch(es), Rail Number of Stairs: 4 Curb Step Car Transfer Blank yates indicate activity not attempted General Deviations/Observations: Step length decreased (hop step) Range of Motion: ROM Limitation Comments ROM Limitation Comments: R ankle NT Strength: Strength Limitation Comments Strength Limitation Comments: able to SLR on R JH-HLM: 7: Walk 25 feet or more Learning/Educational Needs: Functional Activities/Mobility, Plan of Care, Rehabilitation Techniques and Procedures, Precautions Goals for Plan of Care: Patient/Caregiver Goals: Walk, Go Home Transfer Sit to/from Stand with: Supervision Ambulate with: Stand By Assistance Distance: 50' Device: Wheeled Walker Ambulate Up and Down Steps with: Contact Guard Assistance Number of Steps: 4 Device: Crutch(es), Rail Rehab Potential: Good Patient will be discontinued from Physical Therapy when no further skilled needs are identified in this setting. PLAN: PT Frequency: One Additional Visit Plan of Care developed with: Patient TREATMENT INTERVENTIONS: Therapy Diagnosis: Reduced mobility-other, Abnormalities of gait and mobility-other, General symptoms and signs-other Interventions Provided: Evaluation, Therapeutic Activity (93467), Gait Training (37234) $ Evaluation-Low (63266) Billed Units: 1 unit Therapeutic Activity (62787) Treatment Minutes: 8 $ Therapeutic Activity (79210) Billed Units: 1 unit Educated on NWB and technique for bed mobility and transfers. Gait Training (61937) Treatment Minutes: 15 $ Gait Training (11512) Billed Units: 1 unit Educated patient in the use of a wheeled walker. Educated to maintain appropriate proximity to the walker in order to maximize the assistance the arms can provide to the lower extremities. Educated patient not to walk too far into the walker where their feet step beyond the frame, as this can cause a loss of balance backwards. Educated to remain within the frame of the walker when turning. Educated on stair navigation Training AND Education Provided in: Anatomy and Impact on Deficits, Assistive Device Use, Benefits of In-Hospital Mobility, Role of Physical Therapy, Falls Prevention, Gait Pattern, Reduction of Deviations, Stair Navigation The Following Therapeutic Skills Were Used: Cues for Sequencing/Proper Technique for Activity, Cuing Verbal, Movement Facilitation Timed Code Treatment (minutes): 23 Skilled Treatment Time (minutes): 41 Please see discipline specific clinical documentation flowsheet for complete details for this therapy evaluation/treatment. SIGNATURE: Sekou Galarza PT PATIENT NAME: Chris Lund DATE: April 20, 2023 TIME: 3:58 PM Normal [facility] XR ANKLE 2V AP/LAT RTon 03-24 XR ANKLE 2V AP/LAT RT * * *Final Report* * * DATE OF EXAM: Apr 20 2023 8:29AM [id number] - XR ANKLE 2V AP/LAT RT / PROCEDURE REASON: APPLICATION EX FIX * * * * Physician Interpretation * * * * EXAM TITLE: XR ANKLE 2V AP/LAT RT DATE: 04/20/2023 8:52 AM INDICATION: Intraoperative for application of external fixator COMPARISON: None. FINDINGS: 25 seconds of fluoroscopy time was used. 4 images are obtained demonstrating placement of an external fixator device pins at the tibia and calcaneus. IMPRESSION: Intraoperative exam. Endocrinology Teacher: LUIS Transcribe Date/Time: Apr 20 2023 8:52A Dictated by : RIGOBERTO ESPINO MD This examination was interpreted and the report reviewed and electronically signed by: RIGOBERTO ESPINO MD on Apr 20 2023 8:54AM EST [id number] [facility] XR ANKLE 3V AP/LAT/OBL RTon 04-20-2023 XR ANKLE 3V AP/LAT/OBL RT * * *Final Report* * * DATE OF EXAM: Apr 20 2023 9:28AM [id number] - XR ANKLE 3V AP/LAT/OBL RT / PROCEDURE REASON: Post-operative / post-procedure assessment, asymptomatic * * * * Physician Interpretation * * * * EXAM TITLE: XR ANKLE 3V AP/LAT/OBL RT DATE: 04/20/2023 9:40 AM INDICATION: Postoperative assessment COMPARISON: 04/19/2023 FINDINGS: Since the previous exam, an external fixator device has been placed with pins in the distal tibia and the calcaneus. Again noted are fractures of the fibular shaft, posterior malleolus, and medial malleolus. IMPRESSION: Recent postoperative changes. Stable appearing fractures. Endocrinology Teacher: PSCB Transcribe Date/Time: Apr 20 2023 9:40A Dictated by : RIGOBERTO ESPINO MD This examination was interpreted and the report reviewed and electronically signed by: RIGOBERTO ESPINO MD on Apr 20 2023 9:41AM EST [id number] Normal [facility] aPTT PPPon 04-20-2023 aPTT Coag (PPP) [Time] 26.0 s Normal 23.0-32.4 [facility] Comment on above: Order Comment: Speci men Type: BLOOD SPECIMENOrdering Facility: [facility] Address: [address] [place] [address] Performed By: #### 3 4528-0, 04651-2 ####[facility] LABORATORYCLIA [id number] [place] [address] [place] Absolute lymphocyte countOrd ered By: Chris Ordaz on 04-19-2023 Lymphocytes Auto (Unsp spec) [#/Vol] 2.90 10*3/uL 0.83-4.51 [facility] Basic metabolic 2000 panelon 04-19-2023 Anion gap [Moles/Vol] 8 mmol/L Low 9-18 [facility] Comment on above: Order Comment: Speci men Type: BLOOD SPECIMENOrdering Facility: [facility] Address: [address] [place] [address] Performed By: #### 2 4321-2 ####[facility] LABORATORYCLIA [id number] [place] [address] [place] Calcium [Mass/Vol] 9.0 mg/dL Normal 8.5-10.2 [facility] Comment on above: Order Comment: Speci men Type: BLOOD SPECIMENOrdering Facility: [facility] Address: [address] [place] [address] Performed By: #### 2 4321-2 ####[facility] LABORATORYCLIA [id number] [address] [place] Chloride [Moles/Vol] 107 mmol/L High 97-105 [facility] Comment on above: Order Comment: Speci men Type: BLOOD SPECIMENOrdering Facility: [facility] Address: [address] [place] [address] Performed By: #### 2 4321-2 ####[facility] LABORATORYCLIA [id number] [address] [place] CO2 [Moles/Vol] 27 mmol/L Normal 22-30 [facility] Comment on above: Order Comment: Speci men Type: BLOOD SPECIMENOrdering Facility: [facility] Address: [address] [place] [address] Performed By: #### 2 4321-2 ####[facility] LABORATORYCLIA [id number] [address] [place] Creatinine [Mass/Vol] 0.62 mg/dL Normal 0.58-0.96 [facility] Comment on above: Order Comment: Speci men Type: BLOOD SPECIMENOrdering Facility: [facility] Address: [address] [place] [address] Performed By: #### 2 4321-2 ####[facility] LABORATORYCLIA [id number] [address] Creatinine and Glomerular filtration rate.predicted panel (S/P/Bld) 109 mL/min/1.73m??? Normal >=60 [facility] Comment on above: Order Comment: Speci men Type: BLOOD SPECIMENOrdering Facility: [facility] Address: [address] [place] [address] Result Comment: Silvana mated Glomerular Filtration Rate (eGFR) is calculated using the 2020 CKD-EPI creatinine equation. This equation utilizes serum creatinine, sex, and age as parameters. The creatinine assay has traceable calibration to isotope dilution-mass spectrometry. Refer to KDIGO guidelines for clinical interpretation. In patients with unstable renal function, e.g. those with acute kidney injury, the eGFR may not accurately reflect actual GFR. Performed By: #### 2 4321-2 ####[facility] LABORATORYCLIA [id number] [place] [address] [place] Glucose [Mass/Vol] 109 mg/dL High 74-99 [facility] Comment on above: Order Comment: Speci men Type: BLOOD SPECIMENOrdering Facility: [facility] Address: [address] [place] [address] Result Comment: The [place] Diabetes Association (ADA) provides guidance for cutoff values for fasting glucose and random glucose. The ADA defines fasting as no caloric intake for at least 8 hours. Fasting plasma glucose results between 100 to 125 mg/dL indicate increased risk for diabetes (prediabetes). Fasting plasma glucose results greater than or equal to 126 mg/dL meet the criteria for diagnosis of diabetes. In the absence of unequivocal hyperglycemia, results should be confirmed by repeat testing. In a patient with classic symptoms of hyperglycemia or hyperglycemic crisis, random plasma glucose results greater than or equal to 200 mg/dL meet the criteria for diagnosis of diabetes. Reference: Standards of Medical Care in Diabetes 2016, [place] Diabetes Association. Diabetes Care. 2016.39(Suppl 1). Performed By: #### 2 4321-2 ####[facility] LABORATORYCLIA [id number] [place] [address] [place] Potassium [Moles/Vol] 3.7 mmol/L Normal 3.7-5.1 [facility] Comment on above: Order Comment: Speci men Type: BLOOD SPECIMENOrdering Facility: [facility] Address: [address] [place] [id number] Performed By: #### 2 4321-2 ####[facility] LABORATORYCLIA [id number] [place] [address] [place] Sodium [Moles/Vol] 142 mmol/L Normal 136-144 [facility] Comment on above: Order Comment: Speci men Type: BLOOD SPECIMENOrdering Facility: [facility] Address: [facility] [place] [address] Performed By: #### 2 4321-2 ####[facility] LABORATORYCLIA [id number] [place] [address] [place] Urea nitrogen [Mass/Vol] 9 mg/dL Normal 7-21 [facility] Comment on above: Order Comment: Speci men Type: BLOOD SPECIMENOrdering Facility: [facility] Address: [address] [place] [id number] Performed By: #### 2 4321-2 ####[facility] LABORATORYCLIA [id number] [place] [address] [place] Basophil percentageOrdered B y: Chris Ordaz on 04-19-2023 Basophil percentage 0-5 SEEN /hpf 0-5 [facility] Basophils/100 WBC (Bld) 0.5 % 0-1 [facility] Bilirubin [Mass/Vol] 0.20 mg/dL 0.20-1.00 [facility] Comment on above: For patients on eltr ombopag therapy, use of Dimension [place] TBIL is not recommended. Chloride [Moles/Vol] 106 mmol/L 98-107 [facility] Eosinophils/100 WBC (Bld) 1.6 % 0-5 [facility] Glucose [Mass/Vol] 131 mg/dL 74-106 [facility] Comment on above: Fasting Glucose resu lt greater than or equal to 126 mg/dL suggests DIABETES MELLITUS per A.D.A. criteria. Neutrophils (Bld) [#/Vol] 5.9 10*3/uL 2.0-7.7 [facility] Neutrophils/100 WBC (Bld) 59.7 % 47-70 [facility] Potassium [Moles/Vol] 3.9 mmol/L 3.5-5.1 [facility] Protein [Mass/Vol] 6.6 g/dL 6.4-8.2 [facility] Sodium [Moles/Vol] 139 mmol/L 136-145 [facility] WBC (Bld) [#/Vol] 9.9 10*3/uL 4.4-11.0 [facility] Bilirubin Test strip Ql (U)O rdered By: Chris Ordaz on 04-19-2023 Bilirubin Ql (U) Negative Negative [facility] Blood erythrocytes count (nu mber/volume)Ordered By: Chris Ordaz on 04-19-2023 RBC (Bld) [#/Vol] 4.55 10*6/uL 4.2-5.4 [facility] Blood hemoglobin measurement (mass/volume)Ordered By: Chris Ordaz on 04-19-2023 Hemoglobin (Bld) [Mass/Vol] 13.2 g/dL 12.0-15.0 [facility] Blood lymphocytes/100 leukoc ytesOrdered By: Chris Ordaz on 04-19-2023 Lymphocytes/100 WBC (Bld) 29.3 % 19-41 [facility] Blood monocytes/100 leukocyt esOrdered By: Chris Ordaz on 04-19-2023 Monocytes/100 WBC (Bld) 8.4 % 0-10 [facility] Blood platelet mean volumeOr dered By: Chris Ordaz on 04-19-2023 Platelet mean volume (Bld) [Entitic vol] 9.6 fL 6.2-12.0 [facility] CBC panel Auto (Bld)on 04-19 Erythrocyte distribution width (RBC) [Ratio] 13.5 % Normal 11.5-15.0 [facility] Comment on above: Order Comment: Speci men Type: BLOOD SPECIMENOrdering Facility: [facility] Address: [address] [place] [address] Performed By: #### 5 8410-2 ####[facility] LABORATORYCLIA [id number] [address] STATES OF [facility] Hematocrit (Bld) [Volume fraction] 38.6 % Normal 36.0-46.0 [facility] Comment on above: Order Comment: Speci men Type: BLOOD SPECIMENOrdering Facility: [facility] Address: [address] [place] [address] Performed By: #### 5 8410-2 ####[facility] LABORATORYCLIA [id number] [address] [place] Hemoglobin (Bld) [Mass/Vol] 12.7 g/dL Normal 11.5-15.5 [facility] Comment on above: Order Comment: Speci men Type: BLOOD SPECIMENOrdering Facility: [facility] Address: [address] [place] [address] Performed By: #### 5 8410-2 ####[facility] LABORATORYCLIA [id number] [address] MCH (RBC) [Entitic mass] 29.5 pg Normal 26.0-34.0 [facility] Comment on above: Order Comment: Speci men Type: BLOOD SPECIMENOrdering Facility: [facility] Address: [address] [place] [address] Performed By: #### 5 8410-2 ####[facility] LABORATORYCLIA [id number] [address] MCHC (RBC) [Mass/Vol] 32.9 g/dL Normal 30.5-36.0 [facility] Comment on above: Order Comment: Speci men Type: BLOOD SPECIMENOrdering Facility: [facility] Address: [address] [place] [address] Performed By: #### 5 8410-2 ####[facility] LABORATORYCLIA [id number] [address] STATES [facility] MCV (RBC) [Entitic vol] 89.8 fL Normal 80.0-100.0 [facility] Comment on above: Order Comment: Speci men Type: BLOOD SPECIMENOrdering Facility: [facility] Address: [address] [place] [address] Performed By: #### 5 8410-2 ####[facility] LABORATORYCLIA [id number] [address] Nucleated RBC (Bld) [#/Vol] 10*3/uL Normal <0.01 [facility] Comment on above: Order Comment: Speci men Type: BLOOD SPECIMENOrdering Facility: [facility] Address: [address] [place] [address] Performed By: #### 5 8410-2 ####[facility] LABORATORYCLIA [id number] [address] [place] Platelet mean volume (Bld) [Entitic vol] 9.4 fL Normal 9.0-12.7 [facility] Comment on above: Order Comment: Speci men Type: BLOOD SPECIMENOrdering Facility: [facility] Address: [address] [place] [address] Performed By: #### 5 8410-2 ####[facility] LABORATORYCLIA [id number] [place] [address] [place] Platelets (Bld) [#/Vol] 260 10*3/uL Normal 150-400 [facility] Comment on above: Order Comment: Speci men Type: BLOOD SPECIMENOrdering Facility: [facility] Address: [address] [place] [address] Performed By: #### 5 8410-2 ####[facility] LABORATORYCLIA [id number] [address] [place] RBC (Bld) [#/Vol] 4.30 10*6/uL Normal 3.90-5.20 [facility] Comment on above: Order Comment: Speci men Type: BLOOD SPECIMENOrdering Facility: [facility] Address: [address] [place] [address] Performed By: #### 5 8410-2 ####[facility] LABORATORYCLIA [id number] [address] [place] WBC (Bld) [#/Vol] 10.07 10*3/uL Normal 3.70-11.00 [facility] Comment on above: Order Comment: Speci men Type: BLOOD SPECIMENOrdering Facility: [facility] Address: [address] [place] [address] Performed By: #### 5 8410-2 ####[facility] LABORATORYCLIA [id number] [address] CONSULTon 04-19-2023 CONSULT HNO ID: [id number] Author: Bassem Caraballo DO Service: Hospital Medicine Author Type: Physician Type: Consults Filed: 04/19/2023 2:31 PM Note Text: DEPARTMENT OF HOSPITAL MEDICINE INITIAL CONSULT SERVICE DATE: 04/19/2023 SERVICE TIME: 1:08 PM Primary Care Physician: Jane Church, DO NIGHT AND WEEKEND COVERAGE: From 7am - 7pm, please call sound team assigned After 7pm, please call cross cover pager #[phone] REQUESTING PHYSICIAN: Dr. Mejia REASON FOR CONSULT: Preoperative valuation Subjective CHIEF COMPLAINT: Ankle pain HPI: This is a 48 year old female with a past medical history of hypothyroidism, fibromyalgia, IBS who presents with ankle pain. Had a fall from standing height and twisted her ankle. She had immediate pain and presented to outside hospital blister. Ankle was splinted and she was sent to our emergency department. Orthopedics evaluated and performed closed reduction in the emergency department. They plan for OR 04/20. Upon interview she is resting in bed in no acute distress. Pain control improved. We discussed her medical history which includes IBS, sleep disorder, chronic Lyme. She follows with the sleep medicine doctor who was previously prescribed a CPAP but this did not help and was ultimately discontinued. She was recently prescribed new medication to help her sleep which made her groggy and ultimately contributed to her fall she believes. She reports a history of chronic Lyme that was treated at functional medicine clinic at [facility]. She denies any history of heart disease. She saw her health data administrator in 2021 for chest discomfort after COVID infection. She underwent echocardiogram with normal EF without valvular abnormality. She also reports a normal calcium scan. She denies any pulmonary disease any history of asthma, COPD. She is a never smoker. She has no renal disease. She is active and has good functional status. She denies any dyspnea when going up a flight of stairs. She is able to do chores around the house without difficulty. Denies chest pain, palpations, orthopnea, shortness of breath, cough, fever, chills, nausea, vomiting, diarrhea, numbness, tingling, dizziness, polyuria, dysuria, hematuria, bruising, bleeding, weakness, confusion, blurred vision, double vision PAST MEDICAL HISTORY Diagnosis Date Celiac disease Cholelithiasis COVID 2019 beginning 2019 and 04/23/21 Fibromyalgia IBS (irritable bowel [...] SPEC VARICIES INJ 11/30/2021 Normal LAPS ABD PRTMANDOMENTUM DX W/WO SPEC BR/WA SPX 03/23/1997 OVARIAN [...] Topics Alcohol use: No Drug use: No HOME MEDICATIONS: (Not in a hospital admission) Current Facility-Administered Medications Medication Dose Route Frequency [START ON 04/20/2023] levothyroxine 100 mcg tab(s) (SYNTHROID) 100 mcg ORAL DAILY (6 AM) modafinil 200 mg tab(s) (PROVIGIL) 200 mg ORAL DAILY [START ON 04/20/2023] liothyronine 5 mcg tab(s) (CYTOMEL) 5 mcg ORAL BEFORE BREAKFAST DAILY lactated ringers iv infusion 100 mL/hr INTRAVENOUS CONTINUOUS morphine 2 mg injection 2 mg INTRAVENOUS q 2 H PRN ondansetron (PF) 4 mg injection (ZOFRAN) 4 mg INTRAVENOUS q 6 H PRN melatonin 3 mg tab(s) 3 mg ORAL AT BEDTIME PRN NaCl 0.9% iv flush bag 20 mL INTRAVENOUS PRN oxyCODONE IR 5-10 mg tab(s) (ROXICODONE) 5-10 mg ORAL q 4 H PRN acetaminophen 1,000 mg tab(s) (TYLENOL) 1,000 mg ORAL q 8 H ALLERGIES No Known Allergies REVIEW OF SYSTEM: All ROS are negative except those noted in HPI Objective PHYSICAL EXAM: BP 128/77 Pulse 93 Temp (Src) 98.4 (Oral) Resp 15 Ht 5' (more content not included)... Normal [facility] Determination of erythrocyte mean corpuscular volume (MCV)Ordered By: Chris Ordaz on 04-19-2023 MCV (RBC) [Entitic vol] 91.4 fL 81-99 [facility] ECG COMPLETEon 04-19-2023 ECG COMPLETE Ventricular Rate : 9 1 BPM Atrial Rate : 91 BPM P-R Interval : 174 ms QRS Duration : 82 ms Q-T Interval : 364 ms QTC Calculation(Bazett) : 447 ms Calculated P [place] : 60 degrees Calculated R [place] : -8 degrees Calculated T [place] : 47 degrees NORMAL SINUS RHYTHM NORMAL ECG NO PREVIOUS ECGS AVAILABLE Confirmed by MD TRAYLOR CAROL ([id number]) on 04/28/2023 5:22:29 PM NAME : CHRIS LUND PID : [id number] : 1975 Gender : Female Race : ORD : [id number] Procedure Date : Apr 19 2023 15:52:55 Edit Date : Apr 28 2023 17:22:35 Diagnosis: NORMAL SINUS RHYTHM NORMAL ECG NO PREVIOUS ECGS AVAILABLE Confirmed by MD TRAYLOR CAROL ([id number]) on 04/28/2023 5:22:29 PM Test Reason : Pre-OP Location : 4 : AKED 20 Overread By : MD TRAYLOR CAROL Edited By : MD TRAYLOR CAROL Referred By : , Acquired by : DENISE ARNOLD [facility] ED NOTEon 04-19-2023 ED NOTE HNO ID: [id number] Author: Rosita Blackman RN Service: ? Author Type: Registered Nurse Type: ED Notes Filed: 04/19/2023 4:52 PM Note Text: Bed: 37-ED Expected date: Expected time: Means of arrival: Comments: [facility] ED NOTE HNO ID: [id number] Author: Sherry Schwartz RN Service: Emergency Medicine Author Type: Registered Nurse Type: ED Notes Filed: 04/19/2023 3:12 PM Note Text: Per patient, no longer taking provigil, unopened dose given to dami pharmacist to return. Normal [facility] ED NOTE HNO ID: [id number] Author: Sherry Schwartz RN Service: Emergency Medicine Author Type: Registered Nurse Type: ED Notes Filed: 04/19/2023 10:03 AM Note Text: Xray notified Normal [facility] ED NOTE HNO ID: [id number] Author: Sherry Schwartz RN Service: Emergency Medicine Author Type: Registered Nurse Type: ED Notes Filed: 04/19/2023 9:44 AM Note Text: Ortho at bedside to splint patient Normal [facility] ED NOTE HNO ID: [id number] Author: Rosita Blackman RN Service: ? Author Type: Registered Nurse Type: ED Notes Filed: 04/19/2023 8:13 AM Note Text: Bed: 20-ED Expected date: Expected time: Means of arrival: Comments: Christina tx Normal [facility] ED PROV NOTEon 04-19-2023 ED PROV NOTE HNO ID: [id number] Author: Xavier Mejia MD Service: Emergency Medicine Author Type: Physician Type: ED Provider Notes Filed: 04/19/2023 12:20 PM Note Text: Attending Note: I performed a history and physical examination of the patient and discussed the management with the resident. I reviewed the resident's note and agree with the documented findings and plan of care. HPI: 48-year-old female transferred from the [facility]. Apparently the patient was on Xywav to help her sleep, she took a second 1 and she woke up dizzy, states that she was going in and out of consciousness, fell, injured her right ankle went to the hospital and was found to have fracture injury to her right ankle. At the outside hospital the patient did have CT brain and CT cervical spine did not note any acute abnormalities. X-ray of the tibia and fibula of the right ankle were obtained, phone a trimalar fracture dislocation of the right ankle and partially comminuted midshaft fracture of the fibula. CT of the right lower extremity was subsequently obtained and found to show a comminuted midshaft fracture of the fibula with medial displacement of the distal fragment and slight angulation. Also fractures of the posterior malleolus and medial malleolus with uncovering appearance of the talus. Patient was sent here for orthopedic consult. We called orthopedics right away. The patient was in a tightly wrapped splint. Patient appears to be in no significant distress, vital signs within normal limits. This patient had a normal cardiac exam. The patient has a normal S1-S2, a regular rate and rhythm, and no murmurs, rubs or gallops. Lungs were clear bilaterally, no rales, rhonchi, crackles, or wheezes. Abdomen is soft. Nondistended. No abdominal tenderness to palpation. Normal bowel sounds in all 4 quadrants. No rebound tenderness or guarding. No hepatosplenomegaly appreciated or masses, or pulsatile masses. Patient had no neurologic deficits appreciated. PE: BP 118/64 Pulse 88 Temp (Src) 98.4 (Oral) Resp 18 Ht 5' 6" (1.68m) Wt 215 lb (97.5kg) SpO2 100% LMP 08/18/2013 BMI 34.72 kg/(m2). GEN: Alert, no distress HEENT: Normal cephalic atraumatic, IVELISSE, Moist mucus membranes RESP: Clear to auscultation, no distress CV: Regular rate and rhythm no murmur ABD: Nontender, nondistended MUSC: No edema, distal pulses intact NEURO: Alert, oriented, no appreciable deficits, moves all extremities spontaneously MDM: Orthopedics did come down and did unwrap and rewrap the patient's injured right lower extremity, and has admitted the patient to their service for an external fixation tomorrow. Patient has remained in hemodynamically stable condition. XAVIER MEJIA 04/19/23 1220 Normal [facility] ED PROV NOTE HNO ID: [id number] Author: Luis Angel Price DO Service: Emergency Medicine Author Type: Resident Type: ED Provider Notes Filed: 04/19/2023 11:30 AM Note Text: Attestation signed by Xavier Mejia MD at 04/24/2023 8:15 AM Attending Note I evaluated the patient and personally participated in the rothman components. I agree with the resident's findings and plan as documented and have discussed the case and management of the patient's care with the resident. Signature: Xavier Mejia MD Date: 04/24/2023 Time: 8:15 AM ED Provider Note Patient Name: Chris Lund : 1975 SERVICE DATE: 04/19/23 History Patient presents with: Fall: Pt arrived via EMS from [facility] c/o fall. Pt started a new sleep med last night, woke up in the middle of the night to use bathroom, got dizzy and fell. Pt has a tib fib fx and is here for Ortho consult. Pt AOx4 upon arrival HPI Chris Lund is a 48 year old female with PMHx of fibromyalgia who presents to the emergency department for a fall with an ankle fracture. Patient states that last evening she took a new medication, Xywav, and around one of the morning got up began to feel dizzy and fell. States that she feels as if she was going in and out of consciousness with the fall. Unsure if she struck her head. States that since then she has been having pain at the right ankle. Denies any headache, neck pain, back pain, chest pain, shortness breath, abdominal pain, nausea, vomiting, or any urinary symptoms. Complete ROS as documented below. PAST MEDICAL HISTORY Diagnosis Date Celiac disease Cholelithiasis COVID 2019 beginning 2019 and 04/23/21 Fibromyalgia IBS (irritable bowel [...] SPEC VARICIES INJ 11/30/2021 Normal LAPS ABD PRTMANDOMENTUM DX W/WO SPEC BR/WA SPX 03/23/1997 OVARIAN [...] Vaping Use Vaping Use: Never used Substance and Sexual Activity Alcohol use: No Drug use: No Sexual activity: Yes Partners: Male control/protection: Tubal Ligation ALLERGIES No Known Allergies Review of Systems Constitutional: Negative for chills and fever. HENT: Negative for congestion and hearing loss. Eyes: Negative for visual disturbance. Respiratory: Negative for cough and shortness of breath. Cardiovascular: Negative for chest pain and leg swelling. Gastrointestinal: Negative for abdominal pain, nausea and vomiting. Genitourinary: Negative for decreased urine volume, difficulty urinating, dysuria, frequency and urgency. Musculoskeletal: Positive for arthralgias and joint swelling. Negative for back pain and neck pain. Skin: Negative for color change. Neurological: Positive for dizziness. Negative for seizures, syncope, weakness and headaches. Psychiatric/Behavioral: Negative for agitation, behavioral problems and confusion. The patient is not nervous/anxious. Physical Exam Vitals [04/19/23 0818] BP Pulse Temp Temp src Resp SpO2 Weight Height 133/80 (!) 97 36.4 ?C (97.5 ?F) Oral 14 97 % 97.5 kg (215 lb) 1.676 m (5' 6") Physical Exam Vitals and nursing note reviewed. Constitutional: General: She is not in acute distress. Appearance: Normal appearance. She is not ill-appearing, toxic-appearing or diaphoretic. HENT: Head: Normocephalic and atraumatic. Right Ear: External ear normal. Left Ear: External ear normal. Nose: Nose normal. No rhinorrhea. Mouth/Throat: Mouth: Mucous membranes are moist. Pharynx: Oropharynx is tianna (more content not included)... Normal [facility] HISTORY PHYSICALon HISTORY PHYSICAL HNO ID: [id number] Author: Marty Lerma MD Service: Orthopaedic Surgery Author Type: Physician Type: HANDP Filed: 04/20/2023 10:04 AM Note Text: ORTHOPAEDIC SURGERY HANDP Pt: CHRIS LUND Date of Admission: 04/19/2023 Chief Complaint: Right Ankle Pain ORTHOPAEDIC TRAUMA ATTENDING ADDENDUM: History and physical examination reviewed. Patient seen and examined. Agree with orthopaedic resident assessment and plan. Patient dislocated for extended period of time at outside hospital, who transferred patient to our facility requiring closed reduction by the orthopaedic residents. Recommended temporizing stabilization right trimalleolar ankle fracture-dislocation with application external fixator right ankle. Will require future definitive stabilization with timing dependent on degree of soft tissue swelling. Discussed risks and benefits in detail with patient and , and all questions were answered. Anticipate non-weight bearing right lower extremity in external fixator. May be discharged to home when safely mobile with crutches or walker and when pain is controlled with oral medication. Marty Lerma MD HPI: 48 year old female presented to [facility] ED from [facility] on 04/19/2023 for evaluation of right ankle pain. The patient endorses a fall from standing height twisting her right ankle after taking newly prescribed narcolepsy/insomnia medication. This happened at approximately 1 AM. She states that at outside hospital, [place] [facility], they did not provide any pain medications including lidocaine injection. The patient did not have a reduction and the ankle was splinted to be sent to [facility]. Following the fall last night, the patient had immediate and severe right ankle pain and the inability to ambulate. The patient is somewhat unsure of the events of her fall however denies major head trauma. The patient has baseline neuropathy bilateral feet and does state that she has some numbness and tingling currently in the forefoot plantar side. 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 The patient denies prior pain or injury to the right ankle. The patient lives at home and utilizes nothing for ambulation assistance at baseline. She is with her at bedside. The patient and the deny any bleeding after the ankle injury. She bumped her left ankle during this resulting in the abrasion mentioned below in physical exam however this never was bleeding. The patient denies anticoagulation utilization. The patient denies fevers, chills, nausea, vomiting and numbness/tingling. The patient has no additional orthopaedic complaints at this time. Patient has chronic low back pain for which she sees a chiropractor which she says not been worse since her fall. PAST MEDICAL HISTORY Diagnosis Date Celiac disease [...] SPEC VARICIES INJ 11/30/2021 Normal LAPS ABD PRTMANDOMENTUM DX W/WO SPEC BR/WA SPX 03/23/1997 OVARIAN CYST DRAINAGE LAPS SURG CHOLECYSTECTOMY W/CHOLANGIOGRAPHY 08/01/2010 LIG/TRNSXJ FLP TUBE ABDL/VAG APPR UNI/BI 04/23/2010 Tubal ligation PAST SURGICAL HISTORY OF hysterectomy RPR UMBILICAL HRNA 5 YRS/> REDUCIBLE 08/01/2010 Allergies: Patient has no known allergies. No current facility-administered medications for this encounter. Current Outpatient Medications Medication Sig sodium,calcium,mag,pot oxybate (XYWAV) 0.5 gram/mL soln oral liquid Take 9 mL by mouth at bedtime and 4 hours after. modafinil (PROVIGIL) 200 mg tablet Take 1 [...] in AM on empty stomach G.I. Detox ([employer]) Activated charcoal - (empty stomach, 30min before eating (60-90 min away from supps) Start with 1 capsule and work up to 3 capsules a day One [employer] (Pure Encapsulation) Take 2 capsules by mouth daily with food. Vitamin (more content not included)... Normal [facility] Hematocrit Auto (Bld) [Volum e fraction]Ordered By: Chris Ordaz on 04-19-2023 Hematocrit (Bld) [Volume fraction] 41.6 % 37-47 [facility] Hyaline casts LM.LPF (Urine sed) [#/Area]Ordered By: Chris Ordaz on 04-19-2023 Hyaline casts (Urine sed) [#/Area] 10 /[LPF] 0-5 [facility] Ketones Test strip Ql (U)Ord ered By: Chris Ordaz on 04-19-2023 Ketones Ql (U) 15 mg/dl Negative [facility] Laboratory - Chemistry and C hemistry - challengeOrdered By: Chris Ordaz on 04-19-2023 ALP [Catalytic activity/Vol] 59 U/L 45-117 [facility] ALT [Catalytic activity/Vol] 40 U/L 13-56 [facility] CO2 [Moles/Vol] 27.0 mmol/L 21.0-32.0 [facility] Globulin (S) [Mass/Vol] 3.4 g/dL 2.2-4.2 [facility] Urea nitrogen/Creatinine [Mass ratio] 11.0 mg/mg 10-20 [facility] - Hematology and Cell countsOrdered By: Chris Ordaz on 04-19-2023 Erythrocyte distribution width (RBC) [Entitic vol] 45.1 fL 35.1-43.9 [facility] Erythrocyte distribution width (RBC) [Ratio] 13.4 % 11.6-14.6 [facility] Immature granulocytes/100 WBC (Bld) 0.500 % 0.0-0.9 [facility] Comment on above: IG% - Immature Granu locytes (promyelocytes, myelocytes and metamyelocytes) > 1% indicates that a LEFT SHIFT is Present. MCH (RBC) [Entitic mass] 29.0 pg 27.0-32.0 [facility] Nucleated RBC/100 WBC (Bld) [Ratio] 0 % 0-5 [facility] MCHC Auto (RBC) [Mass/Vol]Or dered By: Chris Ordaz on 04-19-2023 MCHC (RBC) [Mass/Vol] 31.7 g/dL 32-36 [facility] Mucus LM Ql (Urine sed)Order ed By: Chris Ordaz on 04-19-2023 Mucus Ql (Urine sed) 0 SEEN /hpf [facility] NURSING PROGon 04-19-2023 NURSING PROG HNO ID: [id number] Author: Vicki Dillon RN Service: Nursing Author Type: Registered Nurse Type: Nursing Progress Note Filed: 04/19/2023 11:54 PM Note Text: PRN pain medication given. Patient is being transferred to floor by aide. Report given to floor by previous RN Normal [facility] Nitrite Test strip Ql (U)Ord ered By: Chris Ordaz on 04-19-2023 Nitrite Ql (U) Negative Negative [facility] No Panel InformationOrdered By: Chris Ordaz on 04-19-2023 Estimated Creatinine Clearance Calc 76.84 ml/min [facility] Estimated GFR (MDRD) Amer 95 mL/min >60 [facility] Comment on above: GFR Calc Estimated GFR (MDRD) Non-Af Amer 78 mL/min >60 [facility] Comment on above: Non- GFR Calc Troponin I High Sensitivity 6 pg/mL 3.0-54.0 [facility] Comment on above: Please Note: [place] t Units and Gender Specific Reference Ranges. For more information see Policy Stat Procedure [place] High Sensitivity Troponin (TNIH) and attachments. Platelets bldOrdered By: Joe Ordaz on 04-19-2023 Platelets (Bld) [#/Vol] 300 10*3/uL 150-450 [facility] Protein Test strip Ql (U)Ord ered By: Chris Ordaz on 04-19-2023 Protein Ql (U) 30 mg/dl Negative [facility] Serum or plasma albumin leslie urement (mass/volume)Ordered By: Chris Ordaz on 04-19-2023 Albumin [Mass/Vol] 3.2 g/dL 3.2-5.0 [facility] Serum or plasma albumin/glob ulin mass ratioOrdered By: Chris Ordaz on 04-19-2023 Albumin/Globulin [Mass ratio] 0.9 {ratio} 0.9-2.4 [facility] Serum or plasma calcium leslie urement (mass/volume)Ordered By: Chris Ordaz on 04-19-2023 Calcium [Mass/Vol] 9.2 mg/dL 8.5-10.1 [facility] Serum or plasma creatinine m easurement (mass/volume)Ordered By: Chris Ordaz on 04-19-2023 Creatinine [Mass/Vol] 0.82 mg/dL 0.55-1.02 [facility] Comment on above: The validity of the calculated GFR & GFRAA in patients over 70 years has not been determined. Clinical correlation is essential. Serum or plasma urea nitroge n measurement (mass/volume)Ordered By: Chris Ordaz on 04-19-2023 Urea nitrogen [Mass/Vol] 9 mg/dL 7-18 [facility] Squamous epithelial cells de tection in urine sediment by light microscopyOrdered By: Chris Ordaz on 04-19-2023 Epithelial cells.squamous LM Ql (Urine sed) 0 SEEN /hpf 5-10 [facility] TYPE + SCREENon 04-19-2023 ABO A Normal [facility] Comment on above: Order Comment: Speci men Type: BLOOD SPECIMENOrdering Facility: [facility] Address: [address] [place] [address] Performed By: #### T SCR ####[facility] BLOOD BANKCLIA [id number] [address] [place] HISTORICAL AB SCR STATUS Negative Normal [facility] Comment on above: Order Comment: Speci men Type: BLOOD SPECIMENOrdering Facility: [facility] Address: [address] [place] [address] Performed By: #### T SCR ####[facility] BLOOD BANKCLIA [id number] [place] [address] [place] Rh Nom (Bld) Negative Normal [facility] Comment on above: Order Comment: Speci men Type: BLOOD SPECIMENOrdering Facility: [facility] Address: [place] [address] Performed By: #### T SCR ####[facility] BLOOD BANKCLIA [id number] [place] [address] [facility] [place] TYPE AND SCREEN EXPIRATION 04/22/2023 23:59 Normal [facility] Comment on above: Order Comment: Speci men Type: BLOOD SPECIMENOrdering Facility: [facility] Address: [place] [address] Performed By: #### T SCR ####[facility] BLOOD BANKCLIA [id number] [place] [id number] [facility] Thin prep Papanicolaou smear with manual screeningOrdered By: Chris Ordaz on 04-19-2023 Thin prep Papanicolaou smear with manual screening 21 U/L 15-37 [facility] Thin prep Papanicolaou smear with manual screening 6 5-15 [facility] Urine blood detectionOrdered By: Chris Ordaz on 04-19-2023 RBC Ql (U) 10 /ul Negative [facility] RBC Ql (U) 0-5 SEEN /hpf 0-5 [facility] Urine clarityOrdered By: Joe Ordaz on 04-19-2023 Clarity (U) Clear Clear [facility] Urine color determinationOrd ered By: Chris Ordaz on 04-19-2023 Color (U) Yellow Yellow [facility] Urine glucose detectionOrder ed By: Chris Ordaz on 04-19-2023 Glucose Ql (U) Normal mg/dl Normal [facility] Urine leukocyte esterase det ection by dipstickOrdered By: Chris Ordaz on 04-19-2023 Leukocyte esterase Test strip Ql (U) Negative Negative [facility] Urine pHOrdered By: Chris borjas on 04-19-2023 pH (U) 6.0 [pH] 5.0 - 8.0 [facility] Urine sediment bacteria coun t by microscopy (number/high power field)Ordered By: Chris Ordaz on 04-19-2023 Bacteria LM.HPF (Urine sed) [#/Area] 0 /[HPF] None Seen [facility] Urine specific gravity measu rementOrdered By: Chris Ordaz on 04-19-2023 Specific gravity (U) [Rel density] 1.025 1.002-1.03 0 [facility] Urobilinogen Auto test strip Ql (U)Ordered By: Chris Ordaz on 04-19-2023 Urobilinogen Ql (U) 1 mg/dl Normal [facility] XR ANKLE 3V AP/LAT/OBL RTon 04-19-2023 XR ANKLE 3V AP/LAT/OBL RT * * *Final Report* * * DATE OF EXAM: Apr 19 2023 10:22AM AKX [id number] - XR ANKLE 3V AP/LAT/OBL RT / PROCEDURE REASON: Fracture, ankle * * * * Physician Interpretation * * * * EXAM TITLE: XR ANKLE 3V AP/LAT/OBL RT DATE: 04/19/2023 INDICATION: Status post reduction of comminuted fracture dislocation right ankle. COMPARISON: Outside films performed on 04/19/2023. AP, oblique, lateral views of the right ankle show near anatomic alignment reestablished at the level of the ankle mortise. There is still widening of the tibiotalar articulation medially. Transverse fracture through the medial malleolus. Fracture through the posterior malleolus. Right fibular fracture involving the mid shaft. All films are taken through a cast. IMPRESSION: Status post reduction of right ankle fracture dislocation Endocrinology Teacher: LUIS Transcribe Date/Time: Apr 19 2023 10:30A Dictated by : RAMSEY FOSTER MD This examination was interpreted and the report reviewed and electronically signed by: RAMSEY FOSTER MD on Apr 19 2023 10:32AM EST [id number] Normal [facility] Erythrocyte sedimentation ra radha 11-02-2022 ESR (Bld) [Velocity] 8 mm/h 0-30 [facility] Laboratory - Chemistry and C hemistry - challengeon 11-02-2022 CK [Catalytic activity/Vol] 93 U/L 26-192 [facility] Serum cyclic citrullinated p eptide IgG antibody assay (units/volume)on 11-02-2022 Cyclic citrullinated peptide IgG Qn 4 units 0-19 [facility] Comment on above: Negative <20 Weak po sitive 20 - 39 Moderate positive 40 - 59 Strong positive >59Performed at: CB - [facility] [id number] [place], [place] [id number] Director: Mckay Perez PhD, Phone: [phone] Serum nuclear antibody titer by immunofluorescenceon 11-02-2022 Nuclear Ab IF (S) [Titer] See comment [facility] Comment on above: TEST RESULT LIMITSAN A by IFA Rfx Titer/Pattern Positive Abnormal Negative < 1:80 Borderline 1:80 Positive > 1:80Homogeneous Pattern 1:80 ICAP nomenclature: AC-1For more information about Hep-2 cell patterns useANAFeathrerns.org, the official website for the InternationalConsensus on Antinuclear Antibody (LINN) Patterns (ICAP). ---- Note: A positive LINN result may occur in healthy individualsor be associated with a variety of diseases. Seeinterpretation below:Pattern Antigen Detected Suggested Disease Association Homogenous DNA(ds,ss,n), High titers - SLE (Smooth) Histone Speckled Sm,ASSOCIATE PROFESSOR OF BIOLOGY,SCL-70, SLE,MCTD, Scleroderma, SS-A/SS-B Sjogrens Nucleolar SCL-70,PM-1/SCL High titers Scleroderma Polymyositis/scleroderma over- lap Centromere Centromere PSS w/Crest syndrome variable Nuclear Dot Sp100,j67-[id number] Primary Biliary Cirrhosis Nuclear GP210, Primary Biliary CirrhosisMembrane maria luz A,B,C TESTING PERFORMED AT [facility]. ORIGINAL REPORT ON FILE IN LAB CONTAINS ADDITIONAL TEST SITE INFORMATION. Serum or plasma C reactive p rotein measurement (mass/volume)on 11-02-2022 CRP [Mass/Vol] mg/L 0.0-3.0 [facility] Comment on above: C-Reactive Protein ( CRP) provides useful information for thediagnosis, therapy and monitoring of inflammatory processesand associated diseases. For the evaluation of Relative Riskfor Cardiovascular Disease, a High Sensitivity CRP (HSCRP)should be ordered. Serum rheumatoid factor dete ctionon 11-02-2022 Rheumatoid factor Ql (S) < 10.0 IU/mL <15 [facility] CNPNon 07-20-2022 CNPN Telephone (CVRCIN) CHRIS LUND ([id number]) 1975 F Date Time Provider Department 07/20/22 MILLICENT STOUT CarweezIN During your visit today, we recorded the following information about you: Priscila Dominique 07/20/2022 11:09 AM Signed Patient calling back Facundo Rice RN 07/20/2022 2:20 PM Signed See patient outreach encounter Allergies As of Date: 07/20/2022 (No Known Allergies) Date Reviewed: 01/06/2022 Reviewed by: Ryan Mcbride LPN - Fully Assessed Reason for Visit: Patient Update [1234] Prescriptions as of 07/20/2022 - modafinil (PROVIGIL) [...] AM on empty stomach - G.I. Detox ([employer]) Activated charcoal - (empty stomach, 30min before eating (60-90 min away from supps) Start with 1 capsule and work up to 3 capsules a day - One Leggett (Pure Encapsulation) Take 2 capsules by mouth [...] Pemberton Rn Problem List As Of Date 07/20/2022 Noted Resolved SKIN SENSATION DISTURB [R20.9] 07/28/2008 ADVANCED MATERNAL AGE:MULTIPARA[659.63] [O09.52*11/24/2009 07/04/2010 SUPRF HIGH RISK NEC [V23.89] [O09.899]11/24/2009 07/04/2010 Poor grth-antepart [O36.5990] 11/24/2009 07/04/2010 Other pre-existing hypertension, antepartum [O1*11/24/2009 07/04/2010 Previous delivery, antepartum conditio*11/24/2009 07/04/2010 Diabetes mellitus, 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] 06/17/2010 07/04/2010 Essential hypertension [I10] 07/04/2010 Cholecystitis with cholelithiasis [K80.10] 07/05/2010 Incisional hernia [K43.2] 07/05/2010 Neuralgia [M79.2] 07/05/2010 Irregular menstrual cycle [N92.6] 11/10/2011 01/18/2016 Excessive or frequent menstruation [N92.0] 11/10/2011 01/18/2016 Metrorrhagia [N92.1] 11/10/2011 01/18/2016 Fatigue [R53.83] 11/05/2015 01/18/2016 Vitamin D deficiency [E55.9] 11/05/2015 Sleep disturbance [G47.9] 11/05/2015 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] 11/05/2015 Bloating [R14.0] 11/05/2015 01/18/2016 Irritable bowel syndrome with diarrhea [K58.0] 11/05/2015 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] 04/04/2016 Fatigue [R53.83] 04/04/2016 COVID-19 [U07.1] 06/09/2021 Obesity, Class I, BMI 30-34.9 [E66.9] 06/09/2021 DIAN (obstructive sleep apnea) [G47.33] 06/09/2021 Encounter Status:Closed by FACUNDO RICE [facility]20/22 [facility] (NEUR) CHRIS LUND ([id number]) 1975 F Date Time Provider Department 05/16/22 JUDI DURHAM [facility] During your visit today, we recorded the following information about you: Judi Durham RN 05/16/2022 7:46 AM Signed Kyrie Downing 05/17/2022 8:53 AM Signed Received from [employer] denial letter for nuvigil 150MG OR Tablets via fax. 9 pages indexed to chart. Judi Durham RN 05/17/2022 9:31 AM Signed Kyrie Dwoning 05/18/2022 1:32 PM Signed Received from [employer] ([employer]) denial letter for Armodafinil 150mg via fax. 11 pages indexed to chart. Judi Durham RN 05/19/2022 2:36 PM Signed Addended by: JUDI DURHAM on: 05/19/2022 02:36 PM Modules accepted: Orders Mika Jenkins MD 05/19/2022 3:15 PM Signed Addended by: MIKA JENKINS on: 05/19/2022 03:15 PM Modules accepted: Ravinder Durham RN 05/22/2022 8:25 AM Signed Medication changed per Dr. Jenkins; new PA initiated for Modafinil Kyrie Downing 05/22/2022 12:10 PM Signed Received from [employer] ([employer]) a denial letter for Modafinil 200 mg via fax. 12 pages indexed to chart. Judi Durham RN 05/23/2022 9:[address] 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 Detox ([employer]) Activated charcoal - (empty stomach, 30min before eating (60-90 min away from supps) Start with 1 capsule and work up to 3 capsules a day - One Leggett (Pure Encapsulation) Take 2 capsules by mouth daily with food. - Vitamin D3 5000 U (Pure Encapsulations) Take 1 capsule by mouth daily with food. - Saccharomyces Boulardii (Klaire/Prothera) Take 1 capsule by mouth twice daily. - Iron Chelate (Klaire/Prothera) Take 1 capsule by mouth daily with food. - Melatonin-SR (Klaire/Prothera) 2mg 1 by mouth 30 minutes before bed Facility-Administered Medications as of 05/23/2022 - perflutren lipid microspheres 1.3 mL in NaCl (PF) 0.9% 10 mL injection (DEFINITY) - sodium chloride 0.9 % (flush) 10 mL (BD POSIFLUSH) Meds Comments as of 11/18/2009: All medications reviewed today/November 18, 2009 Ashley Pemberton Rn Problem List As Of Date 05/16/2022 Noted Resolved SKIN SENSATION DISTURB [R20.9] 07/28/2008 ADVANCED MATERNAL AGE:MULTIPARA[659.63] [O09.52*11/24/2009 07/04/2010 SUPRF HIGH RISK NEC [V23.89] [O09.899]11/24/2009 07/04/2010 Poor grth-antepart [O36.5990] 11/24/2009 07/04/2010 Other pre-existing hypertension, antepartum [O1*11/24/2009 07/04/2010 Previous delivery, antepartum conditio*11/24/2009 07/04/2010 Diabetes mellitus, 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] 06/17/2010 07/04/2010 Essential hypertension [I10] 07/04/2010 Cholecystitis with cholelithiasis [K80.10] 07/05/2010 Incisional hernia [K43.2] 07/05/2010 Neuralgia [M79.2] 07/05/2010 Irregular menstrual cycle [N92.6] 11/10/2011 01/18/2016 Excessive or frequent menstruation [N92.0] 11/10/2011 01/18/2016 Metrorrhagia [N92.1] 11/10/2011 01/18/2016 Fatigue [R53.83] 11/05/2015 01/18/2016 Vitamin D deficiency [E55.9] 11/05/2015 Sleep disturbance [G47.9] 11/05/2015 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 Medications Discontinued During This Encounter Prescriptions - armodafinil (NUVIGIL) 150 mg tab (Discontinued) Take one tablet by mouth as directed or upon awakening. Encounter Status:Closed by JUDI DURHAM on 1 (more content not included)... [facility] Bas[facility] percentageon 2022 Basophil percentage 3 ug/L 0-9 [facility] Comment on above: Detection Limit = 1 Bilirubin [Mass/Vol] 0.30 mg/dL 0.20-1.00 [facility] Comment on above: For patients on eltr ombopag therapy, use of Dimension [place] TBIL is not recommended. Chloride [Moles/Vol] 104 mmol/L 98-107 [facility] Glucose [Mass/Vol] 92 mg/dL 74-106 [facility] Potassium [Moles/Vol] 4.1 mmol/L 3.5-5.1 [facility] Protein [Mass/Vol] 6.6 g/dL 6.4-8.2 [facility] Sodium [Moles/Vol] 140 mmol/L 136-145 [facility] WBC (Bld) [#/Vol] 8.5 10*3/uL 4.4-11.0 [facility] Blood erythrocytes count (nu mber/volume)on 04-27-2022 RBC (Bld) [#/Vol] 4.61 10*6/uL 4.2-5.4 [facility] RBC (Bld) [#/Vol] 4.72 10*6/uL 3.77-5.28 [facility] Blood hemoglobin measurement (mass/volume)on 04-27-2022 Hemoglobin (Bld) [Mass/Vol] 13.2 g/dL 12.0-15.0 [facility] Blood mercury measurement (m ass/volume)on 04-27-2022 Mercury (Bld) [Mass/Vol] < 1.0 ug/L 0.0-14.9 [facility] Comment on above: Environmental Exposu re: <15.0 Occupational Exposure: MARCI - Inorganic Mercury: 15.0 Detection Limit = 1.0Performed at: [facility] [id number] [place], [place] [id number] Director: Mckay Perez PhD, Phone: [phone] at: [employer] [id number] Director: Fariba Hurtado MD, Phone: [phone] Blood platelet mean volumeon 04-27-2022 Platelet mean volume (Bld) [Entitic vol] 10.3 fL 6.2-12.0 [facility] Determination of erythrocyte mean corpuscular volume (MCV)on 04-27-2022 MCV (RBC) [Entitic vol] 90.7 fL 81-99 [facility] Erythrocyte iephnnh-8-xkvhxh ate dehydrogenase (enzymatic activity/mass)on 04-27-2022 G6PD (RBC) [Catalytic activity/Mass] 273 426-692 [facility] Comment on above: Result Units: U/10E1 2 RBCWhen decreased, G-6-PD, Quant. values are associated withacute hemolytic anemia when deficient individuals areexposed to oxidative stress, such as with certainmedications (e.g., primaquine), infection, or ingestion offava beans. Caution: In patients with acute hemolysis(e.g., abnormally low RBC values), testing for G-6-PD maybe falsely normal because older erythrocytes with a higherenzyme deficiency have been hemolyzed. Young erythrocytesand reticulocytes have normal or near-normal enzymeactivity. Normal values of G-6-PD may be measured forseveral weeks following a hemolytic event. Hematocrit Auto (Bld) [Volum e fraction]on 04-27-2022 Hematocrit (Bld) [Volume fraction] 41.8 % 37-47 [facility] Laboratory - Chemistry and C hemistry - challengeon 04-27-2022 ALP [Catalytic activity/Vol] 75 U/L 45-117 [facility] ALT [Catalytic activity/Vol] 42 U/L 13-56 [facility] CO2 [Moles/Vol] 29.0 mmol/L 21.0-32.0 [facility] Free T4 [Mass/Vol] 1.22 ng/dL 0.76-1.46 [facility] Globulin (S) [Mass/Vol] 3.3 g/dL 2.2-4.2 [facility] Urea nitrogen/Creatinine [Mass ratio] 16.0 mg/mg 10-20 [facility] Laboratory - Hematology and Cell countson 04-27-2022 Erythrocyte distribution width (RBC) [Entitic vol] 45.7 fL 35.1-43.9 [facility] Erythrocyte distribution width (RBC) [Ratio] 13.7 % 11.6-14.6 [facility] MCH (RBC) [Entitic mass] 28.6 pg 27.0-32.0 [facility] MCHC Auto (RBC) [Mass/Vol]on 04-27-2022 MCHC (RBC) [Mass/Vol] 31.6 g/dL 32-36 [facility] No Panel Informationon 04-27 Estimated GFR (MDRD) Amer 117 mL/min >60 [facility] Comment on above: GFR Calc Estimated GFR (MDRD) Non-Af Amer 97 mL/min >60 [facility] Comment on above: Non- GFR Calc Free Triiodothyronine (T3) pg/dL 3.0 pg/mL 2.18-3.98 [facility] Lead < 1.0 ug/dL 0.0-3.4 [facility] Comment on above: Testing performed by Inductively coupled plasma/MassSpectrometry. Environmental Exposure: WHO Recommendation <20.0 Occupational Exposure: OSHA Lead Std 40.0 MARCI 30.0 Detection Limit = 1.0This test was developed and its performancecharacteristics determined by [employer]. It has not beencleared or approved by the Food and Drug Administration. Thyroid Stimulating Hormone (TSH) 0.76 uIU/mL 0.358-3.74 [facility] Platelets bldon 04-27-2022 Platelets (Bld) [#/Vol] 304 10*3/uL 150-450 [facility] Serum or plasma albumin leslie urement (mass/volume)on 04-27-2022 Albumin [Mass/Vol] 3.3 g/dL 3.2-5.0 [facility] Serum or plasma albumin/glob ulin mass ratioon 04-27-2022 Albumin/Globulin [Mass ratio] 1.0 {ratio} 0.9-2.4 [facility] Serum or plasma calcium leslie urement (mass/volume)on 04-27-2022 Calcium [Mass/Vol] 8.8 mg/dL 8.5-10.1 [facility] Serum or plasma creatinine m easurement (mass/volume)on 04-27-2022 Creatinine [Mass/Vol] 0.69 mg/dL 0.55-1.02 [facility] Comment on above: The validity of the calculated GFR & GFRAA in patients over 70 years has not been determined. Clinical correlation is essential. Serum or plasma urea nitroge n measurement (mass/volume)on 04-27-2022 Urea nitrogen [Mass/Vol] 11 mg/dL 7-18 [facility] TOX SCREEN ROUT URon 023 Amphetamines Confirm (U) [Mass/Vol] Negative Negative [facility] Barbiturates Urine Negative Negative [facility] Benzodiazepines Urine Negative Negative [facility] Cannabinoids, Urine Negative Negative [facility] Cocaine Ql (U) Negative Negative [facility] Ethanol (U) [Mass/Vol] <11 mg/dL [facility] Opiates Screen Ql (U) Negative Negative [facility] oxyCODONE cutoff Screen (U) [Mass/Vol] Negative Negative [facility] Phencyclidine Ql (U) Negative Negative [facility] Thin prep Papanicolaou smear with manual screeningon 04-27-2022 Thin prep Papanicolaou smear with manual screening 19 U/L 15-37 [facility] Thin prep Papanicolaou smear with manual screening 7 5-15 [facility] TOX SCREEN ROUT URon 023 Amphetamines Confirm (U) [Mass/Vol] Negative Normal Negative [facility] Comment on above: Order Comment: Speci men Type: URINE SPECIMEN [facility] Address: [address] [place] [id number] Result Comment: Cuto ff threshold at 1000 ng/mL. Performed By: #### U TOX2 #### [facility] CLIA [id number] [address] [place] [address] [place] BARBITURATES, URINE Negative Normal Negative [facility] Comment on above: Order Comment: Speci men Type: URINE SPECIMEN [facility] Address: [address] [place] [address] Result Comment: Cuto ff threshold at 200 ng/mL. Performed By: #### U TOX2 #### [facility] CLIA [id number] [address] [place] [address] [place] BENZODIAZEPINES, UR Negative Normal Negative [facility] Comment on above: Order Comment: Speci men Type: URINE SPECIMEN [facility] Address: [address] [place] [address] Result Comment: Cuto ff threshold at 200 ng/mL. Performed By: #### U TOX2 #### [facility] CLIA [id number] [address] [place] [address] [place] CANNABINOIDS,URINE Negative Normal Negative [facility] Comment on above: Order Comment: Speci men Type: URINE SPECIMEN [facility] Address: [address] [place] [address] Result Comment: Cuto ff threshold at 50 ng/mL. Performed By: #### U TOX2 #### [facility] CLIA [id number] [address] [place] [address] [place] Cocaine Ql (U) Negative Normal Negative [facility] Comment on above: Order Comment: Speci men Type: URINE SPECIMEN [facility] Address: [address] [place] [address] Result Comment: Cuto ff threshold at 300 ng/mL. Performed By: #### U TOX2 #### [facility] CLIA [id number] [address] [place] [address] [place] Ethanol (U) [Mass/Vol] <11 Normal <11 [facility] Comment on above: Order Comment: Speci men Type: URINE SPECIMEN [facility] Address: [address] [place] [address] Performed By: #### U TOX2 #### [facility] CLIA [id number] [address] [place] [address] OF [facility] Opiates Screen Ql (U) Negative Normal Negative [facility] Comment on above: Order Comment: Speci men Type: URINE SPECIMEN [facility] Address: [address] [place] [address] Result Comment: Cuto ff threshold at 300 ng/mL. Performed By: #### U TOX2 #### [facility] CLIA [id number] [address] [place] [address] oxyCODONE cutoff Screen (U) [Mass/Vol] Negative Normal Negative [facility] Comment on above: Order Comment: Speci men Type: URINE SPECIMEN [facility] Address: [address] [place] [address] Result Comment: Cuto ff threshold at 100 ng/mL. Performed By: #### U TOX2 #### [facility] CLIA [id number] [address] [place] [address] Phencyclidine Ql (U) Negative Normal Negative [facility] Comment on above: Order Comment: Speci men Type: URINE SPECIMEN [facility] Address: [address] [place] [address] Result Comment: Cuto ff threshold at 25 ng/mL. Performed By: #### U TOX2 #### [facility] CLIA [id number] [address] [place] [address] [place] No Panel Informationon 03-13 D-Dimer Quantitative (PE/DVT) 0.84 FEU/ug/m 0.27-0.49 [facility] Comment on above: D-Dimer ELEVATED (>0 .49): Additional studies and clinicalassessments are indicated to conclude diagnosis of:Deep Vein Thrombosis (DVT) or Pulmonary Embolism (PE)CRITICAL VALUE VERIFIED. CALLED TO GERARDO SMITH ( OFFICE).03/13/22 6583 Eder Carmichael.RESULTS READ BACK BY SAME. COLONOSCOPY SCREENINGon 11-21 [facility] EGD DIAGNOSTICon 11-30-[address] [facility] [address] CHEST W IVCON PEon 2021 CT CHEST W IVCON PE * * *Final Report* * * DATE OF EXAM: Nov 18 2021 1:34PM [facility] 0540 - CT CHEST W IVCON PE / PROCEDURE REASON: R07.9-Chest pain, unspecified type * * * * Physician Interpretation * * * * EXAMINATION: CHEST CT WITH CONTRAST (PULMONARY EMBOLISM PROTOCOL) CLINICAL HISTORY: Chest pain, unspecified type Technique: Spiral CT acquisition of the chest from the thoracic inlet to the upper abdomen following IV contrast. Axial 1 and 3 mm thick slices plus coronal and sagittal reformatted images. MQ: CTCP_5 Contrast: 100 mL Omnipaque [address] Radiation dose: Integrated Dose-length product (DLP) for this visit = 400 mGy*cm CT Dose Reduction Employed: Automated exposure control(AEC) and iterative recon Comparison: No relevant prior studies available. RESULT: Limitations: None. Evaluation for thromboembolic disease: - Right heart chambers: No thromboembolic disease. - Main pulmonary arteries: No thromboembolic disease. - Lobar pulmonary arteries: No thromboembolic disease. - Segmental pulmonary arteries: No thromboembolic disease. - Subsegmental pulmonary arteries: No thromboembolic disease. - Additional pulmonary artery findings: The main pulmonary artery is normal in caliber. Lines, tubes, and devices: None. Lung parenchyma and airways: There is some mild groundglass density throughout the lungs particularly in the lower lung yates bilaterally. No focal nodules are seen. No pleural effusions identified Pleural space: No pleural effusion. No pleural thickening. Lower neck, lymph nodes, and mediastinum: The imaged thyroid gland is normal. No lymphadenopathy in the supraclavicular, axillary, mediastinal, or hilar regions. Heart, pericardium, and thoracic vessels: The thoracic aorta is normal in caliber. The cardiac chambers are normal in size. No coronary artery atherosclerotic calcifications are noted, although the study is not optimized for coronary assessment. No pericardial effusion or thickening. Bones and soft tissues: No destructive bone lesion. Chest wall is unremarkable. Upper abdomen: No abnormality in the imaged upper abdomen. Solutions Development Analyst (topogram) images: No additional findings. IMPRESSION: 1. No CT evidence of pulmonary embolism. 2. Some mild groundglass infiltrate throughout both lungs most prominent in the lower lung yates. Endocrinology Teacher: LUIS Transcribe Date/Time: Nov 18 2021 2:09P Dictated by : PARMINDER DANG DO This examination was interpreted and the report reviewed and electronically signed by: PARMINDER DANG DO on Nov 18 2021 2:15PM EST [id number] Normal [facility] No Panel Informationon 11-04 [facility] CBC panel Auto (Bld)on 10-13 Erythrocyte distribution width (RBC) [Ratio] 13.9 % 11.5 - 15.0 % [facility] Hematocrit (Bld) [Volume fraction] 41.9 % 36.0 - 46.0 % [facility] Hemoglobin (Bld) [Mass/Vol] 13.7 g/dL 11.5 - 15.5 g/dL [facility] MCH (RBC) [Entitic mass] 29.0 pg 26.0 - 34.0 pg [facility] MCHC (RBC) [Mass/Vol] 32.7 g/dL 30.5 - 36.0 g/dL [facility] MCV (RBC) [Entitic vol] 88.8 fL 80.0 - 100.0 fL [facility] Nucleated RBC (Bld) [#/Vol] 10*3/uL <0.01 k/uL [facility] Platelet mean volume (Bld) [Entitic vol] 10.0 fL 9.0 - 12.7 fL [facility] Platelets (Bld) [#/Vol] 274 10*3/uL 150 - 400 k/uL [facility] RBC (Bld) [#/Vol] 4.72 10*6/uL 3.90 - 5.20 m/uL [facility] WBC (Bld) [#/Vol] 8.91 10*3/uL 3.70 - 11.00 k/uL [facility] D-DIMERon 10-13-2021 Fibrin D-dimer FEU (PPP) [Mass/Vol] 780 ng/mL FEU High <500 ng/mL FEU [facility] FIBRINOGENon 10-13-2021 Fibrinogen Coag (PPP) [Mass/Vol] 396 mg/dL 200 - 400 mg/dL [facility] CT CARDIAC SCORINGon 022 CT CARDIAC SCORING Patient Name: CHRIS LUND STUDY: CT CARDIAC SCORING; 06/29/2021 3:10 pm INDICATION: R07.9 Chest pain, unspecified Z82.49 Family history of ischemic heart disease and other diseases of the circulatory system . COMPARISON: None. ACCESSION NUMBER(S): [id number] ORDERING CLINICIAN: JANE CHURCH TECHNIQUE: Using prospective ECG gating, limited CT scan of the coronary arteries was performed without intravenous contrast. Coronary calcium scoring was performed according to the method of Agatston. FINDINGS: The score and distribution of calcium in the coronary arteries is as follows: LM: 0. LAD: 0. LCx: 0. RCA: 0. Total: 0. The visualized segments of the lungs are normally expanded. 3-4 mm left lung nodule image 4. The visualized mid/lower ascending thoracic aorta measures 3.4 cm in diameter. The heart is normal in size. No pericardial effusion is present. No gross evidence of mediastinal or hilar lymphadenopathy is identified. Small hiatal hernia. Suspected fatty liver. IMPRESSION: 1. Coronary artery calcium score of 0 *. 2. Subcentimeter left lung nodule as described , likely benign. No further follow-up is required, however, if the patient has high risk factors for primary lung malignancy, follow-up noncontrast CT scan chest in 12 months may be obtained. (Andrea Fischerhowei et al., Guidelines for management of incidental pulmonary nodules detected on CT images: From the Fleischner Society 2017, Radiology. 2017 Damien;284 (1):228-243.) [email or web address] 3. Additional findings as above. *Coronary artery calcium scoring may be helpful in predicting the risk for future coronary heart disease events. According to the [employer] Foundation Clinical Expert Consensus Task Force, such testing provides important prognostic information in patients with more than one coronary heart disease risk factor. The coronary artery calcium score correlates with the annual risk of a non-fatal myocardial infarction or coronary heart disease . Coronary artery score Annual Risk 0-99 0.4% 100-399 1.3% >400 2.4% These three "breakpoints" correspond to lower, intermediate and high risk states for future coronary events. Such information should be used, along with appropriate clinical judgment, to make decisions regarding the intensity of risk factor management strategies to treat blood lipids and to modify other non-lipid coronary risk factors. Reference: Ronan P et al. Circulation. 2007; 115:402-426 Electronically signed by: YANDEL COOLEY, DO Normal [facility] Laboratory - Chemistry and C hemistry - challengeon 06-29-2021 Free T4 [Mass/Vol] 1.17 ng/dL 0.76-1.46 [facility] Work Phone: No Panel Informationon 06-29 Free Triiodothyronine (T3) pg/dL 3.0 pg/mL 2.18-3.98 [facility] Work Phone: Thyroid Stimulating Hormone (TSH) 1.55 uIU/mL 0.358-3.74 [facility] Work Phone: XR Ankle - right AP and Late ral and oblique [facility] Vital Signs Date Time Vital Sign Value Performing Clinician Facility 03-12-2024 13:34-0500 Body height 167.6 cm Marty Lerma MD Work Phone: [facility] 03-12-2024 13:34-0500 Body mass index (BMI) [Ratio] 35.51 kg/m2 Marty Lerma MD Work Phone: [facility] 03-12-2024 13:34-0500 Body weight 99.79 kg Marty Lrema MD Work Phone: [facility] 03-12-2024 13:34-0500 Respiratory rate 16 /min Marty Lerma MD Work Phone: [facility] 02-28-2024 15:04-0500 Body height 167.6 cm Marty Lerma MD Work Phone: [facility] 02-28-2024 15:04-0500 Body mass index (BMI) [Ratio] 35.51 kg/m2 Marty Lerma MD Work Phone: [facility] 02-28-2024 15:04-0500 Body weight 99.79 kg Marty Lerma MD Work Phone: [facility] 02-28-2024 15:04-0500 Respiratory rate 20 /min Marty Lerma MD Work Phone: [facility] 11-08-2023 09:55-0400 Body height 167.6 cm Marty Lerma MD Work Phone: [facility] 11-08-2023 09:55-0400 Body mass index (BMI) [Ratio] 34.7 kg/m2 Marty Lerma MD Work Phone: [facility] 11-08-2023 09:55-0400 Body weight 97.52 kg Marty Lerma MD Work Phone: [facility] 11-08-2023 09:55-0400 Respiratory rate 20 /min Marty Lerma MD Work Phone: [facility] 08-09-2023 14:50-0400 Body height 167.6 cm Marty Lerma MD Work Phone: [facility] 08-09-2023 14:50-0400 Body weight 97.52 kg Marty Lerma MD Work Phone: [facility] 08-09-2023 14:50-0400 Respiratory rate 16 /min Marty Lerma MD Work Phone: [facility] 06-28-2023 14:49-0500 Body height 167.6 cm Marty Lerma MD Work Phone: [facility] 06-28-2023 14:49-0500 Body weight 97.52 kg Marty Lerma MD Work Phone: [facility] 06-28-2023 14:49-0500 Respiratory rate 18 /min Marty Lerma MD Work Phone: [facility] 05-31-2023 15:07-0500 Body height 167.6 cm Marty Lerma MD Work Phone: [facility] 05-31-2023 15:07-0500 Body weight 97.52 kg Marty Lerma MD Work Phone: [facility] 05-31-2023 15:07-0500 Respiratory rate 20 /min Marty Lerma MD Work Phone: [facility] 04-19-2023 07:02-0500 Body temperature 97.9 [degF] [facility] 04-19-2023 07:02-0500 Diastolic blood pressure 84 mm[Hg] [facility] 04-19-2023 07:02-0500 Heart rate 91 /min [facility] 04-19-2023 07:02-0500 Respiratory rate 15 /min [facility] 04-19-2023 07:02-0500 SaO2% (BldA) [Mass fraction] 97 % [facility] 04-19-2023 07:02-0500 Systolic blood pressure 142 mm[Hg] [facility] 04-19-2023 04:00-0500 Inhaled oxygen flow rate 2 L/min [facility] 04-19-2023 02:02-0500 Body height 167.64 cm [facility] 04-19-2023 02:02-0500 Body mass index (BMI) [Ratio] 36.3 kg/m2 [facility] 04-19-2023 02:02-0500 Body weight 102.3 kg [facility] 01-06-2022 09:42-0400 Body height 167.6 cm Mika Jenkins MD Work Phone: [facility] 01-06-2022 09:42-0400 Body temperature 96.21 [degF] Mika Jenkins MD Work Phone: [facility] 01-06-2022 09:42-0400 Body weight 97.52 kg Mika Jenkins MD Work Phone: [facility] 01-06-2022 09:42-0400 Diastolic blood pressure 85 mm[Hg] Mika Jenkins MD Work Phone: [facility] 01-06-2022 09:42-0400 Heart rate 83 /min Mika Jenkins MD Work Phone: [facility] 01-06-2022 09:42-0400 Respiratory rate 20 /min Mika Jenkins MD Work Phone: [facility] 01-06-2022 09:42-0400 SaO2% (BldA) [Mass fraction] 100 % Mika Jenkins MD Work Phone: [facility] 01-06-2022 09:42-0400 Systolic blood pressure 147 mm[Hg] Mika Jenkins MD Work Phone: [facility] 11-30-2021 10:01-0400 Diastolic blood pressure 75 mm[Hg] Michelle Olivera MD Work Phone: [facility] 11-30-2021 10:01-0400 Heart rate 75 /min Michelle Olivera MD Work Phone: [facility] 11-30-2021 10:01-0400 Respiratory rate 18 /min Michelle Olivera MD Work Phone: [facility] 11-30-2021 10:01-0400 SaO2% (BldA) [Mass fraction] 100 % Michelle Olivera MD Work Phone: [facility] 11-30-2021 10:01-0400 Systolic blood pressure 139 mm[Hg] Michelle Olivera MD Work Phone: [facility] 11-30-2021 09:46-0400 Body temperature 98.01 [degF] Michelle Olivera MD Work Phone: [facility] 11-30-2021 08:42-0400 Body height 167.6 cm Michelle Olivera MD Work Phone: [facility] 11-30-2021 08:42-0400 Body weight 97.52 kg Michelle Olivera MD Work Phone: [facility] 11-04-2021 11:35-0400 Body height 167.6 cm Sarah Boogie MD Work Phone: [facility] 11-04-2021 11:35-0400 Body weight 99.34 kg Sarah Boogie MD Work Phone: [facility] 11-04-2021 11:35-0400 Diastolic blood pressure 94 mm[Hg] Sarah Boogie MD Work Phone: [facility] 11-04-2021 11:35-0400 Heart rate 88 /min Sarah Boogie MD Work Phone: [facility] 11-04-2021 11:35-0400 SaO2% (BldA) [Mass fraction] 99 % Sarah Boogie MD Work Phone: [facility] 11-04-2021 11:35-0400 Systolic blood pressure 144 mm[Hg] Sarah Boogie MD Work Phone: [facility] 11-04-2021 08:02-0400 Body height 168.9 cm Michelle Olivera MD Work Phone: [facility] 11-04-2021 08:02-0400 Body weight 98.88 kg Michelle Olivera MD Work Phone: [facility] 11-04-2021 08:02-0400 Diastolic blood pressure 64 mm[Hg] Michelle Olivera MD Work Phone: [facility] 11-04-2021 08:02-0400 Heart rate 75 /min Michelle Olivera MD Work Phone: [facility] 11-04-2021 08:02-0400 Systolic blood pressure 112 mm[Hg] Michelle Olivera MD Work Phone: [facility] 10-13-2021 10:28-0400 Body height 168.9 cm Millicent Stout APRN.QUALITY CONSULTANT Work Phone: [facility] 10-13-2021 10:28-0400 Body temperature 99.39 [degF] Millicent Stout APRN.QUALITY CONSULTANT Work Phone: [facility] 10-13-2021 10:28-0400 Body weight 98.57 kg Millicent Stout SLICING MACHINE TENDER.QUALITY CONSULTANT Work Phone: [facility] 10-13-2021 10:28-0400 Diastolic blood pressure 82 mm[Hg] Millicent Raleighoun SLICING MACHINE TENDER.QUALITY CONSULTANT Work Phone: [facility] 10-13-2021 10:28-0400 Heart rate 94 /min Millicent Storeyoun SLICING MACHINE TENDER.QUALITY CONSULTANT Work Phone: [facility] 10-13-2021 10:28-0400 Respiratory rate 15 /min Millicent Storeyoun SLICING MACHINE TENDER.QUALITY CONSULTANT Work Phone: [facility] 10-13-2021 10:28-0400 SaO2% (BldA) [Mass fraction] 100 % Millicent Storeyoun SLICING MACHINE TENDER.QUALITY CONSULTANT Work Phone: [facility] 10-13-2021 10:28-0400 Systolic blood pressure 125 mm[Hg] Millicent Storeyoun SLICING MACHINE TENDER.QUALITY CONSULTANT Work Phone: [facility] 04-29-2021 12:18-0500 Body temperature 98.3 [degF] [facility] Work Phone: 04-29-2021 12:18-0500 Diastolic blood pressure 92 mm[Hg] [facility] Work Phone: 04-29-2021 12:18-0500 Heart rate 81 /min [facility] Work Phone: 04-29-2021 12:18-0500 Respiratory rate 16 /min [facility] Work Phone: 04-29-2021 12:18-0500 SaO2% (BldA) [Mass fraction] 100 % [facility] Work Phone: 04-29-2021 12:18-0500 Systolic blood pressure 139 mm[Hg] [facility] Work Phone: 04-29-2021 10:45-0500 Body height 167.64 cm Jane Church [facility] Work Phone: 04-29-2021 10:45-0500 Body mass index (BMI) [Ratio] 35.5 kg/m2 [facility] Work Phone: 04-29-2021 10:45-0500 Body weight 99.79 kg Jane Church [facility] Work Phone: Encounters Encounter Date Encounter Type Care Provider Facility Start: 04-01-2024 End: 04-01-2024 ambulatory [facility] Facility:[facility] Start: 03-12-2024 End: 03-12-2024 Patient encounter procedure Marty Lerma MD Work Phone: [facility] Comment on above: Status post hardware removal (Primary Dx); Closed trimalleolar fracture of right ankle with routine healing, subsequent encounter Start: 03-12-2024 End: 03-12-2024 ambulatory MARTY LERMA Facility:[facility] Start: 03-07-2024 End: 03-07-2024 ambulatory MARTY LERMA Facility:[facility] Start: 03-06-2024 End: 03-06-2024 Telephone encounter Marty Lerma MD Work Phone: [facility] Comment on above: Reminder Call Start: 03-04-2024 End: 03-04-2024 Orders Only Marty Lerma MD Work Phone: [facility] Comment on above: Painful orthopaedic hardware (HCC) (Primary Dx) Start: 02-28-2024 End: 02-28-2024 Patient encounter procedure Marty Lemra MD Work Phone: [facility] Comment on above: Closed trimalleolar fracture of right ankle with routine healing, subsequent encounter (Primary Dx) Start: 02-28-2024 End: 02-28-2024 ambulatory MARTY LERMA Facility:[facility] Start: 11-08-2023 End: 11-08-2023 Patient encounter procedure Marty Lerma MD Work Phone: [facility] Comment on above: Closed trimalleolar fracture of right ankle with routine healing, subsequent encounter (Primary Dx) Start: 11-08-2023 End: 11-08-2023 ambulatory JANE A MALYS Facility:[facility] Start: 11-06-2023 Telephone encounter Marty Lerma MD Work Phone: [facility] Comment on above: Appointment Start: 08-09-2023 End: 08-09-2023 Patient encounter procedure Marty Lerma MD Work Phone: [facility] Comment on above: Closed trimalleolar fracture of right ankle with routine healing, subsequent encounter (Primary Dx) Start: 08-09-2023 End: 08-09-2023 ambulatory JANE A MALYS Facility:[facility] Start: 06-28-2023 End: 06-28-2023 Patient encounter procedure Marty Lerma MD Work Phone: [facility] Comment on above: Closed trimalleolar fracture of right ankle with routine healing, subsequent encounter (Primary Dx) Start: 06-28-2023 End: 06-28-2023 ambulatory JANE A MALYS Facility:[facility] Start: 05-31-2023 End: 05-31-2023 Patient encounter procedure Marty Lerma MD Work Phone: [facility] Comment on above: Closed trimalleolar fracture of right ankle with routine healing, subsequent encounter (Primary Dx) Start: 05-31-2023 End: 05-31-2023 ambulatory MARTY LERMA Facility:[facility] Start: 05-10-2023 End: 05-10-2023 ambulatory MARTY LERMA Facility:[facility] Start: 04-19-2023 Emergency department patient visit JANE A MALYS Facility:[facility] Start: 04-19-2023 End: 04-19-2023 Emergency department patient visit [facility] Work Phone: Start: 04-02-2023 ambulatory Mika taylor MD Work Phone: Neurology Comment on above: [employer] Start: 03-23-2023 End: 03-23-2023 ambulatory Mika Jenkins MD Work Phone: Neurology Comment on above: Hypersomnia (Primary Dx); Idiopathic hypersomnia with long sleep time Start: 03-23-2023 End: 03-23-2023 Telemedicine consultation with patient Mika Jenkins MD Work Phone: [facility] Start: 11-29-2022 End: 11-29-2022 ambulatory [facility] Work Phone: Start: 11-29-2022 End: 11-29-2022 Patient encounter procedure [facility] Work Phone: Start: 11-02-2022 End: 11-02-2022 Patient encounter procedure [facility] Work Phone: Start: 07-20-2022 Telephone encounter Millicent Stout SLICING MACHINE TENDER.QUALITY CONSULTANT Work Phone: [facility] Comment on above: Patient Update Start: 07-13-2022 ambulatory Millicent stearns SLICING MACHINE TENDER.QUALITY CONSULTANT Work Phone: Pulmonary Medicine Start: 05-24-2022 ambulatory Mika taylor MD Work Phone: Neurology Comment on above: armodafinil (NUVIGIL ) 150 mg tab Start: 05-16-2022 Telephone encounter Judi Romo RN Work Phone: Neurology Comment on above: Insurance Authorizat ion ([place] initiated for Nuvigil) Start: 05-15-2022 ambulatory Mika taylor MD Work Phone: Neurology Comment on above: Prescription (navigi l?) Start: 05-10-2022 End: 05-10-2022 ambulatory Mika Jenkins MD Work Phone: Neurology Comment on above: Primary hypersomnia (Primary Dx) Start: 05-10-2022 End: 05-10-2022 Telemedicine consultation with patient Mika Jenkins MD Work Phone: [facility] Start: 04-27-2022 End: 04-27-2022 ambulatory [facility] Work Phone: Start: 04-27-2022 End: 04-27-2022 Patient encounter procedure [facility] Start: 04-26-2022 End: 04-27-2022 [facility] Start: 04-25-2022 End: 04-26-2022 ambulatory [facility] Facility:[facility] Start: 04-20-2022 ambulatory [facility] Neu[facility] Comment on above: Please Confirm Your Sleep Study on 04/26/22, 2nd attempt Start: 04-20-2022 E-mail encounter fro m caregiver [facility] Start: 04-07-2022 Chart abstracting Actigraphy N eur (Hist) Neurology Start: 04-07-2022 End: 04-11-2022 ambulatory [facility] Facility:[facility] Start: 03-20-2022 ambulatory Rogelio Groves MD Work Phone: [facility] Start: 03-20-2022 Patient encounter procedure Rogelio Groves MD Work Phone: Cardiology Comment on above: [facility] Start: 03-13-2022 End: 03-13-2022 ambulatory [facility] Work Phone: Start: 03-13-2022 End: 03-13-2022 Patient encounter procedure [facility] Start: 01-24-2022 Telephone encounter Millicent Stout SLICING MACHINE TENDER.QUALITY CONSULTANT Work Phone: [facility] Comment on above: [employer] Start: 01-19-2022 ambulatory Millicent stearns SLICING MACHINE TENDER.QUALITY CONSULTANT Work Phone: [facility] Start: 01-06-2022 End: 01-06-2022 Patient encounter procedure Mika Jenkins MD Work Phone: Neurology Comment on above: Primary hypersomnia (Primary Dx) Start: 11-30-2021 End: 11-30-2021 Subsequent hospital visit by physician Michelle Olivera MD Work Phone: Ambulatory Surgery Comment on above: 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 Start: 11-10-2021 Telephone encounter Sarah Boogie MD Work Phone: Pulmonary Medicine Comment on above: Results Start: 11-07-2021 Telephone encounter Sarah Boogie MD Work Phone: Pulmonary Medicine Comment on above: Orders Start: 11-04-2021 Telephone encounter Sarah Boogie MD Work Phone: Pulmonary Medicine Comment on above: Orders Start: 11-04-2021 End: 11-04-[facility] Comment on above: Spirometry Start: 11-04-2021 End: 11-04-2021 Patient encounter procedure Michelle Olivera MD Work Phone: [facility] [place] Comment on above: Screen for colon can cer (Primary Dx); Post-acute sequelae of COVID-19 (PASC); Celiac disease; Irritable bowel syndrome with diarrhea; Bloating; Right lower quadrant abdominal tenderness with rebound tenderness; History of cholecystectomy SOB (shortness of br eath) (Primary Dx); Chest pain, unspecified type; Post-COVID syndrome; History of COVID-19; Malaise and fatigue; DIAN (obstructive sleep apnea) Start: 11-03-2021 End: 11-03-2021 ambulatory Millicent Stout APRN.QUALITY CONSULTANT Work Phone: [facility] Comment on above: Post-acute sequelae of COVID-19 (PASC) (Primary Dx) Start: 11-03-2021 End: 11-03-2021 Telemedicine consultation with patient Millicent Leong Girish MOROCHO.QUALITY CONSULTANT Work Phone: [facility] Start: 10-14-2021 Telephone encounter Millicent Stout APRN.ДМИТРИЙ Work Phone: [facility] Comment on above: Results Start: 10-13-2021 End: 10-13-2021 Patient encounter procedure Millicent Wei Stout APRN.QUALITY CONSULTANT Work Phone: [facility] Comment on above: Chest discomfort (Pr imary Dx); Post-acute sequelae of COVID-19 (PASC); Lung nodule; Fatigue, unspecified type; DIAN (obstructive sleep apnea); Lyme disease; Celiac disease; Irritable bowel syndrome with diarrhea; COVID-19 vaccine regimen to maintain immunity declined Start: 08-10-2021 End: 08-10-2021 [facility] Start: 06-29-2021 Patient encounter procedure [facility]Laboratory, [place] Start: 05-10-2021 Non-patient / Non-visit [facility] Start: 05-10-2021 End: 05-10-2021 Patient encounter procedure [facility]Cardiovascular Services Start: 04-29-2021 End: 04-29-2021 Patient encounter procedure [facility]Medical Surgical 3 Outp Start: 04-25-2021 End: 04-25-2021 Patient encounter procedure [facility]Laboratory, Specimen Procedures Date Procedure Procedure Detail Performing Clinician Start: 03-12-2024 Radex ankle complete minimum 3 views Marty Lerma MD Work Phone: Start: 02-29-2024 Radex ankle complete minimum 3 views Marty Lerma MD Work Phone: Start: 11-08-2023 Radex ankle complete minimum 3 views Marty Lerma MD Work Phone: Start: 08-09-2023 Radex ankle complete minimum 3 views Marty Lerma MD Work Phone: Start: 07-01-2023 Radex ankle complete minimum 3 views Marty Lerma MD Work Phone: Start: 05-31-2023 Radex ankle complete minimum 3 views Marty Lerma MD Work Phone: Start: 04-19-2023 Antibody screen MARTY LERMA Comment on above: Order Comment: Specimen Type: BLOOD SPEC IMENOrdering Facility: [facility] Address: [address] [place] [address] Performed By: #### T SCR ####[facility] BLOOD BANKCLIA [id number] [place] [address] [place] Start: 04-19-2023 Plain X-ray of tibia and fibula Start: 04-19-2023 Plain chest X-ray Start: 04-19-2023 Radiography of ankle Start: 04-19-2023 CT cervical spine without contrast Start: 04-19-2023 CT of head without contrast Start: 04-19-2023 MRI of lower extremity Start: 11-29-2022 Screening mammography Start: 01-05-2022 Adult depression screening assessment Mika [...] Phone: Start: 10-12-2021 Adult depression screening assessment Millicent Girish MOROCHO.QUALITY CONSULTANT Work Phone: Start: 08-10-2021 CT of thorax with contrast Jane Church Start: 05-10-2021 Radionuclide imaging of perfusion of myocardium under exercise stress Jane Church Start: 05-30-2013 Mammography Millicent Stout RASHAWN.QUALITY CONSULTANT Work Phone: Start: 11-24-2009 End: 07-04-2010 H/O: section Previous delivery, antepartum condition or complication Marty Lerma MD Work Phone: H/O: surgery Status post hard lugo removal Marty Lerma MD Work Phone: History of cholecystectomy Histo ry of cholecystectomy Michelle Olivera MD Work Phone: Plan of Treatment Date Care Activity Detail Author Start: 12-01-2031 Colonoscopy COLONOSCOPY [facility] Start: 12-01-2031 COLORECTAL CANCER SCREENING COLORECTAL CANCER SCREENING [facility] Start: 12-01-2031 Screening for malignant neoplasm of colon [facility] Start: 04-20-2026 Diabetes Screening Diabetes Screening [facility] Start: 10-13-2024 DIABETES SCREEN DIABETES SCREEN [facility] Start: 10-13-2024 Diabetes Screening Diabetes Screening [facility] Start: 03-07-2024 End: 03-07-2024 Admission to same day surgery center 03/07/2024 12:30 PM EST - 03/07/2024 2:15 PM EST [facility] [address] [place] [address] Marty Lerma MD [address] [place], [place] [id number] REMOVAL HARDWARE FIBULA, RIGHT DISTAL [facility] Comment on above: REMOVAL HARDWARE FIBULA, RIGHT DISTAL Start: 03-07-2024 End: 03-07-2024 Removal implant deep REMOVAL HARDWARE FIBULA Painful orthopaedic hardware (HCC) 03/07/2024 12:30 PM EST [facility] Start: 03-07-2024 Subsequent hospital visit by physician 03/07/2024 12:30 PM EST Hospital Encounter [facility] [address] [place] [address] Marty Lerma MD [address] [place] [address] Painful orthopaedic hardware (HCC) [T84.84XA] [facility] Comment on above: Painful orthopaedic hardware (HCC) [T84. 84XA] Start: 12-23-2023 Covid-19 Vaccine ( season) Covid-19 Vaccine () [facility] Start: 12-23-2023 Influenza vaccination [facility] Start: 11-08-2023 End: 11-08-2023 Patient encounter procedure 11/08/2023 10:00 AM EDT Office Visit [facility] [address] [place] [address] Marty Lerma MD [address] [place] [address] Right Ankle-SX:04/30/23 [facility] Comment on above: Right Ankle-SX:04/30/23 Start: 04-23-2023 Behavioral Health Screening Behavioral Health Screening [facility] Start: 04-23-2023 Depression Assessment Depression Assessment [facility] Start: 04-19-2023 [facility] Start: 2023 Shingrix Vaccine (1 of 2) Shingrix Vaccine (1 of 2) [facility] Start: 01-05-2023 Adult depression screening assessment DEPRESSION SCREENING [facility] Start: 12-22-2022 Covid-19 Vaccine ( season) Covid-19 Vaccine ( season) [facility] Start: 12-22-2022 Influenza vaccination Influenza Vaccine (#1) [facility] Start: 11-30-2022 Colonoscopy COLONOSCOPY [facility] Start: 11-30-2022 COLORECTAL CANCER SCREENING COLORECTAL CANCER SCREENING [facility] Start: 10-12-2022 Adult depression screening assessment DEPRESSION SCREENING [facility] Start: 04-27-2022 Heavy metals measurement [facility] Work Phone: Start: 04-23-2022 DEPRESSION ASSESSMENT DEPRESSION ASSESSMENT [facility] Start: 01-06-2022 End: 03-08-2022 TOX SCREEN ROUT UR TOX SCREEN ROUT UR Lab Routine Primary hypersomnia Expected: 01/06/2022, Expires: 03/08/2022 [facility] Work Phone: Comment on above: Expected: 01/06/2022, Expires: 2 Start: 12-22-2021 Influenza vaccination [facility] Start: 11-04-2021 End: 01-04-2022 25-hydroxyvitamin D3 [Mass/volume] in Serum or Plasma VITAMIN D 25 HYDROXY Lab Routine Post-acute sequelae of COVID-19 (PASC) Celiac disease Irritable bowel syndrome with diarrhea Screen for colon cancer Expected: 11/04/2021, Expires: 01/04/2022 [facility] Work Phone: Comment on above: Expected: 11/04/2021, Expires: 2 Start: 11-04-2021 End: 01-04-2022 C reactive protein [Mass/volume] in Serum or Plasma C-REACTIVE PROTEIN (CRP) Lab Routine Post-acute sequelae of COVID-19 (PASC) Celiac disease Irritable bowel syndrome with diarrhea Screen for colon cancer Expected: 11/04/2021, Expires: 01/04/2022 [facility] Work Phone: Comment on above: Expected: 11/04/2021, Expires: 2 Start: 11-04-2021 End: 01-04-2022 Cobalamin (Vitamin B12) [Mass/volume] in Serum or Plasma VITAMIN B12 BLOOD Lab Routine Post-acute sequelae of COVID-19 (PASC) Celiac disease Irritable bowel syndrome with diarrhea Screen for colon cancer Expected: 11/04/2021, Expires: 01/04/2022 [facility] Work Phone: Comment on above: Expected: 11/04/2021, Expires: 2 Start: 11-04-2021 End: 01-04-2022 Folate [Mass/volume] in Serum or Plasma FOLATE SERUM Lab Routine Post-acute sequelae of COVID-19 (PASC) Celiac disease Irritable bowel syndrome with diarrhea Screen for colon cancer Expected: 11/04/2021, Expires: 01/04/2022 [facility] Work Phone: Comment on above: Expected: 11/04/2021, Expires: 2 Start: 11-04-2021 End: 01-04-2022 IgA [Mass/volume] in Serum or Plasma IGA BLD Lab Routine Post-acute sequelae of COVID-19 (PASC) Celiac disease Irritable bowel syndrome with diarrhea Screen for colon cancer Expected: 11/04/2021, Expires: 01/04/2022 [facility] Work Phone: Comment on above: Expected: 11/04/2021, Expires: 2 Start: 11-04-2021 End: 01-04-2022 Retinol [Mass/volume] in Serum or Plasma VITAMIN A/RETINOL Lab Routine Post-acute sequelae of COVID-19 (PASC) Celiac disease Irritable bowel syndrome with diarrhea Screen for colon cancer Expected: 11/04/2021, Expires: 01/04/2022 [facility] Work Phone: Comment on above: Expected: 11/04/2021, Expires: 2 Start: 11-04-2021 End: 01-04-2022 Tissue transglutaminase Ab panel - Serum TRANSGLUTAMINASE ABS Lab Routine Post-acute sequelae of COVID-19 (PASC) Celiac disease Irritable bowel syndrome with diarrhea Screen for colon cancer Expected: 11/04/2021, Expires: 01/04/2022 [facility] Work Phone: Comment on above: Expected: 11/04/2021, Expires: 2 Start: 11-04-2021 End: 01-04-2022 Zinc [Mass/volume] in Serum or Plasma ZINC BLD Lab Routine Post-acute sequelae of COVID-19 (PASC) Celiac disease Irritable bowel syndrome with diarrhea Screen for colon cancer Expected: 11/04/2021, Expires: 01/04/2022 [facility] Work Phone: Comment on above: Expected: 11/04/2021, Expires: 2 Start: 10-13-2021 End: 12-13-2021 C reactive protein [Mass/volume] in Serum or Plasma [facility] Work Phone: Comment on above: Expected: 10/13/2021, Expires: 2 Start: 10-13-2021 End: 12-13-2021 CARDIOLIPIN IGM ABS [facility] Work Phone: Comment on above: Expected: 10/13/2021, Expires: 2 Start: 10-13-2021 End: 12-13-2021 Comprehensive metabolic 2000 panel - Serum or Plasma [facility] Work Phone: Comment on above: Expected: 10/13/2021, Expires: 2 Start: 10-13-2021 End: 12-13-2021 Erythrocyte sedimentation rate [facility] Work Phone: Comment on above: Expected: 10/13/2021, Expires: 2 Start: 10-13-2021 End: 12-13-2021 Ferritin [Mass/volume] in Serum or Plasma [facility] Work Phone: Comment on above: Expected: 10/13/2021, Expires: 2 Start: 10-13-2021 End: 12-13-2021 Natriuretic peptide.B prohormone N-Terminal [Mass/volume] in Serum or Plasma [facility] Work Phone: Comment on above: Expected: 10/13/2021, Expires: 2 Start: 10-13-2021 End: 12-13-2021 OMEGACHECK [facility] Work Phone: Comment on above: Expected: 10/13/2021, Expires: 2 Start: 10-13-2021 End: 12-13-2021 Prealbumin [Mass/volume] in Serum or Plasma [facility] Work Phone: Comment on above: Expected: 10/13/2021, Expires: 2 Start: 10-13-2021 End: 12-13-2021 TMAO [facility] Work Phone: Comment on above: Expected: 10/13/2021, Expires: 2 Start: 04-23-2021 DEPRESSION ASSESSMENT DEPRESSION ASSESSMENT [facility] Start: 07-06-2020 DIABETES SCREEN DIABETES SCREEN [facility] Start: 2018 COLOGUARD (FIT-DNA) COLOGUARD (FIT-DNA) [facility] Start: 2018 Colonoscopy COLONOSCOPY [facility] Start: 2018 COLORECTAL CANCER SCREENING COLORECTAL CANCER SCREENING [facility] Start: [address] COLONOGRAPHY [facility] Start: 2018 FECAL OCCULT BLOOD FECAL OCCULT BLOOD [facility] Start: 2018 Lipid 1996 panel - Serum or Plasma Lipid Screening [facility] Start: 2018 Lipid panel Lipid Screening [facility] Start: 2018 LIPID SCREEN LIPID SCREEN [facility] Start: 2018 Screening for malignant neoplasm of colon [facility] Start: 2018 SIGMOIDOSCOPY SIGMOIDOSCOPY [facility] Start: 05-30-2014 Mammography [facility] Start: 05-30-2014 Screening for malignant neoplasm of breast Mammogram Screening [facility] Start: 02-26-1992 Hepatitis B Vaccine (1 of 3 - 19+ 3-dose series) Hepatitis B Vaccine (1 of 3 - 19+ 3-dose series) [facility] Start: 02-26-1992 Urine microalbumin profile [facility] Start: 1991 ANNUAL PCP TEAM CHRONIC DISEASE VISIT ANNUAL PCP TEAM CHRONIC DISEASE VISIT [facility] Start: 1991 Anxiety Screening Anxiety Screening [facility] Start: 1991 BP CONTROLLED (<130/80) BP CONTROLLED (<130/80) [facility] in Start: 1991 Depression Screening Depression Screening [facility] Start: 1991 HEPATITIS C SCREENING HEPATITIS C SCREENING [facility] Start: 1991 Hepatitis C screening Hepatitis C Screening [facility] Start: 1991 HIV SCREENING HIV SCREENING [facility] Start: 1991 HIV screening HIV Screening [facility] Start: 1978 COVID-19 VACCINE (#1) COVID-19 VACCINE (#1) [facility] Start: 1973 COVID-19 VACCINE (#1) COVID-19 VACCINE (#1) [facility] Start: 1973 HEPATITIS B (1 of 3 - 3-dose series) HEPATITIS B (1 of 3 - 3-dose series) [facility] Start: 1973 Hepatitis B Vaccine (1 of 3 - 3-dose series) Hepatitis B Vaccine (1 of 3 - 3-dose series) [facility] ACTIGRAPHY TESTING ACTIGRAPHY TE STING Procedures Routine Primary hypersomnia 1 Occurrences starting 01/06/2022 [facility] Work Phone: Comment on above: 1 Occurrences starting 01/06/2022 Arsenic measurement [facility] Work Phone: Calprotectin [Mass/m ass] in Stool CALPROTECTIN,FECAL Lab Routine Post-acute sequelae of COVID-19 (PASC) Celiac disease Irritable bowel syndrome with diarrhea Screen for colon cancer Ordered: 11/04/2021 [facility] Work Phone: Comment on above: Ordered: 11/04/2021 End: 12-04-2022 CT CHEST W IVCON PE CT CHEST W IVCON PE Radiology PER Chest pain, unspecified type 1 Occurrences starting 11/04/2021 until 12/04/2022 [facility] Work Phone: Comment on above: 1 Occurrences starting 11/04/2021 until 12/04/2022 End: 11-04-2022 Echocardiography ECHO Cardiology Routine SOB (shortness of breath) 1 Occurrences starting 11/04/2021 until 11/04/2022 [facility] Work Phone: Comment on above: 1 Occurrences starting 11/04/2021 until 11/04/2022 End: 11-04-2022 EGD DIAGNOSTIC EGD DIAGNOSTIC Endoscopy Routine Post-acute sequelae of COVID-19 (PASC) Celiac disease Irritable bowel syndrome with diarrhea Screen for colon cancer 1 Occurrences starting 11/04/2021 until 11/04/2022 [facility] Work Phone: Comment on above: 1 Occurrences starting 11/04/2021 until 11/04/2022 Wdyxlqy-7-Czhuozofp dehydrogenase [Enzymatic activity/volume] in Red Blood Cells [facility] Work Phone: Khnqrhy-1-imxwhhyrf dehydrogenase measurement, screen [facility] Work Phone: Lead measurement [facility] Work Phone: End: 12-05-2022 LUNG DIFFUSION CAPACITY (DLCO) LUNG DIFFUSION CAPACITY (DLCO) PFT Routine SOB (shortness of breath) 1 Occurrences starting 11/04/2021 until 12/05/2022 [facility] Work Phone: Comment on above: 1 Occurrences starting 11/04/2021 until 12/05/2022 Mercury measurement, blood [facility] Work Phone: End: 01-06-2023 MULTIPLE SLEEP LATENCY TEST MULTIPLE SLEEP LATENCY TEST Procedures Routine Primary hypersomnia 1 Occurrences starting 01/06/2022 until 01/06/2023 [facility] Work Phone: Comment on above: 1 Occurrences starting 01/06/2022 until 01/06/2023 Patient referral [facility] Work Phone: End: 01-06-2023 Polysomnogram POLYSOMNOGRAM (PSG) Procedures Routine Primary hypersomnia 1 Occurrences starting 01/06/2022 until 01/06/2023 [facility] Work Phone: Comment on above: 1 Occurrences starting 01/06/2022 until 01/06/2023 Pulmonary rehabilita tion pro PULMONARY REHABILITATION PRO Procedures Routine SOB (shortness of breath) Post-COVID syndrome History of COVID-19 Ordered: 11/04/2021 [facility] Work Phone: Comment on above: Ordered: 11/04/2021 Pulmonary rehabilita tion pro PULMONARY REHABILITATION PRO Procedures Routine COVID-19 virus infection SOB (shortness of breath) Post-COVID syndrome Ordered: 11/07/2021 [facility] Work Phone: Comment on above: Ordered: 11/07/2021 End: 11-04-2022 Screening colonoscopy COLONOSCOPY SCREENING Endoscopy Routine Post-acute sequelae of COVID-19 (PASC) Celiac disease Irritable bowel syndrome with diarrhea Screen for colon cancer 1 Occurrences starting 11/04/2021 until 11/04/2022 [facility] Work Phone: Comment on above: 1 Occurrences starting 11/04/2021 until 11/04/2022 SPIROMETRY WITH DILA TOR IF OBSTRUCTED SPIROMETRY WITH DILATOR IF OBSTRUCTED PFT Routine SOB (shortness of breath) 11/04/2021 1:40 PM EDT [facility] Work Phone: SURGICAL PATHOLOGY [facility] Work Phone: Comment on above: Release Upon Ordering for 1 Occurrences starting 11/30/2021, 1 completed [facility] Immunizations Immunization Date Immunization Notes Care Provider Fa [facility] 03-13-2014 influenza virus vacc ine, unspecified formulation Mika Jenkins MD Work Phone: [facility] Payers Date Payer Category Payer Self-pay [id number] 2023 Private Health Insurance [id number] 2011 Private Health Insurance AET[employer] A ETNA CHOICE POS II [id number] 2011-Present [phone] [address] [place] [address] POS [id number] 2011 Private Health Insurance [id number] 2011 Private Health Insurance [id number] 2011 Unknown [id number] Unknown [id number] Social History Date Type Detail Facility Start: 04-28-2021 End: 04-19-2023 Tobacco smoking status NHIS Unknown if ever smoked [facility] Start: 05-21-2019 None [facility] Start: 05-21-2019 Spouse/ Signif icant Other [facility] Start: 1975 Sex Assigned At Female C [facility] Start: 11-30-2021 Tobacco smoking stat us NHIS Never smoked tobacco [facility] Work Phone: Start: 10-13-2021 End: 03-12-2024 Alcohol intake Current non-drinker of alcohol (finding) [facility] Start: 10-16-2021 End: 01-06-2022 Exposure to SARS-CoV-2 (event) Not sure [facility] Start: 11-30-2021 Tobacco use and exposure Smokeless tobacco non-user [facility] Start: 01-06-2022 End: 03-23-2023 History of Social function [facility] Start: 01-06-2022 End: 03-23-2023 Tobacco use panel [facility] Adult Depression Screening Assessment 2 [facility] Start: 06-07-2021 Gender identity Identifies as female gender (finding) [facility] Start: 06-07-2021 Sexual orientation Heterosexual (fin verna) [facility] (I/We) worried wheth er (my/our) food would run out before (I/we) got money to buy more. Never true [facility] Work Phone: In the past 12 month s, was there a time when you were not able to pay the mortgage or rent on time? No [facility] Work Phone: Medical Equipment Procedure Code Equipment Code Equipment Origin al Text Equipment Identifier Dates Post 11mm 30d Ex ternal Fixation Outrigger Mr Bo Nonsterile - [id number] Start: 04-20-2023 Post 11mm 30d Ex ternal Fixation Outrigger Mr Bo Nonsterile - [id number] Start: 04-20-2023 Clamp Large Exte rnal Fixation 6 Position Pin Nonsterile - [id number] Start: 04-20-2023 Clamp Large Exte rnal Fixation Combination Clip On Self Hold Nonsterile - [id number] Start: 04-20-2023 Pin Samantha 6m m Stainless Steel 225mm Fixation Transfixation Mr - [id number] Start: 04-20-2023 Plate Lcp 1/3 Tu be Stainless Steel [id number] .5mm Bone 2 Hole Collar 3.5mm - [id number] Start: 04-30-2023 Bryon 11mm Carbon Fiber 250mm External Fixation Self Drilling Nonsterile - [id number] Start: 04-20-2023 Bryon 11mm Carbon Fiber 250mm External Fixation Self Drilling Nonsterile - [id number] Start: 04-20-2023 Screw Schanz 5mm Xlong Blunt [place] Stainless Steel 170mm 50mm External - [id number] Start: 04-20-2023 Screw Dcp Lc-Dcp 3.5mm Stainless Steel 55mm Bone Self Tapping Hexagonal - [id number] Start: 04-30-2023 Screw Dcp 2.7mm Short Thread Stainless Steel 50mm Bone Self Tapping Small - [id number] Start: 04-30-2023 Screw Lcp 3.5mm Stainless Steel 45mm Bone Self Tapping Small Fragment Set - [id number] Start: 04-30-2023 Mental Status Date Assessment Result Facility 04-29-2021 Cognitive function Voice/Name;To uch/Shaking;L ight Pain;Deep Pain [facility] Work Phone: Clinical Notes 11-05-2015 to 03-12-2024 Marty Lerma MD - 03/12/2024 2:12 PM ESTTelephone Encounter - Joana, Mary - 03/06/2024 4:17 PM ESTTelephone Encounter - Joana, Mary - 03/06/2024 4:17 PM ESTPatient Instructions Note Date & Type Note Facility 03-12-2024 Note HNO ID: [id number] Author: MARTY LERMA MD Service: ? Author Type: Physician Type: Progress Notes Filed: 03/14/2024 07:54 Note Text: ORTHOPAEDIC OFFICE NOTE CHIEF COMPLAINT: right ankle surgery HISTORY OF PRESENT ILLNESS: Chirs Lund is a 49 year old female who presents for post-operative evaluation after removal deep implants right distal fibula 03/07/2024. She has continued to weight bear on the extremity without assist device. Notes early improvement of previous activity pain symptoms. Mild drainage from surgical incision, has slowed. No new fevers chills nausea or vomiting. No new injury mechanism. Reviewed nursing note and current pain scale. PAST MEDICAL HISTORY Diagnosis Date Ankle fracture 04/19/2023 right Celiac disease Cholelithiasis COVID 2019 beginning of [...] SPEC VARICIES INJ 11/30/2021 Normal LAPS ABD PRTMANDOMENTUM DX W/WO SPEC BR/WA SPX 03/23/1997 OVARIAN CYST DRAINAGE LAPS SURG CHOLECYSTECTOMY W/CHOLANGIOGRAPHY 08/01/2010 LIG/TRNSXJ FLP TUBE ABDL/VAG APPR UNI/BI 04/23/2010 Tubal ligation PAST SURGICAL HISTORY OF hysterectomy PAST SURGICAL HISTORY OF 04/20/2023 rt ankle external fixator PAST SURGICAL HISTORY OF Right ankle hardware removal 2023 Dr. Lerma RPR UMBILICAL HRNA 5 YRS/> REDUCIBLE 08/01/2010 [...] Never Smokeless tobacco: Never Vaping Use Vaping status: Never Used Substance Use Topics Alcohol use: No Drug use: No MEDICATIONS: Current Outpatient Medications Medication Sig oxyCODONE IR (ROXICODONE) 5 mg immediate release tablet Take 1 tablet by mouth every 6 hours as needed for pain for up to 10 days. liothyronine sodium (LIOTHYRONINE ORAL) hydrOXYchloroQUINE (PLAQUENIL) 200 mg tablet IVERMECTIN ORAL valACYclovir (VALTREX) 1 gram tablet Take 1 tablet by mouth every 12 hours. L.acid/L.casei/B.bif/B.divina/FOS (PROBIOTIC BLEND ORAL) Take by mouth. Sacchromices boulardi 1 capsule daily Ascorbic Acid (VITAMIN C) 1,000 mg tablet Take 1,000 mg by mouth once daily. MULTIVITAMIN ORAL Take 1 tablet by mouth once daily. Pure Encapsulation brand zinc Take 30 mg by mouth once daily. levothyroxine (SYNTHROID) 100 mcg tablet Take 100 mcg by mouth every morning. naltrexone capsule 4.5 mg (CPD) Take 1 capsule by mouth once daily. One Leggett (Pure Encapsulation) Take 2 capsules by mouth daily with food. Vitamin D3 5000 U (Pure Encapsulations) Take 1 capsule by mouth daily with food. Iron Chelate (Klaire/Prothera) Take 1 capsule by mouth daily with food. Melatonin-SR (Klaire/Prothera) 2mg 1 by mouth 30 minutes before bed No current facility-administered medications for this visit. ALLERGIES: ALLERGIES No Known Allergies PHYSICAL EXAMINATION: Resp 16 Ht 5' 6" (1.68m) Wt 220 lb (99.8kg) LMP 08/18/2013 BMI 35.53 kg/(m2). General Appearance: Well appearing, alert, in no acute distress, well-hydrated, well nourished. Skin: Skin color, texture, turgor normal, no suspicious rashes or lesions. Extremities: Right ankle with lateral healing incision. Global edema. No erythema. Demonstrates comfortable right foot DF/PF, similar arc of motion as previous. No pain with tib-fib compression. Ambulatory with full unassisted weight bearing and minimal limp. Peripheral Pulses: Normal. Neurologic: Intact light touch sensation right lower extremity. IMAGES: Recent Results (from the past 36 hour(s)) XR ANKLE GENERAL 3V AP/LAT/OBL RIGHT Narrative Three views right ankle demonstrate interval removal of the lateral plate and syndesmosis screws in their entirety. Ankle mortise is well-maintained. Local bone formation present around region of prior hardware. No new fracture identified. ASSESSMENT AND PLAN: 1. Status post hardware removal - ICD9: V45.89, ICD10: Z98.890 (primary diagnosis) 2. Closed trimalleolar fracture of right ankle (more content not included)... [facility] 03-12-2024 History of Present illness Narrative Images from the original note were not included. ORTHOPAEDIC OFFICE NOTE CHIEF COMPLAINT: right ankle surgery HISTORY OF PRESENT ILLNESS: Chris Lund is a 49 year old female who presents for post-operative evaluation after removal deep implants right distal fibula 03/07/2024. She has continued to weight bear on the extremity without assist device. Notes early improvement of previous activity pain symptoms. Mild drainage from surgical incision, has slowed. No new fevers chills nausea or vomiting. No new injury mechanism. Reviewed nursing note and current pain scale. PAST MEDICAL HISTORY Diagnosis Date Ankle fracture 04/19/2023 right Celiac disease Cholelithiasis COVID 2019 beginning of [...] Tubal ligation PAST SURGICAL HISTORY OF hysterectomy PAST SURGICAL HISTORY OF 04/20/2023 rt ankle external fixator PAST SURGICAL HISTORY OF Right ankle hardware removal 2023 Dr. Lerma RPR UMBILICAL HRNA 5 YRS/> REDUCIBLE 08/01/2010 [...] Never Smokeless tobacco: Never Vaping Use Vaping status: Never Used Substance Use Topics Alcohol use: No Drug use: No MEDICATIONS: Current Outpatient Medications Medication Sig oxyCODONE IR (ROXICODONE) 5 mg immediate release tablet Take 1 tablet by mouth every 6 hours as needed for pain for up to 10 days. liothyronine sodium (LIOTHYRONINE ORAL) hydrOXYchloroQUINE (PLAQUENIL) 200 mg tablet IVERMECTIN ORAL valACYclovir (VALTREX) 1 gram tablet Take 1 tablet by mouth every 12 hours. L.acid/L.casei/B.bif/B.divina/FOS (PROBIOTIC BLEND ORAL) Take by mouth. Sacchromices boulardi 1 capsule daily Ascorbic Acid (VITAMIN C) 1,000 mg tablet Take 1,000 mg by mouth once daily. MULTIVITAMIN ORAL Take 1 tablet by mouth once daily. Pure Encapsulation brand zinc Take 30 mg by mouth once daily. levothyroxine (SYNTHROID) 100 mcg tablet Take 100 mcg by mouth every morning. naltrexone capsule 4.5 mg (CPD) Take 1 capsule by mouth once daily. One Leggett (Pure Encapsulation) Take 2 capsules by mouth daily with food. Vitamin D3 5000 U (Pure Encapsulations) Take 1 capsule by mouth daily with food. Iron Chelate (Klaire/Prothera) Take 1 capsule by mouth daily with food. Melatonin-SR (Klaire/Prothera) 2mg 1 by mouth 30 minutes before bed No current facility-administered medications for this visit. ALLERGIES: ALLERGIES No Known Allergies PHYSICAL EXAMINATION: Resp 16 Ht 5' 6" (1.68m) Wt 220 lb (99.8kg) LMP 08/18/2013 BMI 35.53 kg/(m^2). General Appearance: Well appearing, alert, in no acute distress, well-hydrated, well nourished. Skin: Skin color, texture, turgor normal, no suspicious rashes or lesions. Extremities: Right ankle with lateral healing incision. Global edema. No erythema. Demonstrates comfortable right foot DF/PF, similar arc of motion as previous. No pain with tib-fib compression. Ambulatory with full unassisted weight bearing and minimal limp. Peripheral Pulses: Normal. Neurologic: Intact light touch sensation right lower extremity. IMAGES: Recent Results (from the past 36 hour(s)) XR ANKLE GENERAL 3V AP/LAT/OBL RIGHT Narrative Three views right ankle demonstrate interval removal of the lateral plate and syndesmosis screws in their entirety. Ankle mortise is well-maintained. Local bone formation present around region of prior hardware. No new fracture identified. ASSESSMENT AND PLAN: 1. Status post hardware removal - ICD9: V45.89, ICD10: Z98.890 (primary diagnosis) 2. Closed trimalleolar fracture of right ankle with routine healing, subsequent encounter - ICD9: V54.19, ICD10: S82.851D Functional Plan: Weight bearing and range of motion as tolerated right lower extremity, symptom limited. Assistance Devices: None. Physical/Occupational Therapy: None currently. Wound Care: Cleaned incision and removed steri strips, trimmed monocryl. Recommended continued daily soap and water washes right ankle. Pain Control: No change in pain regimen recommended this office visit. Additional: None. Return if symptoms worsen or fail to improve. Marty Lerma MD documented in this encounter [facility] 03-07-2024 Note HNO ID: [id number] Author: GUZMAN ESPARZA APRN.PSYCHOLOGY TEACHER Service: Anesthesiology Author Type: Nurse Commanding Officer Motorized [employer] Type: Anesthesia Procedure Notes Filed: 03/07/2024 12:45 Note Text: ANESTHESIOLOGY PROCEDURE NOTE Airway General Information Procedure Start Time/Medication Administration: 03/07/2024 12:38 PM Procedure End Time: 03/07/2024 12:39 PM Patient location during procedure: OR Timeout Performed Pre-procedure: timeout performed Patient identity confirmed: arm band Staffing PSYCHOLOGY TEACHER: Guzman Esparza APRN.PSYCHOLOGY TEACHER Performed by: LARISSA Indications and Patient Condition Indications for airway management: anesthesia Preoxygenated: yes anesthesia circuit Patient position: sniffing Method: asleep Cricoid Pressure: No Manual In-Line Stabilization: No Difficult Mask: No Airway Accessory: LMA Final Airway Details Final airway type: supraglottic airway Number of attempts at approach: 1 Final Supraglottic Airway: i-gel Size 4 Seal Adequate: yes Failed airway: no Unrecognized esophageal intubation: no Airway not difficult SIGNATURE: Guzman Esparza APRN.CRNA PATIENT NAME: Chris Lund DATE: March 07, 2024 TIME: 12:44 PM CSN: [id number] [facility] 03-06-2024 Telephone encounter Note Spoke with the patient, let her know her arrival time is 10:30 am nothing to eat or drink after midnight. Made sure she had a local driver, take walker or crutches. Mary Bernard March 06, 2024 4:18 PM [facility] 03-06-2024 Miscellaneous Notes Spoke with the patient, let her know her arrival time is 10:30 am nothing to eat or drink after midnight. Made sure she had a local driver, take walker or crutches. Mary Bernard March 06, 2024 4:18 PM documented in this encounter [facility] 02-28-2024 Instructions Marty Lerma MD - 02/28/2024 3:22 PM EST Office will contact you for surgical scheduling. documented in this encounter [facility] 02-28-2024 History of Present illness Narrative Images from the original note were not included. ORTHOPAEDIC OFFICE NOTE CHIEF COMPLAINT: right ankle pain and stiffness HISTORY OF PRESENT ILLNESS: Chris Lund is a 49 year old female who presents for reevaluation after open treatment right trimalleolar ankle fracture-dislocation with syndesmosis disruption 04/30/2023. She has continued intermittent pain symptoms depending on activity and identifies stiffness with extended activity. Previously reviewed potential hardware removal, she would like to pursue this course. No new injury mechanism. Ambulates with full weight bearing and no assist device, intermittent limp. Reviewed nursing note and current pain scale. PAST MEDICAL HISTORY Diagnosis Date Ankle fracture 04/19/2023 right Celiac disease Cholelithiasis COVID 2019 beginning of [...] Tubal ligation PAST SURGICAL HISTORY OF hysterectomy PAST SURGICAL HISTORY OF 04/20/2023 rt ankle external fixator RPR UMBILICAL HRNA 5 YRS/> REDUCIBLE 08/01/2010 [...] Never Smokeless tobacco: Never Vaping Use Vaping status: Never Used Substance Use Topics Alcohol use: No Drug use: No MEDICATIONS: Current Outpatient Medications Medication Sig L.acid/L.casei/B.bif/B.divina/FOS (PROBIOTIC BLEND ORAL) Take by mouth. Sacchromices boulardi 1 capsule daily Ascorbic Acid (VITAMIN C) 1,000 mg tablet Take 1,000 mg by mouth once daily. MULTIVITAMIN ORAL Take 1 tablet by mouth once daily. Pure Encapsulation brand zinc Take 30 mg by mouth once daily. levothyroxine (SYNTHROID) 100 mcg tablet Take 100 mcg by mouth every morning. naltrexone capsule 4.5 mg (CPD) Take 1 capsule by mouth once daily. One Leggett (Pure Encapsulation) Take 2 capsules by mouth daily with food. Vitamin D3 5000 U (Pure Encapsulations) Take 1 capsule by mouth daily with food. Iron Chelate (Klaire/Prothera) Take 1 capsule by mouth daily with food. Melatonin-SR (Klaire/Prothera) 2mg 1 by mouth 30 minutes before bed No current facility-administered medications for this visit. ALLERGIES: ALLERGIES Allergen Reactions Calcium Unknown Magnesium Unknown Potassium Unknown Sodium Oxybate Unknown PHYSICAL EXAMINATION: Resp 20 Ht 5' 6" (1.68m) Wt 220 lb (99.8kg) LMP 08/18/2013 BMI 35.53 kg/(m^2). General Appearance: Well appearing, alert, in no acute distress, well-hydrated, well nourished. Skin: Skin color, texture, turgor normal, no suspicious rashes or lesions. Extremities: Right ankle with moderate edema, no new deformity. Surgical scars well healed. Right leg and foot compartments soft and compressible. Able to actively DF/PF in near full arc of motion dorsally, somewhat feels stiff at endpoint. Peripheral Pulses: Normal. Neurologic: Intact light touch sensation right lower extremity. IMAGES: Recent Results (from the past 36 hour(s)) XR ANKLE GENERAL 3V AP/LAT/OBL RIGHT Narrative Three views right ankle demonstrate a similar position of the medial malleolar and syndesmosis fixation construct. Lucency around the syndesmosis screws consistent with motion evidence, without screw breakage. Ankle mortise maintained. No new fracture identified. ASSESSMENT AND PLAN: 1. Closed trimalleolar fracture of right ankle with routine healing, subsequent encounter - ICD9: V54.19, ICD10: S82.851D Functional Plan: No restrictions with weight bearing or range of motion right lower extremity. Assistance Devices: None. Physical/Occupational Therapy: None currently. Wound Care: None. Pain Control: No change in pain regimen recommended this office visit. Additional: Again reviewed risks and benefits of hardware removal in detail with patient. Discussed procedure and recovery expectations. Answered any questions. Would like to proceed with scheduling, office to facilitate. No follow-ups on file. Marty Lerma MD Medical Decision Making: Problems: Moderate: 1+ chronic illnesses with change Data: Unique test result(s) reviewed: 1 Unique test(s) ordered: 1 Risk: Moderate: Decision on elective major surgery w/o risk factors Medical Decision Making Level: 4 - Moderate documented in this encounter [facility] 02-28-2024 Note HNO ID: [id number] Author: MARTY LERMA MD Service: ? Author Type: Physician Type: Progress Notes Filed: 02/29/2024 07:54 Note Text: ORTHOPAEDIC OFFICE NOTE CHIEF COMPLAINT: right ankle pain and stiffness HISTORY OF PRESENT ILLNESS: Chris Lund is a 49 year old female who presents for reevaluation after open treatment right trimalleolar ankle fracture-dislocation with syndesmosis disruption 04/30/2023. She has continued intermittent pain symptoms depending on activity and identifies stiffness with extended activity. Previously reviewed potential hardware removal, she would like to pursue this course. No new injury mechanism. Ambulates with full weight bearing and no assist device, intermittent limp. Reviewed nursing note and current pain scale. PAST MEDICAL HISTORY Diagnosis Date - Ankle fracture 04/19/2023 right - Celiac disease - Cholelithiasis - COVID 2019 of 2019 and 04/23/21 - Fibromyalgia - IBS (irritable bowel syndrome) - Insulin-resistant diabetes mellitus and acanthosis nigricans - Lyme disease - Other and unspecified ovarian cyst RIGHT resolved - Other malaise and fatigue - Post-COVID syndrome - Unspecified essential hypertension Essential hypertension - Variants of migraine, not elsewhere classified, without mention of intractable migraine without mention of status migrainosus Better now 11/10/11 PAST SURGICAL HISTORY Procedure Laterality Date - DELIVERY ONLY 11/21/1997 , low cervical - DELIVERY ONLY 12/2001,06/2010 , low cervical - COLONOSCOPY 11/30/2021 Normal - EGD W/O BRSH SPEC VARICIES INJ 11/30/2021 Normal - LAPS ABD PRTMANDOMENTUM DX W/WO SPEC BR/WA SPX 03/23/1997 OVARIAN CYST DRAINAGE - LAPS SURG CHOLECYSTECTOMY W/CHOLANGIOGRAPHY 08/01/2010 - LIG/TRNSXJ FLP TUBE ABDL/VAG APPR UNI/BI 04/23/2010 Tubal ligation - PAST SURGICAL HISTORY OF hysterectomy - PAST SURGICAL HISTORY OF 04/20/2023 rt ankle external fixator - RPR UMBILICAL HRNA 5 YRS/> REDUCIBLE 08/01/2010 FAMILY HISTORY Problem Relation Age of Onset - Hypertension Mother - Lipids Mother - Irritable Bowel Syndrome Mother - Ulcerative Colitis Mother - other (Diverticulitis) Mother - Diabetes Father - Heart Father stent x 2 - Hyperlipidemia Father - Diabetes Brother - Diabetes Paternal Grandmother - Breast Cancer Paternal Aunt - Diabetes Paternal Uncle - Colon Cancer No Family History Social History Tobacco Use - Smoking status: Never - Smokeless tobacco: Never Vaping Use - Vaping status: Never Used Substance Use Topics - Alcohol use: No - Drug use: No MEDICATIONS: Current Outpatient Medications Medication Sig - L.acid/L.casei/B.bif/B.divina/FOS (PROBIOTIC BLEND ORAL) Take by mouth. Sacchromices boulardi 1 capsule daily - Ascorbic Acid (VITAMIN C) 1,000 mg tablet Take 1,000 mg by mouth once daily. - MULTIVITAMIN ORAL Take 1 tablet by mouth once daily. Pure Encapsulation brand - zinc Take 30 mg by mouth once daily. - levothyroxine (SYNTHROID) 100 mcg tablet Take 100 mcg by mouth every morning. - naltrexone capsule 4.5 mg (CPD) Take 1 capsule by mouth once daily. - One Leggett (Pure Encapsulation) Take 2 capsules by mouth daily with food. - Vitamin D3 5000 U (Pure Encapsulations) Take 1 capsule by mouth daily with food. - Iron Chelate (Klaire/Prothera) Take 1 capsule by mouth daily with food. - Melatonin-SR (Klaire/Prothera) 2mg 1 by mouth 30 minutes before bed No current facility-administered medications for this visit. ALLERGIES: ALLERGIES Allergen Reactions - Calcium Unknown - Magnesium Unknown - Potassium Unknown - Sodium Oxybate Unknown PHYSICAL EXAMINATION: Resp 20 Ht 5' 6" (1.68m) Wt 220 lb (99.8kg) LMP 08/18/2013 BMI 35.53 kg/(m2). General Appearance: Well appearing, alert, in no acute distress, well-hydrated, well nourished. Skin: Skin color, texture, turgor normal, no suspicious rashes or lesions. Extremities: Right ankle with moderate edema, no new deformity. Surgical scars well healed. Right leg and foot compartments soft and compressible. Able to actively DF/PF in near full arc of motion dorsally, somewhat feels stiff at endpoint. Peripheral Pulses: Normal. Neurologic: Intact light touch sensation right lower extremity. IMAGES: Recent Results (from the past 36 hour(s)) XR ANKLE GENERAL 3V AP/LAT/OBL RIGHT Narrative Three views right ankle demonstrate a similar position of the medial malleolar and syndesmosis fixation construct. Lucency around the syndesmosis screws consistent with motion evidence, without screw breakage. Ankle mortise maintained. No new fracture identified. ASSESSMENT AND PLAN: 1. Closed trimalleolar fracture of right ankle with routine healing, subsequent encounter - ICD9: V54.19, ICD10: S82.851D Functional Plan: No restrictions with weight bearing or range of motion right lower extremity. Assist (more content not included)... [facility] 11-08-2023 Note HNO ID: [id number] Author: MARTY LERMA MD Service: ? Author Type: Physician Type: Progress Notes Filed: 11/08/2023 12:25 Note Text: ORTHOPAEDIC OFFICE NOTE CHIEF COMPLAINT: Right ankle pain and stiffness; right heel bump HISTORY OF PRESENT ILLNESS: Chris Lund is a 48 year old female who presents for reevaluation after open treatment right trimalleolar ankle fracture-dislocation with syndesmosis disruption 04/30/2023. Patient notes a plateau in recovery with ankle that is more sore after activity and increased stiffness particularly with dorsiflexion. She has also noticed a small firm bump on the medial heel. No new injury mechanism. Also has some anterior leg pain with activity while knee is extended, such as riding a recumbent bike. Ambulatory without assist device. Reviewed nursing note and current pain scale. PAST MEDICAL HISTORY Diagnosis Date - Ankle fracture 04/19/2023 right - Celiac disease - Cholelithiasis - COVID 2019 beginning of 2019 and 04/23/21 - Fibromyalgia - IBS (irritable bowel syndrome) - Insulin-resistant diabetes mellitus and acanthosis nigricans - Lyme disease - Other and unspecified ovarian cyst RIGHT resolved - Other malaise and fatigue - Post-COVID syndrome - Unspecified essential hypertension Essential hypertension - Variants of migraine, not elsewhere classified, without mention of intractable migraine without mention of status migrainosus Better now 11/10/11 PAST SURGICAL HISTORY Procedure Laterality Date - DELIVERY ONLY 11/21/1997 , low cervical - DELIVERY ONLY 12/2001,06/2010 , low cervical - COLONOSCOPY 11/30/2021 Normal - EGD W/O BRSH SPEC VARICIES INJ 11/30/2021 Normal - LAPS ABD PRTMANDOMENTUM DX W/WO SPEC BR/WA SPX 03/23/1997 OVARIAN CYST DRAINAGE - LAPS SURG CHOLECYSTECTOMY W/CHOLANGIOGRAPHY 08/01/2010 - LIG/TRNSXJ FLP TUBE ABDL/VAG APPR UNI/BI 04/23/2010 Tubal ligation - PAST SURGICAL HISTORY OF hysterectomy - PAST SURGICAL HISTORY OF 04/20/2023 rt ankle external fixator - RPR UMBILICAL HRNA 5 YRS/> REDUCIBLE 08/01/2010 FAMILY HISTORY Problem Relation Age of Onset - Hypertension Mother - Lipids Mother - Irritable Bowel Syndrome Mother - Ulcerative Colitis Mother - other (Diverticulitis) Mother - Diabetes Father - Heart Father stent x 2 - Hyperlipidemia Father - Diabetes Brother - Diabetes Paternal Grandmother - Breast Cancer Paternal Aunt - Diabetes Paternal Uncle - Colon Cancer No Family History Social History Tobacco Use - Smoking status: Never - Smokeless tobacco: Never Vaping Use - Vaping Use: Never used Substance Use Topics - Alcohol use: No - Drug use: No MEDICATIONS: Current Outpatient Medications Medication Sig - L.acid/L.casei/B.bif/B.divina/FOS (PROBIOTIC BLEND ORAL) Take by mouth. Sacchromices boulardi 1 capsule daily - Ascorbic Acid (VITAMIN C) 1,000 mg tablet Take 1,000 mg by mouth once daily. - MULTIVITAMIN ORAL Take 1 tablet by mouth once daily. Pure Encapsulation brand - zinc Take 30 mg by mouth once daily. - levothyroxine (SYNTHROID) 100 mcg tablet Take 100 mcg by mouth every morning. - naltrexone capsule 4.5 mg (CPD) Take 1 capsule by mouth once daily. - One Leggett (Pure Encapsulation) Take 2 capsules by mouth daily with food. - Vitamin D3 5000 U (Pure Encapsulations) Take 1 capsule by mouth daily with food. - Iron Chelate (Klaire/Prothera) Take 1 capsule by mouth daily with food. - Melatonin-SR (Klaire/Prothera) 2mg 1 by mouth 30 minutes before bed No current facility-administered medications for this visit. ALLERGIES: ALLERGIES Allergen Reactions - Calcium Unknown - Magnesium Unknown - Potassium Unknown - Sodium Oxybate Unknown PHYSICAL EXAMINATION: Resp 20 Ht 5' 6" (1.68m) Wt 215 lb (97.5kg) LMP 08/18/2013 BMI 34.72 kg/(m2). General Appearance: Well appearing, alert, in no acute distress, well-hydrated, well nourished. Skin: Skin color, texture, turgor normal, no suspicious rashes or lesions. Extremities: Right ankle with topographic appearance of prior fracture and surgical intervention. No increased edema. Medial hindfoot with 0.5 cm x 0.5 cm indurated prominent area that is nontender to palpation and does not feel like a discrete mass. Right leg and foot compartments soft and compressible. Demonstrates active full foot plantarflexion and dorsiflexion past neutral with mild discomfort and a feeling of stiffness. Ambulates without a limp. Peripheral Pulses: Normal. Neurologic: Intact light touch sensation right lower extremity. IMAGES: Recent Results (from the past 36 hour(s)) XR ANKLE GENERAL 3V AP/LAT/OBL RIGHT Narrative Three views right ankle demonstrate a similar appearance of the hardware stabilizing the healed fractures. Ankle mortise appropriate with mild medial widening that is stable. Some lucency noted about inferior syndesmosis screw indica (more content not included)... [facility] 11-08-2023 History of Present illness Narrative Images from the original note were not included. ORTHOPAEDIC OFFICE NOTE CHIEF COMPLAINT: Right ankle pain and stiffness; right heel bump HISTORY OF PRESENT ILLNESS: Chris Lund is a 48 year old female who presents for reevaluation after open treatment right trimalleolar ankle fracture-dislocation with syndesmosis disruption 04/30/2023. Patient notes a plateau in recovery with ankle that is more sore after activity and increased stiffness particularly with dorsiflexion. She has also noticed a small firm bump on the medial heel. No new injury mechanism. Also has some anterior leg pain with activity while knee is extended, such as riding a recumbent bike. Ambulatory without assist device. Reviewed nursing note and current pain scale. PAST MEDICAL HISTORY Diagnosis Date Ankle fracture 04/19/2023 right Celiac disease Cholelithiasis COVID 2019 beginning of [...] Tubal ligation PAST SURGICAL HISTORY OF hysterectomy PAST SURGICAL HISTORY OF 04/20/2023 rt ankle external fixator RPR UMBILICAL HRNA 5 YRS/> REDUCIBLE 08/01/2010 [...] Topics Alcohol use: No Drug use: No MEDICATIONS: Current Outpatient Medications Medication Sig L.acid/L.casei/B.bif/B.divina/FOS (PROBIOTIC BLEND ORAL) Take by mouth. Sacchromices boulardi 1 capsule daily Ascorbic Acid (VITAMIN C) 1,000 mg tablet Take 1,000 mg by mouth once daily. MULTIVITAMIN ORAL Take 1 tablet by mouth once daily. Pure Encapsulation brand zinc Take 30 mg by mouth once daily. levothyroxine (SYNTHROID) 100 mcg tablet Take 100 mcg by mouth every morning. naltrexone capsule 4.5 mg (CPD) Take 1 capsule by mouth once daily. One Leggett (Pure Encapsulation) Take 2 capsules by mouth daily with food. Vitamin D3 5000 U (Pure Encapsulations) Take 1 capsule by mouth daily with food. Iron Chelate (Klaire/Prothera) Take 1 capsule by mouth daily with food. Melatonin-SR (Klaire/Prothera) 2mg 1 by mouth 30 minutes before bed No current facility-administered medications for this visit. ALLERGIES: ALLERGIES Allergen Reactions Calcium Unknown Magnesium Unknown Potassium Unknown Sodium Oxybate Unknown PHYSICAL EXAMINATION: Resp 20 Ht 5' 6" (1.68m) Wt 215 lb (97.5kg) LMP 08/18/2013 BMI 34.72 kg/(m^2). General Appearance: Well appearing, alert, in no acute distress, well-hydrated, well nourished. Skin: Skin color, texture, turgor normal, no suspicious rashes or lesions. Extremities: Right ankle with topographic appearance of prior fracture and surgical intervention. No increased edema. Medial hindfoot with 0.5 cm x 0.5 cm indurated prominent area that is nontender to palpation and does not feel like a discrete mass. Right leg and foot compartments soft and compressible. Demonstrates active full foot plantarflexion and dorsiflexion past neutral with mild discomfort and a feeling of stiffness. Ambulates without a limp. Peripheral Pulses: Normal. Neurologic: Intact light touch sensation right lower extremity. IMAGES: Recent Results (from the past 36 hour(s)) XR ANKLE GENERAL 3V AP/LAT/OBL RIGHT Narrative Three views right ankle demonstrate a similar appearance of the hardware stabilizing the healed fractures. Ankle mortise appropriate with mild medial widening that is stable. Some lucency noted about inferior syndesmosis screw indicative of motion. Fibular fracture appears healed. ASSESSMENT AND PLAN: 1. Closed trimalleolar fracture of right ankle with routine healing, subsequent encounter - ICD9: V54.19, ICD10: S82.851D Functional Plan: No restrictions with weightbearing or range of motion right lower extremity, symptom limited. Assistance Devices: None. Physical/Occupational Therapy: None currently, previously progressed very well with activity is now symptomatic. Wound Care: None. Pain Control: No change in pain regimen recommended this office visit. Additional: Reassured patient regarding area of induration as not concerning after trauma to the extremity. It is nontender and she has not noticed increase in size, recommended monitoring for any change. Discussed syndesmosis screws and their function at this point in detail, as she may symptomatically improve with syndesmosis screw removal. Patient will consider potential future deep hardware removal. Discussed risks and benefits of that procedure including details for functional expectations if it is performed. Requested extension on handicap parking placard, prescription administered. Patient will contact the office if she decides to pursue hardware removal. Marty Lerma MD Medical Decision Making: Problems: Moderate: 1+ chronic illnesses with change Data: Unique test result(s) reviewed: 1 Unique test(s) ordered: 1 Risk: Low: Low risk from testing/treatment Medical Decision Making Level: 3 - Low documented in this encounter [facility] 11-08-2023 Instructions Marty Lerma MD - 11/08/2023 10:26 AM EDT Contact the office if you decide to pursue hardware removal right ankle ([phone]). documented in this encounter [facility] 11-06-2023 Telephone encounter Note Spoke to patient and scheduled them with Dr. Lerma on 11/08/23 at 10 am at [facility]. Patient is agreeable to date, time, and location. Mary Bernard November 06, 2023 1:50 PM [facility] 11-06-2023 Miscellaneous Notes Spoke to patient and scheduled them with Dr. Lerma on 11/08/23 at 10 am at [facility]. Patient is agreeable to date, time, and location. Mary Bernard November 06, 2023 1:50 PM documented in this encounter [facility] 08-09-2023 Note HNO ID: [id number] Author: MARTY LERMA MD Service: ? Author Type: Physician Type: Progress Notes Filed: 08/09/2023 15:51 Note Text: ORTHOPAEDIC OFFICE NOTE CHIEF COMPLAINT: right ankle injury HISTORY OF PRESENT ILLNESS: Chris Lund is a 48 year old female who presents for reevaluation after open treatment right trimalleolar ankle fracture-dislocation with syndesmosis disruption 04/30/2023. She has been ambulatory on the right lower extremity with full weightbearing, typically in normal shoes but occasionally with walker boot for extended periods of time. Notes continued improvement with pain and function. Ankle still swells depending on longevity of activity. No new injury mechanism. She has returned to driving. Reviewed nursing note and current pain scale. PAST MEDICAL HISTORY Diagnosis Date - Ankle fracture 04/19/2023 right - Celiac disease - Cholelithiasis - COVID 2019 beginning of 2019 and 04/23/21 - Fibromyalgia - IBS (irritable bowel syndrome) - Insulin-resistant diabetes mellitus and acanthosis nigricans - Lyme disease - Other and unspecified ovarian cyst RIGHT resolved - Other malaise and fatigue - Post-COVID syndrome - Unspecified essential hypertension Essential hypertension - Variants of migraine, not elsewhere classified, without mention of intractable migraine without mention of status migrainosus Better now 11/10/11 PAST SURGICAL HISTORY Procedure Laterality Date - DELIVERY ONLY 11/21/1997 , low cervical - DELIVERY ONLY 12/2001,06/2010 , low cervical - COLONOSCOPY 11/30/2021 Normal - EGD W/O BRSH SPEC VARICIES INJ 11/30/2021 Normal - LAPS ABD PRTMANDOMENTUM DX W/WO SPEC BR/WA SPX 03/23/1997 OVARIAN CYST DRAINAGE - LAPS SURG CHOLECYSTECTOMY W/CHOLANGIOGRAPHY 08/01/2010 - LIG/TRNSXJ FLP TUBE ABDL/VAG APPR UNI/BI 04/23/2010 Tubal ligation - PAST SURGICAL HISTORY OF hysterectomy - PAST SURGICAL HISTORY OF 04/20/2023 rt ankle external fixator - RPR UMBILICAL HRNA 5 YRS/> REDUCIBLE 08/01/2010 FAMILY HISTORY Problem Relation Age of Onset - Hypertension Mother - Lipids Mother - Irritable Bowel Syndrome Mother - Ulcerative Colitis Mother - other (Diverticulitis) Mother - Diabetes Father - Heart Father stent x 2 - Hyperlipidemia Father - Diabetes Brother - Diabetes Paternal Grandmother - Breast Cancer Paternal Aunt - Diabetes Paternal Uncle - Colon Cancer No Family History Social History Tobacco Use - Smoking status: Never - Smokeless tobacco: Never Vaping Use - Vaping Use: Never used Substance Use Topics - Alcohol use: No - Drug use: No MEDICATIONS: Current Outpatient Medications Medication Sig - L.acid/L.casei/B.bif/B.divina/FOS (PROBIOTIC BLEND ORAL) Take by mouth. Sacchromices boulardi 1 capsule daily - Ascorbic Acid (VITAMIN C) 1,000 mg tablet Take 1,000 mg by mouth once daily. - MULTIVITAMIN ORAL Take 1 tablet by mouth once daily. Pure Encapsulation brand - IVERMECTIN ORAL Take 18 mg by mouth once daily. - zinc Take 30 mg by mouth once daily. - levothyroxine (SYNTHROID) 100 mcg tablet Take 100 mcg by mouth every morning. - naltrexone capsule 4.5 mg (CPD) Take 1 capsule by mouth once daily. - One Leggett (Pure Encapsulation) Take 2 capsules by mouth daily with food. - Vitamin D3 5000 U (Pure Encapsulations) Take 1 capsule by mouth daily with food. - Iron Chelate (Klaire/Prothera) Take 1 capsule by mouth daily with food. - Melatonin-SR (Klaire/Prothera) 2mg 1 by mouth 30 minutes before bed No current facility-administered medications for this visit. ALLERGIES: ALLERGIES No Known Allergies PHYSICAL EXAMINATION: Resp 16 Ht 5' 6" (1.68m) Wt 215 lb (97.5kg) LMP 08/18/2013 BMI 34.72 kg/(m2). General Appearance: Well appearing, alert, in no acute distress, well-hydrated, well nourished. Skin: Skin color, texture, turgor normal, no suspicious rashes or lesions. Extremities: Right ankle with global edema consistent with injury, improved from prior visits. Surgical incisions well-healed. No tenderness to palpation over the fibula proximally. Right leg and foot compartments soft and compressible. Demonstrates comfortable full functional arc of right foot dorsiflexion and plantarflexion. Ambulates with mild limp on the right side. Able to single stance weight-bear 2 seconds. Peripheral Pulses: Normal. Neurologic: Intact light touch sensation right lower extremity. IMAGES: Recent Results (from the past 36 hour(s)) XR ANKLE GENERAL 3V AP/LAT/OBL RIGHT Narrative Three views right ankle demonstrate no change in position of the syndesmosis fixation or medial malleoli are fixation compared to prior images. The ankle mortise is well-maintained. No new widening and no new fracture identified. ASSESSMENT AND PLAN: 1. Closed trimalleolar fracture of right ankle with routine healing, subsequent encounter - ICD9: V54.19, ICD10: S (more content not included)... [facility] 08-09-2023 History of Present illness Narrative Images from the original note were not included. ORTHOPAEDIC OFFICE NOTE CHIEF COMPLAINT: right ankle injury HISTORY OF PRESENT ILLNESS: Chris Lund is a 48 year old female who presents for reevaluation after open treatment right trimalleolar ankle fracture-dislocation with syndesmosis disruption 04/30/2023. She has been ambulatory on the right lower extremity with full weightbearing, typically in normal shoes but occasionally with walker boot for extended periods of time. Notes continued improvement with pain and function. Ankle still swells depending on longevity of activity. No new injury mechanism. She has returned to driving. Reviewed nursing note and current pain scale. PAST MEDICAL HISTORY Diagnosis Date Ankle fracture 04/19/2023 right Celiac disease Cholelithiasis COVID 2019 beginning of [...] Tubal ligation PAST SURGICAL HISTORY OF hysterectomy PAST SURGICAL HISTORY OF 04/20/2023 rt ankle external fixator RPR UMBILICAL HRNA 5 YRS/> REDUCIBLE 08/01/2010 [...] Topics Alcohol use: No Drug use: No MEDICATIONS: Current Outpatient Medications Medication Sig L.acid/L.casei/B.bif/B.divina/FOS (PROBIOTIC BLEND ORAL) Take by mouth. Sacchromices boulardi 1 capsule daily Ascorbic Acid (VITAMIN C) 1,000 mg tablet Take 1,000 mg by mouth once daily. MULTIVITAMIN ORAL Take 1 tablet by mouth once daily. Pure Encapsulation brand IVERMECTIN ORAL Take 18 mg by mouth once daily. zinc Take 30 mg by mouth once daily. levothyroxine (SYNTHROID) 100 mcg tablet Take 100 mcg by mouth every morning. naltrexone capsule 4.5 mg (CPD) Take 1 capsule by mouth once daily. One Leggett (Pure Encapsulation) Take 2 capsules by mouth daily with food. Vitamin D3 5000 U (Pure Encapsulations) Take 1 capsule by mouth daily with food. Iron Chelate (Klaire/Prothera) Take 1 capsule by mouth daily with food. Melatonin-SR (Klaire/Prothera) 2mg 1 by mouth 30 minutes before bed No current facility-administered medications for this visit. ALLERGIES: ALLERGIES No Known Allergies PHYSICAL EXAMINATION: Resp 16 Ht 5' 6" (1.68m) Wt 215 lb (97.5kg) LMP 08/18/2013 BMI 34.72 kg/(m^2). General Appearance: Well appearing, alert, in no acute distress, well-hydrated, well nourished. Skin: Skin color, texture, turgor normal, no suspicious rashes or lesions. Extremities: Right ankle with global edema consistent with injury, improved from prior visits. Surgical incisions well-healed. No tenderness to palpation over the fibula proximally. Right leg and foot compartments soft and compressible. Demonstrates comfortable full functional arc of right foot dorsiflexion and plantarflexion. Ambulates with mild limp on the right side. Able to single stance weight-bear 2 seconds. Peripheral Pulses: Normal. Neurologic: Intact light touch sensation right lower extremity. IMAGES: Recent Results (from the past 36 hour(s)) XR ANKLE GENERAL 3V AP/LAT/OBL RIGHT Narrative Three views right ankle demonstrate no change in position of the syndesmosis fixation or medial malleoli are fixation compared to prior images. The ankle mortise is well-maintained. No new widening and no new fracture identified. ASSESSMENT AND PLAN: 1. Closed trimalleolar fracture of right ankle with routine healing, subsequent encounter - ICD9: V54.19, ICD10: S82.851D Functional Plan: No restrictions with weightbearing or range of motion right lower extremity, symptom limited. Assistance Devices: May discontinue boot completely when comfortable. Physical/Occupational Therapy: Progressed activity and motion exercises on her own accord. Wound Care: None. Pain Control: No change in pain regimen recommended this office visit. Fragility Fracture: Previously addressed. Additional: None. Return if symptoms worsen or fail to improve. Marty Lerma MD Medical Decision Making: Problems: Low: Stable chronic illness Data: Unique test result(s) reviewed: 1 Unique test(s) ordered: 1 Risk: Low: Low risk from testing/treatment Medical Decision Making Level: 3 - Low documented in this encounter [facility] 06-28-2023 History of Present illness Narrative Images from the original note were not included. ORTHOPAEDIC OFFICE NOTE CHIEF COMPLAINT: right ankle injury HISTORY OF PRESENT ILLNESS: Chris Lund is a 48 year old female who presents for reevaluation after open treatment right trimalleolar ankle fracture-dislocation with syndesmosis disruption 04/30/2023. Has been weight bearing as tolerated in walker boot. Notes pain continues to improve. Swelling depending on activity but also improving. No new injury mechanism. Reviewed nursing note and current pain scale. PAST MEDICAL HISTORY Diagnosis Date Ankle fracture 04/19/2023 right Celiac disease Cholelithiasis COVID 2019 beginning of [...] Tubal ligation PAST SURGICAL HISTORY OF hysterectomy PAST SURGICAL HISTORY OF 04/20/2023 rt ankle external fixator RPR UMBILICAL HRNA 5 YRS/> REDUCIBLE 08/01/2010 [...] Topics Alcohol use: No Drug use: No MEDICATIONS: Current Outpatient Medications Medication Sig L.acid/L.casei/B.bif/B.divina/FOS (PROBIOTIC BLEND ORAL) Take by mouth. Sacchromices boulardi 1 capsule daily Ascorbic Acid (VITAMIN C) 1,000 mg tablet Take 1,000 mg by mouth once daily. MULTIVITAMIN ORAL Take 1 tablet by mouth once daily. Pure Encapsulation brand IVERMECTIN ORAL Take 18 mg by mouth once daily. zinc Take 30 mg by mouth once daily. levothyroxine (SYNTHROID) 100 mcg tablet Take 100 mcg by mouth every morning. naltrexone capsule 4.5 mg (CPD) Take 1 capsule by mouth once daily. One Leggett (Pure Encapsulation) Take 2 capsules by mouth daily with food. Vitamin D3 5000 U (Pure Encapsulations) Take 1 capsule by mouth daily with food. Iron Chelate (Klaire/Prothera) Take 1 capsule by mouth daily with food. Melatonin-SR (Klaire/Prothera) 2mg 1 by mouth 30 minutes before bed No current facility-administered medications for this visit. ALLERGIES: ALLERGIES No Known Allergies PHYSICAL EXAMINATION: Resp 18 Ht 5' 6" (1.68m) Wt 215 lb (97.5kg) LMP 08/18/2013 BMI 34.72 kg/(m^2). General Appearance: Well appearing, alert, in no acute distress, well-hydrated, well nourished. Skin: Skin color, texture, turgor normal, no suspicious rashes or lesions. Extremities: Right ankle with healed surgical incisions. Global edema improved from prior evaluations. Right leg and foot compartments soft and compressible. Demonstrates comfortable right foot DF/PF. No tenderness to palpation medial or lateral ankle. Peripheral Pulses: Normal. Neurologic: Intact light touch sensation right lower extremity. IMAGES: Recent Results (from the past 36 hour(s)) XR ANKLE GENERAL 3V AP/LAT/OBL RIGHT Narrative Three views right ankle demonstrate no change in position of the hardware stabilizing the ankle injury. Ankle mortise is well maintained; high fibula fracture well-aligned. No new fracture identified. ASSESSMENT AND PLAN: 1. Closed trimalleolar fracture of right ankle with routine healing, subsequent encounter - ICD9: V54.19, ICD10: S82.851D Functional Plan: Continue weight bearing and range of motion as tolerated, symptom limited. Assistance Devices: May wean walker boot as swelling allows. Physical/Occupational Therapy: Home therapy as previously administered. Wound Care: None. Pain Control: No change in pain regimen recommended this office visit. Fragility Fracture: Previously addressed. Additional: None. Return in about 6 weeks (around 08/09/2023). Marty Lerma MD documented in this encounter [facility] 06-28-2023 Note HNO ID: [id number] Author: MARTY LERMA MD Service: ? Author Type: Physician Type: Progress Notes Filed: 07/01/2023 10:35 Note Text: ORTHOPAEDIC OFFICE NOTE CHIEF COMPLAINT: right ankle injury HISTORY OF PRESENT ILLNESS: Chris Lund is a 48 year old female who presents for reevaluation after open treatment right trimalleolar ankle fracture-dislocation with syndesmosis disruption 04/30/2023. Has been weight bearing as tolerated in walker boot. Notes pain continues to improve. Swelling depending on activity but also improving. No new injury mechanism. Reviewed nursing note and current pain scale. PAST MEDICAL HISTORY Diagnosis Date Ankle fracture 04/19/2023 right Celiac disease Cholelithiasis COVID 2019 beginning of [...] SPEC VARICIES INJ 11/30/2021 Normal LAPS ABD PRTMANDOMENTUM DX W/WO SPEC BR/WA SPX 03/23/1997 OVARIAN CYST DRAINAGE LAPS SURG CHOLECYSTECTOMY W/CHOLANGIOGRAPHY 08/01/2010 LIG/TRNSXJ FLP TUBE ABDL/VAG APPR UNI/BI 04/23/2010 Tubal ligation PAST SURGICAL HISTORY OF hysterectomy PAST SURGICAL HISTORY OF 04/20/2023 rt ankle external fixator RPR UMBILICAL HRNA 5 YRS/> REDUCIBLE 08/01/2010 [...] Topics Alcohol use: No Drug use: No MEDICATIONS: Current Outpatient Medications Medication Sig L.acid/L.casei/B.bif/B.divina/FOS (PROBIOTIC BLEND ORAL) Take by mouth. Sacchromices boulardi 1 capsule daily Ascorbic Acid (VITAMIN C) 1,000 mg tablet Take 1,000 mg by mouth once daily. MULTIVITAMIN ORAL Take 1 tablet by mouth once daily. Pure Encapsulation brand IVERMECTIN ORAL Take 18 mg by mouth once daily. zinc Take 30 mg by mouth once daily. levothyroxine (SYNTHROID) 100 mcg tablet Take 100 mcg by mouth every morning. naltrexone capsule 4.5 mg (CPD) Take 1 capsule by mouth once daily. One Leggett (Pure Encapsulation) Take 2 capsules by mouth daily with food. Vitamin D3 5000 U (Pure Encapsulations) Take 1 capsule by mouth daily with food. Iron Chelate (Klaire/Prothera) Take 1 capsule by mouth daily with food. Melatonin-SR (Klaire/Prothera) 2mg 1 by mouth 30 minutes before bed No current facility-administered medications for this visit. ALLERGIES: ALLERGIES No Known Allergies PHYSICAL EXAMINATION: Resp 18 Ht 5' 6" (1.68m) Wt 215 lb (97.5kg) LMP 08/18/2013 BMI 34.72 kg/(m2). General Appearance: Well appearing, alert, in no acute distress, well-hydrated, well nourished. Skin: Skin color, texture, turgor normal, no suspicious rashes or lesions. Extremities: Right ankle with healed surgical incisions. Global edema improved from prior evaluations. Right leg and foot compartments soft and compressible. Demonstrates comfortable right foot DF/PF. No tenderness to palpation medial or lateral ankle. Peripheral Pulses: Normal. Neurologic: Intact light touch sensation right lower extremity. IMAGES: Recent Results (from the past 36 hour(s)) XR ANKLE GENERAL 3V AP/LAT/OBL RIGHT Narrative Three views right ankle demonstrate no change in position of the hardware stabilizing the ankle injury. Ankle mortise is well maintained; high fibula fracture well-aligned. No new fracture identified. ASSESSMENT AND PLAN: 1. Closed trimalleolar fracture of right ankle with routine healing, subsequent encounter - ICD9: V54.19, ICD10: S82.851D Functional Plan: Continue weight bearing and range of motion as tolerated, symptom limited. Assistance Devices: May wean walker boot as swelling allows. Physical/Occupational Therapy: Home therapy as previously administered. Wound Care: None. Pain Control: No change in pain regimen recommended this office visit. Fragility Fracture: Previously addressed. Additional: None. Return in about 6 weeks (around 08/09/2023). Marty Lerma MD [facility] 05-31-2023 Note HNO ID: [id number] Author: MARTY LERMA MD Service: ? Author Type: Physician Type: Progress Notes Filed: 06/07/2023 08:31 Note Text: DME A tall medium size walker boot was fitted on the patients rt ankle and the patient was instructed on it's use and care. Tremayne Leon[employer] May 31, 2023 4:01 PM ORTHOPAEDIC OFFICE NOTE CHIEF COMPLAINT: right ankle injury HISTORY OF PRESENT ILLNESS: Chris Lund is a 48 year old female who presents for reevaluation after open treatment right trimalleolar ankle fracture-dislocation with syndesmosis disruption 04/30/2023. Has remained non-weight bearing right lower extremity, working on range of motion exercises. No new pain or instability. No new fevers chills nausea or vomiting. No new injury mechanism. Reviewed nursing note and current pain scale. PAST MEDICAL HISTORY Diagnosis Date Ankle fracture 04/19/2023 right Celiac disease Cholelithiasis COVID 2019 beginning of [...] SPEC VARICIES INJ 11/30/2021 Normal LAPS ABD PRTMANDOMENTUM DX W/WO SPEC BR/WA SPX 03/23/1997 OVARIAN CYST DRAINAGE LAPS SURG CHOLECYSTECTOMY W/CHOLANGIOGRAPHY 08/01/2010 LIG/TRNSXJ FLP TUBE ABDL/VAG APPR UNI/BI 04/23/2010 Tubal ligation PAST SURGICAL HISTORY OF hysterectomy PAST SURGICAL HISTORY OF 04/20/2023 rt ankle external fixator RPR UMBILICAL HRNA 5 YRS/> REDUCIBLE 08/01/2010 [...] Topics Alcohol use: No Drug use: No MEDICATIONS: Current Outpatient Medications Medication Sig L.acid/L.casei/B.bif/B.divina/FOS (PROBIOTIC BLEND ORAL) Take by mouth. Sacchromices boulardi 1 capsule daily Ascorbic Acid (VITAMIN C) 1,000 mg tablet Take 1,000 mg by mouth once daily. MULTIVITAMIN ORAL Take 1 tablet by mouth once daily. Pure Encapsulation brand IVERMECTIN ORAL Take 18 mg by mouth once daily. zinc Take 30 mg by mouth once daily. levothyroxine (SYNTHROID) 100 mcg tablet Take 100 mcg by mouth every morning. naltrexone capsule 4.5 mg (CPD) Take 1 capsule by mouth once daily. One Leggett (Pure Encapsulation) Take 2 capsules by mouth daily with food. Vitamin D3 5000 U (Pure Encapsulations) Take 1 capsule by mouth daily with food. Iron Chelate (Klaire/Prothera) Take 1 capsule by mouth daily with food. Melatonin-SR (Klaire/Prothera) 2mg 1 by mouth 30 minutes before bed No current facility-administered medications for this visit. ALLERGIES: ALLERGIES No Known Allergies PHYSICAL EXAMINATION: Resp 20 Ht 5' 6" (1.68m) Wt 215 lb (97.5kg) LMP 08/18/2013 BMI 34.72 kg/(m2). General Appearance: Well appearing, alert, in no acute distress, well-hydrated, well nourished. Skin: Skin color, texture, turgor normal, no suspicious rashes or lesions. Extremities: Right ankle with healing surgical incisions. Decreased global edema. Right leg and foot compartments soft and compressible. Demonstrates short arc active right foot DF/PF. Peripheral Pulses: Normal. Neurologic: Intact light touch sensation right lower extremity. IMAGES: Recent Results (from the past 36 hour(s)) XR ANKLE GENERAL 3V AP/LAT/OBL RIGHT Narrative Three views right ankle demonstrate no change in position of the hardware stabilizing the ankle fractures and ankle syndesmosis. The mortise is well maintained. High fibula fracture appears aligned. No new fracture identified. ASSESSMENT AND PLAN: 1. Closed trimalleolar fracture of right ankle with routine healing, subsequent encounter - ICD9: V54.19, ICD10: S82.851D Functional Plan: Advance weight bearing as tolerated with three- or five-point gait, demonstrated in office. No range of motion restrictions. Assistance Devices: Discontinued [place] splint and administered walking boot. Does not need to sleep in boot. Physical/Occupational Therapy: Administere (more content not included)... [facility] 05-31-2023 History of Present illness Narrative Images from the original note were not included. DME A tall medium size walker boot was fitted on the patients rt ankle and the patient was instructed on it's use and care. Tremayne Minaya May 31, 2023 4:01 PM ORTHOPAEDIC OFFICE NOTE CHIEF COMPLAINT: right ankle injury HISTORY OF PRESENT ILLNESS: Chris Lund is a 48 year old female who presents for reevaluation after open treatment right trimalleolar ankle fracture-dislocation with syndesmosis disruption 04/30/2023. Has remained non-weight bearing right lower extremity, working on range of motion exercises. No new pain or instability. No new fevers chills nausea or vomiting. No new injury mechanism. Reviewed nursing note and current pain scale. PAST MEDICAL HISTORY Diagnosis Date Ankle fracture 04/19/2023 right Celiac disease Cholelithiasis COVID 2019 beginning of [...] Tubal ligation PAST SURGICAL HISTORY OF hysterectomy PAST SURGICAL HISTORY OF 04/20/2023 rt ankle external fixator RPR UMBILICAL HRNA 5 YRS/> REDUCIBLE 08/01/2010 [...] Topics Alcohol use: No Drug use: No MEDICATIONS: Current Outpatient Medications Medication Sig L.acid/L.casei/B.bif/B.divina/FOS (PROBIOTIC BLEND ORAL) Take by mouth. Sacchromices boulardi 1 capsule daily Ascorbic Acid (VITAMIN C) 1,000 mg tablet Take 1,000 mg by mouth once daily. MULTIVITAMIN ORAL Take 1 tablet by mouth once daily. Pure Encapsulation brand IVERMECTIN ORAL Take 18 mg by mouth once daily. zinc Take 30 mg by mouth once daily. levothyroxine (SYNTHROID) 100 mcg tablet Take 100 mcg by mouth every morning. naltrexone capsule 4.5 mg (CPD) Take 1 capsule by mouth once daily. One Leggett (Pure Encapsulation) Take 2 capsules by mouth daily with food. Vitamin D3 5000 U (Pure Encapsulations) Take 1 capsule by mouth daily with food. Iron Chelate (Klaire/Prothera) Take 1 capsule by mouth daily with food. Melatonin-SR (Klaire/Prothera) 2mg 1 by mouth 30 minutes before bed No current facility-administered medications for this visit. ALLERGIES: ALLERGIES No Known Allergies PHYSICAL EXAMINATION: Resp 20 Ht 5' 6" (1.68m) Wt 215 lb (97.5kg) LMP 08/18/2013 BMI 34.72 kg/(m^2). General Appearance: Well appearing, alert, in no acute distress, well-hydrated, well nourished. Skin: Skin color, texture, turgor normal, no suspicious rashes or lesions. Extremities: Right ankle with healing surgical incisions. Decreased global edema. Right leg and foot compartments soft and compressible. Demonstrates short arc active right foot DF/PF. Peripheral Pulses: Normal. Neurologic: Intact light touch sensation right lower extremity. IMAGES: Recent Results (from the past 36 hour(s)) XR ANKLE GENERAL 3V AP/LAT/OBL RIGHT Narrative Three views right ankle demonstrate no change in position of the hardware stabilizing the ankle fractures and ankle syndesmosis. The mortise is well maintained. High fibula fracture appears aligned. No new fracture identified. ASSESSMENT AND PLAN: 1. Closed trimalleolar fracture of right ankle with routine healing, subsequent encounter - ICD9: V54.19, ICD10: S82.851D Functional Plan: Advance weight bearing as tolerated with three- or five-point gait, demonstrated in office. No range of motion restrictions. Assistance Devices: Discontinued [place] splint and administered walking boot. Does not need to sleep in boot. Physical/Occupational Therapy: Administered home exercise packet to promote range of motion and gait progression. Potential future outpatient therapy. Wound Care: None. Pain Control: No change in pain regimen recommended this office visit. Fragility Fracture: Previously addressed. Additional: None. Return in about 4 weeks (around 06/28/2023). Marty Lerma MD documented in this encounter [facility] 05-10-2023 Note HNO ID: [id number] Author: MARTY LERMA MD Service: ? Author Type: Physician Type: Progress Notes Filed: 05/11/2023 11:29 Note Text: ORTHOPAEDIC OFFICE NOTE CHIEF COMPLAINT: right ankle injury HISTORY OF PRESENT ILLNESS: Chris Lund is a 48 year old female who presents for post-operative evaluation after open treatment right trimalleolar ankle fracture-dislocation with syndesmosis disruption 04/30/2023. Has remained non-weight bearing on the right lower extremity. Notes continued pain right ankle, trying to wean narcotic pain medication. No new chest pain or shortness of breath. No new fevers chills nausea or vomiting. Accompanied by . Reviewed nursing note and current pain scale. PAST MEDICAL HISTORY Diagnosis Date Ankle fracture 04/19/2023 right Celiac disease Cholelithiasis COVID 2019 beginning of [...] SPEC VARICIES INJ 11/30/2021 Normal LAPS ABD PRTMANDOMENTUM DX W/WO SPEC BR/WA SPX 03/23/1997 OVARIAN CYST DRAINAGE LAPS SURG CHOLECYSTECTOMY W/CHOLANGIOGRAPHY 08/01/2010 LIG/TRNSXJ FLP TUBE ABDL/VAG APPR UNI/BI 04/23/2010 Tubal ligation PAST SURGICAL HISTORY OF hysterectomy PAST SURGICAL HISTORY OF 04/20/2023 rt ankle external fixator RPR UMBILICAL HRNA 5 YRS/> REDUCIBLE 08/01/2010 [...] Topics Alcohol use: No Drug use: No MEDICATIONS: Current Outpatient Medications Medication Sig L.acid/L.casei/B.bif/B.divina/FOS (PROBIOTIC BLEND ORAL) Take by mouth. Sacchromices boulardi 1 capsule daily aspirin, enteric coated (ADULT LOW DOSE ASPIRIN) 81 mg EC tablet Take 1 tablet by mouth two times a day for 21 days. Ascorbic Acid (VITAMIN C) 1,000 mg tablet Take 1,000 mg by mouth once daily. MULTIVITAMIN ORAL Take 1 tablet by mouth once daily. Pure Encapsulation brand IVERMECTIN ORAL Take 18 mg by mouth once daily. zinc Take 30 mg by mouth once daily. levothyroxine (SYNTHROID) 100 mcg tablet Take 100 mcg by mouth every morning. naltrexone capsule 4.5 mg (CPD) Take 1 capsule by mouth once daily. One Leggett (Pure Encapsulation) Take 2 capsules by mouth daily with food. Vitamin D3 5000 U (Pure Encapsulations) Take 1 capsule by mouth daily with food. Iron Chelate (Klaire/Prothera) Take 1 capsule by mouth daily with food. Melatonin-SR (Klaire/Prothera) 2mg 1 by mouth 30 minutes before bed oxyCODONE IR (ROXICODONE) 5 mg immediate release tablet Take 1 tablet by mouth every 8 hours as needed for pain for up to 7 days. sodium,calcium,mag,pot oxybate (XYWAV) 0.5 gram/mL soln oral liquid Take 9 mL by mouth at bedtime and 4 hours after. (Patient not taking: Reported on 04/30/2023) No current facility-administered medications for this visit. ALLERGIES: ALLERGIES No Known Allergies PHYSICAL EXAMINATION: Resp 20 Ht 5' 6" (1.68m) Wt 215 lb (97.5kg) LMP 08/18/2013 BMI 34.72 kg/(m2). General Appearance: Well appearing, alert, in no acute distress, well-hydrated, well nourished. Skin: Skin color, texture, turgor normal, no suspicious rashes or lesions. Extremities: Right ankle with healing surgical incisions; fixator pin sites with serous drainage. Right leg and foot compartments soft and compressible. Demonstrates short arc active right foot DF/PF. Tender to palpation medial and lateral ankle, improving. Peripheral Pulses: Normal. Neurologic: Intact light touch sensation right lower extremity. IMAGES: Recent Results (from the past 36 hour(s)) XR ANKLE GENERAL 3V AP/LAT/OBL RIGHT Narrative Three views right ankle demonstrate no change in position of the medial or lateral hardware compared to operative images. Small anteromedial talar fragment in soft tissue unchanged. The ankle mortise is well maintained. No new fracture identified. ASSESSMENT AND PLAN: 1. Closed bimalle (more content not included)... [facility] 04-30-2023 Note HNO ID: [id number] Author: RADHA SMITH MD Service: Anesthesiology Author Type: Anesthesiologist Type: Anesthesia Procedure Notes Filed: 04/30/2023 13:02 Note Text: ANESTHESIOLOGY PROCEDURE NOTE Peripheral Nerve Block General Information Procedure Start Time/Medication Administration: 04/30/2023 1:02 PM Patient location during procedure: PACU Timeout Performed Pre-procedure: timeout performed Patient identity confirmed: arm band and patient Reason for block: post-op pain management/at surgeon's request Staffing Anesthesiologist: Radha Smith MD Performed by: anesthesiologist Preparation Sterility Preparation: hand hygiene performed prior to procedure, mask used Site Prep: Chloraprep Procedure Details Patient Position: supine Monitoring: Pulse OX, EKG and NIBP Block Type Lower Extremity: distal femoral (adductor canal) and popliteal Approach: popliteal fossa Laterality: right Injection Technique: single-shot Ultrasound Guided: Yes Image in Chart: no Local Infiltration: Yes Needle Needle Type: echogenic Needle Gauge: 21 G Needle Length: 83 mm Needle Localization: anatomical landmarks and ultrasound Assessment Injection assessment: negative aspiration, no paresthesia on injection, incremental injection and local visualized surrounding nerve on ultrasound Post-Procedure Neuro Exam Expected Regional Anesthesia: Yes Medications Administered ropivacaine (PF) 2 mg/mL (0.2 %) injection (NAROPIN) - peripheral nerve block 30 mL - 04/30/2023 1:02:00 PM SIGNATURE: Radha Smith MD PATIENT NAME: Chris Lund DATE: April 30, 2023 TIME: 1:02 PM CSN: [id number] [facility] 04-30-2023 Note HNO ID: [id number] Author: HENNY MURPHY RN Service: ? Author Type: Registered Nurse Type: Nursing Progress Note Filed: 04/30/2023 13:00 Note Text: X-ray at bedside [facility] 04-30-2023 Note HNO ID: [id number] Author: HENNY MURPHY RN Service: ? Author Type: Registered Nurse Type: Nursing Progress Note Filed: 04/30/2023 13:00 Note Text: Dr. Smith at bedside to administer peripheral nerve block [facility] 04-20-2023 Note HNO ID: [id number] Author: Shelley Bonilla RN Service: Nursing Author Type: Registered Nurse Type: Nursing Progress Note Filed: 04/20/2023 9:06 AM Note Text: Post op xray in progress [facility] 04-20-2023 Note HNO ID: [id number] Author: Miguel Alcaraz APRN.PSYCHOLOGY TEACHER Service: Nursing Author Type: Nurse Commanding Officer Motorized Squad Type: Anesthesia Procedure Notes Filed: 04/20/2023 7:38 AM Note Text: ANESTHESIOLOGY PROCEDURE NOTE Airway General Information Procedure Start Time/Medication Administration: 04/20/2023 7:23 AM Patient location during procedure: OR Timeout Performed Pre-procedure: timeout performed Consent Obtained: Yes Patient identity confirmed: arm band and patient sedated or unresponsive Staffing Anesthesiologist: Rogelio Faria DO PSYCHOLOGY TEACHER: Miguel Alcaraz APRN.PSYCHOLOGY TEACHER Performed by: PSYCHOLOGY TEACHER Indications and Patient Condition Indications for airway management: anesthesia Preoxygenated: yes anesthesia circuit Patient position: sniffing Method: asleep Cricoid Pressure: No Manual In-Line Stabilization: No Difficult Mask: No Final Airway Details Final airway type: endotracheal airway Final Endotracheal Airway: ETT Cuffed: yes Successful intubation technique: video laryngoscopy Devices used: Purvis Endotracheal tube insertion site: oral Blade size: #3 ETT size (mm): 7.0 Measured from: lips Measurement (cm): 22 Placement verified by: chest auscultation and capnometry Cormack-Lehane Classification: grade I - full view of glottis Number of attempts at approach: 1 Failed airway: no Unrecognized esophageal intubation: no Airway not difficult SIGNATURE: Miguel Alcaraz APRN.PSYCHOLOGY TEACHER PATIENT NAME: Chris Lund DATE: April 20, 2023 TIME: 7:37 AM CSN: [id number] [facility] 04-20-2023 Note HNO ID: [id number] Author: Memo Lezama MD Service: Orthopaedic Surgery Author Type: Resident Type: Progress Notes Filed: 04/20/2023 6:32 AM Note Text: ORTHOPAEDIC SURGERY DAILY PROGRESS NOTE Patient Name: Chris Lund Date of Evaluation: 04/20/2023 Admission Date: 04/19/2023 Time of Evaluation: 6:03 AM ASSESSMENT: 48 year old female right ankle fracture dislocation status post successful closed reduction in emergency department PLAN: -Ortho primary -Maintain splint to right lower extremity: keep dry, clean and intact -Non-weightbearing with the right lower extremity -Ice to the right ankle -Elevation of the right lower extremity -Pain control -NPO with IV fluids for OR -Medicine consult for medical management and pre-operative evaluation -DVT PPX: SCDs to the left lower extremity; will hold DVT chemicalPPX at this time for OR on 04/20 -Consent for surgery obtained and placed in patient chart -OR on 04/[address] Lerma for application of external fixator right ankle -Dispo pending hospital course INTERVAL HPI: No acute events overnight recorded in chart. Pt currently complains of some pain right ankle which is well controlled with pain medications. She states pain was well controlled overnight. She complains of mild headache with some nausea after taking pain meds, but denies chest pain, SOB, vomiting, fevers/chills, and new numbness/tingling. OBJECTIVE: BP 137/86 Pulse 82 Temp 36.3 ?C (97.3 ?F) (Oral) Resp 16 Ht 167.6 cm (5' 6") Wt 97.5 kg (215 lb) LMP 08/18/2013 SpO2 96% BMI 34.70 kg/m? Intake/Output Summary (Last 24 hours) 04/19 2300 - 04/20 0659 In: - Out: 1225 [Urine:1225] Exam: General: Pt is alert, resting in bed, no acute distress, cooperative throughout the exam and interview, answers questions appropriately Extremities: Right Lower Extremity: Splint is c/d/i SILT to toes Motor intact wiggles toes BCR toes Compartments of proximal lower leg soft, compressible. Tolerates passive stretch of digits. Labs: BMP: Sodium 137 04/20/2023 Potassium 3.7 04/20/2023 Chloride 101 04/20/2023 CO2 27 04/20/2023 BUN 8 04/20/2023 Creatinine 0.66 04/20/2023 Glucose 139 04/20/2023 CBC: WBC 6.76 04/20/2023 Hemoglobin 13.0 04/20/2023 Hematocrit 39.9 04/20/2023 Platelet Count 220 04/20/2023 COAGS: APTT 26.0 04/20/2023 INR 1.0 04/20/2023 SED RATE/CRP: Sed Rate, Westergren 2 10/13/2021 CRP <0.3 11/08/2021 CRP <0.3 10/13/2021 Imaging: No new orthopaedic imaging to review Assessment Active Hospital Problems Diagnosis Date Noted Ankle dislocation, right, initial encounter 04/19/2023 Memo Lezama MD PGY 3 Orthopaedic Surgery Resident Pager #: [phone] 04/20/2023 6:03 AM Please page [phone] from 5p-6a and on weekends for any issues. [facility] 04-20-2023 Note HNO ID: [id number] Author: Celine Ward RN Service: Nursing Author Type: Registered Nurse Type: Nursing Progress Note Filed: 04/20/2023 6:04 AM Note Text: Pt taken to presurg. 3 rings and cell phone locked in cabinet on floor [facility] 04-19-2023 Note HNO ID: [id number] Author: Vicki Dillon RN Service: Nursing Author Type: Registered Nurse Type: Nursing Progress Note Filed: 04/19/2023 11:35 PM Note Text: This RN taking over for patient care [facility] 04-19-2023 Note HNO ID: [id number] Author: Allyn Fontanez RN Service: Care Management Author Type: Registered Nurse Type: Care Mgt Initial Assessment Filed: 04/19/2023 5:45 PM Note Text: CARE MANAGEMENT: ASSESSMENT AND DISCHARGE PLAN SERVICE DATE: April 19, 2023 SERVICE TIME: 5:41 PM PCP: Jane Chruch DO Primary Contact: Extended Emergency Contact Information Primary Emergency Contact: Stephen Lund Address: [address] [place] [address] Relation: Spouse Admission Status: Inpatient Insurance Provider: [employer] POS Discharge Planning requested by: Per Department Practice Potential Transition Plans Home;No Services Indicated Advance Directives Current Living Arrangements and Support Lives with: Family members, Spouse/significant other, Children Type of Residence: Private Residence (House) Does the patient have to climb stairs at home?: Yes;stairs outside the home;stairs within the home (patient has 1st floor bed / bath) Support: Children, Spouse/significant other How do you manage to accomplish the following: Independent: Ambulation;Bathe/Shower;Dress;Celine ls/Meal Prep;Going to the bathroom;Medication Management;Transportation to appointments/community Current Services/Equipment Current Post-Acute Service(s): None Discharge Planning Patient Goal(s): Independent living, Be able to go home, Less pain [place] Explained: [place] Given: No Reason Not Given: No placements necessary Are you interested in bedside delivery of your medications? No Discharge Planning Participant(s): Patient Patient/Family Comments: Caregiver Assessment: Caregiver is ready, willing and able to meet the patient's needs as recommended by the inter-professional team: Yes Name of Caregiver: Stephen - spouse Transport at Discharge: Transportation Arrangements: Car Needs Prior to Discharge: Needs Prior to Discharge: Procedure;OT/PT Evaluation Procedure Needed: External Fixator placement 04/20/2023 Post-Acute Discharge Plan: Patient being admitted with Rt trimalleollar ankle fracture s/p fall. Plan for OR Friday 04/20 for application of external fixator. Patient from home with spouse and 2 of her boys. Patient lives in multilevel home, but has 1st floor bed and bath. LOAN INTERVIEWER, patient independent ADLs, +drives, -DME. +PCP - Dr. Church +Rx - [id number] Postoperatively, patient will need PT/OT evals and crutch teaching. Anticipate patient will return home with family support and self care. Care Management will continue to follow. SIGNATURE: Allyn Fontanez RN PATIENT NAME: Chris Lund DATE: April 19, 2023 TIME: 5:41 PM CONTACT #: [phone] [facility] 04-19-2023 Note HNO ID: [id number] Author: Alex (Drip Molder)Rubén Service: ? Author Type: Web Page Developer Type: Plan of Care Filed: 04/19/2023 4:40 PM Note Text: PHARMACY MEDICATION REVIEW Patient Name: Chris Lund : 1975 The following medications were updated within the LOAN INTERVIEWER medication list: Medications ADDED to LOAN INTERVIEWER medication list MULTIVITAMIN ORAL Patient Yes Yes Ascorbic Acid (VITAMIN C) 1,000 mg tablet Patient Yes Yes Added these supplements per interview with pt. Medications CHANGED on LOAN INTERVIEWER medication list sodium,calcium,mag,pot oxybate (XYWAV) 0.5 gram/mL soln oral liquid Patient No Yes Sig: Take 9 mL by mouth at bedtime and 4 hours after. Pt. states she only was able to take 2 doses of this medication. First dose on 04/18/2023 at 10pm and second dose on 04/19/2023 at 1am. (Dr. Mika Nassar at [facility] Sleep center) Medications REMOVED from LOAN INTERVIEWER medication list modafinil 200 mg tablet- pt. states she no longer takes medication Cytomel 5 mcg tablet- pt. states she no longer takes medication Saccharomyces Boulardii capsule- pt. states she no longer takes medication Additional comments: I was able to talk with pt. about her home medications. She verified the 11 medications recorded below on the LOAN INTERVIEWER list. I have removed 3 medications on the LOAN INTERVIEWER list and added 2 supplements per pt. interview. Pt. states she stopped hydroxychloroquine 200mg and valacyclovir 1gm about 4 days ago that she had been taking for Lyme disease. The pt. states she uses [facility] in [place] and her supplements are mostly from [facility] in [place], [place]. I have made a note for a recent medication in changes above. Required follow up actions for nursing: Medication history completed by Historian. No nursing follow up required. The below information represents the best possible medication history: Yes Medication history completed by: Web Page Developer: Rubén Johnson (Drip Molder) Source of history: Patient: Reliability of source: Appears reliable, clearly identified: Medication name and Pharmacy records: [facility] Medication nonadherence identified: No barriers noted Reconciliation completed: No, pharmacist not yet reviewed Patient interested in Bedside Delivery Services or using [facility] Pharmacy at discharge? Unable to assess Preferred outpatient pharmacy: [id number] [place] [address] [address] [facility]. - [phone] [place] [id number] [place] [address] [place] [address] [address] [facility] [phone] Allergies: No Known Allergies Prior to Admission Medications Prescriptions Last Dose Informant Patient Reported? Taking? Ascorbic Acid (VITAMIN C) 1,000 mg tablet Patient Yes Yes Sig: Take 1,000 mg by mouth once daily. IVERMECTIN ORAL Patient Yes Yes Sig: Take 18 mg by mouth once daily. Iron Chelate (Klaire/Prothera) Patient No Yes Sig: Take 1 capsule by mouth daily with food. MULTIVITAMIN ORAL Patient Yes Yes Sig: Take 1 tablet by mouth once daily. Pure Encapsulation brand Melatonin-SR (Klaire/Prothera) 2mg Patient No Yes Si by mouth 30 minutes before bed One [place] (Pure Encapsulation) Patient No Yes Sig: Take 2 capsules by mouth daily with food. Vitamin D3 5000 U (Pure Encapsulations) Patient No Yes Sig: Take 1 capsule by mouth daily with food. levothyroxine (SYNTHROID) 100 mcg tablet OTHER Yes Yes Sig: Take 100 mcg by mouth every morning. naltrexone capsule 4.5 mg (CPD) Patient Yes Yes Sig: Take 1 capsule by mouth once daily. sodium,calcium,mag,pot oxybate (XYWAV) 0.5 gram/mL soln oral liquid Patient No Yes Sig: Take 9 mL by mouth at bedtime and 4 hours after. zinc Patient Yes Yes Sig: Take 30 mg by mouth once daily. Facility-Administered Medications: None Rubén Johnson (Drip Molder) phone [phone] 04/19/2023 [facility] 04-19-2023 Discharge summary Note Date/Time April 19, 2023 2:57am [facility] Medical Records Department [address] [facility] [place] [address] Emergency Department Summary 04/19/23 MR#: [id number] Acct: [id number] Name: CHRIS LUND Rep #:[id number] : 1975 48 From: Chris Ordaz DO PCP: Dr. Jane Church DO Status:REG ER Location: ED HPI History of Present Illness Chief Complaint: Trauma Narrative Narrative: 48-year-old female presenting with altered mental status. Last known well unknown. Patient's states that she started on a new medication called MEME for what appears to be narcolepsy. Per patient was supposed to take this at bedtime which she assumes was about 10:00. She is the patient to take this again at another time throughout the night when she wakes up and he does not recall what that is. He has not looked at the medication. Does not have much medication or missing. Patient apparently took another dose he believes. He called his son to get the medication dose and apparently supposed to take 4.5 g of this twice at night. This is the first night the patient has taken this. Apparently she is not supposed take any sedatives or pain medications with this. [facility] Medical History BMI 35.0-35.9,adult Celiac disease HTN (hypertension) IBS (irritable bowel syndrome) Lyme disease Obesity Pre-diabetes Home Medications omega-3 fatty acids 1,000 mg capsule (Fish Oil Concentrate) 1,000 mg PO DAILY 09/24/13 [History Last Taken Unknown] liothyronine 5 mcg tablet 5 mcg PO DAILY 30 days ##30 06/11/17 [History Last Taken Unknown] levothyroxine 13 mcg capsule 13 mcg PO DAILY 04/29/21 [History Last Taken Unknown] naltrexone 50 mg tablet 50 mg PO DAILY 04/29/21 [History Last Taken Unknown] Allergy/AdvReac Type Severity Reaction Status Date / Time calcium oxybate [From Xywav] AdvReac Other Verified 04/19/23 03:19 magnesium oxybate AdvReac Other Verified 04/19/23 03:19 [From Xywav] potassium oxybate AdvReac Other Verified 04/19/23 03:19 [From Xywav] sodium oxybate [From Xywav] AdvReac Other Verified 04/19/23 03:19 Family History Other Diabetes Heart disease Surgical History H/O: hysterectomy History of section History of cholecystectomy Social History Smoking Status: Never smoker ROS ROS ED Review of Systems ROS Unobtainable: due to mental condition and due to mental status EXAM Physical Exam Const Vital Signs: 04/19/23 02:02 04/19/23 02:05 04/19/23 03:32 Temperature 97.7 F L Temperature Source Temporal Pulse Rate 69 67 Respiratory Rate 17 11 L Respiratory Effort Normal Respiratory Depth Normal Respiratory Pattern Normal Blood Pressure 120/93 H 157/87 H Blood Pressure Mean 102 110 Pulse Ox 96 Oxygen Delivery Method Room Air Room Air Oxygen Flow Rate (L/min) 04/19/23 03:49 04/19/23 04:00 Temperature Temperature Source Pulse Rate 65 66 Respiratory Rate 15 12 Respiratory Effort Respiratory Depth Respiratory Pattern Blood Pressure 145/88 H Blood Pressure Mean 107 Pulse Ox 97 99 Oxygen Delivery Method Room Air Nasal Cannula Oxygen Flow Rate (L/min) 2 Positive well nourished HEENT Reports TM's clear atraumatic Tympanic Membrane ED: Yes TM's clear Eyes PERRL and EOMs intact bilaterally Chest Wall inspection of chest normal Resp normal respiratory effort and clear to auscultation bilaterally Auscultation: Negative for rales, rhonchi or wheezes Cardio regular rhythm Rate: regular rate GI normal to inspection, nondistended, normoactive bowel sounds Extremity Extremity Narrative: Deformity to right ankle. There is a superficial abrasion overlying this. Neurovascular intact brisk refill to all 5 toes. Patient able to move her foot and wiggle her toes. She nods and states she can feel me palpating her foot. General Extremety ED: Yes deformity General Extremity: deformity Neuro oriented x3 and CN's II-XII intact bilaterally Sensorium / Orientation: alert Motor Exam: strength 5/5 throughout Psych mental status grossly normal Skin no rashes or lesions noted and no wounds MDM MDM MDM Narrative Medical decision making narrative: Patient presenting with altered mental status after trying a new medication called MEME. I called poison control and they states this is basically a medical grade GHB. I looked up the note on [employer] And the doctor who prescribed this was a Dr. Mika Jenkins at [facility]. He apparently has a sleep disorder specialist. Per his note the recommended dosing of this is 3 mg at bedtime and then 4 hours later for 7 nights then increase to 3.5 g by mouth bedtime and 4 hours later at night for 7 nights, then take 4 g by mouth and 4 hours later for 7 nights and then increase to 4.5 g by mouth and 4 hours later for 7 nights. Per the the recommended dosing for her was to startat 4.5 g at bedtime and 4 hours later. He believes she took the second dose at midnight which would have been too early. She is not answering questions. She responds to pain. Differential includes intracranial hemorrhage, skull fracture, C-spine fracture, drug overdose, ACS, dysrhythmia, pneumonia, UTI, ankle fracture, tibial fracture, foot fracture. CBC was obtained to assess white blood cell count, hemoglobin, platelets. CMP to assess liver function, renal function, electrolytes, glucose. Sensitivity troponin EKG to assess for ischemia/dysrhythmia. Chest x-ray to rule out pneumonia. CT brain and cervicalspine were obtained. Right ankle x-ray was also obtained. Patient's states that she was complaining of pain in the knee and still can get a good examination on overseas unconscious I did obtain imaging of the right tibia all down to the right foot by CT scan. X-ray my interpretation is no acute process. Radiologist interprets this and agrees. EKG sinus rhythm with ventricular rateof 66 bpm without evidence of ischemic change or dysrhythmia. High-sensitivity troponin is 6. CT brain and cervical spine were negative. Right ankle x-ray and tib-fib x-ray on my interpretation show midshaft tibial fracture which is comminuted as well as trimalleolar fracture of the ankle. CT scan of this also shows similar findings. I discussed the case with the pharmacy to try to get the patient some pain medication given that she is on XYWAV which apparently are not supposed to give any medications with especially narcotic medications. Pharmacy was not able to give me any information on this other than that Toradolor Tylenol might be okay. Given this this was provided. Patient had closed reduction of her ankle dislocation fracture by myself without sedation. Although this was painful she tolerated this well. It was very difficult as thepatient was not sedated and he did have a lot of pain. I was able to get this stabilized in a well-padded, hand fabricated Ortho-Glass splint placed by myself. Neurovascular intact afterwards. Patient requested that I stop once I got this in place. Actively this could use a little more Twan wrap however sincethe patient is comfortable I will leave this alone. I spoke with Dr. Diamond whorecommended transfer to outside facility. I spoke with the transfer line who then transferred me to the critical care line for [facility]. After discussing his case with them I was also transferred over to the ER I spoke to Dr. Brice the ER at [facility] and discussed the case at length. At this pointthey did accept transfer ER to ER. Patient transferred in stable condition. Impression: 1. Altered mental status 2. Drug reaction 3. Right tibial fracture 4. Right ankle trimalleolar fracture 5. Fall Lab Data Attestation: I reviewed the patient's lab results. Labs: Laboratory Results - last 24 hr 04/19/23 04/19/23 02:10 02:33 WBC 9.9 RBC 4.55 Hgb 13.2 Hct 41.6 MCV 91.4 MCH 29.0 MCHC 31.7 L RDW Std Deviation 45.1 H RDW Coeff of Geo 13.4 Plt Count 300 MPV 9.6 Immature Gran % (Auto) 0.500 Neut % (Auto) 59.7 Lymph % (Auto) 29.3 [place] % (Auto) 8.4 Eos % (Auto) 1.6 Baso % (Auto) 0.5 Absolute Neuts (auto) 5.9 Absolute Lymphs (auto) 2.90 Nucleated RBC % 0 Sodium 139 Potassium 3.9 Chloride 106 Carbon Dioxide 27.0 Anion Gap 6 BUN 9 Creatinine 0.82 Estim Creat Clear Calc 76.84 Est GFR (MDRD) Af Amer 95 Est GFR (MDRD) Non-Af 78 BUN/Creatinine Ratio 11.0 Glucose 131 H Calcium 9.2 Total Bilirubin 0.20 AST 21 ALT 40 Alkaline Phosphatase 59 Troponin I High Sens 6 Total Protein 6.6 Albumin 3.2 Globulin 3.4 Albumin/Globulin Ratio 0.9 Urine Color Yellow Urine Clarity Clear Urine pH 6.0 Ur Specific [place] 1.025 Urine Protein 30 H Urine Glucose (UA) Normal Urine Ketones 15 H Urine Occult Blood 10 H Urine Nitrite Negative Urine Bilirubin Negative Urine Urobilinogen 1 H Ur Leukocyte Esterase Negative Urine RBC 0-5 SEEN Urine WBC 0-5 SEEN Ur Squamous Epith Cells 0 SEEN Urine Bacteria 0 SEEN Hyaline Casts 10-25 SEEN Urine Mucus 0 SEEN Radiography Diagnostic Testing: Clinical Impression(s) from Imaging Studies Brain CT 04/19/23 02:15 IMPRESSION: Normal unenhanced CT scan of the brain. Electronically Signed: Freida Robles MD at 3:50 EST Reading Location ID and State: [employer] , Service support , Cervical Spine CT 04/19/23 02:15 IMPRESSION: Degenerative changes of the cervical spine no visualized acute loss of height or alignment. Electronically Signed: Freida Robles MD at 4:04 EST Reading Location ID and State: [employer] , Service support , Lower Extremity CT 04/19/23 02:15 IMPRESSION: Fracture dislocation of the ankle with the posterior and medial malleolar fracture. Possible subtle cortical injury without displacement of the fibula which appears to be relatively maintained at the fibular talar joint space. There is a comminuted foreshortened fracture of the mid fibula. There is visualized soft tissue edema and distortion. Electronically Signed: Freida Robles MD at 4:35 EST Reading Location ID and State: [employer] , Service support , Ankle X-Ray 04/19/23 03:15 IMPRESSION: Findings suspicious for trimalleolar fracture dislocation of the right ankle. Partially visualized comminuted fracture of the mid shaft of the fibula posterior apex angulation. Electronically Signed: Freida Robles MD at 3:48 EST Reading Location ID and State: [employer] , Service support , Chest X-Ray 04/19/23 03:18 IMPRESSION: Normal x-ray examination of the chest. Electronically Signed: Freida Robles MD at 3:52 EST , Tibia/Fibula X-Ray 04/19/23 03:22 IMPRESSION: Mid shaft fibular fracture. Trimalleolar fracture suspected, dislocation of the right ankle. Electronically Signed: Freida Robles MD at 4:16 EST , Discharge Plan Triage Chief Complaint: Trauma ED Provider: Chris Ordaz Dx/Rx/DC Orders Prescriptions: No Action liothyronine 5 mcg tablet 5 mcg PO DAILY 30 Days Qty: 30 Patient Comments: omega-3 fatty acids [Fish Oil Concentrate] 1,000 MG capsule 1,000 mg PO DAILY Patient Comments: OMEGA-3 FA FORMULA 725.. DOSE supplement naltrexone 50 mg Tablet 50 mg PO DAILY levothyroxine 13 mcg Capsule 13 mcg PO DAILY Primary Care Provider: Jane Church Referrals: Jane Church DO [Primary Care Provider] - What to do if you have Problems For any increased pain, shortness of breath, bleeding, nausea or vomiting, chestpain, or any unexpected problems, contact your Primary Care Provider. Call [facility] ([phone]) or report to the closest Emergency Room. Call 911 if necessary. 04/19/23520 <Electronically signed by Chris Ordaz DO> Cosigner Signature (if applicable): CC: Dr. Jane Church DO ~ Signed [facility] Work Phone: 1(109) 775-925312-01-2023 NoteHNO ID: [id number] Author: Mika Jenkins MD Service: ? Author Type: Physician Type: Progress Notes Filed: 03/23/2023 3:50 PM Note Text: [facility] Follow up/ Established patient visit I'm Dr. Mika Jenkins, I'm a licensed Sleep Medicine specialist. I want to confirm your location is in [place]: yes Virtual visits are a convenient way [...] visit. Either the patient or their legal claim representative has been informed of the risks and benefits of -- and alternatives to -- treatment through a remote evaluation and consents to proceed with the evaluation remotely." Date of last visit : Visit date not found I have communicated my name and active licensure. The patient's identity and physical location were verified at the time of this visit. Either the patient or their legal claim representative has been informed of the risks [...] or near accidents due to drowsy drivin [place] Sleepiness Scale 01/05/2022 05/07/2022 03/23/2023 Score 18 [...] in AM on empty stomach G.I. Detox ([employer]) Activated charcoal - (empty stomach, 30min before eating (60-90 min away from supps) Start with 1 capsule and work up to 3 capsules a day One Leggett (Pure Encapsulation) Take 2 capsules by mouth [...] 0.5 gram/mL soln oral (more content not included)...[facility]12-01-2023 History of Present illness Narrative* Mika Jenkins MD - 03/23/2023 11:11 AM EST Images from the original note were not included. [facility] Follow up/ Established patient visit I'm Dr. Mika Jenkins, I'm a licensed Sleep Medicine specialist. I want to confirm your location [facility]: yes Virtual visits are a convenient way for us to meet for the first time, but there are some situations in which an in-person evaluation may be required at a later time. I want to check in to confirm your consent to be seen virtually today: yes I have communicated my name and active licensure. The patient's identity and physical location wereverified at the time of this visit. Either the patient or their legal claim representative has been informed of the risks and benefits of -- and alternatives to -- treatment through a remote evaluation andconsents to proceed with the evaluation remotely." Date of last visit : Visit date not found I have communicated my name and active licensure. The patient's identity and physical location wereverified at the time of this visit. Either the patient or their legal claim representative has been informed of the risks and benefits of -- and alternatives to -- treatment through a remote evaluation andconsents to proceed with the evaluation remotely. Interval [...] or near accidents due to drowsy drivin [place] Sleepiness Scale 01/05/2022 05/07/2022 03/23/2023 Score 18 [...] population = 50. Five points is a clinicallymeaningful difference.) 07/11/2022 03/21/2023 03/23/2023 Physical T-Score 34.9 [...] in AM on empty stomach G.I. Detox ([employer]) Activated charcoal - (empty stomach, 30min before eating (60-90min away from supps) Start with 1 capsule and work up to 3 capsules a day One Leggett (Pure Encapsulation) Take 2 capsules by mouth [...] the newest values recorded on each date aredisplayed. Hypersomnia/Narcolepsy Medications armodafinil (NUVIGIL) 150 mg tab [...] the newest values recorded on each date aredisplayed. RLS Medications No data to display. Prior Insomnia Medications (last 20 years) Some values may be hidden. Unless noted otherwise, only the newest values recorded on each date aredisplayed. Insomnia Medications LEXAPRO 10 MG TAB Dose: [...] discussed - Avoid driving when drowsy. - slip cover maker for short naps (20-30 minutes) and use of caffeine if needed to help stay awake when driving. - Try to get at least 7-9 hours of sleep in a 24 hour period. Healthy diet and exercise can also promote better sleep. - Follow up in 3 months in the office. Recommend scheduling this appointment now to ensure the besttime for you. Mika Jenkins MD I spent a total of 30 minutes on the date of the service, which included preparing to see the patient, [id number] patient care, completing clinical documentation, performing a medically appropriateexamination, counseling and educating the patient/family/caregiver, ordering medications, tests, or procedures, communicating results to the patient/family/caregiver, and care coordination (not separately reported). Mika Jenkins MD [facility]23 NoteHNO ID: [id number] Author: Facundo Rice RN Service: ? Author Type: Registered Nurse Type: Progress Notes Filed: 07/20/2022 2:20 PM Note Text: [facility] Recovery [facility] Questionnaire Series Follow-up Follow-up: 9 months Call attempt: 1st Attempt Call status: Complete [facility] reCOV[facility] Clinic 3, 6, and 9 month Follow Up Assessment: Date of COVID positive test: 04/25/2021 Date of first reCOVer appointment: 10/13/2021 Symptoms since entering [facility] Fatigue: 2 Fever: 10 Better Cough: [...] - 19 IES-6 SCORE 10/12/2021 IES-6 Score 3.17[facility]03-30-2023 Miscellaneous Notes* Telephone Encounter - Facundo Rice RN - 07/20/2022 2:20 PM EDT See patient outreach encounter * Telephone Encounter - Priscila Dominique - 07/20/2022 11:09 AM EDT Patient calling back documented in [facility]03-[facility]-2023 NotePatient Outreach (PULMIN) CHRIS LUND ([id number]) 1975 F Date Time Provider Department 07/13/22 MILLICENT STOUT During your visit today, we recorded the following information about you: Facundo Rice RN 07/13/2022 9:33 AM Signed [facility] Questionnaire Series Follow-up Follow-up: 9 months Call attempt: 1st Attempt Call status: Left message Next call date: 07/18/2022 Facundo Rice RN 07/20/2022 2:20 PM Signed [facility] Questionnaire Series Follow-up Follow-up: 9 months Call attempt: 1st Attempt Call status: Complete [facility] Clinic 3, 6, and 9 month Follow Up Assessment: Date of COVID positive test: 04/25/2021 Date of first reCOVer appointment: 10/13/2021 Symptoms since entering [facility] Fatigue: 2 Fever: 10 Better Cough: 10 [...] AM on empty stomach - G.I. Detox ([employer]) Activated charcoal - (empty stomach, 30min before eating (60-90 min away from supps) Start with 1 capsule and work up to 3 capsules a day - One Leggett (Pure Encapsulation) Take 2 capsules by mouth [...] 07/05/2010 Incisional hernia [K43.2 (more content not included)...[facility]03-23-2023 NoteHNO ID: [id number] Author: Facundo Rice RN Service: ? Author Type: Registered Nurse Type: Progress Notes Filed: 07/13/2022 9:33 AM Note Text: [facility] Questionnaire Series Follow-up Follow-up: 9 months Call attempt: 1st Attempt Call status: Left message Next call date: 07/18/2022[facility]03-23-2023 History of Present illness Narrative* Facundo Rice RN - 07/13/2022 9:31 AM EDT [facility] Questionnaire Series Follow-up Follow-up: 9 months Call attempt: 1st Attempt Call status: Left message Next call date: 07/18/2022 documented in this [facility]02-02-2023 Miscellaneous Notes* Telephone Encounter - Judi Durham RN - 05/25/2022 10:33 AM EST MyChart message sent documented in this [facility]01-24-2023 Miscellaneous Notes* Telephone Encounter - Judi Durham RN - 05/16/2022 7:33 AM EST Images from the original note were not included. documented in this [facility]01-24-2023 Miscellaneous Notes* Telephone Encounter - Judi Durham RN - 05/16/2022 7:19 AM EST [employer] message sent documented in this [facility]01-18-2023 NoteHNO ID: [id number] Author: Mika Jenkins MD Service: ? Author Type: Physician Type: Progress Notes Filed: 05/10/2022 4:23 PM Note Text: [facility] Follow up/ Established patient [...] or near accidents due to drowsy drivin [place] Sleepiness Scale 10/31/2021 01/05/2022 05/07/2022 Score 21 [...] empty stomachDisp: 30 tabletRfl: 3 G.I. Detox ([employer])Activated charcoal - (empty stomach, 30min before eating (60-90 min away from supps) Start with 1 capsule and work up to 3 capsules a dayDisp: Rfl: 0 One Leggett (Pure Encapsulation)Take 2 capsules by mouth daily [...] Hypersomnia, Primary We disc (more content not included)...[facility]01-18-2023 History of Present illness Narrative* Mika Jenkins MD - 05/10/2022 4:00 PM EST Images from the original note were not included. [facility] Follow up/ Established patient [...] or near accidents due to drowsy drivin [place] Sleepiness Scale 10/31/2021 01/05/2022 05/07/2022 Score 21 [...] population = 50. Five points is a clinicallymeaningful difference.) 01/05/2022 01/18/2022 05/07/2022 Physical T-Score 32.4 [...] g by mouth twice daily with meals.^Disp: 240g^Rfl: 4 levothyroxine (SYNTHROID) 100 mcg tablet^Take 100 mcg by mouth every morning.^Disp: ^Rfl: naltrexone capsule 4.5 mg (CPD)^Take 1 capsule by mouth once daily.^Disp: ^Rfl: liothyronine (CYTOMEL) 5 mcg tablet^Take one tablet by mouth in AM on empty stomach^Disp: 30 tablet^Rfl: 3 G.I. Detox ([employer])^Activated charcoal - (empty stomach, 30min before eating (60-90min away from supps) Start with 1 capsule and work up to 3 capsules a day^Disp: ^Rfl: 0 One Leggett (Pure Encapsulation)^Take 2 capsules by mouth daily [...] the newest values recorded on each date aredisplayed. Hypersomnia/Narcolepsy Medications No data to display. Prior RLS Medications (last 20 years) Some values may be hidden. Unless noted otherwise, only the newest values recorded on each date aredisplayed. RLS Medications No data to display. Prior Insomnia Medications (last 20 years) Some values may be hidden. Unless noted otherwise, only the newest values recorded on each date aredisplayed. Insomnia Medications LEXAPRO 10 MG TAB Dose: [...] changed? No change Avoid driving when drowsy. slip cover maker for short naps (20-30 minutes) and use [...] with more than 50% of the total myav-eq-bryk time of the visit in education / counseling / coordination of care. [facility]01-[facility]23 Miscellaneous Notes* Addendum Note - Jericho Jameson - 04/27/2022 6:40 AM ESTAddended by: JERICHO JAMESON on: 04/27/2022 06:40 AM Modules accepted: Orders documented in this encounterPike [facility]01-04-2023 NoteHNO ID: [id number] Author: Meli Casarez Service: ? Author Type: ? Type: Progress Notes Filed: 04/26/2022 9:06 AM Note Text: Sleep Study Check-In Documentation Date: April 26, 2022 Name: Chris Lund Patient was accompanied by Self. Location: Latex allergy: No Tape allergy: No Current medications were reviewed with the patient:Yes Sleep aid taken by patient for the sleep study: [place] of sleep aid: N/A Procedure was explained [...] with their ordering provider regarding test results [facility] History of Present illness Narrative* Meli Casarez - 04/26/2022 9:04 AM EST Sleep Study Check-In Documentation Date: April 26, 2022 Name: Chris Lund Patient was accompanied by Self. Location: IC Latex allergy: No Tape allergy: No Current medications were reviewed with the patient:Yes Sleep aid taken by patient for the sleep study: [place] of sleep aid: N/A Procedure was explained [...] with their ordering provider regarding test results GEN RdzGT * Meghan Hung - 04/26/2022 4:27 AM EST Sleep Study Check-In Documentation Date: April 26, 2022 Name: Chris Lund Patient was accompanied by Self. Location: [...] ordering provider regarding test results Meghan Hung * Yuridia Hendricks - 04/07/2022 8:34 AM EST ACTIGRAPHY DEVICE # [id number] Date shipped out 04/07/2022 [employer] MAIL OUT TRACKING NUMBER [id number] [employer] RETURN TRACKING NUMBER [phone] [id number], Jodie documented in this encounterPike [facility]01-04-2023 NoteHNO ID: [id number] Author: Meghan Hung Service: ? Author Type: ? Type: Progress Notes Filed: 04/26/2022 4:29 AM Note Text: Sleep Study Check-In Documentation Date: April 26, 2022 Name: Chris Lund Patient was accompanied by Self. Location: [...] their ordering provider regarding test results [facility]Grant [facility]12-16-2022 NoteHNO ID: [id number] Author: Yuridia Hendricks Service: ? Author Type: ? Type: Progress Notes Filed: 04/26/2022 4:29 AM Note Text: ACTIGRAPHY DEVICE # [id number] Date shipped out 04/07/2022 [employer] MAIL OUT TRACKING NUMBER [id number] [phone] [employer] RETURN TRACKING NUMBER [id number] [id number], JodieCACMC Healthcare System11-29-2022 Miscellaneous Notes * Telephone Encounter - Facundo Rice RN - 03/21/2022 1:15 PM EST Called patient back. Went over providers update regarding d-dimer along with explanation. Went over RED flag symptoms with patient She is seeing a functional medicine specialist near home that has been working with for a while near home Thank you, Muriel * Telephone Encounter - Yoseph Hughes - 03/21/2022 12:07 PM EST Patient called back please call patient back after 1. [phone] (home) * Telephone Encounter - Facundo Rice RN - 03/21/2022 9:39 AM EST Tired home.. left message to call office. * Telephone Encounter - Millicent Stout APRN.CNP - 03/21/2022 9:25 AM EST Please reach out to patient. As we [...] work on the inflammation, but this appears tohave been cancelled. Is she planning to reschedule? Millicent Stout APRN.QUALITY CONSULTANT documented in this [facility]10-04-2022 Miscellaneous Notes* Telephone Encounter - Facundo Rice RN - 01/24/2022 3:27 PM EDT See TE * Telephone Encounter - Consuelo Ag - 01/24/2022 1:34 PM EDT Patient returned call 3 month follow up questionnaire documented in this [facility]09-29-2022 History of Present illness Narrative* Facundo Rice RN - 01/19/2022 1:43 PM EDT [facility] [place] [place] [facility] Questionnaire Series Follow-up Follow-up: 3 months Call attempt: 1st Attempt Call status: Left message Next call date: 01/23/2022 documented in this [facility]09-16-2022 Instructions* Patient Instructions* Mika Jenkins MD - 01/06/2022 10:28 AM EDT 1) If the sleep scheduling office has not called you in 3 days, please call [phone] to schedule your sleep study. 2) When they call to schedule your sleep study, ask them to set up a 3 week follow-up visit with me(Virtual is fine). 3) At that visit we will discuss your test results, treatment options, and prescribe any needed treatments. documented in this encounterP[facility]09-16-2022 History of Present illness Narrative* Mika Jenkins MD - 01/06/2022 9:55 AM EDT Images from the original note were not included. [facility] New Patient Evaluation PATIENT NAME: Chris Lund DATE OF SERVICE: January 06, 2022 CONSULTING PROVIDER: Millicent Stout [address] [place] [address] Fatigue HPI: Chris Lund is a 46 year old female. [...] legs begins or worsens during periods of restor inactivity (e.g. lying or sitting). The urge [...] population = 50. Five points is a clinicallymeaningful difference.) 07/06/2017 10/12/2021 01/05/2022 Physical T-Score 32.4 34.9 32.4 Mental T-Score 31.3 31.3 31.3 [place] Sleepiness Scale Sitting and Reading? 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 Detox ([employer])^Activated charcoal - (empty stomach, 30min before eating (60-90min away from supps) Start with 1 capsule and work up to 3 capsules a day^Disp: ^Rfl: 0 One Leggett (Pure Encapsulation)^Take 2 capsules by mouth daily [...] g by mouth twice daily with meals.^Disp: 240g^Rfl: 4 Prior Hypersomnia/Narcolepsy Medications (20 years) Some values may be hidden. Unless noted otherwise, only the newest values recorded on each date aredisplayed. Hypersomnia/Narcolepsy Medications No data to display. Prior RLS Medications (last 20 years) Some values may be hidden. Unless noted otherwise, only the newest values recorded on each date aredisplayed. RLS Medications No data to display. Prior Insomnia Medications (last 20 years) Some values may be hidden. Unless noted otherwise, only the newest values recorded on each date aredisplayed. Insomnia Medications LEXAPRO 10 MG TAB Dose: [...] them with you to give to the feed mill lab technician. - A urine tox screen will [...] Recommend scheduling this appointment now to ensure thebest time for you. Mika Jenkins MD documented in this encounterP[facility]08-10-2022 Nurse Note* Stephie López RN - 11/30/2021 9:[address] Olivera at bedside to speak with patient, DC instructions reviewed with patient and . Patients cramping pain improved and resting comfortably documented in this encounterPike [facility]08-10-2022 History and physical note * Michelle Olivera MD - 11/30/2021 9:00 AM EDT HISTORY AND PHYSICAL Chris Lund, 46 year old female Current history [...] Agustin's Esophagus, image tube placement or cryo therapytreatment based on clinical findings. BASELINE BEHAVIOR: Calm [...] None Michelle Olivera MD documented in this encounterPike [facility]07-29-2022 NoteHNO ID: [id number] Author: RT Jocelynn(R) Service: ? Author Type: Technologist Type: Progress [...] Study SIGNATURE: Javid Sofia RT(R) PATIENT NAME: Chris Lund DATE: November 18, 2021 TIME: 1:36 [facility] [id number] Miscellaneous Notes* Telephone Encounter - Holly Arnold - 11/11/2021 10:38 AM EDT Received reports back from provider and sent to scanning. documented in this [facility]07-21-2022 Miscellaneous Notes* Telephone Encounter - Sarah Boogie MD - 11/10/2021 10:28 AM EDT Sleep apnea test dated back in August 09, 2012 received from 's office. Diagnosis Obstructive sleep apnea . Movement Trial of CPAP or BiPAP Treatment for. Likely movement CPAP titration dated October 11, 2012 Recommendation nasal CPAP 6 cmH2O For comfort consider a ramp circuit or modification Follow-up in 4 to 12 weeks documented in this [facility]07-18-2022 Miscellaneous Notes* Telephone Encounter - Sarah Boogie MD - 11/07/2021 1:54 PM EDT order for UT documented in this [facility]07-15-2022 Procedure note* Marcel Alfonso, AFTER SCHOOL PROGRAM COORDINATOR - 11/04/2021 2:13 PM EDT Associated Order(s): NITRIC OXIDE, EXHALED RESPIRATORY THERAPY [...] 7.0 NAME: Marcel Alfonso RRT PATIENT NAME: Chris Lund DATE: November 04, 2021 TIME: 2:13 PM documented in this encounterPike [facility]07-15-2022 Procedure note* Marcel Alfonso RRT - 11/04/2021 2:11 PM EDT Associated Order(s): OXIMETRY WITH AMBULATION RESPIRATORY THERAPY [...] None NAME: Marcel Alfonso RRT PATIENT NAME: Chris Lund DATE: November 04, 2021 TIME: 2:11 PM Comment: documented in this encounterCleveland [id number] Miscellaneous Notes* Telephone Encounter - Vivian Perdomo MA - 11/04/2021 2:10 PM EDT Call pt and told her that her closet location for the rehabilitation Center is the [facility] and give her the number. * Telephone Encounter - Sarah Boogie MD - 11/04/2021 12:11 PM EDT Patient needs to join pulm,onary rehab. Prefers to be at [place]. Second option is long Can you please try to find a pulmonary rehabilitation facility close to [place], other [place], she will join long [place]. Order is in Thanks [place] documented in this encounterPike [facility] Hospital07-15-2022 History of Present illness Narrative* Marcel Alfonso RRT - 11/04/2021 2:08 PM EDT PULM FUNCTION SMARTBLOCK: Provider: Sarah Boogie MD Assisting Tech: Marcel Alfonso RRT Spirometry: 1 DLCO: 1 Oximetry - Ambulation: 1 Exhaled Nitric Oxide: 1 documented in this [facility]07-15-2022 Miscellaneous Notes* Telephone Encounter - Sarah Boogie MD - 11/04/2021 2:03 PM EDT Please request a copy of her sleep study from dr lopez at [facility] documented in this [facility]07-15-2022 History of Present illness Narrative* Sarah Boogie MD - 11/04/2021 11:48 AM EDT Images from the original note were not included. [facility] OFFICE VISIT CONSULT 11/04/2021 Patient Name: Chris Lund PRIMARY CARE PHYSICIAN: Jane Church DO, DO REASON FOR CONSULT: fatigue, DIAN, post covid syndrome, lyme disease REFERRING PHYSICIAN: Millicent Stout, APR* My final recommendations will be communicated to the requesting health care provider by way of the shared medical record for internal providers or by letter via US mail for external providers. CHIEF COMPLAINT: fatigue, DIAN, post covid syndrome, lyme disease HISTORY OF PRESENT ILLNESS: Chris Lund is a 46 year old female, Ht 167.6 cm (5' 6") BMI 35.35 kg/m2 with a PMH significant for covid infection early 2019 and April 2021, post covid syndrome, persistent fatigue, DIAN, celiac disease, IBS, lyme disease, referred to our office for evaluation. The patient main complaint is fatigue. Started many years ago. She was diagnosed with DIAN and started on cpap with a sleep specialist at [place]. Tried the cpap but it did not [...] No significant exposure Silica: No significant exposure [place]: No significant exposure Mold: No significant exposure [...] in AM on empty stomach G.I. Detox ([employer]) Activated charcoal - (empty stomach, 30min before eating (60-90min away from supps) Start with 1 capsule and work up to 3 capsules a day One Leggett (Pure Encapsulation) Take 2 capsules by mouth [...] EXAM BP 144/94 Pulse 88 Ht 5' 6" (1.68m) Wt 219 lb (99.3kg) SpO2 99% [...] to auscultation. No wheezing, rhonchi, rales Heart: "RRR without murmur, gallop, or rubs. No ectopy", normal peripheral pulses, no peripheral edema Abdomen: [...] 378 QTC Calculation (Bazett) 446 Calculated P [place] 40 Calculated R [place] -6 Calculated T [place] 32 Impression SINUS RHYTHM WITH OCCASIONAL PREMATURE VENTRICULAR COMPLEXES OTHERWISE NORMAL ECG Confirmed by ISIAH OSBORN M.D. ([id number]) on 06/10/2021 7:34:13 AM No results found for this or any previous visit (from the past 58647 hour(s)). ASSESSMENT/PLAN 1. Post covid syndrome (primary [...] Was following with a sleep specialist at [place] Used cpap for a while-did not help-quit [...] > 40 minutes spent face to face withmore than half of this for disease counseling. Sarah Boogie MD Staff, Respiratory [facility] CC: Jane Church DO, Millicent Samuels, GUSTAVO* documented in this encounterPike [facility]07-15-[facility]22 History of Present illness Narrative* Michelle Olivera MD - 11/04/2021 8:02 AM EDT CHIEF COMPLAINT: Patient presents with: Diarrhea: Abdominal discomfort, celiac disease. Labs 10/13/21 This consult was requested by Millicent Stout APR* for an opinion regarding IBS-D. My final recommendations will be communicated to the requesting health care provider by way of the shared medical record for internal providers or letter via the [employer] for external providers. HPI: Chris Lund is a 46 year old female [...] in AM on empty stomach G.I. 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 The 'COV' represents SARS-CoV-2, also known as COVID-19. Our clinic's mission is to assess and guide individuals who are experiencing long-term effects of COVID-19 to state of the art care paths tailored to fit each person. You were just seen for your follow up visit to review test results. We have now determined the bestcare path for your specific needs. The next step is to follow up with a specialist(s) based on yourunique presentation. - [facility] documented in this encounterPike [facility] Hospital07-14-2022 History of Present illness Narrative* Millicent Stout APRN.CNP - 11/03/2021 7:03 AM EDT Images from the original note were not included. COVID [facility] Virtual Follow-up Evaluation This is a virtual visit using Rivalry video visit. It required patient-provider interaction for themedical decision making as documented below. Initial reCOVer visit conducted: 10/13/21 with Millicent Stout APRN.CNP for evaluation of prolonged, > 28 days, symptoms attributed to COVID-19 infection. COVID-19 testing was initially positive on 04/25/21 HPI: Chris Lund is a 46 year old female [...] [address] Martha Hardy in [place], has had some improvements with her tx Fatigue has been an issue for many years Never feels rested in the AM no matter how much she sleeps or naps Reports poor quality of life due to the profound level of fatigue Dizziness With bending over, position change Started a couple years ago Denies falls or black outs Burchard like she could have blacked out a few years ago when driving so she pulled over and waited forit to pass Cognitive change Hx of this [...] in AM on empty stomach G.I. Detox ([employer]) Activated charcoal - (empty stomach, 30min before eating (60-90min away from supps) Start with 1 capsule and work up to 3 capsules a day OTC PRODUCT once daily. Liver GI Detox One Leggett (Pure Encapsulation) Take 2 capsules by mouth [...] contrast, outside [facility] in July 2021) with nochanges in symptoms- discussed commonality of this finding [...] which included preparing to see the patient, rhhv-eg-[id number] patient care, completing clinical documentation, obtaining and/or reviewing separately obtained history, performing a medically appropriate examination, counseling and educating the pat ient/family/caregiver, communicating with other HCPs (not separately reported), independently interpreting results (not separately reported), communicating results to the patient/family/caregiver andcare coordination (not separately reported). Millicent Stout APRN.CNP November 03, 2021 7:03 AM documented in this encounterPike Community Hospital06-24-2022 Miscellaneous Notes* Telephone Encounter - Ana Osorio RN - 10/14/2021 9:22 AM EDT Called and spoke with patient and reviewed providers note. Reviewed red flags and she understood. Will call with any questions or concerns, * Telephone Encounter - Millicent Stout APRN.CNP - 10/14/2021 9:12 AM EDT Noted, based on her symptoms improving since July and no other accompanying symptoms, I do not think we need to repeat the CT. Very low suspicion for clot. D dimer is found to be elevated in many ofour patients who have had covid and represents an ongoing level of inflammation for many that have had negative work ups for actual blood clots as she did in July. Non specifc rash of legs is likelydue to Lyme, does not sound like a worry for DVT. Please review red flag symptoms with her and whatto do should they occur. No further interventions needed at this time. Millicent Stout APRN.ДМИТРИЙ * Telephone Encounter - Ana Osorio RN - 10/14/2021 8:32 AM EDT Triaged for PE: Episodes of SOB along [...] Lyme disease. Yovany's Test: negative Please advise * Telephone Encounter - Millicent Stout APRN.CNP - 10/14/2021 7:02 AM EDT Please triage for PE/DVT due to elevated D dimer level. Per our evaluation yesterday, ongoing chest pain is present. She had a ct chest with and without contrast 08/10/2021- negative for clot. Please determine if symptoms have worsened at all since then. Has dizziness or chest pain increased? Millicent Stout APRN.CNP documented in this encounterPike Community Hospital06-23-2022 Instructions* Patient Instructions* Millicent Stout APRN.CNP - 10/13/2021 11:51 AM EDT Welcome to [facility]! The 'COV' represents SARS-CoV-2, also known as COVID-19. Our clinic's mission is to assess and guide individuals who are experiencing long-term effects of COVID-19 to state of the art care paths tailored to fit each person. You just had your initial visit with the [facility]! Next, you will be undergoing additional tests [...] functional medicine group will contact you via Rivalry with scheduling information. Please call [phone] to schedule with gastroenterology. - The [facility] Team documented in this encounterPike Community Hospital06-23-2022 History of Present illness Narrative* Millicent Stout APRN.CNP - 10/13/2021 11:08 AM EDT Images from the original note were not included. COVID [facility] Initial Evaluation Chris Lund presents to [facility] at the request of Rogelio Groves MD for evaluation of prolonged, > 28 days, symptoms attributed to COVID-19 infection. They have requested this consultation via eConsult and will be communicated to via the EMR or [place] Post Office Correspondence. HPI: Chris Lund is a 46 year old female [...] [address] Martha Hardy in [place], has had some improvements with her tx Fatigue has been an issue for many years Never feels rested in the AM no matter how much she sleeps or naps Reports poor quality of life due to the profound level of fatigue Dizziness With bending over, position change Started a couple years ago Denies falls or black outs Burchard like she could have blacked out a few years ago when driving so she pulled over and waited forit to pass Cognitive change Hx of this [...] following specialists: Cardiology- Dr. Groves [facility]- [place], Dr. Hardy Review of Systems Constitutional: Positive [...] in AM on empty stomach G.I. Detox ([employer]) Activated charcoal - (empty stomach, 30min before eating (60-90min away from supps) Start with 1 capsule and work up to 3 capsules a day OTC PRODUCT once daily. Liver GI Detox One Leggett (Pure Encapsulation) Take 2 capsules by mouth [...] (Temporal) Resp 15 Ht 168.9 cm (5' 6.5") Wt 98.6 kg (217 lb 4.8 oz) [...] or abnormal muscle tone. Coordination: Coordination normal. Swacvk-Ltvp-Tiykdp Test normal. Gait: Gait normal. Psychiatric: Mood [...] care paths. - thyroid labs completed through [facility] [place] PFT as no SOB reported at this time - Chest imaging and ECHO through [facility] - CBC - COMP METABOLIC PANEL [...] which included preparing to see the patient, rpkc-be-zuvo patient care, completing clinical documentation, obtaining and/or reviewing separately obtained history, performing a medically appropriate examination, counseling and educating the pat ient/family/caregiver, ordering medications, tests, or procedures, communicating results to the patient/family/caregiver and care coordination (not separately reported). Millicent Stout APRN.CNP October 13, 2021 11:09 AM documented in this encounterPike Community Hospital01-03-2022 SARS-CoV RNA EVA+probe Ql (Unsp spec)Coronavirus 2019 (EVA)April 25, 2021 4:44pmDetectedNot Detected Patients who have a positive COVID-19 test result may nowhave treatment options. Treatment options are available forpatients with mild to moderate symptoms and forhospitalized patients. Visit our website [email or web address] for resources andinformation.This nucleic acid amplification test was developed and itsperformance characteristics determined by [facility]. Nucleic acid amplification tests include RT-PCR and TMA. This test has not been FDA cleared orapproved. This test has been authorized by FDA under anEmergency Use Authorization (EUA). This test is onlyauthorizedfor the duration of time the declaration thatcircumstances exist justifying the authorization of theemergency use of in vitro diagnostic tests for detection [id number] virus and/or diagnosis of COVID-19 infectionunder section 564(b)(1) of the Act, 21 U.S.C. 360bbb-3(b)(1), unless the authorization is terminated or revokedsooner.When diagnostic testing is negative, the possibility of afalse negative result should be considered in the contextof a patient's recent exposures and the presence ofclinical signs and symptoms consistent with COVID-19. Anindividual without symptoms of COVID-19 and who is notshedding SARS-CoV-2 virus would expect to have a negative(not detected) result in this assay.[employer]AC[employer] A#[id number] [facility] Work Phone: Comment on above:Patients who have a positive COVID-19 test result may nowhave treatment options. Treatment options are available forpatients with mild to moderate symptoms and forhospitalized patients. Visit our website [email or web address] for resources andinformation.This nucleic acid amplification test was developed and itsperformance characteristics determined by [facility]. Nucleic acid amplification tests include RT- PCR and TMA. This test has not been FDA cleared orapproved. This test has been authorized by FDA under anEmergency Use Authorization (EUA). This test is onlyauthorizedfor the duration of time the declaration thatcircumstances exist justifying the authorization of theemergency use of in vitro diagnostic tests for detection [id number] virus and/or diagnosis of COVID-19 infectionunder section 564(b)(1) of the Act, 21 U.S.C. 360bbb-3(b)(1), unless the authorization is terminated or revokedsooner.When diagnostic testing is negative, the possibility of afalse negative result should be considered in the contextof a patient's recent exposures and the presence ofclinical signs and symptoms consistent with COVID-19. Anindividual without symptoms of COVID-19 and who is notshedding SARS-CoV-2 virus would expect to have a negative(not detected) result in this assay.11-05-2015 History of Past illness Narrative* Problem Noted [...] of this encounter (statuses as of 10/13/2021) [facility] Narrative* Problem Noted [...] of this encounter (statuses as of 10/17/2021) [facility] Narrative* Problem Noted Date Resolved Date Fatigue 11/05/2015 01/18/2016 Bloating 11/05/2015 01/18/2016 Irregular menstrual cycle 11/10/20112015 Excessive or frequent menstruation 11/10/2011 01/18/2016 Metrorrhagia 11/10/2011 01/18/2016 Diabetes mellitus, 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) 06/17/2010 07/04/2010 ADVANCED MATERNAL AGE:MULTIPARA[659.63] 11/25/19 07/04/2010 SUPRF HIGH RISK NEC [V23.89] 0 07/04/2010 Poor growth, affecting management of mother, antepartum condition or complication 11/24/2009 07/04/2010 Other pre-existing hypertension, antepartum 08/0 07/200907/04/2010 Previous delivery, antepartum condition or complication 11/24/2009 07/04/2010 documented as of this encounter (statuses as of 11/03/2021) [facility] Narrative* Problem Noted [...] of this encounter (statuses as of 11/04/2021) [facility] Narrative* Problem Noted [...] of this encounter (statuses as of 11/04/2021) [facility] Narrative* Problem Noted [...] of this encounter (statuses as of 11/04/2021) [facility] N[facility]ative* Problem Noted [...] of this encounter (statuses as of 11/04/2021) [facility]* Problem Noted [...] of this encounter (statuses as of 11/07/2021) [facility]* Problem Noted [...] of this encounter (statuses as of 11/10/2021) [facility]* Problem Noted [...] of this encounter (statuses as of 11/11/2021) [facility]* Problem Noted [...] of this encounter (statuses as of 11/19/2021) [facility]* Problem Noted [...] of this encounter (statuses as of 12/01/2021) [facility]* Problem Noted [...] of this encounter (statuses as of 01/06/2022) [facility]* Problem Noted [...] of this encounter (statuses as of 01/19/2022) [facility]* Problem Noted [...] of this encounter (statuses as of 01/24/2022) [facility]* Problem Noted [...] of this encounter (statuses as of 03/21/2022) [facility]* Problem Noted [...] of this encounter (statuses as of 04/27/2022) [facility]* Problem Noted [...] of this encounter (statuses as of 04/27/2022) [facility]* Problem Noted [...] of this encounter (statuses as of 05/10/2022) [facility]* Problem Noted [...] of this encounter (statuses as of 05/16/2022) [facility]* Problem Noted [...] of this encounter (statuses as of 05/16/2022) [facility]* Problem Noted [...] of this encounter (statuses as of 05/25/2022) [facility]* Problem Noted [...] of this encounter (statuses as of 07/13/2022) [facility]* Problem Noted [...] of this encounter (statuses as of 07/20/2022) [facility]* Problem Noted [...] of this encounter (statuses as of 03/23/2023) [facility]* Problem Noted [...] of this encounter (statuses as of 04/04/2023) [facility]* Problem Noted [...] as of this encounter (statuses as of 06/07/2023) [facility]* Problem Noted [...] as of this encounter (statuses as of 07/01/2023) [facility]* Problem Noted [...] as of this encounter (statuses as of 08/10/2023) [facility] noteNo assessment information availableWTriHealth Good [facility] Work Phone: Evaluation note* Diagnosis Chest discomfort- Primary Other chest pain Post-acute sequelae of COVID-19 (PASC) Lung nodule Solitary pulmonary nodule Fatigue, unspecified type DIAN (obstructive sleep apnea) Obstructive sleep apnea (adult) (pediatric) Lyme disease Celiac disease Irritable bowel syndrome with diarrhea Irritable bowel syndrome COVID-19 vaccine regimen to maintain immunity declined [facility] [place] [facility]* Diagnosis 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 [facility] [place] [facility]* Diagnosis Screen for colon cancer- Primary Special screening for malignant neoplasms, colon Post-acute sequelae of COVID-19 (PASC) Celiac disease Irritable bowel syndrome with diarrhea Irritable bowel syndrome Bloating Flatulence, eructation, and gas pain Right lower quadrant abdominal tenderness with rebound tenderness History of cholecystectomy Other acquired absence of organ [facility] [place] [facility]* Diagnosis SOB (shortness of breath)- Primary Shortness of breath Chest pain, unspecified type Post-COVID syndrome History of COVID-19 Malaise and fatigue Other malaise and fatigue DIAN (obstructive sleep apnea) Obstructive sleep apnea (adult) (pediatric) documented [facility] [place] [facility]* Diagnosis SOB (shortness of breath) Shortness of breath documented [facility] [place] [facility]* Diagnosis SOB (shortness of breath) Shortness of breath [facility] [place] [facility]* Diagnosis SOB (shortness of breath) Shortness of breath [facility] [place] [facility]* Diagnosis COVID-19 virus infection- Primary SOB (shortness of breath) Shortness of breath Post-COVID syndrome documented [facility] [place] [facility]* Diagnosis Chest pain, unspecified type documented [facility] [place] [facility]* 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) Celiac disease Irritable bowel syndrome with diarrhea Irritable bowel syndrome Screen for colon cancer Special screening for malignant neoplasms, colon documented [facility] [place] [facility]* Diagnosis 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 documented in this encounter [facility] note* Diagnosis 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 documented in this encounter [facility] note* Diagnosis 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 documented in this encounter [facility] note* Diagnosis 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 documented in this encounter [facility] note* Diagnosis Hypersomnia- Primary Hypersomnia, unspecified Idiopathic hypersomnia with long sleep time documented [facility] [place] [facility]* Diagnosis Closed trimalleolar fracture of right ankle with routine healing, subsequent encounter- Primary documented in this encounter [facility] note* Diagnosis Closed trimalleolar fracture of right ankle with routine healing, subsequent encounter- Primary documented in this encounter [facility] note* Diagnosis Closed trimalleolar fracture of right ankle with routine healing, subsequent encounter- Primary documented in this encounter [facility] note* Diagnosis Closed trimalleolar fracture of right ankle with routine healing, subsequent encounter- Primary documented in this encounter [facility] note* Diagnosis Closed trimalleolar fracture of right ankle with routine healing, subsequent encounter- Primary documented in this encounter [facility] note* Diagnosis Painful orthopaedic hardware (HCC)- Primary Other complications due to other internal orthopedic device, implant, and graft Painful orthopaedic hardware (HCC) Other complications due to other internal orthopedic device, implant, and graft documented in this encounter [facility] note* Diagnosis Status post hardware removal- Primary Other postprocedural status Closed trimalleolar fracture of right ankle with routine healing, subsequent encounter documented in this encounter [facility] for referral (narrative)* Outpatient Procedure (Routine) - Authorized Specialty Diagnoses / Procedures Referred By [place] [facility] Referred To Contact [facility] Diagnoses Post-acute sequelae of COVID-19 (PASC) Celiac disease Irritable bowel syndrome with diarrhea Screen for colon cancer Procedures COLONOSCOPY SCREENING COLONOSCOPY FLX DX W/COLLJ SPEC WHEN PFRMD Raisa Oliveraamad, MD [address] [place] [address] [address] Referral ID Status Reason Start Date Expiration Date Visits Requested Visits Authorized [id number] Authorized Auto-Generat ed Referral 11/04/2021 11/04/2022 1 1 * Outpatient Procedure (Routine) - Authorized Specialty Diagnoses / Procedures Referred By Contac t Referred To Contact [facility] Diagnoses Post-acute sequelae of COVID-19 (PASC) Celiac disease Irritable bowel syndrome with diarrhea Screen for colon cancer Procedures EGD DIAGNOSTIC ESOPHAGOGASTRODUODENOS COPY TRANSORAL DIAGNOSTIC Michelle Olivera MD [address] [place] [address] [place] [id number] Referral ID Status Reason Start Date Expiration Date Visits Requested Visits Authorized [id number] Authorized Auto-Generat ed Referral 11/04/2021 11/04/2022 1 1 [facility] for referral (narrative)* Outpatient Procedure (Routine) - Authorized Specialty Diagnoses / Procedures Referred By Contac t Referred To [facility] Diagnoses SOB (shortness of breath) Procedures ECHO ECHO TTHRC R-T 2D W/WOM-MODE COMPL SPEC&COLR D Sarah Boogie MD [address] [place] [address] [facility] [place] [id number] Referral ID Status Reason Start Date Expiration Date Visits Requested Visits Authorized [id number] Authorized Auto-Generat ed Referral 11/04/2021 11/04/2022 1 1 * MRI/CT (Urgent) - Authorized Specialty Diagnoses / Procedures Referred By Contac t Referred To Contact CT IMAGING Diagnoses Chest pain, unspecified type Procedures CT CHEST W IVCON PE DIAGNOSTIC COMPUTED TOMOGRAPHY THORAX W/CONTRAST Sarah Boogie MD [address] [place] [address] Ct Imaging Referral ID Status Reason Start Date Expiration Date Visits Requested Visits Authorized [id number] Authorized Auto-Generat ed Referral 11/04/2021 12/04/2022 1 1 * Outpatient Procedure (Routine) - Closed Specialty Diagnoses / Procedures Referred By [facility] Referred To Contact [facility] Diagnoses SOB (shortness of breath) Procedures NITRIC OXIDE, EXHALED NITRIC OXIDE GAS DETERMINATION Sarah Boogie MD [address] [place] [address] [place] [address] Referral ID Status Reason Start Date Expiration Date V isits Requested Visits Authorized [id number] Closed Auto-Generate d Referral 11/04/2021 12/04/2022 1 1 * Outpatient Procedure (Routine) - Closed Specialty Diagnoses / Procedures Referred By [facility] Referred To [facility] [place] Diagnoses SOB (shortness of breath) Procedures OXIMETRY WITH AMBULATION NONINVASIVE EAR/PULSE OXIMETRY MULTIPLE DETER Sarah Boogie MD [address] [place] [address] [place] [address] Referral ID Status Reason Start Date Expiration Date V isits Requested Visits Authorized [id number] Closed Auto-Generate d Referral 11/04/2021 12/04/2022 1 1 * Outpatient Procedure (Routine) - Closed Specialty Diagnoses / Procedures Referred [facility] Referred To [facility] [place] Diagnoses SOB (shortness of breath) Procedures LUNG DIFFUSION CAPACITY (DLCO) DIFFUSING CAPACITY Sarah Boogie MD [address] [place] [address] [facility] [place] [address] [place] [id number] Referral ID Status Reason Start Date Expiration Date V isits Requested Visits Authorized [id number] Closed Auto-Generate d Referral 11/04/2021 12/04/2022 1 1 * Outpatient Procedure (Routine) - Closed Specialty Diagnoses / Procedures Referred By [facility] Referred [facility] Diagnoses SOB (shortness of breath) Procedures SPIROMETRY WITH DILATOR IF OBSTRUCTED BRNCDILAT RSPSE SPMTRY PRE&POST-BRNCDILAT ADMN Sarah Boogie MD [address] [id number] [facility] [place] [address] [place] [address] Referral ID Status Reason Start Date Expiration Date V isits Requested Visits Authorized [id number] Closed Auto-Generate d Referral 11/04/2021 12/04/2022 1 1 [facility] for referral (narrative)* Outpatient Procedure (Routine) - Closed Specialty Diagnoses / Procedures Referred By [facility] Referred [facility] Diagnoses Post-acute sequelae of COVID-19 (PASC) Celiac disease Irritable bowel syndrome with diarrhea Screen for colon cancer Procedures COLONOSCOPY SCREENING COLONOSCOPY FLX DX W/COLLJ SPEC WHEN PFRMMichelle Morales MD [address] [place] [address] [facility] [place] [address] [place], [place] [id number] Referral ID Status Reason Start Date Expiration Date V isits Requested Visits Authorized [id number] Closed Auto-Generate d Referral 11/04/2021 11/04/2022 1 1 * Outpatient Procedure (Routine) - Closed Specialty Diagnoses / Procedures Referred By [facility] Referred To Contact [facility] Diagnoses Post-acute sequelae of COVID-19 (PASC) Celiac disease Irritable bowel syndrome with diarrhea Screen for colon cancer Procedures EGD DIAGNOSTIC ESOPHAGOGASTRODUODENOS COPY TRANSORAL DIAGNOSTIC Michelle Olivera MD [address] [place] [address] [facility] [place] [phone] [place] [address] Referral ID Status Reason Start Date Expiration Date V isits Requested Visits Authorized [id number] Closed Auto-Generate d Referral 11/04/2021 11/04/2022 1 1 [facility] for referral (narrative)* Diagnostic Procedure Only (Routine) - Pending Review Specialty Diagnoses / Procedures Referred By [facility] Referred To Contact [facility] Diagnoses Primary hypersomnia Procedures MULTIPLE SLEEP LATENCY TEST CONTACT ACID PLANT OPERATOR HELPER SLEEP LATENCY/MAINT OF WAKEFULNESS TSTG Mika Jenkins MD [address] [facility], [address] [address] Referral ID Status Reason Start Date Expiration Date Visits Requested Visits Authorized [id number] Pending Review Auto-Generat ed Referral 01/06/2022 01/06/2023 1 1 [facility] for referral (narrative)* Diagnostic Procedure Only (Routine) - Pending Review Specialty Diagnoses / Procedures Referred By [facility] Referred To Contact XR IMAGING Diagnoses Closed bimalleolar fracture of right ankle with routine healing, subsequent encounter Procedures XR ANKLE GENERAL 3V AP/LAT/OBL RIGHT RADEX ANKLE COMPLETE MINIMUM 3 VIEWS Marty Lerma MD [address] [address] [place] [address] Referral ID Status Reason Start Date Expiration Date Visits Requested Visits Authorized [id number] Pending Review Auto-Generat ed Referral 05/31/2023 06/29/2024 1 1 [facility] for referral (narrative)* Diagnostic Procedure Only (Routine) - Pending Review Specialty Diagnoses / Procedures Referred By [facility] t Referred To Contact XR IMAGING Diagnoses Closed trimalleolar fracture of right ankle with routine healing, subsequent encounter Procedures XR ANKLE GENERAL 3V AP/LAT/OBL RIGHT RADEX ANKLE COMPLETE MINIMUM 3 VIEWS Marty Lerma MD [address] REAL [address] [place] [address] [place] [address] Referral ID Status Reason Start Date Expiration Date Visits Requested Visits Authorized [id number] Pending Review Auto-Generat ed Referral 06/28/2023 07/27/2024 1 1 [facility] for referral (narrative)* Diagnostic Procedure Only (Routine) - Pending Review Specialty Diagnoses / Procedures Referred By Cont[facility] t Referred To Contact XR IMAGING Diagnoses Closed trimalleolar fracture of right ankle with routine healing, subsequent encounter Procedures XR ANKLE GENERAL 3V AP/LAT/OBL RIGHT RADEX ANKLE COMPLETE MINIMUM 3 VIEWS Marty Lerma MD [address] REAL [address] [place] [address] [place] [address] Referral ID Status Reason Start Date Expiration Date Visits Requested Visits Authorized [id number] Pending Review Auto-Generat ed Referral 08/09/2023 09/07/2024 1 1 [facility] for referral (narrative)* Diagnostic Procedure Only (Routine) - New Request Specialty Diagnoses / Procedures Referred By Cont[facility] t Referred To Contact XR IMAGING Diagnoses Closed trimalleolar fracture of right ankle with routine healing, subsequent encounter Procedures XR ANKLE GENERAL 3V AP/LAT/OBL RIGHT RADEX ANKLE COMPLETE MINIMUM 3 VIEWS Marty Lerma MD [address] REAL [address] [place] [address] [place] [address] Referral ID Status Reason Start Date Expiration Date Visits Requested Visits Authorized [id number] New Request Auto-Generat ed Referral 11/08/2023 12/07/2024 1 1 [facility] for referral (narrative)* Diagnostic Procedure Only (Routine) - New Request Specialty Diagnoses / Procedures Referred By Cont[facility] t Referred To Contact XR IMAGING Diagnoses Closed trimalleolar fracture of right ankle with routine healing, subsequent encounter Procedures XR ANKLE GENERAL 3V AP/LAT/OBL RIGHT RADEX ANKLE COMPLETE MINIMUM 3 VIEWS Marty Lerma MD [address] REAL [address] [place] [address] [place] [address] Referral ID Status Reason Start Date Expiration Date Visits Requested Visits Authorized [id number] New Request Auto-Generat ed Referral 02/28/2024 03/29/2025 1 1 [facility] for referral (narrative)* Diagnostic Procedure Only (Routine) - New Request Specialty Diagnoses / Procedures Referred By Cont[facility] t Referred To Contact XR IMAGING Diagnoses Status post hardware removal Closed trimalleolar fracture of right ankle with routine healing, subsequent encounter Procedures XR ANKLE GENERAL 3V AP/LAT/OBL RIGHT RADEX ANKLE COMPLETE MINIMUM 3 VIEWS Marty Lerma MD [address] REAL [address] [place] [address] [place] [address] Referral ID Status Reason Start Date Expiration Date Visits Requested Visits Authorized [id number] New Request Auto-Generat ed Referral 04/11/2025 1 1 [facility] for visit Narrative* Outpatient Procedure (Routine) - Closed Specialty Diagnoses / Procedures Referred By [facility] t Referred To Contact [facility] Diagnoses Post-acute sequelae of COVID-19 (PASC) Celiac disease Irritable bowel syndrome with diarrhea Screen for colon cancer Procedures COLONOSCOPY SCREENING COLONOSCOPY FLX DX W/COLLJ SPEC WHEN Michelle Gonzalez MD [address] [place] [address] [facility] [place] [address] [place] [address] Referral ID Status Reason Start Date Expiration Date V isits Requested Visits Authorized [id number] Closed Auto-Generate d Referral 11/04/2021 11/04/2022 1 1 [facility] Summary Purpose Family History No Family History Records Found Relationship Condition Age at Onset Recorded Date/T regla Not Specified Diabetes mellitus Unknown Cardiac disease Unknown Advance Directives No Advanced Directives Records Found Advance Directive Response Recorded Date/ Time Advance Directives No September 24 11:25am Living Will Yes May 21 7:52pm Power of Traveling Passenger Agent Yes May 21, 2019 7:52pm Advance Directive Response Recorded Date/ Time Advance Directives No September 24 10:25am Living Will Yes May 21 6:52pm Power of Traveling Passenger Agent Yes May 21, 2019 6:52pm Advance Directive Response Recorded Date/ Time Advance Directives No September 24 10:25am Living Will Yes April 19, 2 023 2:05am Power of Traveling Passenger Agent Yes April 19, 2023 2:05am Name of Medical Power of Traveling Passenger Agent Stephen Lund April 19, 2023 2:05am Chief Complaint and Reason for Visit Chief Complaint covid positive MURMUR MURMUR LUNG NODULE Chief Complaint SCREENING Chief Complaint Fall, Trauma Reason for Referral Specialty Diagnoses / Procedures Referred By [facility] Referred To Contact Gastroenterology Diagnoses Post-acute sequelae of COVID-19 (PASC) Celiac disease Irritable bowel syndrome with diarrhea Procedures CONSULT TO GASTROENTEROLOGY OFFICE/OUTPATIENT [facility] 60-74 MINUTES Millicent Stout, SLICING MACHINE TENDER.QUALITY CONSULTANT [address] [place] [address] Referral ID Status Reason Start Date Expiration Date Visits Requested Visits Authorized [id number] Pending Review PCP Requested Referral 10/13/2021 10/13/2022 1 1 Specialty Diagnoses / Procedures Referred By [facility] Referred To Contact Diagnoses Fatigue, unspecified type Post-acute sequelae of COVID-19 (PASC) Lyme disease Celiac disease Irritable bowel syndrome with diarrhea Procedures CONSULT TO FUNCTIONAL MEDICINE OFFICE/OUTPATIENT [facility] 60-74 MINUTES Millicent Stout, SLICING MACHINE TENDER.QUALITY CONSULTANT [address] [place] [address] Referral ID Status Reason Start Date Expiration Date Visits Requested Visits Authorized [id number] Pending Review PCP Requested Referral 10/13/2021 10/13/2022 1 1 Specialty Diagnoses / Procedures Referred By [facility] t Referred To Contact Diagnoses Fatigue, unspecified type DIAN (obstructive sleep apnea) Post-acute sequelae of COVID-19 (PASC) Procedures CONSULT TO SLEEP MEDICINE - ADULT OFFICE/OUTPATIENT [facility] 60-74 MINUTES Millicent Stout, SLICING MACHINE TENDER.QUALITY CONSULTANT [address] [place] [address] Referral ID Status Reason Start Date Expiration Date Visits Requested Visits Authorized [id number] Pending Review PCP Requested Referral 10/13/2021 10/13/2022 1 1 Specialty Diagnoses / Procedures Referred By Cont[facility] t Referred To Contact CT IMAGING Diagnoses Chest pain, unspecified type Procedures CT CHEST W IVCON PE DIAGNOSTIC COMPUTED TOMOGRAPHY THORAX W/CONTRAST Sarah Boogie MD [address] [place] [address] Ct Imaging Referral ID Status Reason Start Date Expiration Date V isits Requested Visits Authorized [id number] Closed Auto-Generate d Referral 11/04/2021 12/04/2022 1 1 Specialty Diagnoses / Procedures Referred By Cont[facility] t Referred To Contact Diagnoses Hypersomnia Mika Jenkins MD [address] [address] Referral ID Status Reason Start Date Expiration Date V isits Requested Visits Authorized [id number] Pending Review 1 1 Additional Source Comments INFORMATION SOURCE (unrecogn ized section and content) DATE CREATED AUTHOR 07/03/2021 [facility] DATE CREATED AUTHOR AUTHOR'S ORGANIZ ATION 11/22/2021 [facility] DATE CREATED AUTHOR AUTHOR'S ORGANIZ ATION 03/26/2023 [facility] DATE CREATED AUTHOR AUTHOR'S ORGANIZ ATION 03/15/2024 [facility] DATE CREATED AUTHOR AUTHOR'S ORGANIZ ATION 05/07/2024 [facility] Goals (unrecognized section and content) Goals may be documented in a n alternate sectionGoals may be documented in an alternate sectionGoals may be documented in an alternate sectionGoals may be documented in an alternate sectionGoals may be documented in an alternate sectionGoals may be documented in an alternate section Source Comments (unrecognize d section and content) In the event this informatio n is protected by the Federal Confidentiality of Alcohol and Drug Abuse Patient Records regulations: The Federal rules restrict any use of the information to criminally investigate or prosecute any alcohol or drug abuse patient.[facility] the event this information is protected by the Federal Confidentiality of Alcohol and Drug Abuse Patient Records regulations: The Federal rules restrict any use of the information to criminally investigate or prosecute any alcohol or drug abuse patient.[facility] the event this information is protected by the Federal Confidentiality of Alcohol and Drug Abuse Patient Records regulations: The Federal rules restrict any use of the information to criminally investigate or prosecute any alcohol or drug abuse patient.[facility] the event this information is protected by the Federal Confidentiality of Alcohol and Drug Abuse Patient Records regulations: The Federal rules restrict any use of the information to criminally investigate or prosecute any alcohol or drug abuse patient.[facility] the event this information is protected by the Federal Confidentiality of Alcohol and Drug Abuse Patient Records regulations: The Federal rules restrict any use of the information to criminally investigate or prosecute any alcohol or drug abuse patient.[facility] the event this information is protected by the Federal Confidentiality of Alcohol and Drug Abuse Patient Records regulations: The Federal rules restrict any use of the information to criminally investigate or prosecute any alcohol or drug abuse patient.[facility] the event this information is protected by the Federal Confidentiality of Alcohol and Drug Abuse Patient Records regulations: The Federal rules restrict any use of the information to criminally investigate or prosecute any alcohol or drug abuse patient.[facility] the event this information is protected by the Federal Confidentiality of Alcohol and Drug Abuse Patient Records regulations: The Federal rules restrict any use of the information to criminally investigate or prosecute any alcohol or drug abuse patient.[facility] the event this information is protected by the Federal Confidentiality of Alcohol and Drug Abuse Patient Records regulations: The Federal rules restrict any use of the information to criminally investigate or prosecute any alcohol or drug abuse patient.[facility] the event this information is protected by the Federal Confidentiality of Alcohol and Drug Abuse Patient Records regulations: The Federal rules restrict any use of the information to criminally investigate or prosecute any alcohol or drug abuse patient.[facility] the event this information is protected by the Federal Confidentiality of Alcohol and Drug Abuse Patient Records regulations: The Federal rules restrict any use of the information to criminally investigate or prosecute any alcohol or drug abuse patient.[facility] the event this information is protected by the Federal Confidentiality of Alcohol and Drug Abuse Patient Records regulations: The Federal rules restrict any use of the information to criminally investigate or prosecute any alcohol or drug abuse patient.[facility] the event this information is protected by the Federal Confidentiality of Alcohol and Drug Abuse Patient Records regulations: The Federal rules restrict any use of the information to criminally investigate or prosecute any alcohol or drug abuse patient.[facility] the event this information is protected by the Federal Confidentiality of Alcohol and Drug Abuse Patient Records regulations: The Federal rules restrict any use of the information to criminally investigate or prosecute any alcohol or drug abuse patient.[facility] the event this information is protected by the Federal Confidentiality of Alcohol and Drug Abuse Patient Records regulations: The Federal rules restrict any use of the information to criminally investigate or prosecute any alcohol or drug abuse patient.[facility] the event this information is protected by the Federal Confidentiality of Alcohol and Drug Abuse Patient Records regulations: The Federal rules restrict any use of the information to criminally investigate or prosecute any alcohol or drug abuse patient.[facility] the event this information is protected by the Federal Confidentiality of Alcohol and Drug Abuse Patient Records regulations: The Federal rules restrict any use of the information to criminally investigate or prosecute any alcohol or drug abuse patient.[facility] the event this information is protected by the Federal Confidentiality of Alcohol and Drug Abuse Patient Records regulations: The Federal rules restrict any use of the information to criminally investigate or prosecute any alcohol or drug abuse patient.[facility]In the event this information is protected by the Federal Confidentiality of Alcohol and Drug Abuse Patient Records regulations: The Federal rules restrict any use of the information to criminally investigate or prosecute any alcohol or drug abuse patient.[facility] Hospital[facility] the event this information is protected by the Federal Confidentiality of Alcohol and Drug Abuse Patient Records regulations: The Federal rules restrict any use of the information to criminally investigate or prosecute any alcohol or drug abuse patient.[facility] HospitalIn the event this information is protected by the Federal Confidentiality of Alcohol and Drug Abuse Patient Records regulations: The Federal rules restrict any use of the information to criminally investigate or prosecute any alcohol or drug abuse patient.[facility] the event this information is protected by the Federal Confidentiality of Alcohol and Drug Abuse Patient Records regulations: The Federal rules restrict any use of the information to criminally investigate or prosecute any alcohol or drug abuse patient.[facility]In the event this information is protected by the Federal Confidentiality of Alcohol and Drug Abuse Patient Records regulations: The Federal rules restrict any use of the information to criminally investigate or prosecute any alcohol or drug abuse patient.[facility] the event this information is protected by the Federal Confidentiality of Alcohol and Drug Abuse Patient Records regulations: The Federal rules restrict any use of the information to criminally investigate or prosecute any alcohol or drug abuse patient.[facility] the event this information is protected by the Federal Confidentiality of Alcohol and Drug Abuse Patient Records regulations: The Federal rules restrict any use of the information to criminally investigate or prosecute any alcohol or drug abuse patient.[facility] HospitalIn the event this information is protected by the Federal Confidentiality of Alcohol and Drug Abuse Patient Records regulations: The Federal rules restrict any use of the information to criminally investigate or prosecute any alcohol or drug abuse patient.[facility] the event this information is protected by the Federal Confidentiality of Alcohol and Drug Abuse Patient Records regulations: The Federal rules restrict any use of the information to criminally investigate or prosecute any alcohol or drug abuse patient.[facility] HospitalIn the event this information is protected by the Federal Confidentiality of Alcohol and Drug Abuse Patient Records regulations: The Federal rules restrict any use of the information to criminally investigate or prosecute any alcohol or drug abuse patient.[facility] HospitalIn the event this information is protected by the Federal Confidentiality of Alcohol and Drug Abuse Patient Records regulations: The Federal rules restrict any use of the information to criminally investigate or prosecute any alcohol or drug abuse patient.[facility]In the event this information is protected by the Federal Confidentiality of Alcohol and Drug Abuse Patient Records regulations: The Federal rules restrict any use of the information to criminally investigate or prosecute any alcohol or drug abuse patient.[facility] HospitalIn the event this information is protected by the Federal Confidentiality of Alcohol and Drug Abuse Patient Records regulations: The Federal rules restrict any use of the information to criminally investigate or prosecute any alcohol or drug abuse patient.[facility] the event this information is protected by the Federal Confidentiality of Alcohol and Drug Abuse Patient Records regulations: The Federal rules restrict any use of the information to criminally investigate or prosecute any alcohol or drug abuse patient.[facility]In the event this information is protected by the Federal Confidentiality of Alcohol and Drug Abuse Patient Records regulations: The Federal rules restrict any use of the information to criminally investigate or prosecute any alcohol or drug abuse patient.[facility] HospitalIn the event this information is protected by the Federal Confidentiality of Alcohol and Drug Abuse Patient Records regulations: The Federal rules restrict any use of the information to criminally investigate or prosecute any alcohol or drug abuse patient.[facility] the event this information is protected by the Federal Confidentiality of Alcohol and Drug Abuse Patient Records regulations: The Federal rules restrict any use of the information to criminally investigate or prosecute any alcohol or drug abuse patient.[facility]In the event this information is protected by the Federal Confidentiality of Alcohol and Drug Abuse Patient Records regulations: The Federal rules restrict any use of the information to criminally investigate or prosecute any alcohol or drug abuse patient.[facility] HospitalIn the event this information is protected by the Federal Confidentiality of Alcohol and Drug Abuse Patient Records regulations: The Federal rules restrict any use of the information to criminally investigate or prosecute any alcohol or drug abuse patient.[facility] HospitalIn the event this information is protected by the Federal Confidentiality of Alcohol and Drug Abuse Patient Records regulations: The Federal rules restrict any use of the information to criminally investigate or prosecute any alcohol or drug abuse patient.[facility] Reason for Visit (unrecogniz ed section and content) Reason Comments Consult post covid symptoms Specialty Diagnoses / Procedures Referred By [facility] Referred To Contact [facility] Diagnoses Chest discomfort Essential hypertension Abnormal echocardiogram COVID-19 Obesity, Class I, BMI 30-34.9 Fatigue, unspecified type DIAN (obstructive sleep apnea) Procedures [facility] Rogelio Groves MD [address] [place] [address] [facility] [address] [place] [address] Referral ID Status Reason Start Date Expiration Date Visits Requested Visits Authorized [id number] Pending Review PCP Requested Referral 06/09/2021 06/09/2022 1 1 Reason Comments Results Reason Comments Follow Up Specialty Diagnoses / Procedures Referred By Roshan branch Referred To Contact PULElenita [facility] Diagnoses Chest discomfort Essential hypertension Abnormal echocardiogram COVID-19 Obesity, Class I, BMI 30-34.9 Fatigue, unspecified type DIAN (obstructive sleep apnea) Procedures CONSULT TO [facility] Rogelio Groves MD [address] [place] [address] [facility] [address] [place] [address] Reason Comments Diarrhea Abdominal discomfort , celiac disease. 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 [address] [place] [address] Referral ID Status Reason Start Date Expiration Date Visits Requested Visits Authorized [id number] Pending Review PCP Requested Referral 10/13/2021 10/13/2022 1 1 Reason Comments Orders Reason Comments New Patient Post COVID, Sleep co ncerns Reason Comments Spirometry Specialty Diagnoses / Procedures Referred By Contac t Referred To Contact [facility] Diagnoses SOB (shortness of breath) Procedures OXIMETRY WITH AMBULATION NONINVASIVE EAR/PULSE OXIMETRY MULTIPLE DETER Sarah Boogie MD [address] [place] [address] [facility] [place] [id number] Referral ID Status Reason Start Date Expiration Date V isits Requested Visits Authorized [id number] Closed Auto-Generate d Referral 11/04/2021 12/04/2022 1 1 Specialty Diagnoses / Procedures Referred By Contac t Referred To Contact [facility] Diagnoses SOB (shortness of breath) Procedures LUNG DIFFUSION CAPACITY (DLCO) DIFFUSING CAPACITY Sarah Boogie MD [address] [place] [address] [place] [address] Referral ID Status Reason Start Date Expiration Date V isits Requested Visits Authorized [id number] Closed Auto-Generate d Referral 11/04/2021 12/04/2022 1 1 Specialty Diagnoses / Procedures Referred By Contac t Referred To Contact [facility] Diagnoses SOB (shortness of breath) Procedures NITRIC OXIDE, EXHALED NITRIC OXIDE GAS DETERMINATION Sarah Boogie MD [address] [place] [address] [place] [address] Referral ID Status Reason Start Date Expiration Date V isits Requested Visits Authorized [id number] Closed Auto-Generate d Referral 11/04/2021 12/04/2022 1 1 Specialty Diagnoses / Procedures Referred By Contac t Referred To Contact CT IMAGING Diagnoses Chest pain, unspecified type Procedures CT CHEST W IVCON PE DIAGNOSTIC COMPUTED TOMOGRAPHY THORAX W/CONTRAST Sarah Boogie MD [address] [place] [address] Ct Imaging Referral ID Status Reason Start Date Expiration Date V isits Requested Visits Authorized [id number] Closed Auto-Generate d Referral 11/04/2021 12/04/2022 1 1 Reason Comments New Patient Reason Comments [employer] - Other Reason Comments Rx Refills Established Patient Reason Comments Insurance Authorization PA initiated for Nuvigil Reason Comments Patient Update Reason Comments Sleep Apnea Medication Follow-up Rx Refills Reason Comments Established Patient Follow Up Pain Reason Comments Established Patient Has some swelling an d pain when she's active for a long time. She wears her tall walker boot when she knows she will be on it for a while. Follow Up Has some swelling an d pain when she's active for a long time. She wears her tall walker boot when she knows she will be on it for a while. Pain Has some swelling an d pain when she's active for a long time. She wears her tall walker boot when she knows she will be on it for a while. Swelling Has some swelling an d pain when she's active for a long time. She wears her tall walker boot when she knows she will be on it for a while. Reason Comments Appointment Reason Comments Established Patient Follow Up Pain Swelling Numbness Reason Comments Reminder Call Reason Comments Post Op Care Teams (unrecognized sec tion and content) [employer]usement Park Entertainer Relationship Specialty Start Date End Date Jane Church DO [address] [place] [address] PCP - General Family Practice 06/22/16 Rogelio Groves MD [address] [place] [address] Primary Staff Physician Cardiology 06/09/21 Amusement Park Entertainer Relationship Specialty Start Date End Date Jane Church DO [address] [place], [place] [id number] PCP - General Family Practice 06/22/16 Rogelio Groves MD [address] [place] [address] Primary Staff Physician Cardiology 06/09/21 Amusement Park Entertainer Relationship Specialty Start Date End Date Jane Church DO [address] [place] [address] PCP - General Family Practice 06/22/16 Rogelio Groves MD [address] [place] [address] Primary Staff Physician Cardiology 06/09/21 Amusement Park Entertainer Relationship Specialty Start Date End Date Jane Church [address] [place] [address] PCP - General Family Practice 06/22/16 Rogelio Groves MD [address] [place] [address] Primary Staff Physician Cardiology 06/09/21 Amusement Park Entertainer Relationship Specialty Start Date End Date Ranjit Jane Deni [address] [place] [address] PCP - General Family Practice 06/22/16 Rogelio Groves MD [address] [place] [address] Primary Staff Physician Cardiology 06/09/21 Amusement Park Entertainer Relationship Specialty Start Date End Date RangelaristidesJane Deni [address] [place] [address] PCP - General Family Practice 06/22/16 Rogelio Groves MD [address] [place] [address] Primary Staff Physician Cardiology 06/09/21 Amusement Park Entertainer Relationship Specialty Start Date End Date Jane Church [address] [place] [address] PCP - General Family Practice 06/22/16 Rogelio Groves MD [address] [place] [address] Primary Staff Physician Cardiology 06/09/21 Amusement Park Entertainer Relationship Specialty Start Date End Date RanjitJane DO [address] [place] [address] PCP - General Family Practice 06/22/16 Rogelio Groves MD [address] [place] [address] Primary Staff Physician Cardiology 06/09/21 Amusement Park Entertainer Relationship Specialty Start Date End Date Jane Church DO [address] [facility] [place] [address] PCP - General Family Practice 06/22/16 Rogelio Groves MD [address] [place] [address] Primary Staff Physician Cardiology 06/09/21 Amusement Park Entertainer Relationship Specialty Start Date End Date Jane Church DO [address] [facility] [place] [address] PCP - General Family Practice 06/22/16 Rogelio Groves MD [address] [place] [address] Primary Staff Physician Cardiology 06/09/21 Amusement Park Entertainer Relationship Specialty Start Date End Date Jane Church DO [address] [place] [address] PCP - General Family Practice 06/22/16 Rogelio Groves MD [address] [place] [address] Primary Staff Physician Cardiology 06/09/21 Amusement Park Entertainer Relationship Specialty Start Date End Date Jane Church DO [address] [place] [address] PCP - General Family Practice 06/22/16 Rogelio Groves MD [address] [place] [address] Primary Staff Physician Cardiology 06/09/21 Amusement Park Entertainer Relationship Specialty Start Date End Date Jane Church DO [address] [place] [address] PCP - General Family Practice 06/22/16 Rogelio Groves MD [address] [place] [address] Primary Staff Physician Cardiology 06/09/21 Amusement Park Entertainer Relationship Specialty Start Date End Date Jane Church [address] [place] [address] PCP - General Family Medicine 06/22/16 Rogelio Groves MD [address] [place] [address] Primary Staff Physician Cardiology 06/09/21 Amusement Park Entertainer Relationship Specialty Start Date End Date RanjitJanaydeni CheemaDO [address] [place] [address] PCP - General Family Medicine 06/22/16 Rogelio Groves MD [address] [place] [address] Primary Staff Physician Cardiology 06/09/21 Amusement Park Entertainer Relationship Specialty Start Date End Date RangelaristidesJane DeniDO [address] [place] [address] PCP - General Family Medicine 06/22/16 Rogelio Groves MD [address] [place] [address] Primary Staff Physician Cardiology 06/09/21 Amusement Park Entertainer Relationship Specialty Start Date End Date Jane Church DO [address] [place] [address] PCP - General Family Medicine 06/22/16 Rogelio Groves MD [address] [place] [address] Primary Staff Physician Cardiology 06/09/21 Amusement Park Entertainer Relationship Specialty Start Date End Date Jane Church DO [address] [place] [address] PCP - General Family Medicine 06/22/16 Rogelio Groves MD [address] [place] [address] Primary Staff Physician Cardiology 06/09/21 Amusement Park Entertainer Relationship Specialty Start Date End Date Jane Church [address] [place] [address] PCP - General Family Medicine 06/22/16 Rogelio Groves MD [address] [place] [address] Primary Staff Physician Cardiology 06/09/21 Amusement Park Entertainer Relationship Specialty Start Date End Date Jane ChurchDO [address] [place] [address] PCP - General Family Medicine 06/22/16 Rogelio Groves MD [address] [place] [address] Primary Staff Physician Cardiology 06/09/21 Amusement Park Entertainer Relationship Specialty Start Date End Date Jane Church DO [address] [place] [address] PCP - General Family Medicine 06/22/16 Rogelio Groves MD [address] [place], [place] [id number] Primary Staff Physician Cardiology 06/09/21 Team Status: Active Member Role Status Dates Jane Church Family Provider Active Jane Church Primary Care Provider Active Team Status: Inactive Member Role Status Dates Jane Church Primary Care Provider Active AMEENA BERRY Attending Provider Active Team Status: Inactive Member Role Status Dates Jane Church Primary Care Provider Active AMEENA SERRA Attending Provider, Referring Provider Active Team Status: Active Member Role Status Dates Jane Church OLS Family Provider Active Dr. Jane Church DO Primary Care Provider Active Team Status: Inactive Member Role Status Dates Dr. Jane Church DO Primary Care Provider Active Dr. Teri Cage MD Attending Provider, Refer ring Provider Active Team Status: Inactive Member Role Status Dates AMEENA SERRA Attending Provider, Referring Provider Active Dr. Jane Church DO Primary Care Provider Active Amusement Park Entertainer Relationship Specialty Start Date End Date Jane Church DO [address] [place] [address] PCP - General Family Medicine 06/22/16 Rogelio Groves MD [address] [place] [address] Primary Staff Physician Cardiology 06/09/21 Amusement Park Entertainer Relationship Specialty Start Date End Date Jane Church DO [address] [place], [place] [address] PCP - General Family Medicine 06/22/16 Rogelio Groves MD [address] [place] [address] Primary Staff Physician Cardiology 06/09/21 Team Status: Inactive Member Role Status Dates Dr. Jane Church , Primary Care Provider Active Dr. Chris Ordaz , Emergency Provider Active Amusement Park Entertainer Relationship Specialty Start Date End Date Jane Church DO [address] [place] [address] PCP - General Family Medicine 06/22/16 Rogelio Groves MD [address] [place] [address] Primary Staff Physician Cardiology 06/09/21 Amusement Park Entertainer Relationship Specialty Start Date End Date Jane Church DO [address] [place], [place] [address] PCP - General Family Medicine 06/22/16 Rogelio Groves MD [address] [place] [address] Primary Staff Physician Cardiology 06/09/21 Amusement Park Entertainer Relationship Specialty Start Date End Date Jane Church DO [address] [place], [place] [address] PCP - General Family Medicine 06/22/16 Rogelio Groves MD [address] [place] [address] Primary Staff Physician Cardiology 06/09/21 Amusement Park Entertainer Relationship Specialty Start Date End Date Jane Church DO [address] [place], [place] [address] PCP - General Family Medicine 06/22/16 Rogelio Groves MD [address] [place] [address] Primary Staff Physician Cardiology 06/09/21 Amusement Park Entertainer Relationship Specialty Start Date End Date Jane Church DO [address] [place], [place] [address] PCP - General Family Medicine 06/22/16 Rogelio Groves MD [address] [place] [address] Primary Staff Physician Cardiology 06/09/21 Amusement Park Entertainer Relationship Specialty Start Date End Date Jane Church DO [address] [place] [id number] PCP - General Family Medicine 06/22/16 Rogelio Groves MD [address] [place] [address] Primary Staff Physician Cardiology 06/09/21 Amusement Park Entertainer Relationship Specialty Start Date End Date Jane Church DO [address] [place], [place] [address] PCP - General Family Medicine 06/22/16 Rogelio Groves MD [address] [place] [address] Primary Staff Physician Cardiology 06/09/21 Amusement Park Entertainer Relationship Specialty Start Date End Date Jane Church DO [address] [place], [place] [address] PCP - General Family Medicine 06/22/16 Rogelio Groves MD [address] [place] [id number] Primary Staff Physician Cardiology 06/09/21 FOR RECORDS [...] BE BASED ON THE PRIMARY CLINICAL RECORDS. [employer] provides no warranty or guarantee of the accuracy or completeness of information in this document.
== END | disposition home or self-care (01) ==
LOC: BFHLAB 09:42
PROVIDERS: PCP Family Medicine; Referring Provider Nurse Practitioner Family; Visit Provider Nurse Practitioner Family
DX: Z00.01 Encounter for general adult medical examination with abnormal findings (principal); E55.9 Vitamin D deficiency, unspecified; R73.01 Impaired fasting glucose
CPT/HCPCS: 36415; 80053; 80061; 82306; 83036; 85025

== ENCOUNTER → 2024-12-23 | Outpatient (CLI) | payer OTHER, SELFPAY ==
[2024-12-23 18:27] LABS: Follicle Stimulating Hormone 25.7 mIU/mL; Free T3 3.6 pg/mL (2.18-3.98); Vitamin D,25 Hydroxy 87.1 ng/mL (30-100)
[2024-12-25 04:07] LABS: PROGESTERONE 1.4 ng/mL (.)
== END | disposition home or self-care (01) ==
LOC: LAB 16:41
PROVIDERS: PCP Family Medicine; Referring Provider Nurse Practitioner Women's Health; Visit Provider Nurse Practitioner Women's Health
DX: E03.8 Other specified hypothyroidism (principal); E28.8 Other ovarian dysfunction; E55.9 Vitamin D deficiency, unspecified; R53.81 Other malaise
CPT/HCPCS: 36415; 82306; 82627; 82670; 83001; 84144; 84403; 84439; 84443; 84481; 82626